=== PATIENT | male | born 1965 | race African-American/Black ===

== ENCOUNTER 2017-09-26 21:42 | Inpatient (IN) | payer MEDICARE, MEDICAID ==
[~2017-09-26] VITALS: Ht 170.2 cm; Wt 131.5 kg
[~2017-09-26 21:42] MED LIST: ADALAT CC90 MG ORAL; GABAPENTIN300 MG PO; INSULIN N SUBQ; INSULIN R SUBQ; METOPROLOL PO; REGULAR INSULIN
[2017-09-27] VITALS: BP 106/55
[2017-09-27] MEDS ORDERED: Sennosides 8.6mg ORAL PRN (02:00)
[2017-09-27] MEDS ORDERED: NOVOLOG100 UNIT/4 SQ (02:50)
[2017-09-27] MEDS ORDERED: SENSIPAR60 MG PO (02:50)
[2017-09-27] MEDS ORDERED: RENVELA800 MG ORAL (02:50)
[2017-09-27] MEDS ORDERED: NEURONTIN300 MG ORAL (02:50)
[2017-09-27] MEDS ORDERED: SENNA8.6 M2 PO (02:50)
[2017-09-27] MEDS ORDERED: LIPITOR80 MG ORAL (02:50)
[2017-09-27] MEDS ORDERED: SEVELAMER CARB0.8 GM PO (02:50)
[2017-09-27] MEDS ORDERED: ASPIRIN300 MG PO (02:50)
[2017-09-27] MEDS ORDERED: POLYETHYLENE GL17 GM ORAL (02:50)
[2017-09-27] MEDS ORDERED: AMIODARONE HCL100 MG ORAL (02:50)
[2017-09-27] MEDS ORDERED: [UNRECOGNIZED DRUG - OTHER] PO (02:50)
[2017-09-27] MEDS ORDERED: Zosyn 2.25 gm in D5W 55ml IV ONE (03:30)
[2017-09-27] MEDS ORDERED: Vancomycin 1250mg/D5W 250ml IVPB ONE ×2 (03:30→04:30)
[2017-09-27] MEDS ORDERED: Zosyn 2.25gm inj ONE (03:52)
[2017-09-27 04:00] VITALS: BP 106/45
[2017-09-27] MEDS: NovoLOG Insulin Flexpen SUBQ SCH ×4 (06:50→21:00)
[2017-09-27 07:59] VITALS: BP 111/67
[2017-09-27] MEDS: Heparin 5000 units/ml inj SUBQ SCH ×2 (09:00→21:25)
[2017-09-27] MEDS: Aspirin Baby 81mg ORAL SCH (09:09)
[2017-09-27] MEDS: Amiodarone 200mg tab ORAL SCH ×2 (09:10→17:37)
[2017-09-27] MEDS: Sensipar 30mg Tab ORAL SCH (09:10)
[2017-09-27] MEDS: Miralax 17gm pkt ORAL SCH (09:10)
[2017-09-27] MEDS: Levemir Flexpen SUBQ SCH (09:11)
--- NOTE | 2017-09-27 10:24 | Consultation ---
History of Present Illness General Date patient seen: Sep 27, 2017 Present Illness HPI 52 year old male with hx of ESRF, HTN, arrhythmias, diabetic foot ulcer was taken to [place] with CC of dizziness. After initial evaluation, [place] [facility]. Allergies: Coded Allergies: No Known Allergies (Unverified , 09/27/17) Medication History Scheduled Amiodarone Hcl (Amiodarone Hcl), 200 MG ORAL BID, (Reported) Aspirin (Aspirin), 81 MG PO DAILY, (Reported) Atorvastatin (Lipitor), 40 MG ORAL BEDTIME, (Reported) Cinacalcet Hcl (Sensipar), 60 MG PO DAILY, (Reported) Clopidogrel Bisulfate (Clopidogrel Bisulfate), 75 GM PO DAILY, (Reported) Gabapentin (Neurontin), 300 MG ORAL TID, (Reported) Polyethylene Glycol 3350* (Polyethylene Glycol 3350*), 17 GM ORAL BEDTIME, ( Reported) Sevelamer Carbonate (Renvela), 2,400 MG ORAL THREE TIMES A DAY, (Reported) Scheduled PRN Insulin Aspart (Novolog), 1 SQ for sliding scale, (Reported) Sennosides (Senna), 8.6 MG PO BEDTIME PRN for prn, (Reported) Discontinued Medications Gabapentin* (Gabapentin*), 900 MG PO BID, (Reported) Discontinued Reason: Therapy completed Nifedipine Er* (Adalat Cc*), 90 MG ORAL BID, (Reported) Discontinued Reason: Pt stopped taking med Patient History Healthcare decision maker Resuscitation status Full Code Advanced Directive on File No Past Medical/Surgical History Past Medical/Surgical History: (1) ESRF (end stage renal failure) (2) Arrhythmia (3) Diabetes mellitus Review of Systems All Other Systems: negative except mentioned in HPI Physical Exam General Appearance: WD/WN Lines, tubes and drains: peripheral, shunt HEENT: normocephalic, atraumatic Neck: non-tender, normal alignment Respiratory/Chest: chest wall non-tender, lungs clear Breasts: no masses Cardiovascular/Chest: normal rate Abdomen: normal bowel sounds, non tender Genitourinary/Rectal: normal genital exam Last 24 Hour Vital Signs Date Time Temp Pulse Resp B/P (MAP) Pulse Ox O2 Delivery O2 Flow Rate FiO2 09/27/17 07:59 98.3 77 19 111/67 100 09/27/17 04:00 97.3 72 20 106/45 97 09/27/17 00:00 98.3 64 21 106/55 100 Intake and Output 09/26/17 09/27/17 19:00 07:00 Intake Total 521.667 ml Balance 521.667 ml Intake Oral 300 ml IV Total 221.667 ml # Bowel Movements 1 Microbiology Date/Time Source Procedure Growth Status 09/27/17 02:30 Nasal Nares Influenza Types A,B Antigen (DON) - Final Complete Height (Feet): 5 Height (Inches): 7.00 Weight (Pounds): 290 Medications Current Medications Medications (Trade) Dose Ordered Sig/Georges Route PRN Reason Start Time Stop Time Status Last Admin Dose Admin Amiodarone HCl (Cordarone) 200 mg BID ORAL 09/27/17 09:00 10/27/17 08:59 09/27/17 09:10 Aspirin (ASA) 81 mg DAILY ORAL 09/27/17 09:00 10/27/17 08:59 09/27/17 09:09 Atorvastatin Calcium (Lipitor) 40 mg BEDTIME ORAL 09/27/17 21:00 10/27/17 20:59 Cinacalcet (Sensipar) 60 mg DAILY ORAL 09/27/17 09:00 10/27/17 08:59 09/27/17 09:10 Clopidogrel Bisulfate (Plavix) 75 mg DAILY ORAL 09/27/17 09:00 10/27/17 08:59 09/27/17 09:10 Dextrose (Dextrose 50%) STAT PRN IV Hypoglycemia 09/27/17 02:45 10/27/17 02:44 Gabapentin (Neurontin) 300 mg THREE TIMES A DAY ORAL 09/27/17 09:00 10/27/17 08:59 UNV Heparin Sodium (Porcine) (Heparin 5000 units/ml) 5,000 units EVERY 8 HOURS SUBQ 09/27/17 09:00 10/27/17 08:59 Insulin Aspart (NovoLOG) BEFORE MEALS AND HS SUBQ 09/27/17 06:30 10/27/17 06:29 09/27/17 06:50 Insulin Detemir (Levemir) 20 units DAILY SUBQ 09/27/17 09:00 10/27/17 08:59 09/27/17 09:11 Piperacillin Sod/ Tazobactam Sod 2.25 gm/Sodium Chloride 110 ml @ 220 mls/hr EVERY 8 HOURS IV 09/27/17 14:00 10/04/17 13:59 Polyethylene Glycol (Miralax) 17 gm DAILY ORAL 09/27/17 09:00 10/27/17 08:59 09/27/17 09:10 Sennosides (Senokot) 2 tab BEDTIME PRN ORAL Constipation 09/27/17 02:00 10/27/17 01:59 Sevelamer Carbonate (Renvela) 2,400 mg THREE TIMES A DAY ORAL 09/27/17 09:00 10/27/17 08:59 09/27/17 09:09 Vancomycin HCl (Vanco rx to dose) 1 ea DAILY PRN MISC Per rx protocol 09/27/17 01:45 10/27/17 01:44 Assessment/Plan Problem List: (1) Sepsis ICD Codes: A41.9 - Sepsis, unspecified organism SNOMED: 00446938 (2) Diabetic foot ulcer ICD Codes: E11.621 - Type 2 diabetes mellitus with foot ulcer; L97.509 - Non- pressure chronic ulcer of other part of unspecified foot with unspecified severity SNOMED: 79676383, 612158869 (3) Arrhythmia ICD Codes: I49.9 - Cardiac arrhythmia, unspecified SNOMED: 337936821 (4) ESRF (end stage renal failure) ICD Codes: N18.6 - End stage renal disease SNOMED: 69841708 (5) Diabetes mellitus ICD Codes: E11.9 - Type 2 diabetes mellitus without complications SNOMED: 42344897 Assessment/Plan wound care iv abx iD evaluaiton nephrology evaluation dvt prophylaxis Podiatry to seeDr Nejat called ZARRABI, MIRALI Sep 27, 2017 10:24
--- NOTE | 2017-09-27 10:34 | Consultation ---
Consult Note Consult Note asked to eval for dialysis management 7.5 years on HD M W Fr 52 year old male with hx of ESRF, HTN, arrhythmias, diabetic foot ulcer was taken to [place] with CC of dizziness. After initial evaluation, pt is transferred to [facility] [place] for further treatment. interviewed- examined- paulo reviewed . Assessment/Plan ESRD on HD M W Fr - Sepsis - Diabetic foot ulcer - Right lower extremity wounds, grossly they are not infected. - Left heel wound, left gangrene changes of the third, fourth and fifth toes, rule out osteomyelitis. - Arrhythmia - Diabetes mellitus - PVD Plan: Per ID HD in [facility] Contre[facility] Sep 27, 2017 10:34
--- NOTE | 2017-09-27 10:43 | Consultation ---
Consult Note Consult Note ID DIC # [id number] ANGIE LUND M.D. Sep 27, 2017 10:43
[2017-09-27 10:58] LABS: ALANINE AMINOTRANSFERASE 19 U/L (12-78); ALBUMIN/GLOBULIN RATIO 0.3 (1.0-2.7); ALKALINE PHOSPHATASE 148 U/L (46-116); ANION GAP 9 mmol/L (5-15); ASPARTATE AMINO TRANSFERASE 16 U/L (15-37); BILIRUBIN,TOTAL 0.7 MG/DL (0.2-1.0); BLOOD UREA NITROGEN 41 mg/dL (7-18); CALCIUM 9.8 MG/DL (8.5-10.1); CARBON DIOXIDE 30 MMOL/L (21-32); CHLORIDE 93 MMOL/L (98-107); CREATININE 8.2 MG/DL (0.55-1.30); PHOSPHORUS 3.3 MG/DL (2.5-4.9); POTASSIUM 4.4 MMOL/L (3.5-5.1); SODIUM 131 MMOL/L (136-145)
[2017-09-27 11:18] LABS: HEMATOCRIT 26.3 % (42.0-52.0); HEMOGLOBIN 8.5 G/DL (14.2-18.0); MEAN CORPUSCULAR VOLUME 88 FL (80-99); PLATELET COUNT 559 K/UL (150-450); RED CELL DISTRIBUTION WIDTH 17.1 % (11.6-14.8)
[2017-09-27 11:23] LABS: WHITE BLOOD COUNT 25.7 K/UL (4.8-10.8)
[2017-09-27 11:39] VITALS: BP 108/58
[2017-09-27] MEDS: Piperacillin/Tazobactam 2.25 GM in NS 110 ML IV SCH ×2 (13:33→21:20)
--- NOTE | 2017-09-27 14:25 | Cardiology Report ---
APPROVED REPORT EXAM: Two-dimensional and M-mode echocardiogram with Doppler and color Doppler. INDICATION Congestive Heart Failure M-Mode DIMENSIONS IVSd1.4 (0.7-1.1cm)Left Atrium (MM)3.9 (1.6-4.0cm) LVDd6.9 (3.5-5.6cm)Aortic Root4.1 (2.0-3.7cm) PWd1.4 (0.7-1.1cm)Aortic Cusp Exc.2.0 (1.5-2.0cm) IVSs1.9 cm LVDs5.6 (2.5-4.0cm) PWs1.5 cm Technically difficult study due to poor acoustical windows. Mild global left ventricular hypokinesis. This study precludes full analysis of regional wall motion. Left ventricular ejection fraction estimated to be 5 %. No evidence left ventricular hypertrophy.. No evidence of pericardial effusion Right cardiac chamber sizes are within normal limits. Focal aortic valve sclerosis with adequate cusp excursion. Heavy Thickened mitral valve leaflets with normal excursion. Heavy Mitral annulus and aortic root calcification. Normal pulmonic valve structure . Normal tricuspid valve structure. IVC dialeted at size 2.7 with slightly physiologic collapse. A color flow and spectral Doppler study was performed and revealed: Trace aortic regurgitation. Mild to moderate mitral regurgitation. Mitral inflow velocities indicates possible pseudo normalization pattern implying moderately elevated left atrial pressure (Grade II ). Trace tricuspid regurgitation. No Pulmonic regurgitation present.
[2017-09-27 15:48] VITALS: BP 128/78
[2017-09-27] MEDS ORDERED: Tubing IV Secondary IV ONE (16:19)
[2017-09-27] MEDS ORDERED: NS 275ml ONE (16:19)
--- NOTE | 2017-09-27 16:30 | Consultation ---
DATE OF CONSULTATION: 09/27/2017 INFECTIOUS DISEASE CONSULTATION CONSULTING PHYSICIAN: Martin Thompson M.D. REFERRING PHYSICIAN: Vanessa Chauhan M.D. REASON FOR CONSULTATION: Evaluation of patient for lower extremity wound infection and antibiotic management. HISTORY OF PRESENT ILLNESS: The patient is a 52-year-old male with multiple medical problems, who was admitted to this medical center for worsening of left lower extremity wound infection. The patient has gangrene changes in the area. The patient has been followed by [facility] as an outpatient. Infectious Disease consultation has been requested for further evaluation of the patient. The patient mentioned he had an MRI of the foot back in July 2007 and there was no evidence of osteomyelitis at that point. PAST MEDICAL HISTORY: 1. Diabetes. 2. End-stage renal disease, on hemodialysis. 3. Obesity. 4. Diabetic neuropathy. 5. Bilateral lower extremity wounds. 6. History of CAD. 7. History of cardiac arrest. 8. History of myocardial infarction. SOCIAL HISTORY: Negative for alcohol, drug abuse, or smoking. FAMILY HISTORY: Not contributing. REVIEW OF SYSTEMS: HEENT: No recent change in vision or hearing. PULMONARY: No cough or shortness of breath. CARDIOVASCULAR: No chest pain or palpitations. GASTROINTESTINAL/ABDOMEN: No nausea or vomiting. GENITOURINARY: No dysuria. MUSCULOSKELETAL: As mentioned above. NEUROLOGIC: No history of seizure. PHYSICAL EXAMINATION: VITAL SIGNS: Temperature 98 degrees, blood pressure 111/65, pulse 86, and respiratory rate 18. HEENT: No pale conjunctivae. No icterus. NECK: No lymphadenopathy. CHEST: Clear. HEART: S1 and S2. ABDOMEN: Soft, obese, nontender. EXTREMITIES: The patient has multiple wounds in the right lower extremity (right calf and right big toe). They are dried. No evidence of active infection. Left heel has ulceration. No drainage. The patient's left third, fourth and fifth toes have gangrenous changes. Has drainage, but no obvious purulent discharge. NEUROLOGIC: Awake and alert. LABORATORY AND DIAGNOSTIC DATA: Laboratories are pending. ASSESSMENT: The patient is a 52-year-old male with, 1. Right lower extremity wounds, grossly they are not infected. 2. Left heel wound, left gangrene changes of the third, fourth and fifth toes, rule out osteomyelitis. 3. Probable peripheral vascular disease. PLAN: 1. We will start patient on Vancomycin and Zosyn day #1. 2. Monitor CBC. 3. Monitor BMP. 4. Blood culture. 5. We will hold on wound culture as the patient's wounds are dry and there is significant findings. 6. MRI of the right foot, rule out osteomyelitis. 7. Recommend for Podiatry and vascular surgeon consultation. 8. Based on the patient's clinical course and laboratories, we will do further recommendation. Thank you, Dr. Chauhan, for allowing me to participate in the care of this patient. I will follow the patient with you during this hospitalization. Martin Thompson M.D. DR: ANDIE JOB#: [id number] CC:
--- NOTE | 2017-09-27 17:36 | History & Physical ---
History and Physical History & Physicial Dictated for Int Med-Dr Montes no. [id number]. LETY MATOS Sep 27, 2017 17:36
[2017-09-27] MEDS ORDERED: Amiodarone 200mg tab ORAL SCH (18:00)
--- NOTE | 2017-09-27 19:30 | History and Physical Report ---
DATE OF ADMISSION: 09/27/2017 CHIEF COMPLAINT: The patient is a 52-year-old male, presents with chief complaint of subjective fevers and chills and cough. HISTORY OF PRESENT ILLNESS: It began approximately 4 weeks ago. The patient began to have cough. Cough is nonproductive. The patient began to experience fevers and chills yesterday. The patient also felt dizzy. The patient states he felt unsteady. The patient initially presented to [facility] emergency room. The patient is transferred to [facility] for insurance purposes. The patient is admitted for fever and chills to rule out sepsis. PAST MEDICAL HISTORY: Significant for: 1. Type 2 diabetes. 2. Diabetic peripheral neuropathy. 3. Coronary artery disease, status post myocardial infarction in 2017. 4. End-stage renal disease, on hemodialysis every Thursday, Thursday, and Thursday. PAST SURGICAL HISTORY: Significant for right arm arteriovenous graft for dialysis. CURRENT MEDICATIONS: 1. Amiodarone 100 mg two tablets p.o. twice daily. 2. Aspirin 81 mg p.o. daily. 3. Lipitor 40 mg p.o. at bedtime. 4. Cinacalcet 60 mg p.o. daily. 5. Clopidogrel 75 mg p.o. daily. 6. Neurontin 300 mg p.o. three times daily. 7. NovoLog sliding scale. 8. Renvela 2400 mg p.o. three times daily. ALLERGIES: No known drug allergies. SOCIAL HISTORY: The patient is . The patient denies tobacco or alcohol use. The patient is disabled. REVIEW OF SYSTEMS: CONSTITUTIONAL: The patient denies weight loss or weight gain. The patient complains of subjective fevers and chills as above. HEENT: The patient denies ear or throat pain. The patient denies headache. CARDIOVASCULAR: The patient denies palpitations or chest pain. CHEST: The patient denies wheeze or shortness of breath. ABDOMEN: The patient denies nausea, vomiting, diarrhea, or constipation. GENITOURINARY: The patient denies dysuria or increased frequency of urination. NEUROMUSCULAR: The patient complains of vertigo as above. The patient denies seizures or generalized weakness. PHYSICAL EXAMINATION: GENERAL: The patient is a well-developed and well-nourished male, in no apparent distress. VITAL SIGNS: Temperature 98.2 degrees, respirations 21, pulse 64, and blood pressure 106/55. HEENT: Eyes, pupils are equal and responsive to light and accommodation. Extraocular movements are intact. NECK: Supple without lymphadenopathy. CHEST: Lungs are clear to auscultation bilaterally without wheezes or rales. CARDIOVASCULAR: Regular rhythm and rate. S1 and S2 are normal without murmurs, rubs, or gallops. ABDOMEN: Soft, nontender, and nondistended. Positive bowel sounds. No evidence of hepatosplenomegaly. Currently, no rebound or guarding noted. EXTREMITIES: Negative for clubbing, cyanosis, or edema. RECTAL/GENITAL: Refused. NEUROLOGIC: Cranial nerves II through XII are grossly intact without focal deficits. Motor strength is 5/5 bilaterally. Deep tendon reflexes are 2+ plantar. LABORATORY AND DIAGNOSTIC DATA: WBC 25.7, hemoglobin 8.5, hematocrit 26.3 and platelets 559,000. Sodium 131, potassium 4.4, chloride 193, CO2 30, BUN 41, creatinine 8.2 and glucose 159. ASSESSMENT: This is a 52-year-old male: 1. Fever. 2. Vertigo. 3. End-stage renal disease. 4. Diabetes, type 2. 5. Hypertension. 6. Coronary artery disease. TREATMENT: 1. Fever. Infectious Disease consultation has been obtained with Dr. Thompson. The patient has been started empirically on Zosyn. We will follow recommendations of Dr. Thompson. 2. End-stage renal disease. A Nephrology consultation has been obtained with Dr. Wild. The patient will undergo dialysis every Thursday, Thursday, and Thursday. We will follow recommendations of Dr. Wild. 3. Diabetes, type 2. The patient has been started on Levemir 20 units subcutaneously daily. A regular insulin sliding scale will be used to cover elevated blood sugar. 4. Hypertension. Continue currently on medication. 5. Hypercholesterolemia. Continue atorvastatin as above. 6. Peripheral vascular disease. A Podiatry consultation has been obtained with Dr. Harrington. Wilton Aburto M.D. DR: YVONNE JOB#: [id number] CC:
[2017-09-27 19:59] VITALS: BP 106/53
[2017-09-27] MEDS ORDERED: Atorvastatin 80mg tab ORAL SCH (21:00)
[2017-09-27] MEDS: Atorvastatin 20mg tab ORAL SCH (21:19)
[2017-09-28] VITALS: BP 104/68
[2017-09-28 04:00] VITALS: BP 110/71
[2017-09-28] MEDS: Piperacillin/Tazobactam 2.25 GM in NS 110 ML IV SCH ×3 (06:08→21:43)
[2017-09-28] MEDS: Heparin 5000 units/ml inj SUBQ SCH ×3 (06:25→21:59)
[2017-09-28] MEDS: NovoLOG Insulin Flexpen SUBQ SCH ×4 (06:26→21:57)
[2017-09-28 07:22] LABS: % IRON SATURATION 22 % (15-50); IRON 16 ug/dL (50-175); TOTAL IRON BINDING CAPACITY 73 ug/dL (250-450)
[2017-09-28 07:28] LABS: HEMATOCRIT 26.4 % (42.0-52.0); HEMOGLOBIN 8.4 G/DL (14.2-18.0); MEAN CORPUSCULAR VOLUME 86 FL (80-99); PLATELET COUNT 587 K/UL (150-450); RED BLOOD COUNT 3.07 M/UL (4.70-6.10); RED CELL DISTRIBUTION WIDTH 16.5 % (11.6-14.8)
[2017-09-28 07:30] LABS: WHITE BLOOD COUNT 22.1 K/UL (4.8-10.8)
[2017-09-28 07:37] LABS: CREATINE KINASE 32 U/L (26-308); GAMMA GLUTAMYL TRANSPEPTIDASE 261 U/L (5-85)
[2017-09-28 07:39] LABS: ALANINE AMINOTRANSFERASE 16 U/L (12-78); ALBUMIN 1.9 G/DL (3.4-5.0); ALBUMIN/GLOBULIN RATIO 0.3 (1.0-2.7); ALKALINE PHOSPHATASE 157 U/L (46-116); ANION GAP 9 mmol/L (5-15); ASPARTATE AMINO TRANSFERASE 16 U/L (15-37); BILIRUBIN,TOTAL 0.6 MG/DL (0.2-1.0); BLOOD UREA NITROGEN 49 mg/dL (7-18); CALCIUM 9.3 MG/DL (8.5-10.1); CARBON DIOXIDE 28 MMOL/L (21-32); CHLORIDE 95 MMOL/L (98-107); CHOLESTEROL 66 MG/DL (< 200); CREATININE 9.6 MG/DL (0.55-1.30); FERRITIN > 2000 NG/ML (8-388); HDL CHOLESTEROL 20 MG/DL (40-60); PHOSPHORUS 3.6 MG/DL (2.5-4.9); POTASSIUM 4.9 MMOL/L (3.5-5.1); SODIUM 132 MMOL/L (136-145); TRIGLYCERIDES 58 MG/DL (30-150)
[2017-09-28] MEDS: Miralax 17gm pkt ORAL SCH (09:14)
[2017-09-28] MEDS: Amiodarone 200mg tab ORAL SCH ×2 (09:14→18:00)
[2017-09-28] MEDS: Aspirin Baby 81mg ORAL SCH (09:14)
[2017-09-28] MEDS: Sensipar 30mg Tab ORAL SCH (09:14)
[2017-09-28] MEDS: Levemir Flexpen SUBQ SCH (09:22)
[2017-09-28] MEDS ORDERED: Vancomycin 1250mg/D5W 250ml IVPB ONE (12:00)
--- NOTE | 2017-09-28 13:23 | Nephrology Progress Note ---
Assessment/Plan Problem List: (1) ESRF (end stage renal failure) (2) Sepsis (3) Diabetic foot ulcer (4) Diabetes mellitus (5) Arrhythmia Assessment ESRD on HD M W Fr - Sepsis - Diabetic foot ulcer - Right lower extremity wounds, grossly they are not infected. - Left heel wound, left gangrene changes of the third, fourth and fifth toes, rule out osteomyelitis. - Arrhythmia - Diabetes mellitus - PVD Plan Plan: Per ID HD today Subjective ROS Limited/Unobtainable: No Constitutional: Reports: malaise, weakness Objective Objective Last 24 Hour Vital Signs Date Time Temp Pulse Resp B/P (MAP) Pulse Ox O2 Delivery O2 Flow Rate FiO2 09/28/17 04:00 97.9 71 20 110/71 93 09/28/17 00:00 97.2 85 18 104/68 92 09/27/17 19:59 96.8 76 20 106/53 96 09/27/17 15:48 97.9 75 18 128/78 98 Intake and Output 09/27/17 09/28/17 19:00 07:00 Intake Total 580 ml 350 ml Output Total 0 ml Balance 580 ml 350 ml Intake Oral 360 ml 240 ml IV Total 220 ml 110 ml Output Urine Total 0 ml Laboratory Tests 09/28/17 05:20: White Blood Count 22.1*H, Red Blood Count 3.07L, Hemoglobin 8.4L, Hematocrit 26.4L, Mean Corpuscular Volume 86, Mean Corpuscular Hemoglobin 27.3, Mean Corpuscular Hemoglobin Concent 31.8L, Red Cell Distribution Width 16.5H, Platelet Count 587H, Mean Platelet Volume 7.1, Neutrophils (%) (Auto) , Lymphocytes (%) (Auto) , Monocytes (%) (Auto) , Eosinophils (%) (Auto) , Basophils (%) (Auto) , Differential Total Cells Counted 100, Neutrophils % ( Manual) 81H, Lymphocytes % (Manual) 12L, Monocytes % (Manual) 6, Eosinophils % ( Manual) 1, Basophils % (Manual) 0, Band Neutrophils 0, Platelet Estimate IncreasedH, Platelet Morphology Normal, Hypochromasia 1+, Anisocytosis 1+, Erythrocyte Sedimentation Rate 122H, Sodium Level 132L, Potassium Level 4.9, Chloride Level 95L, Carbon Dioxide Level 28, Anion Gap 9, Blood Urea Nitrogen 49H, Creatinine 9.6H, Estimat Glomerular Filtration Rate 7.0, Glucose Level 113H , Hemoglobin A1c 7.3H, Uric Acid 6.5, Calcium Level 9.3, Phosphorus Level 3.6, Magnesium Level 2.3, Iron Level 16L, Total Iron Binding Capacity 73L, Percent Iron Saturation 22, Unsaturated Iron Binding 57L, Ferritin > 2000H, Total Bilirubin 0.6, Gamma Glutamyl Transpeptidase 261H, Aspartate Amino Transf (AST/ SGOT) 16, Alanine Aminotransferase (ALT/SGPT) 16, Alkaline Phosphatase 157H, Total Creatine Kinase 32, C-Reactive Protein, Quantitative 29.8H, Pro-B-Type Natriuretic Peptide 69509F, Total Protein 8.5H, Albumin 1.9L, Globulin 6.6, Albumin/Globulin Ratio 0.3L, Triglycerides Level 58, Cholesterol Level 66, LDL Cholesterol 35, HDL Cholesterol 20L, Cholesterol/HDL Ratio 3.3, Vitamin B12 Level 975, Folate 12.8, Thyroid Stimulating Hormone (TSH) 1.187, Random Vancomycin Level 13.9 Height (Feet): 5 Height (Inches): 7.00 Weight (Pounds): 290 General Appearance: no apparent distress Cardiovascular: normal rate, arrhythmia Respiratory/Chest: decreased breath sounds Abdomen: soft Extremities: other - foot ulceration per BREANN RAMIREZ Sep 28, 2017 13:23
--- NOTE | 2017-09-28 13:36 | Diagnostic Imaging Report ---
Indication: Pain Technique: Left foot imaging utilizing multiplanar T1 fast spin-echo and STIR. Study was performed in 2 stations to obtain adequate [id number]. Imaging consisted of 1. hindfoot-ankle and then 2. midfoot forefoot. Comparison: None Findings: With regard to the forefoot, there is clinical concern at the level of the phalanges. While of the ulcerations are not appreciated well on the images obtained, the bones exhibit relatively normal bone marrow signal. The only exception is the fifth phalange which shows mild peripheral T2 hyperintensity at the level of the phalanges and the fifth metatarsal head. T1 sequences within the fifth toe appear normal with preserved bright short T1 signal. Although osteomyelitis is not entirely excludable, findings are probably due to reactive bone marrow edema from surrounding soft tissue infection. Recommend follow-up. 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 With regard to the ankle and hindfoot, there is preserved bone marrow signal. Ulceration and skin irregularity along the medial part of the hindfoot noted. Subcutaneous edema is present. There is a joint effusion within the subtalar joint as well as within the tibiotalar joint. There is soft tissue edema posterior to the Achilles tendon with skin changes. The Achilles tendon itself appears intermediate in signal with areas of delamination. There is no rupture of the tendon but the tendon. Findings are presumably on the basis of contiguous adjacent soft tissue infection. Please correlate clinically. No abscess is identified. IMPRESSION: Peripheral, mild T2 hyperintense signal involving the head of the fifth metatarsal head and phalanges. Findings are most likely due to reactive bone marrow edema rather than osteomyelitis as T1 signal is normal. Follow-up recommended. No evidence of acute osteomyelitis otherwise within the forefoot, midfoot or hindfoot/ankle. Abnormal Achilles tendon with marked inflammation. Adjacent soft tissue inflammation, skin ulceration suspected resulting in the abnormal appearance of the Achilles tendon. Please correlate clinically. Generalized subcutaneous edema consistent with cellulitis.
--- NOTE | 2017-09-28 13:36 | Internal Med Progress Note ---
Subjective Date of Service: Sep 28, 2017 Physician Name Lety Matos Attending Physician Efraín Montes MD Current Medications Medications (Trade) Dose Ordered Sig/Georges Route PRN Reason Start Time Stop Time Status Last Admin Dose Admin Amiodarone HCl (Cordarone) 200 mg BID ORAL 09/27/17 09:00 10/27/17 08:59 09/28/17 09:14 Aspirin (ASA) 81 mg DAILY ORAL 09/27/17 09:00 10/27/17 08:59 09/28/17 09:14 Atorvastatin Calcium (Lipitor) 40 mg BEDTIME ORAL 09/27/17 21:00 10/27/17 20:59 09/27/17 21:19 Cinacalcet (Sensipar) 60 mg DAILY ORAL 09/27/17 09:00 10/27/17 08:59 09/28/17 09:14 Clopidogrel Bisulfate (Plavix) 75 mg DAILY ORAL 09/27/17 09:00 10/27/17 08:59 09/28/17 09:14 Dextrose (Dextrose 50%) STAT PRN IV Hypoglycemia 09/27/17 02:45 10/27/17 02:44 Gabapentin (Neurontin) 300 mg THREE TIMES A DAY ORAL 09/27/17 13:00 10/27/17 12:59 09/28/17 09:14 Heparin Sodium (Porcine) (Heparin 5000 units/ml) 5,000 units EVERY 8 HOURS SUBQ 09/27/17 09:00 10/27/17 08:59 09/28/17 06:25 Insulin Aspart (NovoLOG) BEFORE MEALS AND HS SUBQ 09/27/17 06:30 10/27/17 06:29 09/27/17 11:30 Insulin Detemir (Levemir) 20 units DAILY SUBQ 09/27/17 09:00 10/27/17 08:59 09/28/17 09:22 Lansoprazole (Prevacid) 30 mg DAILY ORAL 09/27/17 12:00 10/27/17 11:59 09/28/17 09:14 Piperacillin Sod/ Tazobactam Sod 2.25 gm/Sodium Chloride 110 ml @ 220 mls/hr EVERY 8 HOURS IV 09/27/17 14:00 10/04/17 13:59 09/28/17 06:08 Polyethylene Glycol (Miralax) 17 gm DAILY ORAL 09/27/17 09:00 10/27/17 08:59 09/28/17 09:14 Sennosides (Senokot) 2 tab BEDTIME PRN ORAL Constipation 09/27/17 02:00 10/27/17 01:59 Sevelamer Carbonate (Renvela) 2,400 mg THREE TIMES A DAY ORAL 09/27/17 09:00 10/27/17 08:59 09/28/17 09:14 Vancomycin HCl (Vanco rx to dose) 1 ea DAILY PRN MISC Per rx protocol 09/27/17 01:45 10/27/17 01:44 Allergies: Coded Allergies: No Known Allergies (Unverified , 09/27/17) ROS Limited/Unobtainable: No Constitutional: Reports: no symptoms HEENT: Reports: no symptoms Cardiovascular: Reports: no symptoms Gastrointestinal/Abdominal: Reports: no symptoms Genitourinary: Reports: no symptoms Neurologic/Psychiatric: Reports: no symptoms Subjective 52 YO M admitted with fever. Hemodialysis scheduled today. Cover for Int Stephen- Dr Montes Objective Last Vital Signs Date Time Temp Pulse Resp B/P (MAP) Pulse Ox O2 Delivery O2 Flow Rate FiO2 09/28/17 04:00 97.9 71 20 110/71 93 General Appearance: WD/WN, obese EENT: PERRL/EOMI, normal ENT inspection Neck: non-tender, normal alignment, supple Cardiovascular: normal peripheral pulses, normal rate, regular rhythm, no gallop/murmur, no JVD Respiratory/Chest: chest wall non-tender, lungs clear, normal breath sounds, no respiratory distress, no accessory muscle use Abdomen: normal bowel sounds, non tender, soft, no organomegaly, no mass Extremities: normal range of motion, non-tender 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: 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 normal, no motor/sensory deficits Skin: normal pigmentation, warm/dry Laboratory Tests Test 09/28/17 05:20 White Blood Count 22.1 K/UL (4.8-10.8) *H Red Blood Count 3.07 M/UL (4.70-6.10) L Hemoglobin 8.4 G/DL (14.2-18.0) L Hematocrit 26.4 % (42.0-52.0) L Mean Corpuscular Volume 86 FL (80-99) Mean Corpuscular Hemoglobin 27.3 PG (27.0-31.0) Mean Corpuscular Hemoglobin Concent 31.8 G/DL (32.0-36.0) L Red Cell Distribution Width 16.5 % (11.6-14.8) H Platelet Count 587 K/UL (150-450) H Mean Platelet Volume 7.1 FL (6.5-10.1) Neutrophils (%) (Auto) % (45.0-75.0) Lymphocytes (%) (Auto) % (20.0-45.0) Monocytes (%) (Auto) % (1.0-10.0) Eosinophils (%) (Auto) % (0.0-3.0) Basophils (%) (Auto) % (0.0-2.0) Differential Total Cells Counted 100 Neutrophils % (Manual) 81 % (45-75) H Lymphocytes % (Manual) 12 % (20-45) L Monocytes % (Manual) 6 % (1-10) Eosinophils % (Manual) 1 % (0-3) Basophils % (Manual) 0 % (0-2) Band Neutrophils 0 % (0-8) Platelet Estimate Increased H Platelet Morphology Normal Hypochromasia 1+ Anisocytosis 1+ Erythrocyte Sedimentation Rate 122 MM/HR (0-20) H Sodium Level 132 MMOL/L (136-145) L Potassium Level 4.9 MMOL/L (3.5-5.1) Chloride Level 95 MMOL/L (98-107) L Carbon Dioxide Level 28 MMOL/L (21-32) Anion Gap 9 mmol/L (5-15) Blood Urea Nitrogen 49 mg/dL (7-18) H Creatinine 9.6 MG/DL (0.55-1.30) H Estimat Glomerular Filtration Rate 7.0 mL/min (>60) Glucose Level 113 MG/DL (74-106) H Hemoglobin A1c 7.3 % (4.3-6.0) H Uric Acid 6.5 MG/DL (2.6-7.2) Calcium Level 9.3 MG/DL (8.5-10.1) Phosphorus Level 3.6 MG/DL (2.5-4.9) Magnesium Level 2.3 MG/DL (1.8-2.4) Iron Level 16 ug/dL (50-175) L Total Iron Binding Capacity 73 ug/dL (250-450) L Percent Iron Saturation 22 % (15-50) Unsaturated Iron Binding 57 ug/dL (112-346) L Ferritin > 2000 NG/ML (8-388) H Total Bilirubin 0.6 MG/DL (0.2-1.0) Gamma Glutamyl Transpeptidase 261 U/L (5-85) H Aspartate Amino Transf (AST/SGOT) 16 U/L (15-37) Alanine Aminotransferase (ALT/SGPT) 16 U/L (12-78) Alkaline Phosphatase 157 U/L (46-116) H Total Creatine Kinase 32 U/L (26-308) C-Reactive Protein, Quantitative 29.8 mg/dL (0.00-0.90) H Pro-B-Type Natriuretic Peptide 61613 pg/mL (0-125) H Total Protein 8.5 G/DL (6.4-8.2) H Albumin 1.9 G/DL (3.4-5.0) L Globulin 6.6 g/dL Albumin/Globulin Ratio 0.3 (1.0-2.7) L Triglycerides Level 58 MG/DL (30-150) Cholesterol Level 66 MG/DL (< 200) LDL Cholesterol 35 mg/dL (<100) HDL Cholesterol 20 MG/DL (40-60) L Cholesterol/HDL Ratio 3.3 (3.3-4.4) Vitamin B12 Level 975 PG/ML (193-986) Folate 12.8 NG/ML (8.6-58.9) Thyroid Stimulating Hormone (TSH) 1.187 uiU/mL (0.358-3.740) Random Vancomycin Level 13.9 ug/mL Microbiology Date/Time Source Procedure Growth Status 09/27/17 09:50 Blood Blood Culture - Preliminary Resulted 09/27/17 02:30 Nasal Nares Influenza Types A,B Antigen (DON) - Final Complete Intake and Output 09/27/17 09/28/17 19:00 07:00 Intake Total 580 ml 350 ml Output Total 0 ml Balance 580 ml 350 ml Intake Oral 360 ml 240 ml IV Total 220 ml 110 ml Output Urine Total 0 ml Assessment/Plan Problem List: (1) Leukocytosis (2) Fever (3) ESRD (end stage renal disease) on dialysis Assessment & Plan: Hemodialysis M W F per nephrology (4) Diabetes mellitus, type II Assessment & Plan: Continue levemir and novolog (5) HTN (hypertension) (6) CAD (coronary artery disease) (7) Hypercholesteremia (8) Diabetic foot ulcer Assessment & Plan: Await podiatry consult. cont tiffanie and brian Status: not improved LETY MATOS Sep 28, 2017 13:36
--- NOTE | 2017-09-28 15:18 | Pulmonology Progress Note ---
Assessment/Plan Problems: (1) Sepsis (2) Diabetic foot ulcer (3) Arrhythmia (4) ESRF (end stage renal failure) (5) Diabetes mellitus Assessment/Plan Improving IV abx Check cultures Neurology to see for dizziness. HD by nephrology Subjective ROS Limited/Unobtainable: No Musculoskeletal: Reports: pain, swelling, stiffness Allergies: Coded Allergies: No Known Allergies (Unverified , 09/27/17) Objective Last 24 Hour Vital Signs Date Time Temp Pulse Resp B/P (MAP) Pulse Ox O2 Delivery O2 Flow Rate FiO2 09/28/17 04:00 97.9 71 20 110/71 93 09/28/17 00:00 97.2 85 18 104/68 92 09/27/17 19:59 96.8 76 20 106/53 96 09/27/17 15:48 97.9 75 18 128/78 98 Intake and Output 09/27/17 09/28/17 19:00 07:00 Intake Total 580 ml 350 ml Output Total 0 ml Balance 580 ml 350 ml Intake Oral 360 ml 240 ml IV Total 220 ml 110 ml Output Urine Total 0 ml General Appearance: no acute distress HEENT: normocephalic, atraumatic, PERRL Respiratory/Chest: chest wall non-tender, lungs clear, normal breath sounds, no respiratory distress Cardiovascular: normal peripheral pulses, normal rate, regular rhythm, no JVD Abdomen: normal bowel sounds, soft, non tender, no organomegaly, non distended , no mass Genitourinary: normal external genitalia Extremities: no cyanosis Skin: rash, lesions, ulcers, other - diabetic food lesions and ulceration Neurologic/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: 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, no motor/sensory deficits Microbiology Date/Time Source Procedure Growth Status 09/27/17 09:50 Blood Blood Culture - Preliminary Resulted 09/27/17 02:30 Nasal Nares Influenza Types A,B Antigen (DON) - Final Complete Laboratory Tests 09/28/17 05:20: White Blood Count 22.1*H, Red Blood Count 3.07L, Hemoglobin 8.4L, Hematocrit 26.4L, Mean Corpuscular Volume 86, Mean Corpuscular Hemoglobin 27.3, Mean Corpuscular Hemoglobin Concent 31.8L, Red Cell Distribution Width 16.5H, Platelet Count 587H, Mean Platelet Volume 7.1, Neutrophils (%) (Auto) , Lymphocytes (%) (Auto) , Monocytes (%) (Auto) , Eosinophils (%) (Auto) , Basophils (%) (Auto) , Differential Total Cells Counted 100, Neutrophils % ( Manual) 81H, Lymphocytes % (Manual) 12L, Monocytes % (Manual) 6, Eosinophils % ( Manual) 1, Basophils % (Manual) 0, Band Neutrophils 0, Platelet Estimate IncreasedH, Platelet Morphology Normal, Hypochromasia 1+, Anisocytosis 1+, Erythrocyte Sedimentation Rate 122H, Sodium Level 132L, Potassium Level 4.9, Chloride Level 95L, Carbon Dioxide Level 28, Anion Gap 9, Blood Urea Nitrogen 49H, Creatinine 9.6H, Estimat Glomerular Filtration Rate 7.0, Glucose Level 113H , Hemoglobin A1c 7.3H, Uric Acid 6.5, Calcium Level 9.3, Phosphorus Level 3.6, Magnesium Level 2.3, Iron Level 16L, Total Iron Binding Capacity 73L, Percent Iron Saturation 22, Unsaturated Iron Binding 57L, Ferritin > 2000H, Total Bilirubin 0.6, Gamma Glutamyl Transpeptidase 261H, Aspartate Amino Transf (AST/ SGOT) 16, Alanine Aminotransferase (ALT/SGPT) 16, Alkaline Phosphatase 157H, Total Creatine Kinase 32, C-Reactive Protein, Quantitative 29.8H, Pro-B-Type Natriuretic Peptide 11274K, Total Protein 8.5H, Albumin 1.9L, Globulin 6.6, Albumin/Globulin Ratio 0.3L, Triglycerides Level 58, Cholesterol Level 66, LDL Cholesterol 35, HDL Cholesterol 20L, Cholesterol/HDL Ratio 3.3, Vitamin B12 Level 975, Folate 12.8, Thyroid Stimulating Hormone (TSH) 1.187, Random Vancomycin Level 13.9 Current Medications Medications (Trade) Dose Ordered Sig/Georges Route PRN Reason Start Time Stop Time Status Last Admin Dose Admin Amiodarone HCl (Cordarone) 200 mg BID ORAL 09/27/17 09:00 10/27/17 08:59 09/28/17 09:14 Aspirin (ASA) 81 mg DAILY ORAL 09/27/17 09:00 10/27/17 08:59 09/28/17 09:14 Atorvastatin Calcium (Lipitor) 40 mg BEDTIME ORAL 09/27/17 21:00 10/27/17 20:59 09/27/17 21:19 Cinacalcet (Sensipar) 60 mg DAILY ORAL 09/27/17 09:00 10/27/17 08:59 09/28/17 09:14 Clopidogrel Bisulfate (Plavix) 75 mg DAILY ORAL 09/27/17 09:00 10/27/17 08:59 09/28/17 09:14 Dextrose (Dextrose 50%) STAT PRN IV Hypoglycemia 09/27/17 02:45 10/27/17 02:44 Gabapentin (Neurontin) 300 mg THREE TIMES A DAY ORAL 09/27/17 13:00 10/27/17 12:59 09/28/17 09:14 Heparin Sodium (Porcine) (Heparin 5000 units/ml) 5,000 units EVERY 8 HOURS SUBQ 09/27/17 09:00 10/27/17 08:59 09/28/17 14:47 Insulin Aspart (NovoLOG) BEFORE MEALS AND HS SUBQ 09/27/17 06:30 10/27/17 06:29 09/28/17 13:39 Insulin Detemir (Levemir) 20 units DAILY SUBQ 09/27/17 09:00 10/27/17 08:59 09/28/17 09:22 Lansoprazole (Prevacid) 30 mg DAILY ORAL 09/27/17 12:00 10/27/17 11:59 09/28/17 09:14 Piperacillin Sod/ Tazobactam Sod 2.25 gm/Sodium Chloride 110 ml @ 220 mls/hr EVERY 8 HOURS IV 09/27/17 14:00 10/04/17 13:59 09/28/17 06:08 Polyethylene Glycol (Miralax) 17 gm DAILY ORAL 09/27/17 09:00 10/27/17 08:59 09/28/17 09:14 Sennosides (Senokot) 2 tab BEDTIME PRN ORAL Constipation 09/27/17 02:00 10/27/17 01:59 Sevelamer Carbonate (Renvela) 2,400 mg THREE TIMES A DAY ORAL 09/27/17 09:00 10/27/17 08:59 09/28/17 09:14 Vancomycin HCl (Vanco rx to dose) 1 ea DAILY PRN MISC Per rx protocol 09/27/17 01:45 10/27/17 01:44 ARDEN CONCEPCION Sep 28, 2017 15:18
[2017-09-28 16:10] VITALS: BP 114/73
--- NOTE | 2017-09-28 17:02 | Consultation ---
Consult Note Assessment/Plan A/ 1) Wet gangrene left foot 2) Gangrene right hallux 3) PAD 4) DM 5) ESRD 6) h/o of [place] P/ 1) Patient was advised and educated on his condition. Patient was being seen by an outside Telecommunication Engineer and was never told he has gangrene. He was told that he would lose his toes and would need a miracle for them to heal. Educated him that he has wet gangrene and leukocytosis and his foot was making him sick. Advised that if he does not have a BKA, he will be risking . Patient understands and will need time to digest his condition. D/W Dr Aburto, and called Dr Oakley to perform amputation. 2) Vasc studies reviewed and will need vasc consult to evaluate RLE. The gangrene of the right hallux is dry and stable at this time. 3) Strict glycemic control 4) Cont wound care 5) Cont IV abx per ID Thank you Dr Aburto. Nestor Harrington DPM Sep 28, 2017 17:02
[2017-09-28 17:30] VITALS: BP 93/60
[2017-09-28 20:00] VITALS: BP 121/61
[2017-09-28 21:20] VITALS: BP 124/70
[2017-09-28] MEDS: Atorvastatin 20mg tab ORAL SCH (21:42)
[2017-09-29] VITALS (9 sets, daily range): BP systolic 88–119; BP diastolic 58–68
--- NOTE | 2017-09-29 02:30 | Consultation ---
DATE OF CONSULTATION: 09/28/2017 CONSULTING PHYSICIAN: Nestor Harrington D.P.M. REQUESTING PHYSICIAN: Wilton Aburto M.D. REASON FOR CONSULTATION: Diabetic foot ulcer and peripheral arterial disease. HISTORY OF PRESENT ILLNESS: The patient is a 52-year-old male who was admitted to [facility] for diabetic foot ulcer. He was seen at [facility] and transferred here for continued care. The patient states that he has been following Dr. Wheatley for many years now and this mixer driver was caring for his wounds. He states that his wounds have been improving and that he would likely lose the toes and would need a miracle to save his toes on his left foot. He is not aware that he has gangrenous toes as he has not been diagnosed with such. He does admit to fevers and chills, but no nausea or vomiting. PAST MEDICAL HISTORY: Significant for type 2 diabetes mellitus, coronary artery disease, end-stage renal disease, right arm AV fistula. MEDICATIONS: Per MAR and include Zosyn, Neurontin, heparin for DVT prophylaxis, and vancomycin. ALLERGIES: He has no known drug allergies. SOCIAL HISTORY: The patient resides at home. FAMILY HISTORY: Noncontributory. REVIEW OF SYSTEMS: HEENT: The patient denies any headaches, blurred vision, or ringing in the ears. CARDIORESPIRATORY: The patient denies any chest pain or shortness of breath. GENITOURINARY: The patient denies any urgency, frequency, burning upon urination, or hematuria. GASTROINTESTINAL: The patient denies any constipation, diarrhea, or blood in the stool. PHYSICAL EXAMINATION: VITAL SIGNS: Temperature is 98.2 degrees, pulse is 76, respirations 22, blood pressure is 114/73, and saturating 97% on room air. EXTREMITIES: Lower extremity physical exam, vascular, nonpalpable pedal pulses noted bilaterally. Right foot is warm. Left foot is cold. There is no cyanosis noted on the toes on the right. DERMATOLOGICAL: There are mummified gangrenous changes noted to the entire forefoot extending proximally over the dorsum of the left foot all the way to the left heel. The left heel is as well gangrenous and there is a large full-thickness ulceration noted with exposed Achilles. The left foot is malodorous. There is clear drainage noted from the left foot. There is necrosis noted on the distal aspect of the right hallux, this is dry and stable. No signs of acute infection are noted. NEUROLOGICAL: Protective threshold is absent. MUSCULOSKELETAL: There is no gross deformity noted. There is an amputation of the left great toe. The patient is ambulatory. LABORATORY DATA: White blood cell count is 22.1 down from his admission 25.7, hemoglobin and hematocrit is 8.4 and 26.4, and platelet count is 587,000. Sedimentation rate is 122. BUN is 49 and creatinine is 9.6. Hemoglobin A1c is 7.3. C-reactive protein is 29.8. Albumin is 1.9. IMAGING: Left foot and ankle MRI shows hyperintense signal involving the fifth metatarsal head and phalanges likely due to reactive bone marrow edema less than osteomyelitis as T1 signal is normal, followup is recommended. Likely due to the clinical picture, this is early stages of osteomyelitis. Abnormal Achilles tendon with marked inflammation with adjacent skin ulceration. Venous ultrasound performed on this admission shows no signs of DVT bilateral. Arterial ultrasound performed on this admission shows right lower extremity common femoral artery waveform analysis within normal limits. The tibioperoneal trunk is not well visualized. The proximal posterior tibial and dorsalis pedis arteries are moderately calcified. The anterior tibial artery is not visualized at all and the Doppler tibial waveforms are compatible with [id number] ischemia. Left leg, the common femoral artery waveform is within normal limits. There are calcifications noted at the superficial femoral and popliteal arteries. The tibioperoneal trunk was not well visualized. The distal posterior tib and anterior tib arteries are moderately calcified. The dorsalis pedis artery is not visualized and Doppler waveform analysis is compatible with moderate ischemia. ASSESSMENT: 1. Wet gangrene of the left foot. 2. Gangrene of the right hallux. 3. Peripheral arterial disease. 4. Diabetes mellitus. 5. End-stage renal disease. 6. History of amputation of the left hallux. 7. History of myocardial infarction. PLAN: 1. The patient was advised and educated on his condition. The patient was seen by an outside mixer driver and was never told he has gangrene. He was told that he would lose his toes and would need miracle to have them healed. The patient also states that he was at [facility] in the later part of 2017, for an angiogram and sustained an IA, I believe on that same admission, although chart review of [facility] system does not show any admission. The patient was educated on his wet gangrene, leukocytosis, and the fact that his foot is making him ill. I advised that if he does not amputate, he will be risking . The patient understands that he will need time to adjust to his condition. This was discussed with Dr. Aburto and I have called Dr. Oakley to evaluate and perform his amputation. 2. Vascular studies reviewed. He will need vascular consult to evaluate right lower extremity. Gangrene of the right hallux is dry and stable at this time. 3. Strict glycemic control. 4. Continue wound care. 5. Continue IV antibiotics per Infectious Diseases. Thank you for the courtesy of this consultation, Dr. Aburto. Nestor Harrington D.P.M. DR: Kye JOB#: [id number] CC:
[2017-09-29] MEDS: Piperacillin/Tazobactam 2.25 GM in NS 110 ML IV SCH (06:14)
[2017-09-29] MEDS: NovoLOG Insulin Flexpen SUBQ SCH ×4 (06:29→22:02)
[2017-09-29] MEDS: Heparin 5000 units/ml inj SUBQ SCH ×3 (06:30→22:03)
[2017-09-29 06:33] LABS: HEMATOCRIT 25.5 % (42.0-52.0); HEMOGLOBIN 8.2 G/DL (14.2-18.0); MEAN CORPUSCULAR VOLUME 87 FL (80-99); PLATELET COUNT 547 K/UL (150-450); RED BLOOD COUNT 2.92 M/UL (4.70-6.10); RED CELL DISTRIBUTION WIDTH 16.8 % (11.6-14.8); WHITE BLOOD COUNT 20.2 K/UL (4.8-10.8)
[2017-09-29 07:03] LABS: ANION GAP 7 mmol/L (5-15); BLOOD UREA NITROGEN 30 mg/dL (7-18); CALCIUM 8.9 MG/DL (8.5-10.1); CARBON DIOXIDE 34 MMOL/L (21-32); CHLORIDE 98 MMOL/L (98-107); CREATININE 7.3 MG/DL (0.55-1.30); POTASSIUM 4.2 MMOL/L (3.5-5.1); SODIUM 139 MMOL/L (136-145)
[2017-09-29] MEDS: Miralax 17gm pkt ORAL SCH (09:30)
[2017-09-29] MEDS: Sensipar 30mg Tab ORAL SCH (09:31)
[2017-09-29] MEDS: Aspirin Baby 81mg ORAL SCH (09:31)
[2017-09-29] MEDS: Amiodarone 200mg tab ORAL SCH ×2 (09:31→16:57)
[2017-09-29] MEDS: Levemir Flexpen SUBQ SCH (09:36)
--- NOTE | 2017-09-29 10:33 | Infectious Diseases Prog Note ---
Assessment/Plan Assessment/Plan ASSESSMENT: The patient is a 52-year-old male with, +ve Blood CX : 1/2 GPC ? Significance 2decho : no Veg Leukocytosis improving Right lower extremity wounds, grossly they are not infected. Left heel wound, left gangrene w changes of the third, fourth and fifth toes, MRI of the foot : no evidence of osteomyelitis Left heel has ulceration. No drainage. Left third, fourth and fifth toes have gangrenous changes. no obvious purulent discharge. NO wound culture sent ( no drainage ) MRI : Peripheral, mild T2 hyperintense signal involving the head of the fifth metatarsal head and phalanges. most likely due to reactive bone marrow edema rather than osteomyelitis as T1 signal is normal. No evidence of acute osteomyelitis otherwise within the forefoot, midfoot or hindfoot/ankle. Probable PVD Diabetes End-stage renal disease, on hemodialysis. Obesity. Diabetic neuropathy. Bilateral lower extremity wounds. History of CAD History of cardiac arrest History of myocardial infarction PLAN: Cont patient on Vancomycin and Zosyn day # 3 Monitor CBC. Monitor BMP. Blood culture Podiatry recommend Amputation GenSurg cons : P repeat blood Cx Subjective Allergies: Coded Allergies: No Known Allergies (Unverified , 09/27/17) Subjective pt refusing Amputation Objective Vital Signs Last 24 Hour Vital Signs Date Time Temp Pulse Resp B/P (MAP) Pulse Ox O2 Delivery O2 Flow Rate FiO2 09/29/17 09:27 83 102/60 09/29/17 08:15 98.9 81 23 88/61 99 Room Air 09/29/17 04:00 98.8 84 20 104/64 93 09/29/17 00:00 97.7 88 21 119/68 95 09/28/17 21:20 98.2 89 20 124/70 Room Air 09/28/17 21:20 Room Air 09/28/17 20:00 98.1 83 21 121/61 100 09/28/17 17:30 Room Air 09/28/17 17:30 98.1 86 20 93/60 Room Air 09/28/17 16:10 98.2 76 22 114/73 97 Room Air Height (Feet): 5 Height (Inches): 7.00 Weight (Pounds): 290 HEENT: anicteric Respiratory/Chest: no respiratory distress Cardiovascular: regularly irregular Abdomen: no organomegaly Microbiology Date/Time Source Procedure Growth Status 09/27/17 09:55 Blood Blood Culture - Preliminary NO GROWTH AFTER 24 HOURS Resulted 09/27/17 09:50 Blood Blood Culture - Preliminary Resulted 09/27/17 02:30 Nasal Nares Influenza Types A,B Antigen (DON) - Final Complete 09/27/17 02:30 Rectum VRE Culture - Final Enterococcus Faecium - Vre Complete Laboratory Tests Test 09/29/17 05:40 White Blood Count 20.2 K/UL (4.8-10.8) H Red Blood Count 2.92 M/UL (4.70-6.10) L Hemoglobin 8.2 G/DL (14.2-18.0) L Hematocrit 25.5 % (42.0-52.0) L Mean Corpuscular Volume 87 FL (80-99) Mean Corpuscular Hemoglobin 28.0 PG (27.0-31.0) Mean Corpuscular Hemoglobin Concent 32.0 G/DL (32.0-36.0) Red Cell Distribution Width 16.8 % (11.6-14.8) H Platelet Count 547 K/UL (150-450) H Mean Platelet Volume 6.9 FL (6.5-10.1) Neutrophils (%) (Auto) % (45.0-75.0) Lymphocytes (%) (Auto) % (20.0-45.0) Monocytes (%) (Auto) % (1.0-10.0) Eosinophils (%) (Auto) % (0.0-3.0) Basophils (%) (Auto) % (0.0-2.0) Differential Total Cells Counted 100 Neutrophils % (Manual) 86 % (45-75) H Lymphocytes % (Manual) 7 % (20-45) L Monocytes % (Manual) 7 % (1-10) Eosinophils % (Manual) 0 % (0-3) Basophils % (Manual) 0 % (0-2) Band Neutrophils 0 % (0-8) Platelet Estimate Increased H Platelet Morphology Normal Hypochromasia 1+ Anisocytosis 1+ Sodium Level 139 MMOL/L (136-145) Potassium Level 4.2 MMOL/L (3.5-5.1) Chloride Level 98 MMOL/L (98-107) Carbon Dioxide Level 34 MMOL/L (21-32) H Anion Gap 7 mmol/L (5-15) Blood Urea Nitrogen 30 mg/dL (7-18) H Creatinine 7.3 MG/DL (0.55-1.30) H Estimat Glomerular Filtration Rate 9.6 mL/min (>60) Glucose Level 185 MG/DL (74-106) H Calcium Level 8.9 MG/DL (8.5-10.1) Current Medications Medications (Trade) Dose Ordered Sig/Georges Route PRN Reason Start Time Stop Time Status Last Admin Dose Admin Amiodarone HCl (Cordarone) 200 mg BID ORAL 09/27/17 09:00 10/27/17 08:59 09/29/17 09:31 Aspirin (ASA) 81 mg DAILY ORAL 09/27/17 09:00 10/27/17 08:59 09/29/17 09:31 Atorvastatin Calcium (Lipitor) 40 mg BEDTIME ORAL 09/27/17 21:00 10/27/17 20:59 09/28/17 21:42 Cinacalcet (Sensipar) 60 mg DAILY ORAL 09/27/17 09:00 10/27/17 08:59 09/29/17 09:31 Clopidogrel Bisulfate (Plavix) 75 mg DAILY ORAL 09/27/17 09:00 10/27/17 08:59 09/29/17 09:31 Dextrose (Dextrose 50%) STAT PRN IV Hypoglycemia 09/27/17 02:45 10/27/17 02:44 Gabapentin (Neurontin) 300 mg THREE TIMES A DAY ORAL 09/27/17 13:00 10/27/17 12:59 09/29/17 09:31 Heparin Sodium (Porcine) (Heparin 5000 units/ml) 5,000 units EVERY 8 HOURS SUBQ 09/27/17 09:00 10/27/17 08:59 09/29/17 06:30 Insulin Aspart (NovoLOG) BEFORE MEALS AND HS SUBQ 09/27/17 06:30 10/27/17 06:29 09/29/17 06:29 Insulin Detemir (Levemir) 20 units DAILY SUBQ 09/27/17 09:00 10/27/17 08:59 09/29/17 09:36 Lansoprazole (Prevacid) 30 mg DAILY ORAL 09/27/17 12:00 10/27/17 11:59 09/29/17 09:31 Piperacillin Sod/ Tazobactam Sod 2.25 gm/Sodium Chloride 110 ml @ 220 mls/hr EVERY 8 HOURS IV 09/27/17 14:00 10/04/17 13:59 09/29/17 06:14 Polyethylene Glycol (Miralax) 17 gm DAILY ORAL 09/27/17 09:00 10/27/17 08:59 09/29/17 09:30 Sennosides (Senokot) 2 tab BEDTIME PRN ORAL Constipation 09/27/17 02:00 10/27/17 01:59 Sevelamer Carbonate (Renvela) 2,400 mg THREE TIMES A DAY ORAL 09/27/17 09:00 10/27/17 08:59 09/29/17 09:31 Vancomycin HCl (Vanco rx to dose) 1 ea DAILY PRN MISC Per rx protocol 09/27/17 01:45 10/27/17 01:44 ANGIE LUND M.D. Sep 29, 2017 10:33
--- NOTE | 2017-09-29 11:45 | Nephrology Progress Note ---
Assessment/Plan Problem List: (1) ESRF (end stage renal failure) (2) Sepsis (3) Diabetic foot ulcer (4) Diabetes mellitus (5) Arrhythmia Assessment ESRD on HD M W Fr - Sepsis - Diabetic foot ulcer - Right lower extremity wounds, grossly they are not infected. - Left heel wound, left gangrene changes of the third, fourth and fifth toes, rule out osteomyelitis. - Arrhythmia - Diabetes mellitus - PVD Plan Plan: Per ID HD done 09/28 next 09/30 continue rest Subjective ROS Limited/Unobtainable: No Constitutional: Reports: malaise Objective Objective Last 24 Hour Vital Signs Date Time Temp Pulse Resp B/P (MAP) Pulse Ox O2 Delivery O2 Flow Rate FiO2 09/29/17 09:27 83 102/60 09/29/17 08:15 98.9 81 23 88/61 99 Room Air 09/29/17 04:00 98.8 84 20 104/64 93 09/29/17 00:00 97.7 88 21 119/68 95 09/28/17 21:20 98.2 89 20 124/70 Room Air 09/28/17 21:20 Room Air 09/28/17 20:00 98.1 83 21 121/61 100 09/28/17 17:30 Room Air 09/28/17 17:30 98.1 86 20 93/60 Room Air 09/28/17 16:10 98.2 76 22 114/73 97 Room Air Intake and Output 09/28/17 09/29/17 19:00 07:00 Intake Total 1390 ml 110 ml Output Total 2500 ml Balance 1390 ml -2390 ml Intake Oral 1280 ml IV Total 110 ml 110 ml Hemodialysis UF 2500 ml # Voids 11 2 Laboratory Tests 09/29/17 05:40: White Blood Count 20.2H, Red Blood Count 2.92L, Hemoglobin 8.2L, Hematocrit 25.5L, Mean Corpuscular Volume 87, Mean Corpuscular Hemoglobin 28.0, Mean Corpuscular Hemoglobin Concent 32.0, Red Cell Distribution Width 16.8H, Platelet Count 547H, Mean Platelet Volume 6.9, Neutrophils (%) (Auto) , Lymphocytes (%) (Auto) , Monocytes (%) (Auto) , Eosinophils (%) (Auto) , Basophils (%) (Auto) , Differential Total Cells Counted 100, Neutrophils % ( Manual) 86H, Lymphocytes % (Manual) 7L, Monocytes % (Manual) 7, Eosinophils % ( Manual) 0, Basophils % (Manual) 0, Band Neutrophils 0, Platelet Estimate IncreasedH, Platelet Morphology Normal, Hypochromasia 1+, Anisocytosis 1+, Sodium Level 139, Potassium Level 4.2, Chloride Level 98, Carbon Dioxide Level 34H, Anion Gap 7, Blood Urea Nitrogen 30H, Creatinine 7.3H, Estimat Glomerular Filtration Rate 9.6, Glucose Level 185H, Calcium Level 8.9 Height (Feet): 5 Height (Inches): 7.00 Weight (Pounds): 290 General Appearance: no apparent distress Cardiovascular: normal rate Respiratory/Chest: lungs clear Abdomen: soft BREANN STEEL Sep 29, 2017 11:45
--- NOTE | 2017-09-29 13:24 | Pulmonology Progress Note ---
Assessment/Plan Problems: (1) Diabetic foot ulcer (2) Sepsis (3) Arrhythmia (4) ESRF (end stage renal failure) (5) Diabetes mellitus Assessment/Plan improving iv abx check cultures neurology to see for dizziness. HD by nephrology Subjective ROS Limited/Unobtainable: No Constitutional: Reports: no symptoms HEENT: Repors: no symptoms Allergies: Coded Allergies: No Known Allergies (Unverified , 09/27/17) Objective Last 24 Hour Vital Signs Date Time Temp Pulse Resp B/P (MAP) Pulse Ox O2 Delivery O2 Flow Rate FiO2 09/29/17 12:25 98.9 81 22 106/67 97 Room Air 09/29/17 12:08 98.7 81 22 88/58 97 Room Air 09/29/17 09:27 83 102/60 09/29/17 08:15 98.9 81 23 88/61 99 Room Air 09/29/17 04:00 98.8 84 20 104/64 93 09/29/17 00:00 97.7 88 21 119/68 95 09/28/17 21:20 98.2 89 20 124/70 Room Air 09/28/17 21:20 Room Air 09/28/17 20:00 98.1 83 21 121/61 100 09/28/17 17:30 Room Air 09/28/17 17:30 98.1 86 20 93/60 Room Air 09/28/17 16:10 98.2 76 22 114/73 97 Room Air Intake and Output 09/28/17 09/29/17 19:00 07:00 Intake Total 1390 ml 110 ml Output Total 2500 ml Balance 1390 ml -2390 ml Intake Oral 1280 ml IV Total 110 ml 110 ml Hemodialysis UF 2500 ml # Voids 11 2 General Appearance: WD/WN HEENT: normocephalic, atraumatic Respiratory/Chest: chest wall non-tender, normal breath sounds Cardiovascular: normal peripheral pulses, normal rate Abdomen: soft, non tender, no scars Genitourinary: normal external genitalia Extremities: other - clean dressing on foot Microbiology Date/Time Source Procedure Growth Status 09/27/17 09:55 Blood Blood Culture - Preliminary NO GROWTH AFTER 24 HOURS Resulted 09/27/17 09:50 Blood Blood Culture - Preliminary Resulted 09/27/17 02:30 Nasal Nares Influenza Types A,B Antigen (DON) - Final Complete 09/28/17 15:10 Leg Left Gram Stain Pending Resulted 09/28/17 15:10 Wound Culture - Preliminary Gram Negative Bacillus 1 Resulted 09/27/17 02:30 Rectum VRE Culture - Final Enterococcus Faecium - Vre Complete Laboratory Tests 09/29/17 05:40: White Blood Count 20.2H, Red Blood Count 2.92L, Hemoglobin 8.2L, Hematocrit 25.5L, Mean Corpuscular Volume 87, Mean Corpuscular Hemoglobin 28.0, Mean Corpuscular Hemoglobin Concent 32.0, Red Cell Distribution Width 16.8H, Platelet Count 547H, Mean Platelet Volume 6.9, Neutrophils (%) (Auto) , Lymphocytes (%) (Auto) , Monocytes (%) (Auto) , Eosinophils (%) (Auto) , Basophils (%) (Auto) , Differential Total Cells Counted 100, Neutrophils % ( Manual) 86H, Lymphocytes % (Manual) 7L, Monocytes % (Manual) 7, Eosinophils % ( Manual) 0, Basophils % (Manual) 0, Band Neutrophils 0, Platelet Estimate IncreasedH, Platelet Morphology Normal, Hypochromasia 1+, Anisocytosis 1+, Sodium Level 139, Potassium Level 4.2, Chloride Level 98, Carbon Dioxide Level 34H, Anion Gap 7, Blood Urea Nitrogen 30H, Creatinine 7.3H, Estimat Glomerular Filtration Rate 9.6, Glucose Level 185H, Calcium Level 8.9 Current Medications Medications (Trade) Dose Ordered Sig/Georges Route PRN Reason Start Time Stop Time Status Last Admin Dose Admin Amiodarone HCl (Cordarone) 200 mg BID ORAL 09/27/17 09:00 10/27/17 08:59 09/29/17 09:31 Aspirin (ASA) 81 mg DAILY ORAL 09/27/17 09:00 10/27/17 08:59 09/29/17 09:31 Atorvastatin Calcium (Lipitor) 40 mg BEDTIME ORAL 09/27/17 21:00 10/27/17 20:59 09/28/17 21:42 Cinacalcet (Sensipar) 60 mg DAILY ORAL 09/27/17 09:00 10/27/17 08:59 09/29/17 09:31 Clopidogrel Bisulfate (Plavix) 75 mg DAILY ORAL 09/27/17 09:00 10/27/17 08:59 09/29/17 09:31 Dextrose (Dextrose 50%) STAT PRN IV Hypoglycemia 09/27/17 02:45 10/27/17 02:44 Gabapentin (Neurontin) 300 mg THREE TIMES A DAY ORAL 09/27/17 13:00 10/27/17 12:59 09/29/17 09:31 Heparin Sodium (Porcine) (Heparin 5000 units/ml) 5,000 units EVERY 8 HOURS SUBQ 09/27/17 09:00 10/27/17 08:59 09/29/17 06:30 Insulin Aspart (NovoLOG) BEFORE MEALS AND HS SUBQ 09/27/17 06:30 10/27/17 06:29 09/29/17 11:39 Insulin Detemir (Levemir) 20 units DAILY SUBQ 09/27/17 09:00 10/27/17 08:59 09/29/17 09:36 Lansoprazole (Prevacid) 30 mg DAILY ORAL 09/27/17 12:00 10/27/17 11:59 09/29/17 09:31 Piperacillin Sod/ Tazobactam Sod 2.25 gm/Sodium Chloride 55 ml @ 110 mls/hr EVERY 8 HOURS IV 09/29/17 14:00 10/06/17 23:59 Polyethylene Glycol (Miralax) 17 gm DAILY ORAL 09/27/17 09:00 10/27/17 08:59 09/29/17 09:30 Sennosides (Senokot) 2 tab BEDTIME PRN ORAL Constipation 09/27/17 02:00 10/27/17 01:59 Sevelamer Carbonate (Renvela) 2,400 mg THREE TIMES A DAY ORAL 09/27/17 09:00 10/27/17 08:59 09/29/17 09:31 Vancomycin HCl (Vanco rx to dose) 1 ea DAILY PRN MISC Per rx protocol 09/27/17 01:45 10/27/17 01:44 ARDEN CONCEPCION Sep 29, 2017 13:24
[2017-09-29] MEDS: Piperacillin/Tazobactam 2.25 GM in NS 55 ML IV SCH ×2 (13:45→21:55)
--- NOTE | 2017-09-29 14:02 | Neurology Progress Note ---
Interim History Interim History ROS Limited/Unobtainable: No Objective Physical Exam Last Vital Signs Date Time Temp Pulse Resp B/P (MAP) Pulse Ox O2 Delivery O2 Flow Rate FiO2 09/29/17 12:25 98.9 81 22 106/67 97 Room Air Laboratory Tests Test 09/29/17 05:40 White Blood Count 20.2 K/UL (4.8-10.8) H Red Blood Count 2.92 M/UL (4.70-6.10) L Hemoglobin 8.2 G/DL (14.2-18.0) L Hematocrit 25.5 % (42.0-52.0) L Mean Corpuscular Volume 87 FL (80-99) Mean Corpuscular Hemoglobin 28.0 PG (27.0-31.0) Mean Corpuscular Hemoglobin Concent 32.0 G/DL (32.0-36.0) Red Cell Distribution Width 16.8 % (11.6-14.8) H Platelet Count 547 K/UL (150-450) H Mean Platelet Volume 6.9 FL (6.5-10.1) Neutrophils (%) (Auto) % (45.0-75.0) Lymphocytes (%) (Auto) % (20.0-45.0) Monocytes (%) (Auto) % (1.0-10.0) Eosinophils (%) (Auto) % (0.0-3.0) Basophils (%) (Auto) % (0.0-2.0) Differential Total Cells Counted 100 Neutrophils % (Manual) 86 % (45-75) H Lymphocytes % (Manual) 7 % (20-45) L Monocytes % (Manual) 7 % (1-10) Eosinophils % (Manual) 0 % (0-3) Basophils % (Manual) 0 % (0-2) Band Neutrophils 0 % (0-8) Platelet Estimate Increased H Platelet Morphology Normal Hypochromasia 1+ Anisocytosis 1+ Sodium Level 139 MMOL/L (136-145) Potassium Level 4.2 MMOL/L (3.5-5.1) Chloride Level 98 MMOL/L (98-107) Carbon Dioxide Level 34 MMOL/L (21-32) H Anion Gap 7 mmol/L (5-15) Blood Urea Nitrogen 30 mg/dL (7-18) H Creatinine 7.3 MG/DL (0.55-1.30) H Estimat Glomerular Filtration Rate 9.6 mL/min (>60) Glucose Level 185 MG/DL (74-106) H Calcium Level 8.9 MG/DL (8.5-10.1) Impression/Recommendations Problems: (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
--- NOTE | 2017-09-29 16:25 | Internal Med Progress Note ---
Subjective Date of Service: Sep 29, 2017 Physician Name Lety Matos Attending Physician Efraín Montes MD Current Medications Medications (Trade) Dose Ordered Sig/Georges Route PRN Reason Start Time Stop Time Status Last Admin Dose Admin Amiodarone HCl (Cordarone) 200 mg BID ORAL 09/27/17 09:00 10/27/17 08:59 09/29/17 09:31 Aspirin (ASA) 81 mg DAILY ORAL 09/27/17 09:00 10/27/17 08:59 09/29/17 09:31 Atorvastatin Calcium (Lipitor) 40 mg BEDTIME ORAL 09/27/17 21:00 10/27/17 20:59 09/28/17 21:42 Cinacalcet (Sensipar) 60 mg DAILY ORAL 09/27/17 09:00 10/27/17 08:59 09/29/17 09:31 Clopidogrel Bisulfate (Plavix) 75 mg DAILY ORAL 09/27/17 09:00 10/27/17 08:59 09/29/17 09:31 Dextrose (Dextrose 50%) STAT PRN IV Hypoglycemia 09/27/17 02:45 10/27/17 02:44 Gabapentin (Neurontin) 300 mg THREE TIMES A DAY ORAL 09/27/17 13:00 10/27/17 12:59 09/29/17 13:48 Heparin Sodium (Porcine) (Heparin 5000 units/ml) 5,000 units EVERY 8 HOURS SUBQ 09/27/17 09:00 10/27/17 08:59 09/29/17 13:47 Insulin Aspart (NovoLOG) BEFORE MEALS AND HS SUBQ 09/27/17 06:30 10/27/17 06:29 09/29/17 11:39 Insulin Detemir (Levemir) 20 units DAILY SUBQ 09/27/17 09:00 10/27/17 08:59 09/29/17 09:36 Lansoprazole (Prevacid) 30 mg DAILY ORAL 09/27/17 12:00 10/27/17 11:59 09/29/17 09:31 Piperacillin Sod/ Tazobactam Sod 2.25 gm/Sodium Chloride 55 ml @ 110 mls/hr EVERY 8 HOURS IV 09/29/17 14:00 10/06/17 23:59 09/29/17 13:45 Polyethylene Glycol (Miralax) 17 gm DAILY ORAL 09/27/17 09:00 10/27/17 08:59 09/29/17 09:30 Sennosides (Senokot) 2 tab BEDTIME PRN ORAL Constipation 09/27/17 02:00 10/27/17 01:59 Sevelamer Carbonate (Renvela) 2,400 mg THREE TIMES A DAY ORAL 09/27/17 09:00 10/27/17 08:59 09/29/17 13:46 Vancomycin HCl (Vanco rx to dose) 1 ea DAILY PRN MISC Per rx protocol 09/27/17 01:45 10/27/17 01:44 Allergies: Coded Allergies: No Known Allergies (Unverified , 09/27/17) ROS Limited/Unobtainable: No Constitutional: Reports: no symptoms HEENT: Reports: no symptoms Cardiovascular: Reports: no symptoms Respiratory: Reports: no symptoms Gastrointestinal/Abdominal: Reports: no symptoms Genitourinary: Reports: no symptoms Neurologic/Psychiatric: Reports: no symptoms Subjective 52 YO M admitted with fever. Now gangrene left foot. Await surgery consult. Cover for Int Med-Dr Montes Objective Last Vital Signs Date Time Temp Pulse Resp B/P (MAP) Pulse Ox O2 Delivery O2 Flow Rate FiO2 09/29/17 12:25 98.9 81 22 106/67 97 Room Air Laboratory Tests Test 09/29/17 05:40 White Blood Count 20.2 K/UL (4.8-10.8) H Red Blood Count 2.92 M/UL (4.70-6.10) L Hemoglobin 8.2 G/DL (14.2-18.0) L Hematocrit 25.5 % (42.0-52.0) L Mean Corpuscular Volume 87 FL (80-99) Mean Corpuscular Hemoglobin 28.0 PG (27.0-31.0) Mean Corpuscular Hemoglobin Concent 32.0 G/DL (32.0-36.0) Red Cell Distribution Width 16.8 % (11.6-14.8) H Platelet Count 547 K/UL (150-450) H Mean Platelet Volume 6.9 FL (6.5-10.1) Neutrophils (%) (Auto) % (45.0-75.0) Lymphocytes (%) (Auto) % (20.0-45.0) Monocytes (%) (Auto) % (1.0-10.0) Eosinophils (%) (Auto) % (0.0-3.0) Basophils (%) (Auto) % (0.0-2.0) Differential Total Cells Counted 100 Neutrophils % (Manual) 86 % (45-75) H Lymphocytes % (Manual) 7 % (20-45) L Monocytes % (Manual) 7 % (1-10) Eosinophils % (Manual) 0 % (0-3) Basophils % (Manual) 0 % (0-2) Band Neutrophils 0 % (0-8) Platelet Estimate Increased H Platelet Morphology Normal Hypochromasia 1+ Anisocytosis 1+ Sodium Level 139 MMOL/L (136-145) Potassium Level 4.2 MMOL/L (3.5-5.1) Chloride Level 98 MMOL/L (98-107) Carbon Dioxide Level 34 MMOL/L (21-32) H Anion Gap 7 mmol/L (5-15) Blood Urea Nitrogen 30 mg/dL (7-18) H Creatinine 7.3 MG/DL (0.55-1.30) H Estimat Glomerular Filtration Rate 9.6 mL/min (>60) Glucose Level 185 MG/DL (74-106) H Calcium Level 8.9 MG/DL (8.5-10.1) Microbiology Date/Time Source Procedure Growth Status 09/27/17 09:55 Blood Blood Culture - Preliminary NO GROWTH AFTER 24 HOURS Resulted 09/27/17 09:50 Blood Blood Culture - Preliminary Resulted 09/27/17 02:30 Nasal Nares Influenza Types A,B Antigen (DON) - Final Complete 09/28/17 15:10 Leg Left Gram Stain Pending Resulted 09/28/17 15:10 Wound Culture - Preliminary Gram Negative Bacillus 1 Resulted 09/27/17 02:30 Rectum VRE Culture - Final Enterococcus Faecium - Vre Complete Intake and Output 09/28/17 09/29/17 19:00 07:00 Intake Total 1390 ml 110 ml Output Total 2500 ml Balance 1390 ml -2390 ml Intake Oral 1280 ml IV Total 110 ml 110 ml Hemodialysis UF 2500 ml # Voids 11 2 Objective General Appearance: WD/WN, obese EENT: PERRL/EOMI, normal ENT inspection Neck: non-tender, normal alignment, supple Cardiovascular: normal peripheral pulses, normal rate, regular rhythm, no gallop/murmur, no JVD Respiratory/Chest: chest wall non-tender, lungs clear, normal breath sounds, no respiratory distress, no accessory muscle use Abdomen: normal bowel sounds, non tender, soft, no organomegaly, no mass Extremities: normal range of motion, non-tender 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 cont zosyn and vanco per ID (9) Gangrene of left foot Assessment & Plan: Await surgery consult - ?possible amputation? LETY MATOS Sep 29, 2017 16:25
--- NOTE | 2017-09-29 16:33 | Consultation ---
History of Present Illness General Date patient seen: Sep 29, 2017 Reason for Consultation: left foot infection Present Illness HPI 52-year-old male who was admitted to [facility] for diabetic foot ulcer. He was seen at [facility] and transferred here for continued care. The patient states that he has been following Dr. 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 He states that his wounds have been improving and that he would likely lose the toes and would need a miracle to save his toes on his left foot. He is not aware that he has gangrenous toes as he has not been diagnosed with such. He does admit to fevers and chills, but no nausea or vomiting. He was evaluated by Dr. Harrington, podiatry, and salvage felt to be difficult. Surgery called to evaluate for possible amputation. Patient seen, chart reviewed, images reviewed. Allergies: Coded Allergies: No Known Allergies (Unverified , 09/27/17) Medication History Scheduled Amiodarone Hcl (Amiodarone Hcl), 200 MG ORAL BID, (Reported) Aspirin (Aspirin), 81 MG PO DAILY, (Reported) Atorvastatin (Lipitor), 40 MG ORAL BEDTIME, (Reported) Cinacalcet Hcl (Sensipar), 60 MG PO DAILY, (Reported) Clopidogrel Bisulfate (Clopidogrel Bisulfate), 75 GM PO DAILY, (Reported) Gabapentin (Neurontin), 300 MG ORAL TID, (Reported) Polyethylene Glycol 3350* (Polyethylene Glycol 3350*), 17 GM ORAL BEDTIME, ( Reported) Sevelamer Carbonate (Renvela), 2,400 MG ORAL THREE TIMES A DAY, (Reported) Scheduled PRN Insulin Aspart (Novolog), 1 SQ for sliding scale, (Reported) Sennosides (Senna), 8.6 MG PO BEDTIME PRN for prn, (Reported) Discontinued Medications Gabapentin* (Gabapentin*), 900 MG PO BID, (Reported) Discontinued Reason: Therapy completed Nifedipine Er* (Adalat Cc*), 90 MG ORAL BID, (Reported) Discontinued Reason: Pt stopped taking med Patient History History Provided By: Patient, EMS, PMD Healthcare decision maker Resuscitation status Full Code Advanced Directive on File No Past Medical/Surgical History Past Medical/Surgical History: (1) Arrhythmia (2) ESRF (end stage renal failure) (3) Diabetes mellitus (4) Sepsis (5) Diabetic foot ulcer (6) Fever (7) CAD (coronary artery disease) (8) Diabetes mellitus, type II (9) Hypercholesteremia (10) Leukocytosis (11) HTN (hypertension) (12) ESRD (end stage renal disease) on dialysis (13) severe diabetic sensory motor polyneuropathy (1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 Review of Systems Constitutional: Denies: no symptoms, see HPI, chills, sweats, fever, malaise, weakness, other Eye: Denies: no symptoms, see HPI, eye pain, blurred vision, tearing, double vision, nose pain, nose congestion, acuity changes, discharge, other ENT: Denies: no symptoms, see HPI, ear pain, ear discharge, nose pain, nose congestion, throat pain, throat swelling, mouth pain, hearing loss, nasal discharge, other Respiratory: Denies: no symptoms, see HPI, cough, orthopnea, shortness of breath, stridor, wheezing, OBANDO, sputum, other Cardiovascular: Denies: no symptoms, see HPI, chest pain, edema, palpitations, syncope, PND, other Gastrointestinal: Denies: no symptoms, see HPI, abdominal pain, constipation, diarrhea, nausea, vomiting, melena, hematemesis, other Genitourinary: Denies: no symptoms, see HPI, discharge, dysuria, frequency, hematuria, pain, retention, incontinence, urgency, vag bleed/dc, other Musculoskeletal: Denies: no symptoms, see HPI, back pain, gout, joint pain, joint swelling, muscle pain, muscle stiffness, other Skin: Denies: no symptoms, see HPI, rash, change in color, change in hair/nails , dryness, lesions, other Psychiatric: Denies: no symptoms, see HPI, prior hx, anxiety, depressed feelings, emotional problems, SI, HI, hallucinations, other Neurological: Denies: no symptoms, see HPI, headache, numbness, paresthesia, seizure, tingling, tremors, focal weakness, syncope, dizziness, other Endocrine: Denies: no symptoms, see HPI, excessive sweating, flushing, intolerance to temperature, increased thirst, increased urine, unexplained weight loss, other Hematologic/Lymphatic: Denies: no symptoms, see HPI, anemia, blood clots, easy bleeding, easy bruising, swollen glands, diathesis, other All Other Systems: negative except mentioned in HPI Physical Exam General Appearance: no apparent distress, alert HEENT: normocephalic, mucous membranes moist Neck: normal inspection Respiratory/Chest: lungs clear, normal breath sounds, no respiratory distress, no accessory muscle use Cardiovascular/Chest: normal rate, regular rhythm Abdomen: non tender, soft, no organomegaly, no mass Extremities: other - see wound images in chart. extensive necrosis and ulceration with open areas and drainage in left foot and ankle. Neurologic: alert, oriented x 3 Last 24 Hour Vital Signs Date Time Temp Pulse Resp B/P (MAP) Pulse Ox O2 Delivery O2 Flow Rate FiO2 09/29/17 12:25 98.9 81 22 106/67 97 Room Air 09/29/17 12:08 98.7 81 22 88/58 97 Room Air 09/29/17 09:27 83 102/60 09/29/17 08:15 98.9 81 23 88/61 99 Room Air 09/29/17 04:00 98.8 84 20 104/64 93 09/29/17 00:00 97.7 88 21 119/68 95 09/28/17 21:20 98.2 89 20 124/70 Room Air 09/28/17 21:20 Room Air 09/28/17 20:00 98.1 83 21 121/61 100 09/28/17 17:30 Room Air 09/28/17 17:30 98.1 86 20 93/60 Room Air Intake and Output 09/28/17 09/29/17 19:00 07:00 Intake Total 1390 ml 110 ml Output Total 2500 ml Balance 1390 ml -2390 ml Intake Oral 1280 ml IV Total 110 ml 110 ml Hemodialysis UF 2500 ml # Voids 11 2 Laboratory Tests Test 09/29/17 05:40 White Blood Count 20.2 K/UL (4.8-10.8) H Red Blood Count 2.92 M/UL (4.70-6.10) L Hemoglobin 8.2 G/DL (14.2-18.0) L Hematocrit 25.5 % (42.0-52.0) L Mean Corpuscular Volume 87 FL (80-99) Mean Corpuscular Hemoglobin 28.0 PG (27.0-31.0) Mean Corpuscular Hemoglobin Concent 32.0 G/DL (32.0-36.0) Red Cell Distribution Width 16.8 % (11.6-14.8) H Platelet Count 547 K/UL (150-450) H Mean Platelet Volume 6.9 FL (6.5-10.1) Neutrophils (%) (Auto) % (45.0-75.0) Lymphocytes (%) (Auto) % (20.0-45.0) Monocytes (%) (Auto) % (1.0-10.0) Eosinophils (%) (Auto) % (0.0-3.0) Basophils (%) (Auto) % (0.0-2.0) Differential Total Cells Counted 100 Neutrophils % (Manual) 86 % (45-75) H Lymphocytes % (Manual) 7 % (20-45) L Monocytes % (Manual) 7 % (1-10) Eosinophils % (Manual) 0 % (0-3) Basophils % (Manual) 0 % (0-2) Band Neutrophils 0 % (0-8) Platelet Estimate Increased H Platelet Morphology Normal Hypochromasia 1+ Anisocytosis 1+ Sodium Level 139 MMOL/L (136-145) Potassium Level 4.2 MMOL/L (3.5-5.1) Chloride Level 98 MMOL/L (98-107) Carbon Dioxide Level 34 MMOL/L (21-32) H Anion Gap 7 mmol/L (5-15) Blood Urea Nitrogen 30 mg/dL (7-18) H Creatinine 7.3 MG/DL (0.55-1.30) H Estimat Glomerular Filtration Rate 9.6 mL/min (>60) Glucose Level 185 MG/DL (74-106) H Calcium Level 8.9 MG/DL (8.5-10.1) Height (Feet): 5 Height (Inches): 7.00 Weight (Pounds): 290 Medications Current Medications Medications (Trade) Dose Ordered Sig/Georges Route PRN Reason Start Time Stop Time Status Last Admin Dose Admin Amiodarone HCl (Cordarone) 200 mg BID ORAL 09/27/17 09:00 10/27/17 08:59 09/29/17 09:31 Aspirin (ASA) 81 mg DAILY ORAL 09/27/17 09:00 10/27/17 08:59 09/29/17 09:31 Atorvastatin Calcium (Lipitor) 40 mg BEDTIME ORAL 2/11/18 21:00 10/27/17 20:59 09/28/17 21:42 Cinacalcet (Sensipar) 60 mg DAILY ORAL 09/27/17 09:00 10/27/17 08:59 09/29/17 09:31 Clopidogrel Bisulfate (Plavix) 75 mg DAILY ORAL 09/27/17 09:00 10/27/17 08:59 09/29/17 09:31 Dextrose (Dextrose 50%) STAT PRN IV Hypoglycemia 09/27/17 02:45 10/27/17 02:44 Gabapentin (Neurontin) 300 mg THREE TIMES A DAY ORAL 09/27/17 13:00 10/27/17 12:59 09/29/17 13:48 Heparin Sodium (Porcine) (Heparin 5000 units/ml) 5,000 units EVERY 8 HOURS SUBQ 09/27/17 09:00 10/27/17 08:59 09/29/17 13:47 Insulin Aspart (NovoLOG) BEFORE MEALS AND HS SUBQ 09/27/17 06:30 10/27/17 06:29 09/29/17 11:39 Insulin Detemir (Levemir) 20 units DAILY SUBQ 09/27/17 09:00 10/27/17 08:59 09/29/17 09:36 Lansoprazole (Prevacid) 30 mg DAILY ORAL 09/27/17 12:00 10/27/17 11:59 09/29/17 09:31 Piperacillin Sod/ Tazobactam Sod 2.25 gm/Sodium Chloride 55 ml @ 110 mls/hr EVERY 8 HOURS IV 09/29/17 14:00 10/06/17 23:59 09/29/17 13:45 Polyethylene Glycol (Miralax) 17 gm DAILY ORAL 09/27/17 09:00 10/27/17 08:59 09/29/17 09:30 Sennosides (Senokot) 2 tab BEDTIME PRN ORAL Constipation 09/27/17 02:00 10/27/17 01:59 Sevelamer Carbonate (Renvela) 2,400 mg THREE TIMES A DAY ORAL 09/27/17 09:00 10/27/17 08:59 09/29/17 13:46 Vancomycin HCl (Vanco rx to dose) 1 ea DAILY PRN MISC Per rx protocol 09/27/17 01:45 10/27/17 01:44 Assessment/Plan Problem List: (1) Diabetic foot ulcer Assessment & Plan: 52M with long standing foot ulcers. right foot not as bad as left. on left has severe loss of tissue and areas of necrosis with drainage concerning for wet gangrene. he presented with sepsis and significant leukocytosis. initial attempts made for salvage for some time now. 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 recently seen during hospitalization to help with salvage by my [facility] Dr. Harrington and I was called to evaluate for amputation. Given findings and current condition I commend patient and the care he has received to his foot over the years. unfortunately he has multiple areas of non healing wounds in different stages of healing from toes to ankle with exposed tendons/muscles. There are areas of gangrene and some areas concerning for possible wet gangrene. MRI reviewed and fortunately no gas forming acute infection. likely alf chronic infection with acute superimposed infection. I cannot see how foot can be salvaged at this point. he has not feeling, sensation, or active movement of foot. it is with tissue loss and multiple wounds. I recommend amputation as well. Can potential keep foot and continue with current regimen but if forms a bad enough infection or becomes worsening source of sepsis he is putting him self at jeopardy to keep extremity that is no longer functional. long discuss had with patient at bedside. he understands but is not ready to decide. he is not ready for any intervention and only wants wound care for now. risks discussed with patient and his decision will be respected. will follow with recs. thank you for this consult. ICD Codes: E11.621 - Type 2 diabetes mellitus with foot ulcer; L97.509 - Non- pressure chronic ulcer of other part of unspecified foot with unspecified severity SNOMED: [id number], [id number] Qualifiers: Qualified Codes: E08.621 - Diabetes mellitus due to underlying condition with foot ulcer; L97.523 - Non-pressure chronic ulcer of other part of left foot with necrosis of muscle Status: stable Lauro Oakley Sep 29, 2017 16:33
--- NOTE | 2017-09-29 18:43 | Podiatric Progress Note ---
Assessment/Plan Patient Rashard Sutherland is a 52 year old male who was admitted on Sep 27, 2017 at 00:19 with Problems: Assessment/Plan A/ 1) Wet gangrene left foot 2) Gangrene right hallux 3) PAD 4) DM 5) ESRD 6) h/o of ND P/ 1) Patient was again advised and educated on his condition. Patient has unrealistic goals of dealing with his condition. He admits that he needs a leg amp but does not want to deal with it at this time and only wants necrotic malodorous portion removed. After his wedding in 3 months, he would be amenable to have the leg amputated. I advised that this is a poor choice as it will leave him an enormous defect in his foot with bone and tendon exposure predisposing him to infection. He was educated that if this has worsening in the past few months, what might happen if he waits 3 months until after his wedding. He is risking infection, sepsis, and life. Patient will reconsider 2) Cont IV abx per ID 3) Cont wound care 4) Vasc consult requested for RLE PAD. Subjective Allergies: Coded Allergies: No Known Allergies (Unverified , 09/27/17) Subjective Patient states that he has given it much thought and he would like to only remove the areas of his foot that are gangrenous in order to be able to make his wedding in 3 months. He admits that his foot had become worse over the past couple of months but does not want to deal with an amputation right now. Objective Exam Last 24 Hour Vital Signs Date Time Temp Pulse Resp B/P (MAP) Pulse Ox O2 Delivery O2 Flow Rate FiO2 09/29/17 16:59 97.7 90 20 112/66 100 09/29/17 16:00 98.1 85 20 108/61 99 09/29/17 12:25 98.9 81 22 106/67 97 Room Air 09/29/17 12:08 98.7 81 22 88/58 97 Room Air 09/29/17 09:27 83 102/60 09/29/17 08:15 98.9 81 23 88/61 99 Room Air 09/29/17 04:00 98.8 84 20 104/64 93 09/29/17 00:00 97.7 88 21 119/68 95 09/28/17 21:20 98.2 89 20 124/70 Room Air 09/28/17 21:20 Room Air 09/28/17 20:00 98.1 83 21 121/61 100 Laboratory Tests Test 09/29/17 05:40 White Blood Count 20.2 K/UL (4.8-10.8) H Red Blood Count 2.92 M/UL (4.70-6.10) L Hemoglobin 8.2 G/DL (14.2-18.0) L Hematocrit 25.5 % (42.0-52.0) L Mean Corpuscular Volume 87 FL (80-99) Mean Corpuscular Hemoglobin 28.0 PG (27.0-31.0) Mean Corpuscular Hemoglobin Concent 32.0 G/DL (32.0-36.0) Red Cell Distribution Width 16.8 % (11.6-14.8) H Platelet Count 547 K/UL (150-450) H Mean Platelet Volume 6.9 FL (6.5-10.1) Neutrophils (%) (Auto) % (45.0-75.0) Lymphocytes (%) (Auto) % (20.0-45.0) Monocytes (%) (Auto) % (1.0-10.0) Eosinophils (%) (Auto) % (0.0-3.0) Basophils (%) (Auto) % (0.0-2.0) Differential Total Cells Counted 100 Neutrophils % (Manual) 86 % (45-75) H Lymphocytes % (Manual) 7 % (20-45) L Monocytes % (Manual) 7 % (1-10) Eosinophils % (Manual) 0 % (0-3) Basophils % (Manual) 0 % (0-2) Band Neutrophils 0 % (0-8) Platelet Estimate Increased H Platelet Morphology Normal Hypochromasia 1+ Anisocytosis 1+ Sodium Level 139 MMOL/L (136-145) Potassium Level 4.2 MMOL/L (3.5-5.1) Chloride Level 98 MMOL/L (98-107) Carbon Dioxide Level 34 MMOL/L (21-32) H Anion Gap 7 mmol/L (5-15) Blood Urea Nitrogen 30 mg/dL (7-18) H Creatinine 7.3 MG/DL (0.55-1.30) H Estimat Glomerular Filtration Rate 9.6 mL/min (>60) Glucose Level 185 MG/DL (74-106) H Calcium Level 8.9 MG/DL (8.5-10.1) Microbiology Date/Time Source Procedure Growth Status 09/27/17 09:55 Blood Blood Culture - Preliminary NO GROWTH AFTER 24 HOURS Resulted 09/27/17 02:30 Nasal Nares Influenza Types A,B Antigen (DON) - Final Complete 09/28/17 15:10 Leg Left Gram Stain Pending Resulted 09/28/17 15:10 Wound Culture - Preliminary Gram Negative Bacillus 1 Resulted Nestor Harrington DPM Sep 29, 2017 18:43
--- NOTE | 2017-09-29 20:04 | Wound Nurse Progress Note ---
Wound RN Progress Note Wound Consult Pt is under the care of Dr Oakley and Dr Harrington. Please follow MD's order. LORNA COBB RN Sep 29, 2017 20:04
[2017-09-29] MEDS: Atorvastatin 20mg tab ORAL SCH (21:55)
[2017-09-30] VITALS (8 sets, daily range): BP systolic 99–117; BP diastolic 36–85
--- NOTE | 2017-09-30 02:30 | Consultation ---
DATE OF CONSULTATION: 09/29/2017 NEUROLOGICAL CONSULTATION REQUESTING PHYSICIAN: Vanessa Chauhan M.D. ATTENDING PHYSICIAN: Efraín Montes M.D. HISTORY OF PRESENT ILLNESS: The patient is a 52-year-old man seen in neurological consultation to evaluate the positional dizziness, very unsteady and severe imbalance. The patient dates back to May 2017 when he had a full arrest with apparently "74 minutes of unconsciousness." He was since then he developed acute dizziness with unsteadiness when getting up and trying to ambulate or with prolonged sitting. Couple weeks ago, he was admitted to [facility] where MRI of the brain was obtained, this reported to him as with no intracranial abnormalities. The patient meanwhile had some progression of symptomatology. He had attributed this to out of control high blood pressure and renal insufficiency. The patient has a history of end-stage renal disease, he is on hemodialysis, has diabetes with severe diabetic polyneuropathy, peripheral vascular disease, obesity, and coronary artery disease. Following current admission, the patient was diagnosed with a wet gangrene, left foot, and hallux. He is being evaluated for below-knee amputation. His latest laboratory studies included WBC 25.7, hemoglobin 8.5, hematocrit 26.3, and sedimentation rate of 123. Chemistry panel with BUN of 41, creatinine 8.2, blood sugar 159. Normal TSH, B12 and folate, normal lipid panel. His liver function with a GGT of 261, alkaline phosphatase is 157, and CRP is more than 70 with a BNP of . The patient's latest vital signs following admission remained unstable with blood pressure fluctuating down to 88/58. He is afebrile and heart rate of 80. MEDICATIONS: His treatment at this time included insulin, but also Renvela, Senokot, MiraLAX, Prevacid, subcutaneous heparin, Neurontin 300 mg q.i.d., Plavix, Sensipar, Lipitor, aspirin, IV fluids and antibiotics. ALLERGIES: None reported. SOCIAL HISTORY: . Denies alcohol or drug abuse. Nonsmoker. FAMILY HISTORY: Noncontributory. REVIEW OF SYSTEMS: Positional dizziness with significant imbalance, lack of coordination. No headaches. No visual or hearing abnormalities. No pain sensation in both upper or lower extremities distally. Atrophy in small muscles both hands, weakness in both feet. No chest pain. No palpitations. No respiratory difficulties. The patient indicated he is unable to ambulate due to instability of gait. PHYSICAL EXAMINATION: GENERAL: A well-developed, moderately obese, large framed man, not in acute distress, sitting in a chair. VITAL SIGNS: Blood pressure 106/67 and temperature 98.8 degrees. HEENT: Head, normocephalic. No evidence of trauma. Eyes, ears, and throat are clear. NECK: Supple. No meningeal signs. No percussion tenderness over both mastoids. MUSCULOSKELETAL: Upper and lower extremities, both feet placed in a brace and covered with sterile gauze. AV fistulas noted to right arm. Peripheral pulses unable to obtain both feet. MENTAL STATUS: He is alert and oriented x3 with no evidence of aphasia or apraxia. Cognitive function normal. CRANIAL NERVE II: Pupils both responding to light and accommodation. Extraocular movement intact. No nystagmus. CRANIAL NERVE V: Normal corneal responses. CRANIAL NERVE VII: No facial asymmetry. CRANIAL NERVE VIII: Normal hearing. CRANIAL NERVES IX THROUGH XII: Tongue is in midline. Symmetric palate elevation. MOTOR EXAMINATION: Revealed muscle wasting in small muscles of both hands. Strength 4/5 both handgrips. There is a slight flexor contracture to both hands. Weakness 3/5 in both feet and dorsiflexion. Deep tendon reflexes absent both biceps, triceps, brachioradialis, and knee jerks. Plantar responses flat. SENSORY EXAMINATION: Lack of pin sensation in gloves and stocking distribution. Reduction proprioception in both feet. COORDINATION: Normal [id number] test and clumsy [id number] test. The patient had a positive Romberg test and severe gait ataxia with high risk of fall. IMPRESSION: 1. Recent onset of positional dizziness and gait ataxia, rule out anoxic encephalopathy with cerebellar dysfunction, rule out post anoxic vestibulopathy. 2. Severe diabetic sensorimotor polyneuropathy. 3. End-stage renal disease, on hemodialysis. 4. Bilateral foot gangrene with sepsis. 5. Coronary artery disease, status post cardiac arrest. RECOMMENDATION: The patient had reportedly recent MRI of the brain, which revealed "no abnormalities", which should be reviewed for any cerebellar lesions. ENT assessment for presence of peripheral vestibular dysfunction may be necessary if symptoms not improved. Meanwhile, we will start on meclizine 12.5 mg q.i.d. The patient is undergoing a treatment for life-threatening gangrene. Symptoms of dizziness and gait instability, which should be readdressed when he is stabilized. Thank you for allowing me to see this interesting patient in neurological consultation. Brian Victoria M.D. DR: DAE JOB#: [id number] CC:
[2017-09-30] MEDS: Piperacillin/Tazobactam 2.25 GM in NS 55 ML IV SCH ×3 (06:05→23:05)
[2017-09-30 06:07] LABS: SODIUM 136 MMOL/L (136-145)
[2017-09-30 06:08] LABS: ANION GAP 9 mmol/L (5-15); BILIRUBIN,TOTAL 0.6 MG/DL (0.2-1.0); BLOOD UREA NITROGEN 38 mg/dL (7-18); CARBON DIOXIDE 32 MMOL/L (21-32); CHLORIDE 95 MMOL/L (98-107); CREATININE 8.7 MG/DL (0.55-1.30); PHOSPHORUS 3.3 MG/DL (2.5-4.9); POTASSIUM 4.6 MMOL/L (3.5-5.1)
[2017-09-30 06:09] LABS: ALANINE AMINOTRANSFERASE 14 U/L (12-78); ALBUMIN 1.7 G/DL (3.4-5.0); ALBUMIN/GLOBULIN RATIO 0.3 (1.0-2.7); ALKALINE PHOSPHATASE 167 U/L (46-116); ASPARTATE AMINO TRANSFERASE 16 U/L (15-37)
[2017-09-30] MEDS: Heparin 5000 units/ml inj SUBQ SCH (06:14)
[2017-09-30] MEDS: NovoLOG Insulin Flexpen SUBQ SCH ×4 (06:14→21:52)
[2017-09-30 06:29] LABS: HEMATOCRIT 23.6 % (42.0-52.0); HEMOGLOBIN 7.3 G/DL (14.2-18.0); RED BLOOD COUNT 2.68 M/UL (4.70-6.10); WHITE BLOOD COUNT 24.6 K/UL (4.8-10.8)
[2017-09-30 06:30] LABS: MEAN CORPUSCULAR VOLUME 88 FL (80-99); PLATELET COUNT 513 K/UL (150-450); RED CELL DISTRIBUTION WIDTH 16.8 % (11.6-14.8)
[2017-09-30] MEDS ORDERED: Vancomycin 1250mg/D5W 250ml IVPB ONE (08:00)
[2017-09-30] MEDS: Miralax 17gm pkt ORAL SCH ×2 (08:46→09:00)
[2017-09-30] MEDS: Sensipar 30mg Tab ORAL SCH (08:46)
[2017-09-30] MEDS: Aspirin Baby 81mg ORAL SCH (08:46)
[2017-09-30] MEDS: Amiodarone 200mg tab ORAL SCH ×2 (09:00→18:00)
[2017-09-30] MEDS: Levemir Flexpen SUBQ SCH (09:15)
--- NOTE | 2017-09-30 10:44 | General Surgery Progress Note ---
General Surgery-Progress Note Subjective Symptoms: worse Additional Comments states he spent a lot of time talking with his family, discussing it with himself, and praying to god. states he knows how bad the foot is and has known for some time. he wants to move forward with his life and is ready to do so. afebrile, HD stable, leukocytosis worsening. Objective Last 24 Hour Vital Signs Date Time Temp Pulse Resp B/P (MAP) Pulse Ox O2 Delivery O2 Flow Rate FiO2 09/30/17 08:22 98.5 78 20 108/66 97 09/30/17 04:00 98.1 82 20 100/36 95 09/30/17 00:00 97.8 83 20 104/42 99 09/29/17 20:00 98.2 87 22 99/68 100 09/29/17 16:59 97.7 90 20 112/66 100 09/29/17 16:00 98.1 85 20 108/61 99 09/29/17 12:25 98.9 81 22 106/67 97 Room Air 09/29/17 12:08 98.7 81 22 88/58 97 Room Air I&O Intake and Output 09/29/17 09/30/17 19:00 07:00 Intake Total 360 ml 55 ml Balance 360 ml 55 ml Intake Oral 360 ml 0 ml IV Total 55 ml Dressing: saturated Wound: other - drainaing around eschar. purulent Drains: none Cardiovascular: RSR Respiratory: clear Abdomen: soft, flat, non-tender, present bowel sounds Extremities: other - left foot with dry gangrene of toes, wet gangrene of dorsal foot past mid foot, heel with soft gangrene, ulceration and muscle necrosis around posterior ankle with exposed tendon. right foot with dry gangrene of great toe. Laboratory Tests Test 09/30/17 04:30 White Blood Count 24.6 K/UL (4.8-10.8) *H Red Blood Count 2.68 M/UL (4.70-6.10) L Hemoglobin 7.3 G/DL (14.2-18.0) L Hematocrit 23.6 % (42.0-52.0) L Mean Corpuscular Volume 88 FL (80-99) Mean Corpuscular Hemoglobin 27.1 PG (27.0-31.0) Mean Corpuscular Hemoglobin Concent 30.3 G/DL (32.0-36.0) L Red Cell Distribution Width 16.8 % (11.6-14.8) H Platelet Count 513 K/UL (150-450) H Mean Platelet Volume 6.9 FL (6.5-10.1) Neutrophils (%) (Auto) % (45.0-75.0) Lymphocytes (%) (Auto) % (20.0-45.0) Monocytes (%) (Auto) % (1.0-10.0) Eosinophils (%) (Auto) % (0.0-3.0) Basophils (%) (Auto) % (0.0-2.0) Sodium Level 136 MMOL/L (136-145) Potassium Level 4.6 MMOL/L (3.5-5.1) Chloride Level 95 MMOL/L (98-107) L Carbon Dioxide Level 32 MMOL/L (21-32) Anion Gap 9 mmol/L (5-15) Blood Urea Nitrogen 38 mg/dL (7-18) H Creatinine 8.7 MG/DL (0.55-1.30) H Estimat Glomerular Filtration Rate 7.9 mL/min (>60) Glucose Level 142 MG/DL (74-106) H Uric Acid 5.6 MG/DL (2.6-7.2) Calcium Level 9.0 MG/DL (8.5-10.1) Phosphorus Level 3.3 MG/DL (2.5-4.9) Magnesium Level 2.3 MG/DL (1.5-2.4) Total Bilirubin 0.6 MG/DL (0.2-1.0) Aspartate Amino Transf (AST/SGOT) 16 U/L (15-37) Alanine Aminotransferase (ALT/SGPT) 14 U/L (12-78) Alkaline Phosphatase 167 U/L (46-116) H C-Reactive Protein, Quantitative 29.7 mg/dL (0.00-0.90) H Pro-B-Type Natriuretic Peptide 29565 pg/mL (0-125) H Total Protein 8.2 G/DL (6.4-8.2) Albumin 1.7 G/DL (3.4-5.0) L Globulin 6.5 g/dL Albumin/Globulin Ratio 0.3 (1.0-2.7) L Random Vancomycin Level 17.3 ug/mL Plan Problems: (1) Diabetic foot ulcer Assessment & Plan: 52M with long standing foot ulcers. right foot not as bad as left. on left has severe loss of tissue and areas of necrosis with drainage concerning for wet gangrene. he presented with sepsis and significant leukocytosis. initial attempts made for salvage for some time now. 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 recently seen during hospitalization to help with salvage by my [facility] Dr. Harrington and I was called to evaluate for amputation. Given findings and current condition I commend patient and the care he has received to his foot over the years. unfortunately he has multiple areas of non healing wounds in different stages of healing from toes to ankle with exposed tendons/muscles. There are areas of gangrene and some areas concerning for possible wet gangrene. MRI reviewed and fortunately no gas forming acute infection. likely group home chronic infection with acute superimposed infection. I cannot see how foot can be salvaged at this point. he has not feeling, sensation, or active movement of foot. it is with tissue loss and multiple wounds. I spoke with patient again today now that he has had some time to think about it. He admits that he has not been able to walk properly for over 2 years. states that has no feeling in left foot/leg. states that he limps around and loses balance. has no sense of balance for over 2 years. when he stands or stops he tilts over. he has noted significant worsening of foot over past few weeks and states this is the worse it has been. I recommend amputation as well. Can potential keep foot and continue with current regimen but if forms a bad enough infection or becomes worsening source of sepsis he is putting him self at jeopardy to keep extremity that is no longer functional. Patient has been seen by myself, podiatry, and vascular surgery whom all agree that best course of action is amputation at this point. discussed amputation again with patient as well as aggressive debridement and wound care. after all risks, benefits, and alternatives discussed patient stated that he has thought about it, discussed with family, and is ready for amputation and would like amputation so that he can obtain prosthetic and begin to walk again. will schedule ray as leukocytosis is worsening. patient is receiving dialysis today. Lauro Oakley Sep 30, 2017 10:44
--- NOTE | 2017-09-30 10:45 | Pre-Procedure Note/Attestation ---
Pre-Procedure Note/Attestation Complete Prior to Procedure Planned Procedure: left Procedure Narrative: left below knee amputation Indications for Procedure Pre-Operative Diagnosis: necrotic, infected left foot with gangrene; acute on chronic Attestation I attest that I discussed the nature of the procedure; its benefits; risks and complications; and alternatives (and the risks and benefits of such alternatives ), prior to the procedure, with the patient (or the patient's legal licensing representative). I attest that, if there was a reasonable possibility of needing a blood transfusion, the patient (or the patient's legal licensing representative) was given the [facility] standardized written summary, pursuant to the Pankaj Sil Blood Safety Act ([place] Health and Safety Code # 1645, as amended). I attest that I re-evaluated the patient just prior to the surgery and that there has been no change in the patient's H&P, except as documented below: Lauro Oakley Sep 30, 2017 10:45
--- NOTE | 2017-09-30 11:06 | Infectious Diseases Prog Note ---
Assessment/Plan Assessment/Plan ASSESSMENT: The patient is a 52-year-old male with, persistent +ve Blood CX : Staph A , rafa : P) need to Ro SBE , AVF infection 2decho : no Veg Leukocytosis worsen (out of proportion for wound infection , ro visceral abscess ) Right lower extremity wounds, grossly they are not infected. Left heel wound, left gangrene w changes of the third, fourth and fifth toes, Wnd Cx: GNR and Staph A MRI of the foot : no evidence of osteomyelitis Left heel has ulceration. No drainage. Left third, fourth and fifth toes have gangrenous changes. no obvious purulent discharge. NO wound culture sent ( no drainage ) MRI : Peripheral, mild T2 hyperintense signal involving the head of the fifth metatarsal head and phalanges. most likely due to reactive bone marrow edema rather than osteomyelitis as T1 signal is normal. No evidence of acute osteomyelitis otherwise within the forefoot, midfoot or hindfoot/ankle. Dizziness followed by Neuro Probable PVD Diabetes End-stage renal disease, on hemodialysis. Obesity. Diabetic neuropathy. Bilateral lower extremity wounds. History of CAD History of cardiac arrest History of myocardial infarction PLAN: Cont patient on Vancomycin and Zosyn day # 4 Monitor CBC. Monitor BMP. Blood culture Podiatry r GenSurg cons : Lt BKA tomorrow repeat blood Cx KERI CT of C/A/P WBC Scan to AVF infection if KERI and CT negative Subjective Allergies: Coded Allergies: No Known Allergies (Unverified , 09/27/17) Subjective pt agreed w Amputation Objective Vital Signs Last 24 Hour Vital Signs Date Time Temp Pulse Resp B/P (MAP) Pulse Ox O2 Delivery O2 Flow Rate FiO2 09/30/17 08:22 98.5 78 20 108/66 97 09/30/17 04:00 98.1 82 20 100/36 95 09/30/17 00:00 97.8 83 20 104/42 99 09/29/17 20:00 98.2 87 22 99/68 100 09/29/17 16:59 97.7 90 20 112/66 100 09/29/17 16:00 98.1 85 20 108/61 99 09/29/17 12:25 98.9 81 22 106/67 97 Room Air 09/29/17 12:08 98.7 81 22 88/58 97 Room Air Height (Feet): 5 Height (Inches): 7.00 Weight (Pounds): 290 HEENT: anicteric Respiratory/Chest: normal breath sounds Cardiovascular: regular rhythm Abdomen: no mass Microbiology Date/Time Source Procedure Growth Status 09/29/17 11:45 Blood Blood Culture - Preliminary Resulted 09/28/17 15:10 Leg Left Gram Stain Pending Resulted 09/28/17 15:10 Wound Culture - Preliminary Gram Negative Bacillus 1 Staphylococcus Aureus Resulted Laboratory Tests Test 09/30/17 04:30 White Blood Count 24.6 K/UL (4.8-10.8) *H Red Blood Count 2.68 M/UL (4.70-6.10) L Hemoglobin 7.3 G/DL (14.2-18.0) L Hematocrit 23.6 % (42.0-52.0) L Mean Corpuscular Volume 88 FL (80-99) Mean Corpuscular Hemoglobin 27.1 PG (27.0-31.0) Mean Corpuscular Hemoglobin Concent 30.3 G/DL (32.0-36.0) L Red Cell Distribution Width 16.8 % (11.6-14.8) H Platelet Count 513 K/UL (150-450) H Mean Platelet Volume 6.9 FL (6.5-10.1) Neutrophils (%) (Auto) % (45.0-75.0) Lymphocytes (%) (Auto) % (20.0-45.0) Monocytes (%) (Auto) % (1.0-10.0) Eosinophils (%) (Auto) % (0.0-3.0) Basophils (%) (Auto) % (0.0-2.0) Sodium Level 136 MMOL/L (136-145) Potassium Level 4.6 MMOL/L (3.5-5.1) Chloride Level 95 MMOL/L (98-107) L Carbon Dioxide Level 32 MMOL/L (21-32) Anion Gap 9 mmol/L (5-15) Blood Urea Nitrogen 38 mg/dL (7-18) H Creatinine 8.7 MG/DL (0.55-1.30) H Estimat Glomerular Filtration Rate 7.9 mL/min (>60) Glucose Level 142 MG/DL (74-106) H Uric Acid 5.6 MG/DL (2.6-7.2) Calcium Level 9.0 MG/DL (8.5-10.1) Phosphorus Level 3.3 MG/DL (2.5-4.9) Magnesium Level 2.3 MG/DL (1.5-2.4) Total Bilirubin 0.6 MG/DL (0.2-1.0) Aspartate Amino Transf (AST/SGOT) 16 U/L (15-37) Alanine Aminotransferase (ALT/SGPT) 14 U/L (12-78) Alkaline Phosphatase 167 U/L (46-116) H C-Reactive Protein, Quantitative 29.7 mg/dL (0.00-0.90) H Pro-B-Type Natriuretic Peptide 68812 pg/mL (0-125) H Total Protein 8.2 G/DL (6.4-8.2) Albumin 1.7 G/DL (3.4-5.0) L Globulin 6.5 g/dL Albumin/Globulin Ratio 0.3 (1.0-2.7) L Random Vancomycin Level 17.3 ug/mL Current Medications Medications (Trade) Dose Ordered Sig/Georges Route PRN Reason Start Time Stop Time Status Last Admin Dose Admin Amiodarone HCl (Cordarone) 200 mg BID ORAL 09/27/17 09:00 10/27/17 08:59 09/29/17 16:57 Aspirin (ASA) 81 mg DAILY ORAL 09/27/17 09:00 10/27/17 08:59 09/30/17 08:46 Atorvastatin Calcium (Lipitor) 40 mg BEDTIME ORAL 09/27/17 21:00 10/27/17 20:59 09/29/17 21:55 Cinacalcet (Sensipar) 60 mg DAILY ORAL 09/27/17 09:00 10/27/17 08:59 09/30/17 08:46 Clopidogrel Bisulfate (Plavix) 75 mg DAILY ORAL 09/27/17 09:00 10/27/17 08:59 09/30/17 08:46 Collagenase (Santyl) 1 applic Q12HR TOPIC 09/30/17 21:00 10/30/17 20:59 Dextrose (Dextrose 50%) STAT PRN IV Hypoglycemia 09/27/17 02:45 10/27/17 02:44 Gabapentin (Neurontin) 300 mg THREE TIMES A DAY ORAL 09/27/17 13:00 10/27/17 12:59 09/30/17 08:45 Heparin Sodium (Porcine) (Heparin 5000 units/ml) 5,000 units EVERY 8 HOURS SUBQ 09/27/17 09:00 10/27/17 08:59 09/30/17 06:14 Insulin Aspart (NovoLOG) BEFORE MEALS AND HS SUBQ 09/27/17 06:30 10/27/17 06:29 09/30/17 06:14 Insulin Detemir (Levemir) 20 units DAILY SUBQ 09/27/17 09:00 10/27/17 08:59 09/30/17 09:15 Lansoprazole (Prevacid) 30 mg DAILY ORAL 09/27/17 12:00 10/27/17 11:59 09/30/17 08:46 Piperacillin Sod/ Tazobactam Sod 2.25 gm/Sodium Chloride 55 ml @ 110 mls/hr EVERY 8 HOURS IV 09/29/17 14:00 10/06/17 23:59 09/30/17 06:05 Polyethylene Glycol (Miralax) 17 gm DAILY ORAL 09/27/17 09:00 10/27/17 08:59 09/29/17 09:30 Sennosides (Senokot) 2 tab BEDTIME PRN ORAL Constipation 09/27/17 02:00 10/27/17 01:59 Sevelamer Carbonate (Renvela) 2,400 mg THREE TIMES A DAY ORAL 09/27/17 09:00 10/27/17 08:59 09/30/17 08:46 Vancomycin HCl (Vanco rx to dose) 1 ea DAILY PRN MISC Per rx protocol 09/27/17 01:45 10/27/17 01:44 ANGIE LUND M.D. Sep 30, 2017 11:06
--- NOTE | 2017-09-30 12:22 | Internal Med Progress Note ---
Subjective Date of Service: Sep 30, 2017 Physician Name Wilton Matos Attending Physician Efraín Montes MD Current Medications Medications (Trade) Dose Ordered Sig/Georges Route PRN Reason Start Time Stop Time Status Last Admin Dose Admin Amiodarone HCl (Cordarone) 200 mg BID ORAL 09/27/17 09:00 10/27/17 08:59 09/29/17 16:57 Aspirin (ASA) 81 mg DAILY ORAL 09/27/17 09:00 10/27/17 08:59 09/30/17 08:46 Atorvastatin Calcium (Lipitor) 40 mg BEDTIME ORAL 09/27/17 21:00 10/27/17 20:59 09/29/17 21:55 Cinacalcet (Sensipar) 60 mg DAILY ORAL 09/27/17 09:00 10/27/17 08:59 09/30/17 08:46 Clopidogrel Bisulfate (Plavix) 75 mg DAILY ORAL 09/27/17 09:00 10/27/17 08:59 09/30/17 08:46 Collagenase (Santyl) 1 applic Q12HR TOPIC 09/30/17 21:00 10/30/17 20:59 Dextrose (Dextrose 50%) STAT PRN IV Hypoglycemia 09/27/17 02:45 10/27/17 02:44 Gabapentin (Neurontin) 300 mg THREE TIMES A DAY ORAL 09/27/17 13:00 10/27/17 12:59 09/30/17 08:45 Heparin Sodium (Porcine) (Heparin 5000 units/ml) 5,000 units EVERY 8 HOURS SUBQ 09/27/17 09:00 10/27/17 08:59 09/30/17 06:14 Insulin Aspart (NovoLOG) BEFORE MEALS AND HS SUBQ 09/27/17 06:30 10/27/17 06:29 09/30/17 11:51 Insulin Detemir (Levemir) 20 units DAILY SUBQ 09/27/17 09:00 10/27/17 08:59 09/30/17 09:15 Lansoprazole (Prevacid) 30 mg DAILY ORAL 09/27/17 12:00 10/27/17 11:59 09/30/17 08:46 Meclizine HCl (Antivert) 25 mg DAILYPRN PRN ORAL for dizziness 09/30/17 13:00 10/30/17 12:59 Piperacillin Sod/ Tazobactam Sod 2.25 gm/Sodium Chloride 55 ml @ 110 mls/hr EVERY 8 HOURS IV 09/29/17 14:00 10/06/17 23:59 09/30/17 06:05 Polyethylene Glycol (Miralax) 17 gm DAILY ORAL 09/27/17 09:00 10/27/17 08:59 09/29/17 09:30 Sennosides (Senokot) 2 tab BEDTIME PRN ORAL Constipation 09/27/17 02:00 10/27/17 01:59 Sevelamer Carbonate (Renvela) 2,400 mg THREE TIMES A DAY ORAL 09/27/17 09:00 10/27/17 08:59 09/30/17 08:46 Vancomycin HCl (Vanco rx to dose) 1 ea DAILY PRN MISC Per rx protocol 09/27/17 01:45 10/27/17 01:44 Allergies: Coded Allergies: No Known Allergies (Unverified , 09/27/17) ROS Limited/Unobtainable: No Constitutional: Reports: no symptoms HEENT: Reports: no symptoms Cardiovascular: Reports: no symptoms Respiratory: Reports: no symptoms Gastrointestinal/Abdominal: Reports: no symptoms Genitourinary: Reports: no symptoms Neurologic/Psychiatric: Reports: no symptoms Subjective 52 YO M admitted with fever. Now gangrene left foot. Await left below the knee amputation-see surgery note. Cover for Int Med-Dr Montes Objective Last Vital Signs Date Time Temp Pulse Resp B/P (MAP) Pulse Ox O2 Delivery O2 Flow Rate FiO2 09/30/17 11:30 98.2 81 20 104/59 96 09/29/17 12:25 Room Air Laboratory Tests Test 09/30/17 04:30 White Blood Count 24.6 K/UL (4.8-10.8) *H Red Blood Count 2.68 M/UL (4.70-6.10) L Hemoglobin 7.3 G/DL (14.2-18.0) L Hematocrit 23.6 % (42.0-52.0) L Mean Corpuscular Volume 88 FL (80-99) Mean Corpuscular Hemoglobin 27.1 PG (27.0-31.0) Mean Corpuscular Hemoglobin Concent 30.3 G/DL (32.0-36.0) L Red Cell Distribution Width 16.8 % (11.6-14.8) H Platelet Count 513 K/UL (150-450) H Mean Platelet Volume 6.9 FL (6.5-10.1) Neutrophils (%) (Auto) % (45.0-75.0) Lymphocytes (%) (Auto) % (20.0-45.0) Monocytes (%) (Auto) % (1.0-10.0) Eosinophils (%) (Auto) % (0.0-3.0) Basophils (%) (Auto) % (0.0-2.0) Differential Total Cells Counted 100 Neutrophils % (Manual) 90 % (45-75) H Lymphocytes % (Manual) 5 % (20-45) L Monocytes % (Manual) 4 % (1-10) Eosinophils % (Manual) 1 % (0-3) Basophils % (Manual) 0 % (0-2) Band Neutrophils 0 % (0-8) Platelet Estimate Increased H Platelet Morphology Normal Hypochromasia 1+ Anisocytosis 1+ Sodium Level 136 MMOL/L (136-145) Potassium Level 4.6 MMOL/L (3.5-5.1) Chloride Level 95 MMOL/L (98-107) L Carbon Dioxide Level 32 MMOL/L (21-32) Anion Gap 9 mmol/L (5-15) Blood Urea Nitrogen 38 mg/dL (7-18) H Creatinine 8.7 MG/DL (0.55-1.30) H Estimat Glomerular Filtration Rate 7.9 mL/min (>60) Glucose Level 142 MG/DL (74-106) H Uric Acid 5.6 MG/DL (2.6-7.2) Calcium Level 9.0 MG/DL (8.5-10.1) Phosphorus Level 3.3 MG/DL (2.5-4.9) Magnesium Level 2.3 MG/DL (1.5-2.4) Total Bilirubin 0.6 MG/DL (0.2-1.0) Aspartate Amino Transf (AST/SGOT) 16 U/L (15-37) Alanine Aminotransferase (ALT/SGPT) 14 U/L (12-78) Alkaline Phosphatase 167 U/L (46-116) H C-Reactive Protein, Quantitative 29.7 mg/dL (0.00-0.90) H Pro-B-Type Natriuretic Peptide 07070 pg/mL (0-125) H Total Protein 8.2 G/DL (6.4-8.2) Albumin 1.7 G/DL (3.4-5.0) L Globulin 6.5 g/dL Albumin/Globulin Ratio 0.3 (1.0-2.7) L Random Vancomycin Level 17.3 ug/mL Microbiology Date/Time Source Procedure Growth Status 09/29/17 11:45 Blood Blood Culture - Preliminary Resulted 09/28/17 15:10 Leg Left Gram Stain Pending Resulted 09/28/17 15:10 Wound Culture - Preliminary Gram Negative Bacillus 1 Staphylococcus Aureus Resulted Intake and Output 09/29/17 09/30/17 19:00 07:00 Intake Total 360 ml 55 ml Balance 360 ml 55 ml Intake Oral 360 ml 0 ml IV Total 55 ml Objective General Appearance: WD/WN, obese EENT: PERRL/EOMI, normal ENT inspection Neck: non-tender, normal alignment, supple Cardiovascular: normal peripheral pulses, normal rate, regular rhythm, no gallop/murmur, no JVD Respiratory/Chest: chest wall non-tender, lungs clear, normal breath sounds, no respiratory distress, no accessory muscle use Abdomen: normal bowel sounds, non tender, soft, no organomegaly, no mass Extremities: normal range of motion, non-tender Neurologic: kettle loader II-XII grossly normal, no motor/sensory deficits Skin: normal pigmentation, warm/dry Assessment/Plan Problem List: (1) Leukocytosis Assessment & Plan: Worsening. See ID note. Continue zosyn and vanco per ID (2) Fever (3) ESRD (end stage renal disease) on dialysis Assessment & Plan: Hemodialysis W per nephrology (4) Diabetes mellitus, type II Assessment & Plan: Continue levemir and novolog (5) HTN (hypertension) (6) CAD (coronary artery disease) (7) Hypercholesteremia (8) Diabetic foot ulcer Assessment & Plan: see podiatry consult-gangrene.. cont zosyn and vanco per ID (9) Gangrene of left foot Assessment & Plan: Await below the knee amputation-see podiatry and surgery note (10) Anemia Assessment & Plan: Worsening. Transfuse 1 unit PRBC in preparation for surgery Status: not improved WILTON MATOS Sep 30, 2017 12:22
--- NOTE | 2017-09-30 12:32 | Neurology Progress Note ---
Interim History Interim History ROS Limited/Unobtainable: No Complaints: positional dizziness ataxia. Events: stable, ready for surgery Objective Physical Exam Last Vital Signs Date Time Temp Pulse Resp B/P (MAP) Pulse Ox O2 Delivery O2 Flow Rate FiO2 09/30/17 11:30 98.2 81 20 104/59 96 09/29/17 12:25 Room Air Laboratory Tests Test 09/30/17 04:30 White Blood Count 24.6 K/UL (4.8-10.8) *H Red Blood Count 2.68 M/UL (4.70-6.10) L Hemoglobin 7.3 G/DL (14.2-18.0) L Hematocrit 23.6 % (42.0-52.0) L Mean Corpuscular Volume 88 FL (80-99) Mean Corpuscular Hemoglobin 27.1 PG (27.0-31.0) Mean Corpuscular Hemoglobin Concent 30.3 G/DL (32.0-36.0) L Red Cell Distribution Width 16.8 % (11.6-14.8) H Platelet Count 513 K/UL (150-450) H Mean Platelet Volume 6.9 FL (6.5-10.1) Neutrophils (%) (Auto) % (45.0-75.0) Lymphocytes (%) (Auto) % (20.0-45.0) Monocytes (%) (Auto) % (1.0-10.0) Eosinophils (%) (Auto) % (0.0-3.0) Basophils (%) (Auto) % (0.0-2.0) Differential Total Cells Counted 100 Neutrophils % (Manual) 90 % (45-75) H Lymphocytes % (Manual) 5 % (20-45) L Monocytes % (Manual) 4 % (1-10) Eosinophils % (Manual) 1 % (0-3) Basophils % (Manual) 0 % (0-2) Band Neutrophils 0 % (0-8) Platelet Estimate Increased H Platelet Morphology Normal Hypochromasia 1+ Anisocytosis 1+ Sodium Level 136 MMOL/L (136-145) Potassium Level 4.6 MMOL/L (3.5-5.1) Chloride Level 95 MMOL/L (98-107) L Carbon Dioxide Level 32 MMOL/L (21-32) Anion Gap 9 mmol/L (5-15) Blood Urea Nitrogen 38 mg/dL (7-18) H Creatinine 8.7 MG/DL (0.55-1.30) H Estimat Glomerular Filtration Rate 7.9 mL/min (>60) Glucose Level 142 MG/DL (74-106) H Uric Acid 5.6 MG/DL (2.6-7.2) Calcium Level 9.0 MG/DL (8.5-10.1) Phosphorus Level 3.3 MG/DL (2.5-4.9) Magnesium Level 2.3 MG/DL (1.5-2.4) Total Bilirubin 0.6 MG/DL (0.2-1.0) Aspartate Amino Transf (AST/SGOT) 16 U/L (15-37) Alanine Aminotransferase (ALT/SGPT) 14 U/L (12-78) Alkaline Phosphatase 167 U/L (46-116) H C-Reactive Protein, Quantitative 29.7 mg/dL (0.00-0.90) H Pro-B-Type Natriuretic Peptide 96408 pg/mL (0-125) H Total Protein 8.2 G/DL (6.4-8.2) Albumin 1.7 G/DL (3.4-5.0) L Globulin 6.5 g/dL Albumin/Globulin Ratio 0.3 (1.0-2.7) L Random Vancomycin Level 17.3 ug/mL General: well developed, no acute distress, other - obese both feet gangrene Head: normocophalic, atraumatic Neck: no rigidity EENT: benign Neurologic Exam Mental Status: awake, alert, oriented x4, normal cognition, good mathematical skills, normal recent memory, normal remote memory, preserved visuospatial function Speech: normal speech, no dysarthia Language: normal language, no aphasia Cranial Nerve II: fundus normal, visual boo, no papilledema Cranial Nerves III, IV, : PERRLA, EOMI, pupils Cranial Nerve V: normal facial sensations, temporales function normal, masseters function normal, pterygoids function normal Cranial Nerve VII: no facial asymmetry, normal facial expressions Cranial Nerve VIII: normal hearing, no nystagmus, other - positional dizzines no vertigo Cranial Nerve IX: normal palate elevation, gag response Cranial Nerve X: no voice hoarseness Cranial Nerve XI: SCM symmetric, trapezii function normal Cranial Nerve XII: tongue midline, no tongue atrophy/fasciculations Motor System: normal muscle tone, no involuntary movement, other - atrophy small muscles hands feet, weakness 3/5 feet/hands Sensory: other - stockings -glove loss Coordination: other - +romberg Deep Tendon Reflexes: 1+ bicep (L), 1+ bicep (R), 1+ tricep (L), 1+ tricep (R) , 1+ brachioradialis (L), 1+ brachioradialis (R), 1+ knee (L), 1+ knee (R), 1+ ankle (L), 1+ ankle (R) Reflexes: mute plantar (L), mute plantar (R) Stance: other - unstaedy Gait: other - very ataxic Impression/Recommendations Problems: (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 KALEN WAGNER Sep 30, 2017 12:32
[2017-09-30] MEDS ORDERED: Meclizine 25mg tab ORAL PRN (13:00)
--- NOTE | 2017-09-30 13:44 | Nephrology Progress Note ---
Assessment/Plan Problem List: (1) ESRF (end stage renal failure) (2) Sepsis (3) Diabetic foot ulcer (4) Diabetes mellitus (5) Arrhythmia Assessment ESRD on HD M W Fr - Sepsis - Diabetic foot ulcer - Right lower extremity wounds, grossly they are not infected. - Left heel wound, left gangrene changes of the third, fourth and fifth toes, rule out osteomyelitis. - Arrhythmia - Diabetes mellitus - PVD Plan Plan: Per ID HD done 09/28 next 09/30 continue rest Subjective ROS Limited/Unobtainable: No Constitutional: Reports: malaise Objective Objective Last 24 Hour Vital Signs Date Time Temp Pulse Resp B/P (MAP) Pulse Ox O2 Delivery O2 Flow Rate FiO2 09/30/17 11:30 98.2 81 20 104/59 96 09/30/17 08:22 98.5 78 20 108/66 97 09/30/17 04:00 98.1 82 20 100/36 95 09/30/17 00:00 97.8 83 20 104/42 99 09/29/17 20:00 98.2 87 22 99/68 100 09/29/17 16:59 97.7 90 20 112/66 100 09/29/17 16:00 98.1 85 20 108/61 99 Intake and Output 09/29/17 09/30/17 19:00 07:00 Intake Total 360 ml 55 ml Balance 360 ml 55 ml Intake Oral 360 ml 0 ml IV Total 55 ml Laboratory Tests 09/30/17 04:30: White Blood Count 24.6*H, Red Blood Count 2.68L, Hemoglobin 7.3L, Hematocrit 23.6L, Mean Corpuscular Volume 88, Mean Corpuscular Hemoglobin 27.1, Mean Corpuscular Hemoglobin Concent 30.3L, Red Cell Distribution Width 16.8H, Platelet Count 513H, Mean Platelet Volume 6.9, Neutrophils (%) (Auto) , Lymphocytes (%) (Auto) , Monocytes (%) (Auto) , Eosinophils (%) (Auto) , Basophils (%) (Auto) , Differential Total Cells Counted 100, Neutrophils % ( Manual) 90H, Lymphocytes % (Manual) 5L, Monocytes % (Manual) 4, Eosinophils % ( Manual) 1, Basophils % (Manual) 0, Band Neutrophils 0, Platelet Estimate IncreasedH, Platelet Morphology Normal, Hypochromasia 1+, Anisocytosis 1+, Sodium Level 136, Potassium Level 4.6, Chloride Level 95L, Carbon Dioxide Level 32, Anion Gap 9, Blood Urea Nitrogen 38H, Creatinine 8.7H, Estimat Glomerular Filtration Rate 7.9, Glucose Level 142H, Uric Acid 5.6, Calcium Level 9.0, Phosphorus Level 3.3, Magnesium Level 2.3, Total Bilirubin 0.6, Aspartate Amino Transf (AST/SGOT) 16, Alanine Aminotransferase (ALT/SGPT) 14, Alkaline Phosphatase 167H, C-Reactive Protein, Quantitative 29.7H, Pro-B-Type Natriuretic Peptide 39925A, Total Protein 8.2, Albumin 1.7L, Globulin 6.5, Albumin/Globulin Ratio 0.3L, Random Vancomycin Level 17.3 Height (Feet): 5 Height (Inches): 7.00 Weight (Pounds): 290 General Appearance: no apparent distress Cardiovascular: normal rate Respiratory/Chest: lungs clear Abdomen: soft Objective no change in PE BREANN STEEL Sep 30, 2017 13:44
--- NOTE | 2017-09-30 14:11 | Anethesia Preoperative Eval ---
Anesthesia Pre-op PMH/ROS General Date of Evaluation: Sep 30, 2017 Time of Evaluation: 15:31 Anesthesiologist: Kulwinder ASA Score: ASA 4 Mallampati Score Class I : Soft palate, uvula, fauces, pillars visible Class II: Soft palate, uvula, fauces visible Class III: Soft palate, base of uvula visible Class IV: Only hard plate visible Mallampati Classification: Class III Surgeon: dAin Diagnosis: L Foot Gangrene Surgical Procedure: L BKA Anesthesia History: none Family History: no anesthesia problems Allergies: Coded Allergies: No Known Allergies (Unverified , 09/27/17) Medications: see eMAR Past Medical History Cardiovascular: Reports: HTN, CAD, [place] - 2017, STEMI, other - HL Gastrointestinal/Genitourinary: Reports: GERD, ESRD Endocrine: Reports: DM - Sepsis, Leukocytosis Hematology/Immune: Reports: anemia Other: obesity PSxH Narrative: R Hip SX, L Great Toe Amputation Anesthesia Pre-op Phys. Exam Physician Exam Last Vital Signs Date Time Temp Pulse Resp B/P (MAP) Pulse Ox O2 Delivery O2 Flow Rate FiO2 09/30/17 11:30 98.2 81 20 104/59 96 09/29/17 12:25 Room Air Constitutional: NAD Neurologic: CN 2-12 intact Cardiovascular: RRR Respiratory: CTA Gastrointestinal: S/NT/ND Airway Exam Mallampati Score: Class III MO: limited ROM: limited Teeth: missing, intact Anesthesia Pre-op A/P Labs Hematology Test 09/30/17 04:30 White Blood Count 24.6 K/UL (4.8-10.8) *H Red Blood Count 2.68 M/UL (4.70-6.10) L Hemoglobin 7.3 G/DL (14.2-18.0) L Hematocrit 23.6 % (42.0-52.0) L Mean Corpuscular Volume 88 FL (80-99) Mean Corpuscular Hemoglobin 27.1 PG (27.0-31.0) Mean Corpuscular Hemoglobin Concent 30.3 G/DL (32.0-36.0) L Red Cell Distribution Width 16.8 % (11.6-14.8) H Platelet Count 513 K/UL (150-450) H Mean Platelet Volume 6.9 FL (6.5-10.1) Neutrophils (%) (Auto) % (45.0-75.0) Lymphocytes (%) (Auto) % (20.0-45.0) Monocytes (%) (Auto) % (1.0-10.0) Eosinophils (%) (Auto) % (0.0-3.0) Basophils (%) (Auto) % (0.0-2.0) Differential Total Cells Counted 100 Neutrophils % (Manual) 90 % (45-75) H Lymphocytes % (Manual) 5 % (20-45) L Monocytes % (Manual) 4 % (1-10) Eosinophils % (Manual) 1 % (0-3) Basophils % (Manual) 0 % (0-2) Band Neutrophils 0 % (0-8) Platelet Estimate Increased H Platelet Morphology Normal Hypochromasia 1+ Anisocytosis 1+ Chemistry Test 09/30/17 04:30 Sodium Level 136 MMOL/L (136-145) Potassium Level 4.6 MMOL/L (3.5-5.1) Chloride Level 95 MMOL/L (98-107) L Carbon Dioxide Level 32 MMOL/L (21-32) Anion Gap 9 mmol/L (5-15) Blood Urea Nitrogen 38 mg/dL (7-18) H Creatinine 8.7 MG/DL (0.55-1.30) H Estimat Glomerular Filtration Rate 7.9 mL/min (>60) Glucose Level 142 MG/DL (74-106) H Uric Acid 5.6 MG/DL (2.6-7.2) Calcium Level 9.0 MG/DL (8.5-10.1) Phosphorus Level 3.3 MG/DL (2.5-4.9) Magnesium Level 2.3 MG/DL (1.5-2.4) Total Bilirubin 0.6 MG/DL (0.2-1.0) Aspartate Amino Transf (AST/SGOT) 16 U/L (15-37) Alanine Aminotransferase (ALT/SGPT) 14 U/L (12-78) Alkaline Phosphatase 167 U/L (46-116) H C-Reactive Protein, Quantitative 29.7 mg/dL (0.00-0.90) H Pro-B-Type Natriuretic Peptide 83074 pg/mL (0-125) H Total Protein 8.2 G/DL (6.4-8.2) Albumin 1.7 G/DL (3.4-5.0) L Globulin 6.5 g/dL Albumin/Globulin Ratio 0.3 (1.0-2.7) L Risk Assessment & Plan Assessment: ASA 4 Plan: GA Status Change Before Surgery: No Pre-Antibiotics Drug: Ben Wilson MD Sep 30, 2017 14:11
--- NOTE | 2017-09-30 14:40 | Pulmonology Progress Note ---
Assessment/Plan Problems: (1) Diabetic foot ulcer (2) Sepsis (3) Arrhythmia (4) ESRF (end stage renal failure) (5) Diabetes mellitus Assessment/Plan prbc times one improving iv abx check h/h daily check cultures neurology to see for dizziness. HD by nephrology Subjective ROS Limited/Unobtainable: No Constitutional: Reports: no symptoms HEENT: Repors: no symptoms Allergies: Coded Allergies: No Known Allergies (Unverified , 09/27/17) Objective Last 24 Hour Vital Signs Date Time Temp Pulse Resp B/P (MAP) Pulse Ox O2 Delivery O2 Flow Rate FiO2 09/30/17 11:30 98.2 81 20 104/59 96 09/30/17 08:22 98.5 78 20 108/66 97 09/30/17 04:00 98.1 82 20 100/36 95 09/30/17 00:00 97.8 83 20 104/42 99 09/29/17 20:00 98.2 87 22 99/68 100 09/29/17 16:59 97.7 90 20 112/66 100 09/29/17 16:00 98.1 85 20 108/61 99 Intake and Output 09/29/17 09/30/17 19:00 07:00 Intake Total 360 ml 55 ml Balance 360 ml 55 ml Intake Oral 360 ml 0 ml IV Total 55 ml General Appearance: WD/WN HEENT: normocephalic Respiratory/Chest: chest wall non-tender, lungs clear Cardiovascular: normal peripheral pulses, normal rate Abdomen: normal bowel sounds, soft, non tender Extremities: no cyanosis Skin: no ulcers Neurologic/Psychiatric: no motor/sensory deficits, oriented x 3 Lymphatic: no groin adenopathy Microbiology Date/Time Source Procedure Growth Status 09/29/17 11:45 Blood Blood Culture - Preliminary Resulted 09/28/17 15:10 Leg Left Gram Stain - Final Resulted 09/28/17 15:10 Wound Culture - Preliminary Gram Negative Bacillus 1 Staphylococcus Aureus Resulted Laboratory Tests 09/30/17 04:30: White Blood Count 24.6*H, Red Blood Count 2.68L, Hemoglobin 7.3L, Hematocrit 23.6L, Mean Corpuscular Volume 88, Mean Corpuscular Hemoglobin 27.1, Mean Corpuscular Hemoglobin Concent 30.3L, Red Cell Distribution Width 16.8H, Platelet Count 513H, Mean Platelet Volume 6.9, Neutrophils (%) (Auto) , Lymphocytes (%) (Auto) , Monocytes (%) (Auto) , Eosinophils (%) (Auto) , Basophils (%) (Auto) , Differential Total Cells Counted 100, Neutrophils % ( Manual) 90H, Lymphocytes % (Manual) 5L, Monocytes % (Manual) 4, Eosinophils % ( Manual) 1, Basophils % (Manual) 0, Band Neutrophils 0, Platelet Estimate IncreasedH, Platelet Morphology Normal, Hypochromasia 1+, Anisocytosis 1+, Sodium Level 136, Potassium Level 4.6, Chloride Level 95L, Carbon Dioxide Level 32, Anion Gap 9, Blood Urea Nitrogen 38H, Creatinine 8.7H, Estimat Glomerular Filtration Rate 7.9, Glucose Level 142H, Uric Acid 5.6, Calcium Level 9.0, Phosphorus Level 3.3, Magnesium Level 2.3, Total Bilirubin 0.6, Aspartate Amino Transf (AST/SGOT) 16, Alanine Aminotransferase (ALT/SGPT) 14, Alkaline Phosphatase 167H, C-Reactive Protein, Quantitative 29.7H, Pro-B-Type Natriuretic Peptide 18856P, Total Protein 8.2, Albumin 1.7L, Globulin 6.5, Albumin/Globulin Ratio 0.3L, Random Vancomycin Level 17.3 Current Medications Medications (Trade) Dose Ordered Sig/Georges Route PRN Reason Start Time Stop Time Status Last Admin Dose Admin Amiodarone HCl (Cordarone) 200 mg BID ORAL 09/27/17 09:00 10/27/17 08:59 09/29/17 16:57 Atorvastatin Calcium (Lipitor) 40 mg BEDTIME ORAL 09/27/17 21:00 10/27/17 20:59 09/29/17 21:55 Cinacalcet (Sensipar) 60 mg DAILY ORAL 09/27/17 09:00 10/27/17 08:59 09/30/17 08:46 Collagenase (Santyl) 1 applic Q12HR TOPIC 09/30/17 21:00 10/30/17 20:59 Dextrose (Dextrose 50%) STAT PRN IV Hypoglycemia 09/27/17 02:45 10/27/17 02:44 Gabapentin (Neurontin) 300 mg THREE TIMES A DAY ORAL 09/27/17 13:00 10/27/17 12:59 09/30/17 14:24 Insulin Aspart (NovoLOG) BEFORE MEALS AND HS SUBQ 09/27/17 06:30 10/27/17 06:29 09/30/17 11:51 Insulin Detemir (Levemir) 20 units DAILY SUBQ 09/27/17 09:00 10/27/17 08:59 09/30/17 09:15 Lansoprazole (Prevacid) 30 mg DAILY ORAL 09/27/17 12:00 10/27/17 11:59 09/30/17 08:46 Meclizine HCl (Antivert) 25 mg DAILYPRN PRN ORAL for dizziness 09/30/17 13:00 10/30/17 12:59 09/30/17 14:23 Piperacillin Sod/ Tazobactam Sod 2.25 gm/Sodium Chloride 55 ml @ 110 mls/hr EVERY 8 HOURS IV 09/29/17 14:00 10/06/17 23:59 09/30/17 14:24 Polyethylene Glycol (Miralax) 17 gm DAILY ORAL 09/27/17 09:00 10/27/17 08:59 09/29/17 09:30 Sennosides (Senokot) 2 tab BEDTIME PRN ORAL Constipation 09/27/17 02:00 10/27/17 01:59 Sevelamer Carbonate (Renvela) 2,400 mg THREE TIMES A DAY ORAL 09/27/17 09:00 10/27/17 08:59 09/30/17 14:23 Vancomycin HCl (Vanco rx to dose) 1 ea DAILY PRN MISC Per rx protocol 09/27/17 01:45 10/27/17 01:44 ARDEN CONCEPCION Sep 30, 2017 14:40
[2017-09-30 16:09] LABS: HEMATOCRIT 25.5 % (42.0-52.0); HEMOGLOBIN 7.8 G/DL (14.2-18.0); MEAN CORPUSCULAR VOLUME 87 FL (80-99); PLATELET COUNT 614 K/UL (150-450); RED BLOOD COUNT 2.92 M/UL (4.70-6.10); RED CELL DISTRIBUTION WIDTH 16.8 % (11.6-14.8)
[2017-09-30 16:24] LABS: WHITE BLOOD COUNT 26.8 K/UL (4.8-10.8)
--- NOTE | 2017-09-30 16:50 | Diagnostic Imaging Report ---
Indication: Chest pain Technique: Continuous helical transaxial imaging of the chest was obtained from the thoracic inlet to the upper abdomen after intravenous nonionic contrast administration. Coronal 2-D reformats were also obtained. Automatic Exposure Control was utilized. Total Dose length Product (DLP): [address] Dose Index Volume (CTDIvol): 0.15, 8.11, 113.56, 29.57, 27.1 mGy Comparison: none Findings: Minimal linear densities noted within the lung parenchyma in the lower part of the lung bases likely atelectasis. There are old rib fractures noted bilaterally. There is no consolidation identified. No adenopathy or abnormal fluid collections are seen. The heart is enlarged. Coronary arteries noted with a moderate calcification. The aorta is also mildly calcified. The gallbladder is contracted but small gallstones are noted. There is no evidence of bowel obstruction. No nephrolithiasis seen. No gross abnormalities of the liver or spleen are identified. No obvious abnormalities of the pancreas or adrenal glands identified. There is some artifact limiting evaluation. Urinary bladder is unremarkable. There is no free fluid or free air. The appendix is normal. There are pins in the right hip associated with prior femoral neck injury. IMPRESSION: No acute findings in the abdomen chest or pelvis. Mild basal atelectasis Suspected gallstones. No evidence of abdominal abscess. Atherosclerotic disease. Status post right hip pinning. The CT scanner at [facility] is accredited by the [employer] and the scans are performed using dose optimization techniques as appropriate to a performed exam including Automatic Exposure control.
--- NOTE | 2017-09-30 16:50 | Diagnostic Imaging Report ---
Indication: Chest pain Technique: Continuous helical transaxial imaging of the chest was obtained from the thoracic inlet to the upper abdomen after intravenous nonionic contrast administration. Coronal 2-D reformats were also obtained. Automatic Exposure Control was utilized. Total Dose length Product (DLP): [address] Dose Index Volume (CTDIvol): 0.15, 8.11, 113.56, 29.57, 27.1 mGy Comparison: none Findings: Minimal linear densities noted within the lung parenchyma in the lower part of the lung bases likely atelectasis. There are old rib fractures noted bilaterally. There is no consolidation identified. No adenopathy or abnormal fluid collections are seen. The heart is enlarged. Coronary arteries noted with a moderate calcification. The aorta is also mildly calcified. The gallbladder is contracted but small gallstones are noted. There is no evidence of bowel obstruction. No nephrolithiasis seen. No gross abnormalities of the liver or spleen are identified. No obvious abnormalities of the pancreas or adrenal glands identified. There is some artifact limiting evaluation. Urinary bladder is unremarkable. There is no free fluid or free air. The appendix is normal. There are pins in the right hip associated with prior femoral neck injury. IMPRESSION: No acute findings in the abdomen chest or pelvis. Mild basal atelectasis Suspected gallstones. No evidence of abdominal abscess. Atherosclerotic disease. Status post right hip pinning. The CT scanner at [facility] is accredited by the [employer] and the scans are performed using dose optimization techniques as appropriate to a performed exam including Automatic Exposure control.
--- NOTE | 2017-09-30 21:00 | Consultation ---
DATE OF CONSULTATION: 09/30/2017 VASCULAR SURGERY CONSULTATION CONSULTING PHYSICIAN: Aguila Cortes M.D. REFERRING PHYSICIANS: 1. Nestor Harrington D.P.M. 2. Samantha Miller M.D. REASON FOR EVALUATION: Lower extremity gangrene. HISTORY OF PRESENT ILLNESS: This is a 62-year-old male, who suffers from end-stage renal failure, on hemodialysis through a right forearm Shell AV fistula, which was placed over seven years ago in [place]. The patient has extensive left foot wet gangrene, foul-smelling necrosis as well as a dry right first toe gangrene. The patient has been evaluated by General Surgery for left foot amputation. Vascular Surgery is consulted for further evaluation and clearance. The patient now wishes to have the leg amputation and has been waiting being scheduled. PAST MEDICAL HISTORY: As above. History of coronary artery disease, coronary stent placement; cardiac arrest; hypertension; end-stage renal failure, on hemodialysis; diabetes mellitus; arrhythmia; sepsis; calcific tibial PAD; and right forearm Shell AV fistula. MEDICATIONS: See attached MAR. ALLERGIES: He has no known drug allergies. SOCIAL HISTORY: He denies history of smoking, drugs, or alcohol abuse. 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 FAMILY HISTORY: Unremarkable. REVIEW OF SYSTEMS: CARDIOVASCULAR: No history of chest pain or palpitation. PULMONARY: No cough or hemoptysis. GASTROINTESTINAL: No history of abdominal pain, constipation, or diarrhea. GENITOURINARY: No urinary symptoms or dysuria. NEUROLOGICAL: No history of strokes or seizures. PHYSICAL EXAMINATION: VITAL SIGNS: The patient is afebrile at 98, heart rate is 80, blood pressure 106/67, and respirations 16. He has palpable right forearm Shell AV fistula. Palpable radial pulses. LUNGS: Clear to auscultation. HEART: Regular. ABDOMEN: Soft and nontender. EXTREMITIES: He has palpable femoral pulses. Intact popliteal and pedal Doppler's. On the left foot, he has advanced extensive wet gangrene with necrosis of the toes and heel, exposed Achilles tendon, and a plantar foot wound. Right first toe has a dry gangrene and necrosis. LABORATORY DATA: His laboratory revealed WBC of 24.6, hemoglobin 7.3, and platelet count is 513,000. Sodium 136, potassium 4.6, BUN is 38, and creatinine 8.7. Glucose is 142. IMPRESSION: 1. Non-salvageable left foot wet gangrene, advanced with exposed Achilles tendon. 2. Dry right first toe necrosis and gangrene. 3. Calcific multilevel tibial arterial occlusive disease. 4. Multiple risk factors with obesity, hypertension, end-stage renal failure, on hemodialysis, diabetes mellitus, hypertension, and peripheral neuropathy. PLAN AND RECOMMENDATION: 1. I agree with General Surgery and podiatry service. The patient will need to have a left leg amputation. The patient is cleared from Vascular Surgery standpoint for left leg amputation. This will be scheduled by the General Surgery service. 2. Antibiotics per Infectious Disease service. Dialysis through the right forearm Shell AV fistula. 3. Once the patient is medically optimized and sepsis cleared, as an outpatient, the patient can have right leg angiography for right leg tibial revascularization, after which he will require right first toe gangrene amputation as well. This was discussed at length with the patient and the nurse at bedside. Aguila Cortes M.D. DR: HILLARY JOB#: [id number] CC: Aguila Cortes M.D.; Fax#: [phone] SAMANTHA MILLER M.D. ; FAX#: [phone] Crystal [employer]; FAX#: [phone] LAUREN
[2017-09-30] MEDS: Atorvastatin 20mg tab ORAL SCH (21:37)
[2017-10-01] VITALS (13 sets, daily range): BP systolic 81–149; BP diastolic 42–63
[2017-10-01] MEDS: Piperacillin/Tazobactam 2.25 GM in NS 55 ML IV SCH ×2 (05:25→14:20)
[2017-10-01] MEDS: NovoLOG Insulin Flexpen SUBQ SCH ×4 (06:24→21:09)
--- NOTE | 2017-10-01 08:11 | Pulmonology Progress Note ---
Assessment/Plan Assessment/Plan Note: This note was opened early, however patient was at surgery at this time, patient actually seen at 1530 postoperatively ASSESSMENT Sepsis Bacteremia with Staph aureus diabetic foot ulcer likely L foot wet gangrene s/p L BKA 10/01 gangrene R hallux DM Severe diabetic polyneuropathy ESRD, on HD PAD CAD s/p cardiac arrest end stage heart failure Severe CM ( EF 5%) positional dizziness with gait ataxia- r/o anoxic encephalopathy with cerebellar dysfunction, r/o post-anoxic vestibulopathy PLAN OF CARE tele abx ID follows blood cx+ Staph aureus , r/o graft infection, SBE ECHO no vegetation KERI CT C/A/P no acute process If negative KERI , ID recommended WBC scan MRI foot and ankle no acute OM , podiatry follows Surgery follows s/p L BKA dressing, change, monitor stump ECHO with EF 5%, mild to moderate MR End stage CM, medical management Continue ASA, Plavix, Amiodarone vasc surgeon consult appreciated DVT GI prophylaxis BS management with SS of insulin and Levemir, titrate a seeded bowel regimen monitor HH, transfuse prn to keep Hg above 7 Neuro eval appreciated Meclizine prn Per neuro: for now address issues of sepsis and amputation, when stabilized, will need to review recent MRI (per pt was fine(, if no improvement may benefit from ENT eval overall prognosis poor given multiple comorbidities: end stage CM, ESRD, DM and sepsis case discussed and evaluated by supervising physician Subjective Allergies: Coded Allergies: No Known Allergies (Unverified , 09/27/17) Subjective patient s/p L BKA earlier transferred to tele postoperatively Objective Last 24 Hour Vital Signs Date Time Temp Pulse Resp B/P (MAP) Pulse Ox O2 Delivery O2 Flow Rate FiO2 10/01/17 04:00 98.3 69 20 100/63 95 Room Air 10/01/17 01:30 98.6 81 95/61 10/01/17 00:00 97.5 85 21 93/61 95 09/30/17 20:30 Room Air 09/30/17 20:30 99.0 85 20 106/61 Room Air 09/30/17 20:00 97.8 85 21 99/54 97 09/30/17 17:00 Room Air 09/30/17 17:00 98.9 88 20 117/65 Room Air 09/30/17 16:45 97.9 84 17 110/85 99 Room Air 09/30/17 11:30 98.2 81 20 104/59 96 09/30/17 08:22 98.5 78 20 108/66 97 Intake and Output 09/30/17 10/01/17 19:00 07:00 Intake Total 775 ml 485 ml Output Total 0 ml 2500 ml Balance 775 ml -2015 ml Intake Oral 720 ml IV Total 55 ml 235 ml Blood Product 250 ml Output Urine Total 0 ml Hemodialysis UF 2500 ml # Voids 2 1 # Bowel Movements 1 Objective General Appearance: no acute distress HEENT: normocephalic, atraumatic, anicteric, mucous membranes moist Respiratory/Chest: lungs clear, no respiratory distress, no accessory muscle use Cardiovascular: normal rate, regular rhythm - SR on tele Abdomen: soft, non tender Extremities: fresh L BKA stump with dressing Neurologic/Psychiatric: abnormal gait, alert, oriented x 3, responsive, normal mood/affect Microbiology Date/Time Source Procedure Growth Status 09/29/17 11:45 Blood Blood Culture - Preliminary Resulted 09/29/17 11:35 Blood Blood Culture - Preliminary NO GROWTH AFTER 24 HOURS Resulted 09/28/17 15:10 Leg Left Gram Stain - Final Resulted 09/28/17 15:10 Wound Culture - Preliminary Gram Negative Bacillus 1 Staphylococcus Aureus Resulted Laboratory Tests 09/30/17 15:40: White Blood Count 26.8*H, Red Blood Count 2.92L, Hemoglobin 7.8L, Hematocrit 25.5L, Mean Corpuscular Volume 87, Mean Corpuscular Hemoglobin 26.8L, Mean Corpuscular Hemoglobin Concent 30.6L, Red Cell Distribution Width 16.8H, Platelet Count 614H, Mean Platelet Volume 6.4L, Neutrophils (%) (Auto) , Lymphocytes (%) (Auto) , Monocytes (%) (Auto) , Eosinophils (%) (Auto) , Basophils (%) (Auto) , Differential Total Cells Counted 100, Neutrophils % ( Manual) 84H, Lymphocytes % (Manual) 7L, Monocytes % (Manual) 9, Eosinophils % ( Manual) 0, Basophils % (Manual) 0, Band Neutrophils 0, Platelet Estimate IncreasedH, Platelet Morphology Normal, Polychromasia 1+, Hypochromasia 1+, Anisocytosis 1+ Current Medications Medications (Trade) Dose Ordered Sig/Georges Route PRN Reason Start Time Stop Time Status Last Admin Dose Admin Amiodarone HCl (Cordarone) 200 mg BID ORAL 09/27/17 09:00 10/27/17 08:59 09/29/17 16:57 Atorvastatin Calcium (Lipitor) 40 mg BEDTIME ORAL 09/27/17 21:00 10/27/17 20:59 09/30/17 21:37 Cinacalcet (Sensipar) 60 mg DAILY ORAL 09/27/17 09:00 10/27/17 08:59 09/30/17 08:46 Collagenase (Santyl) 1 applic Q12HR TOPIC 09/30/17 21:00 10/30/17 20:59 Dextrose (Dextrose 50%) STAT PRN IV Hypoglycemia 09/27/17 02:45 10/27/17 02:44 Gabapentin (Neurontin) 300 mg THREE TIMES A DAY ORAL 09/27/17 13:00 10/27/17 12:59 09/30/17 14:24 Insulin Aspart (NovoLOG) BEFORE MEALS AND HS SUBQ 09/27/17 06:30 10/27/17 06:29 10/01/17 06:24 Insulin Detemir (Levemir) 20 units DAILY SUBQ 09/27/17 09:00 10/27/17 08:59 09/30/17 09:15 Lansoprazole (Prevacid) 30 mg DAILY ORAL 09/27/17 12:00 10/27/17 11:59 09/30/17 08:46 Meclizine HCl (Antivert) 25 mg DAILYPRN PRN ORAL for dizziness 09/30/17 13:00 10/30/17 12:59 09/30/17 14:23 Piperacillin Sod/ Tazobactam Sod 2.25 gm/Sodium Chloride 55 ml @ 110 mls/hr EVERY 8 HOURS IV 09/29/17 14:00 10/06/17 23:59 10/01/17 05:25 Polyethylene Glycol (Miralax) 17 gm DAILY ORAL 09/27/17 09:00 10/27/17 08:59 09/29/17 09:30 Sennosides (Senokot) 2 tab BEDTIME PRN ORAL Constipation 09/27/17 02:00 10/27/17 01:59 Sevelamer Carbonate (Renvela) 2,400 mg THREE TIMES A DAY ORAL 09/27/17 09:00 10/27/17 08:59 09/30/17 14:23 Sodium Chloride 1,000 ml @ 40 mls/hr Q24H IV 09/30/17 23:55 10/30/17 23:54 10/01/17 02:00 Vancomycin HCl (Vanco rx to dose) 1 ea DAILY PRN MISC Per rx protocol 09/27/17 01:45 10/27/17 01:44 Deandre (Gloria)Sapna NP Oct 01, 2017 08:11
[2017-10-01] MEDS: Miralax 17gm pkt ORAL SCH (08:24)
[2017-10-01] MEDS: Sensipar 30mg Tab ORAL SCH (08:24)
[2017-10-01] MEDS: Levemir Flexpen SUBQ SCH (08:25)
[2017-10-01 08:26] LABS: HEMATOCRIT 25.1 % (42.0-52.0); HEMOGLOBIN 7.9 G/DL (14.2-18.0); MEAN CORPUSCULAR VOLUME 88 FL (80-99); PLATELET COUNT 487 K/UL (150-450); RED BLOOD COUNT 2.85 M/UL (4.70-6.10); RED CELL DISTRIBUTION WIDTH 16.4 % (11.6-14.8)
[2017-10-01 08:34] LABS: WHITE BLOOD COUNT 23.7 K/UL (4.8-10.8)
[2017-10-01 08:55] LABS: INR 1.1 (0.9-1.1)
[2017-10-01] MEDS: Amiodarone 200mg tab ORAL SCH ×2 (09:00→18:00)
[2017-10-01 09:13] LABS: ANION GAP 4 mmol/L (5-15); BLOOD UREA NITROGEN 28 mg/dL (7-18); CALCIUM 8.6 MG/DL (8.5-10.1); CARBON DIOXIDE 36 MMOL/L (21-32); CHLORIDE 97 MMOL/L (98-107); CREATININE 6.7 MG/DL (0.55-1.30); POTASSIUM 4.2 MMOL/L (3.5-5.1); SODIUM 137 MMOL/L (136-145)
[2017-10-01] MEDS ORDERED: Bupivacaine 0.5% Inj 30 ml vial INJ ONE (09:35)
[2017-10-01] MEDS ORDERED: Propofol 200mg/20ml IV ONE (09:39)
[2017-10-01] MEDS ORDERED: fentaNYL 100 mcg/2 mL IV ONE (09:40)
[2017-10-01] MEDS ORDERED: Midazolam 2mg/2ml Inj ONE (09:40)
[2017-10-01] MEDS ORDERED: Sterile Water Irrig 1000ml IRRIG ONE (09:40)
--- NOTE | 2017-10-01 10:36 | Cardiology Report ---
APPROVED REPORT EKG Measurement Heart [id number] Sinus rhythm with premature atrial complexes with aberrant conduction Cannot rule out Inferior infarct, age undetermined Possible Anterolateral infarct, age undetermined Prolonged QT Abnormal ECG
--- NOTE | 2017-10-01 10:58 | Immediate Post-Op Evaluation ---
Immediate Post-Op Evalulation Immediate Post-Op Evalulation Procedure: Left BKA Date of Evaluation: Oct 01, 2017 Time of Evaluation: 13:00 IV Fluids: 500 Blood Products: 500 PRBC Estimated Blood Loss: 800 Blood Pressure Systolic: 149 Blood Pressure Diastolic: 42 Pulse Rate: 88 Respiratory Rate: 15 O2 Sat by Pulse Oximetry: 100 Temperature (Fahrenheit): 97.6 Pain Score (1-10): 0 Nausea: No Vomiting: No Complications No complication Patient Status: awake, patent, none Hydration Status: adequate Drug: None ESCOBAR SORENSON M.D. Oct 01, 2017 10:58
[2017-10-01] MEDS ORDERED: fentaNYL 100 mcg/2 mL IV PRN (11:00)
[2017-10-01] MEDS ORDERED: Midazolam 2mg/2ml Inj IVP PRN (11:00)
[2017-10-01] MEDS ORDERED: NS Irrig 1000ml IRRIG ONE (12:26)
--- NOTE | 2017-10-01 12:40 | Nephrology Progress Note ---
Assessment/Plan Problem List: (1) ESRF (end stage renal failure) (2) Sepsis (3) Diabetic foot ulcer (4) Diabetes mellitus (5) Arrhythmia Assessment ESRD on HD M W Fr - Sepsis - Diabetic foot ulcer - Right lower extremity wounds, grossly they are not infected. - Left heel wound, left gangrene changes of the third, fourth and fifth toes, rule out osteomyelitis. - Arrhythmia - Diabetes mellitus - PVD Plan Plan: due amputation today Per ID HD done 09/30 next 10/02 continue rest Subjective ROS Limited/Unobtainable: No Constitutional: Reports: malaise Objective Objective Last 24 Hour Vital Signs Date Time Temp Pulse Resp B/P (MAP) Pulse Ox O2 Delivery O2 Flow Rate FiO2 10/01/17 08:00 97.3 98 20 100/54 72 10/01/17 04:00 98.3 69 20 100/63 95 Room Air 10/01/17 01:30 98.6 81 95/61 10/01/17 00:00 97.5 85 21 93/61 95 09/30/17 20:30 Room Air 09/30/17 20:30 99.0 85 20 106/61 Room Air 09/30/17 20:00 97.8 85 21 99/54 97 09/30/17 17:00 Room Air 09/30/17 17:00 98.9 88 20 117/65 Room Air 09/30/17 16:45 97.9 84 17 110/85 99 Room Air Intake and Output 09/30/17 10/01/17 19:00 07:00 Intake Total 775 ml 485 ml Output Total 0 ml 2500 ml Balance 775 ml -2015 ml Intake Oral 720 ml IV Total 55 ml 235 ml Blood Product 250 ml Output Urine Total 0 ml Hemodialysis UF 2500 ml # Voids 2 1 # Bowel Movements 1 Laboratory Tests 09/30/17 15:40: White Blood Count 26.8*H, Red Blood Count 2.92L, Hemoglobin 7.8L, Hematocrit 25.5L, Mean Corpuscular Volume 87, Mean Corpuscular Hemoglobin 26.8L, Mean Corpuscular Hemoglobin Concent 30.6L, Red Cell Distribution Width 16.8H, Platelet Count 614H, Mean Platelet Volume 6.4L, Neutrophils (%) (Auto) , Lymphocytes (%) (Auto) , Monocytes (%) (Auto) , Eosinophils (%) (Auto) , Basophils (%) (Auto) , Differential Total Cells Counted 100, Neutrophils % ( Manual) 84H, Lymphocytes % (Manual) 7L, Monocytes % (Manual) 9, Eosinophils % ( Manual) 0, Basophils % (Manual) 0, Band Neutrophils 0, Platelet Estimate IncreasedH, Platelet Morphology Normal, Polychromasia 1+, Hypochromasia 1+, Anisocytosis 1+ 10/01/17 08:00: White Blood Count 23.7*H, Red Blood Count 2.85L, Hemoglobin 7.9L, Hematocrit 25.1L, Mean Corpuscular Volume 88, Mean Corpuscular Hemoglobin 27.8, Mean Corpuscular Hemoglobin Concent 31.5L, Red Cell Distribution Width 16.4H, Platelet Count 487H, Mean Platelet Volume 6.8, Neutrophils (%) (Auto) , Lymphocytes (%) (Auto) , Monocytes (%) (Auto) , Eosinophils (%) (Auto) , Basophils (%) (Auto) , Differential Total Cells Counted 100, Neutrophils % ( Manual) 90H, Lymphocytes % (Manual) 7L, Monocytes % (Manual) 3, Eosinophils % ( Manual) 0, Basophils % (Manual) 0, Band Neutrophils 0, Platelet Estimate IncreasedH, Platelet Morphology Normal, Hypochromasia 1+, Anisocytosis 1+, Prothrombin Time 11.8H, Prothromb Time International Ratio 1.1, Activated Partial Thromboplast Time 28, Sodium Level 137, Potassium Level 4.2, Chloride Level 97L, Carbon Dioxide Level 36H, Anion Gap 4L, Blood Urea Nitrogen 28H, Creatinine 6.7H, Estimat Glomerular Filtration Rate 10.5, Glucose Level 160H, Calcium Level 8.6 Height (Feet): 5 Height (Inches): 7.00 Weight (Pounds): 290 General Appearance: no apparent distress Cardiovascular: regular rhythm Respiratory/Chest: decreased breath sounds Abdomen: soft Objective no change in PE BREANN STEEL Oct 01, 2017 12:40
--- NOTE | 2017-10-01 12:48 | Brief Operative Note ---
Immediate Post Operative Note Operative Note Pre-op Diagnosis: necrotic, infected left foot with gangrene; acute on chronic Procedure: left below knee amputation Post-op Diagnosis: same as pre-op Surgeon: nicole Anesthesiologist: fran Anesthesia: regional Specimen: yes - left leg Complications: none Condition: stable Fluids: see records Estimated Blood Loss: volume - 700cc Drains: none Implant(s) used?: No Lauro Oakley Oct 01, 2017 12:48
[2017-10-01] MEDS ORDERED: Hydromorphone 0.5mg/0.5ml inj IVP PRN ×2 (13:00→16:30)
[2017-10-01] MEDS ORDERED: Norco 5mg/325mg tab ORAL PRN ×2 (13:00→16:30)
[2017-10-01] MEDS ORDERED: HYDROcodone/Acetamin 10/325 tab ORAL PRN (13:00)
[2017-10-01] MEDS ORDERED: HYDROmorphone 1mg/ml Carpuject IVP PRN (13:00)
[2017-10-01] MEDS ORDERED: Meclizine 25mg tab ORAL PRN ×2 (13:30→16:30)
[2017-10-01 13:41] LABS: HEMATOCRIT 24.1 % (42.0-52.0); HEMOGLOBIN 7.7 G/DL (14.2-18.0); MEAN CORPUSCULAR VOLUME 88 FL (80-99); PLATELET COUNT 416 K/UL (150-450); RED BLOOD COUNT 2.75 M/UL (4.70-6.10); RED CELL DISTRIBUTION WIDTH 15.6 % (11.6-14.8)
[2017-10-01 13:45] LABS: WHITE BLOOD COUNT 23.1 K/UL (4.8-10.8)
--- NOTE | 2017-10-01 15:31 | Infectious Diseases Prog Note ---
Assessment/Plan Assessment/Plan ASSESSMENT: The patient is a 52-year-old male with, Sepsis 2ry to MRSA bacteremia and L foot wet gangrene Persistent MRSA bacteremia- possibly due to foot infection, however concern for endovascular source (ie AVF infection, SBE) -Bcx 09/27 1/4 + (S Vanco [place] 1, bactrim; R tetracycline), 09/29 2/4+ -2d Echo: limited (poor acoustic windows)- no obvious vegetations. Focal aortic valve sclerosis with adequate cusp excursion.Heavy Thickened mitral valve leaflets with normal excursion. Mild to moderate mitral regurgitation. Heavy Mitral annulus and aortic root calcification. Normal pulmonic valve structure . Normal tricuspid valve structure. Leukocytosis worsen (out of proportion for wound infection ) -CT chest/abd/p w/: No acute findings in the abdomen chest or pelvis. Mild basal atelectasis. Suspected gallstones. No evidence of abdominal abscess. Atherosclerotic disease. Status post right hip pinning. L foot wet gangrene -Left heel wound, left gangrene w changes of the third, fourth and fifth toes, Wnd Cx: PsA, ?ESBL (S Cipro, Imipenem, gentamicin; R Zosyn, Cefepime, Ceftazidime) and MRSA (S vanco, bactrim; R tetracycline) MRI of the foot Peripheral, mild T2 hyperintense signal involving the head of the fifth metatarsal head and phalanges. most likely due to reactive bone marrow edema rather than osteomyelitis as T1 signal is normal. No evidence of acute osteomyelitis otherwise within the forefoot, midfoot or hindfoot/ankle. Right lower extremity wounds, grossly they are not infected. Dizziness followed by Neuro Probable PVD Diabetes End-stage renal disease, on hemodialysis. Obesity. Diabetic neuropathy. Bilateral lower extremity wounds. History of CAD History of cardiac arrest History of myocardial infarction PLAN: Cont patient on Vancomycin #5 for MRSA bacteremia; duration to follow -vanco through goal 15-20 -Switch Zosyn day # 5 to Meropenem for possible ESBL PsA -considered PO cipro but patient on Amiodarone and has already prolonged Qtc -Will obtain KERI to evaluate for endocarditis -if neg, will obtain WBC tagged scan -Repeat 2 sets of Bcx -Plan for L BKA per surgery Monitor CBC/ BMP, temperatures Podiatry/gen sx/vasc sx f/u Subjective Allergies: Coded Allergies: No Known Allergies (Unverified , 09/27/17) Subjective afebrile persistent leukocytosis to 23 persist bacteremic with MRSA as of 09/29 Objective Vital Signs Last 24 Hour Vital Signs Date Time Temp Pulse Resp B/P (MAP) Pulse Ox O2 Delivery O2 Flow Rate FiO2 10/01/17 13:40 98.3 82 17 90/54 100 Nasal Cannula 3.0 10/01/17 13:30 80 18 86/51 100 Nasal Cannula 3.0 10/01/17 13:20 81 21 86/43 100 Nasal Cannula 3.0 10/01/17 13:10 82 17 82/51 100 Nasal Cannula 3.0 10/01/17 13:00 84 14 81/46 100 Nasal Cannula 3.0 10/01/17 12:55 85 13 87/49 100 Simple Mask 6.0 10/01/17 12:54 207.7 88 15 100 10/01/17 12:50 97.8 90 16 149/42 100 Simple Mask 6.0 10/01/17 08:00 97.3 98 20 100/54 72 10/01/17 04:00 98.3 69 20 100/63 95 Room Air 10/01/17 01:30 98.6 81 95/61 10/01/17 00:00 97.5 85 21 93/61 95 09/30/17 20:30 Room Air 09/30/17 20:30 99.0 85 20 106/61 Room Air 09/30/17 20:00 97.8 85 21 99/54 97 09/30/17 17:00 Room Air 09/30/17 17:00 98.9 88 20 117/65 Room Air 09/30/17 16:45 97.9 84 17 110/85 99 Room Air Height (Feet): 5 Height (Inches): 7.00 Weight (Pounds): 290 Objective HEENT: anicteric Respiratory/Chest: normal breath sounds Cardiovascular: regular rhythm Abdomen: no mass Microbiology Date/Time Source Procedure Growth Status 09/29/17 11:45 Blood Blood Culture - Final Staphylococcus Aureus - Mrsa Complete 09/29/17 11:35 Blood Blood Culture - Final Staphylococcus Aureus - Mrsa Complete Laboratory Tests Test 09/30/17 15:40 10/01/17 08:00 10/01/17 13:30 White Blood Count 26.8 K/UL (4.8-10.8) *H 23.7 K/UL (4.8-10.8) *H 23.1 K/UL (4.8-10.8) *H Red Blood Count 2.92 M/UL (4.70-6.10) L 2.85 M/UL (4.70-6.10) L 2.75 M/UL (4.70-6.10) L Hemoglobin 7.8 G/DL (14.2-18.0) L 7.9 G/DL (14.2-18.0) L 7.7 G/DL (14.2-18.0) L Hematocrit 25.5 % (42.0-52.0) L 25.1 % (42.0-52.0) L 24.1 % (42.0-52.0) L Mean Corpuscular Volume 87 FL (80-99) 88 FL (80-99) 88 FL (80-99) Mean Corpuscular Hemoglobin 26.8 PG (27.0-31.0) L 27.8 PG (27.0-31.0) 27.8 PG (27.0-31.0) Mean Corpuscular Hemoglobin Concent 30.6 G/DL (32.0-36.0) L 31.5 G/DL (32.0-36.0) L 31.7 G/DL (32.0-36.0) L Red Cell Distribution Width 16.8 % (11.6-14.8) H 16.4 % (11.6-14.8) H 15.6 % (11.6-14.8) H Platelet Count 614 K/UL (150-450) H 487 K/UL (150-450) H 416 K/UL (150-450) Mean Platelet Volume 6.4 FL (6.5-10.1) L 6.8 FL (6.5-10.1) 6.1 FL (6.5-10.1) L Neutrophils (%) (Auto) % (45.0-75.0) % (45.0-75.0) % (45.0-75.0) Lymphocytes (%) (Auto) % (20.0-45.0) % (20.0-45.0) % (20.0-45.0) Monocytes (%) (Auto) % (1.0-10.0) % (1.0-10.0) % (1.0-10.0) Eosinophils (%) (Auto) % (0.0-3.0) % (0.0-3.0) % (0.0-3.0) Basophils (%) (Auto) % (0.0-2.0) % (0.0-2.0) % (0.0-2.0) Differential Total Cells Counted 100 100 100 Neutrophils % (Manual) 84 % (45-75) H 90 % (45-75) H 85 % (45-75) H Lymphocytes % (Manual) 7 % (20-45) L 7 % (20-45) L 5 % (20-45) L Monocytes % (Manual) 9 % (1-10) 3 % (1-10) 10 % (1-10) Eosinophils % (Manual) 0 % (0-3) 0 % (0-3) 0 % (0-3) Basophils % (Manual) 0 % (0-2) 0 % (0-2) 0 % (0-2) Band Neutrophils 0 % (0-8) 0 % (0-8) 0 % (0-8) Platelet Estimate Increased H Increased H Adequate Platelet Morphology Normal Normal Normal Polychromasia 1+ Hypochromasia 1+ 1+ 1+ Anisocytosis 1+ 1+ 1+ Prothrombin Time 11.8 SEC (9.30-11.50) H Prothromb Time International Ratio 1.1 (0.9-1.1) Activated Partial Thromboplast Time 28 SEC (23-33) Sodium Level 137 MMOL/L (136-145) Potassium Level 4.2 MMOL/L (3.5-5.1) Chloride Level 97 MMOL/L (98-107) L Carbon Dioxide Level 36 MMOL/L (21-32) H Anion Gap 4 mmol/L (5-15) L Blood Urea Nitrogen 28 mg/dL (7-18) H Creatinine 6.7 MG/DL (0.55-1.30) H Estimat Glomerular Filtration Rate 10.5 mL/min (>60) Glucose Level 160 MG/DL (74-106) H Calcium Level 8.6 MG/DL (8.5-10.1) Current Medications Medications (Trade) Dose Ordered Sig/Georges Route PRN Reason Start Time Stop Time Status Last Admin Dose Admin Acetaminophen (Tylenol) 650 mg Q6H PRN ORAL Mild Pain (Pain Scale 1-3) 10/01/17 13:00 10/31/17 12:59 Acetaminophen/ Hydrocodone Bitart ([place] 10/325) 1 tab Q4H PRN ORAL Severe Pain (Pain Scale 7-10) 10/01/17 13:00 10/08/17 12:59 Acetaminophen/ Hydrocodone Bitart ([place] 5/325) 1 tab Q4H PRN ORAL Moderate Pain (Pain Scale 4-6) 10/01/17 13:00 10/08/17 12:59 Amiodarone HCl (Cordarone) 200 mg BID ORAL 09/27/17 09:00 10/27/17 08:59 09/29/17 16:57 Atorvastatin Calcium (Lipitor) 40 mg BEDTIME ORAL 09/27/17 21:00 10/27/17 20:59 09/30/17 21:37 Cinacalcet (Sensipar) 60 mg DAILY ORAL 09/27/17 09:00 10/27/17 08:59 09/30/17 08:46 Collagenase (Santyl) 1 applic Q12HR TOPIC 09/30/17 21:00 10/30/17 20:59 Dextrose (Dextrose 50%) STAT PRN IV Hypoglycemia 09/27/17 02:45 10/27/17 02:44 Gabapentin (Neurontin) 300 mg THREE TIMES A DAY ORAL 09/27/17 13:00 10/27/17 12:59 10/01/17 14:22 Hydromorphone HCl (Dilaudid) 0.5 mg Q3H PRN IVP Pain Score 1-3 10/01/17 13:00 10/08/17 12:59 Hydromorphone HCl (Dilaudid) 1 mg Q3H PRN IVP pain score 4-6 10/01/17 13:00 10/08/17 12:59 Hydromorphone HCl (Dilaudid) 2 mg Q3H PRN IVP pain score 7-10 10/01/17 13:00 10/08/17 12:59 Insulin Aspart (NovoLOG) BEFORE MEALS AND HS SUBQ 09/27/17 06:30 10/27/17 06:29 10/01/17 06:24 Insulin Detemir (Levemir) 20 units DAILY SUBQ 09/27/17 09:00 10/27/17 08:59 09/30/17 09:15 Lansoprazole (Prevacid) 30 mg DAILY ORAL 09/27/17 12:00 10/27/17 11:59 09/30/17 08:46 Meclizine HCl (Antivert) 25 mg DAILYPRN PRN ORAL for dizziness 10/01/17 13:30 10/30/17 13:29 Piperacillin Sod/ Tazobactam Sod 2.25 gm/Sodium Chloride 55 ml @ 110 mls/hr EVERY 8 HOURS IV 09/29/17 14:00 10/06/17 23:59 10/01/17 14:20 Polyethylene Glycol (Miralax) 17 gm DAILY ORAL 09/27/17 09:00 10/27/17 08:59 09/29/17 09:30 Sennosides (Senokot) 2 tab BEDTIME PRN ORAL Constipation 09/27/17 02:00 10/27/17 01:59 Sevelamer Carbonate (Renvela) 2,400 mg THREE TIMES A DAY ORAL 09/27/17 09:00 10/27/17 08:59 10/01/17 14:21 Sodium Chloride 1,000 ml @ 40 mls/hr Q24H IV 09/30/17 23:55 10/30/17 23:54 10/01/17 02:00 Vancomycin HCl (Vanco rx to dose) 1 ea DAILY PRN MISC Per rx protocol 09/27/17 01:45 10/27/17 01:44 Althea Hughes M.D. Oct 01, 2017 15:31
[2017-10-01] MEDS ORDERED: Sodium Chloride 500ML 500 ML IV ONE (17:00)
--- NOTE | 2017-10-01 18:38 | Internal Med Progress Note ---
Subjective Date of Service: Oct 01, 2017 Physician Name Lety Matos Attending Physician Efraín Montes MD Current Medications Medications (Trade) Dose Ordered Sig/Georges Route PRN Reason Start Time Stop Time Status Last Admin Dose Admin Acetaminophen (Tylenol) 650 mg Q6H PRN ORAL Mild Pain (Pain Scale 1-3) 10/01/17 16:30 10/31/17 16:29 Acetaminophen/ Hydrocodone Bitart ([place] 10/325) 1 tab Q4H PRN ORAL Severe Pain (Pain Scale 7-10) 10/01/17 16:30 10/08/17 16:29 Acetaminophen/ Hydrocodone Bitart ([place] 5/325) 1 tab Q4H PRN ORAL Moderate Pain (Pain Scale 4-6) 10/01/17 16:30 10/08/17 16:29 Amiodarone HCl (Cordarone) 200 mg BID ORAL 10/01/17 18:00 10/27/17 08:59 Atorvastatin Calcium (Lipitor) 40 mg BEDTIME ORAL 10/01/17 21:00 10/27/17 20:59 Cinacalcet (Sensipar) 60 mg DAILY ORAL 10/02/17 09:00 10/27/17 08:59 Collagenase (Santyl) 1 applic Q12HR TOPIC 10/01/17 21:00 10/30/17 20:59 Dextrose (Dextrose 50%) STAT PRN IV Hypoglycemia 10/01/17 16:30 10/31/17 16:29 Gabapentin (Neurontin) 300 mg THREE TIMES A DAY ORAL 10/01/17 18:00 10/27/17 12:59 10/01/17 18:26 Hydromorphone HCl (Dilaudid) 0.5 mg Q3H PRN IVP Pain Score 1-3 10/01/17 16:30 10/08/17 16:29 Hydromorphone HCl (Dilaudid) 1 mg Q3H PRN IVP pain score 4-6 10/01/17 16:30 10/08/17 16:29 Hydromorphone HCl (Dilaudid) 2 mg Q3H PRN IVP pain score 7-10 10/01/17 16:30 10/08/17 16:29 10/01/17 18:15 Insulin Aspart (NovoLOG) BEFORE MEALS AND HS SUBQ 10/01/17 16:30 10/27/17 06:29 10/01/17 18:25 Insulin Detemir (Levemir) 20 units DAILY SUBQ 10/02/17 09:00 10/27/17 08:59 Meclizine HCl (Antivert) 25 mg DAILYPRN PRN ORAL for dizziness 10/01/17 16:30 10/31/17 16:29 Meropenem 500 mg/ Sodium Chloride 55 ml @ 110 mls/hr Q24H IVPB 10/01/17 22:00 10/06/17 21:59 Pantoprazole (Protonix) 40 mg DAILY ORAL 10/02/17 09:00 10/27/17 11:59 Polyethylene Glycol (Miralax) 17 gm DAILY ORAL 10/02/17 09:00 10/27/17 08:59 Sennosides (Senokot) 2 tab HSPRN PRN ORAL Constipation 10/01/17 21:00 10/31/17 20:59 Sevelamer Carbonate (Renvela) 2,400 mg THREE TIMES A DAY ORAL 10/01/17 18:00 10/27/17 08:59 10/01/17 18:26 Sodium Chloride 1,000 ml @ 40 mls/hr Q24H IV 10/01/17 16:30 10/30/17 16:29 10/01/17 18:26 Vancomycin HCl (Vanco rx to dose) 1 ea DAILY PRN MISC Per rx protocol 10/01/17 16:30 10/31/17 16:29 Allergies: Coded Allergies: No Known Allergies (Unverified , 09/27/17) Subjective 52 YO M admitted with fever. Now gangrene left foot. S/P left below the knee amputation today 10/01/17. Cover for Int Stephen-Dr Montes Objective Last Vital Signs Date Time Temp Pulse Resp B/P (MAP) Pulse Ox O2 Delivery O2 Flow Rate FiO2 10/01/17 16:00 98.7 78 18 94/55 100 Nasal Cannula 3.0 Laboratory Tests Test 10/01/17 08:00 10/01/17 13:30 White Blood Count 23.7 K/UL (4.8-10.8) *H 23.1 K/UL (4.8-10.8) *H Red Blood Count 2.85 M/UL (4.70-6.10) L 2.75 M/UL (4.70-6.10) L Hemoglobin 7.9 G/DL (14.2-18.0) L 7.7 G/DL (14.2-18.0) L Hematocrit 25.1 % (42.0-52.0) L 24.1 % (42.0-52.0) L Mean Corpuscular Volume 88 FL (80-99) 88 FL (80-99) Mean Corpuscular Hemoglobin 27.8 PG (27.0-31.0) 27.8 PG (27.0-31.0) Mean Corpuscular Hemoglobin Concent 31.5 G/DL (32.0-36.0) L 31.7 G/DL (32.0-36.0) L Red Cell Distribution Width 16.4 % (11.6-14.8) H 15.6 % (11.6-14.8) H Platelet Count 487 K/UL (150-450) H 416 K/UL (150-450) Mean Platelet Volume 6.8 FL (6.5-10.1) 6.1 FL (6.5-10.1) L Neutrophils (%) (Auto) % (45.0-75.0) % (45.0-75.0) Lymphocytes (%) (Auto) % (20.0-45.0) % (20.0-45.0) Monocytes (%) (Auto) % (1.0-10.0) % (1.0-10.0) Eosinophils (%) (Auto) % (0.0-3.0) % (0.0-3.0) Basophils (%) (Auto) % (0.0-2.0) % (0.0-2.0) Differential Total Cells Counted 100 100 Neutrophils % (Manual) 90 % (45-75) H 85 % (45-75) H Lymphocytes % (Manual) 7 % (20-45) L 5 % (20-45) L Monocytes % (Manual) 3 % (1-10) 10 % (1-10) Eosinophils % (Manual) 0 % (0-3) 0 % (0-3) Basophils % (Manual) 0 % (0-2) 0 % (0-2) Band Neutrophils 0 % (0-8) 0 % (0-8) Platelet Estimate Increased H Adequate Platelet Morphology Normal Normal Hypochromasia 1+ 1+ Anisocytosis 1+ 1+ Prothrombin Time 11.8 SEC (9.30-11.50) H Prothromb Time International Ratio 1.1 (0.9-1.1) Activated Partial Thromboplast Time 28 SEC (23-33) Sodium Level 137 MMOL/L (136-145) Potassium Level 4.2 MMOL/L (3.5-5.1) Chloride Level 97 MMOL/L (98-107) L Carbon Dioxide Level 36 MMOL/L (21-32) H Anion Gap 4 mmol/L (5-15) L Blood Urea Nitrogen 28 mg/dL (7-18) H Creatinine 6.7 MG/DL (0.55-1.30) H Estimat Glomerular Filtration Rate 10.5 mL/min (>60) Glucose Level 160 MG/DL (74-106) H Calcium Level 8.6 MG/DL (8.5-10.1) Microbiology Date/Time Source Procedure Growth Status 09/29/17 11:45 Blood Blood Culture - Final Staphylococcus Aureus - Mrsa Complete 09/29/17 11:35 Blood Blood Culture - Final Staphylococcus Aureus - Mrsa Complete Intake and Output 09/30/17 10/01/17 19:00 07:00 Intake Total 775 ml 485 ml Output Total 0 ml 2500 ml Balance 775 ml -2015 ml Intake Oral 720 ml IV Total 55 ml 235 ml Blood Product 250 ml Output Urine Total 0 ml Hemodialysis UF 2500 ml # Voids 2 1 # Bowel Movements 1 Objective General Appearance: WD/WN, obese EENT: PERRL/EOMI, normal ENT inspection Neck: non-tender, normal alignment, supple Cardiovascular: normal peripheral pulses, normal rate, regular rhythm, no gallop/murmur, no JVD Respiratory/Chest: chest wall non-tender, lungs clear, normal breath sounds, no respiratory distress, no accessory muscle use Abdomen: normal bowel sounds, non tender, soft, no organomegaly, no mass Extremities: normal range of motion, non-tender Neurologic: mobility specialist II-XII grossly normal, no motor/sensory deficits Skin: normal pigmentation, warm/dry Assessment/Plan Problem List: (1) Leukocytosis Assessment & Plan: Worsening. See ID note. Continue zosyn and vanco per ID (2) Fever (3) ESRD (end stage renal disease) on dialysis Assessment & Plan: Hemodialysis M W F per nephrology (4) Diabetes mellitus, type II Assessment & Plan: Continue levemir and novolog (5) HTN (hypertension) (6) CAD (coronary artery disease) (7) Hypercholesteremia (8) Diabetic foot ulcer Assessment & Plan: see podiatry consult-gangrene.. cont zosyn and vanco per ID (9) Gangrene of left foot Assessment & Plan: S/P below the knee amputation today 10/01/17-see surgery note. (10) Anemia Assessment & Plan: Worsening. Transfuse 1 unit PRBC in preparation for surgery Status: not improved LETY MATOS Oct 01, 2017 18:38
[2017-10-01] MEDS ORDERED: Sennosides 8.6mg ORAL PRN (21:00)
[2017-10-01] MEDS: Atorvastatin 20mg tab ORAL SCH (21:06)
[2017-10-01] MEDS: Meropenem 500 MG in NS 55 ML IVPB SCH (21:17)
[2017-10-01] MEDS ORDERED: Meropenem 500 MG in NS 55 ML IVPB SCH (22:00)
[2017-10-01] MEDS ORDERED: Piperacillin/Tazobactam 2.25 GM in NS 55 ML IVPB SCH (22:30)
--- NOTE | 2017-10-01 23:17 | Operative Note - Dictated ---
DATE OF OPERATION: 10/01/2017 PREOPERATIVE DIAGNOSIS: Necrotic infected left foot with gangrene, potential wet gangrene, acute on chronic. POSTOPERATIVE DIAGNOSIS: Necrotic infected left foot with gangrene, potential wet gangrene, acute on chronic. OPERATION PERFORMED: Left [id number] amputation. SURGEON: Lauro Oakley M.D. ACCOUNT CLASSIFICATION CLERK: None. ANESTHESIOLOGIST: Pankaj Marino M.D. ANESTHESIA: Spinal. SPECIMENS: Left leg. COMPLICATIONS: None. CONDITION: Stable. FLUIDS: Please see anesthesia records. ESTIMATED BLOOD LOSS: 800 mL. DRAINS: None. IMPLANTS: None. WOUND CLASSIFICATION: Class 3. COUNT: Sponge and needle count correct x2. INDICATIONS FOR PROCEDURE: This is a very pleasant 52-year-old male, on chronic hemodialysis with longstanding diabetes and significant peripheral neuropathy, who presented with worsening left foot gangrene with potential wet gangrene, leukocytosis, and sepsis. The patient states that for the past 20 plus years, he has attempted salvage of the left lower extremity. He states that he follows with a "healer," who is potentially this patient believes a physician, who has been managing and caring for his left lower extremity with attempts to salvage. The patient states he has been told on multiple occasions at other facilities including [facility] and by other surgeons and physicians that salvage of the left lower extremity may be very difficult and has been recommended to have BKA for some time now, but under the guidance of his "healer," he has decided to continue with conservative management and local wound care. Unfortunately during this hospitalization, he presented with worsening left foot infection and was initially seen by the acid etch operator, who after evaluation noted significant amount of necrotic tissue and tissue loss with only minimal amount of healthy tissue and recommended BKA, at which time Surgery was called for evaluation. When discussing with the patient, he accepts with the above noted and also states that for months to years now, he has been unable to have a stable gait. Because of his left lower extremity, he does not have feeling or significant movement in his foot and uses it more as a crutch, which keeps him unstable and he is at high risk for falling at times. He states that when he moves and he stops, he starts tilting to one side and sometimes questions if he will fall or not. On evaluation, all the toes were necrotic and the mid foot did have gangrenous area with active extravasation of seropurulent fluid round areas of eschar. In the heel, there was significant softening of the tissues and fluid collections as well as the palmar aspect and the ankle. There are multiple ulcers on ankle and the Achilles tendon and portions of the malleolus are exposed. The patient continues to have a persistent leukocytosis and despite aggressive medical therapy, condition has not significantly improved. I spent a significant amount of time discussing with the patient the findings and his potential care plans. I expressed to him the potential risks, benefits, and alternatives of, 1. No intervention. 2. Intervention including extensive debridement and long-term wound care. 3. Amputation. Given the above findings, unfortunately, BKA was the only reasonable option for amputation. Initially, the patient was unsure of what he would like to proceed with and was given time to discuss with family, friends, and colleagues about care plan. Soon after, the patient expressed that the patient no longer was manageable with conservative care and expressed strong interest in proceeding with [id number] amputation. The patient states that he wants to move on with his life. He has attempted for greater than 20 years to take care of this with wound care and it has progressively worsened and has had difficulty since. The patient states that he does not want to continue with any more wound care and he plans on getting soon and would like to be recovered, healed, feeling better, and potentially either in a wheelchair or if possible a prosthesis so that he can move forward. After all risks, benefits, and alternatives of surgery were discussed in detail, the patient expressed understanding and consented. We had a long discussion about his prior cardiac history, medical history, potential mortality, and significant morbidity associated with surgery. The patient explained that he has been sick for some time now and he expressed understanding and consented to surgery. OPERATIVE NOTE: The patient was taken to the operating room and placed on the operating room table in supine position with bilateral arms out. All bony prominences were well padded with pads. Preoperative time-out was taken identifying the patient, procedure, operative staff, and surgical staff. Given the patient's significant medical and cardiac history, decision was made to proceed with a spinal block instead of general anesthetic. Appropriate spinal block was given and the patient was anesthetized from the waist below. The right foot was taped down. The left foot was prepped and draped in standard surgical fashion. The intended level of amputation was chosen approximately a handbreadth or more below the level of the tibial plateau. An incision was mapped out for a long posterior flap. Incision was then made using a fresh #10 scalpel. The skin incision went along the course of the marked incision down through the fascial components. The muscles of the anterior compartment were then divided using electrocautery until the anterior tibial vascular structures were identified. These were clamped and divided and oversewn with a #0 Prolene suture. The entire anterior compartment was opened. The tibia was then mobilized using a periosteal elevator. It was then divided using the oscillating electric saw. The fibula was then mobilized and divided with a hand bone cutter approximately at the level of the tibial transection. An amputation knife was then used to completely amputate through the muscles of the lateral and posterior compartment leaving a good flap. The posterior tibial and peroneal artery and veins were identified, clamped, and ligated. They were oversewn with #0 Prolene suture. The tibial nerve was mobilized, suture ligated with a 2-0 silk tie, and allowed to retract. Other bleeding points were controlled with electrocautery as well as 3-0 silk ties as necessary. The surface of the tibia and the fibula were identified and noted to be soft without any rough edges. Of note, throughout the procedure, given the patient's history and medical condition and medications, there was a significant amount of oozing that required hemostasis on multiple occasions and certain areas were oozing while proceeding with the remainder of the procedure. estimated blood loss of approximately 700 to 800 mL and a decision was made to transfuse 2 units intraoperatively given his history. Following this, the wound was irrigated and evaluated. In final evaluation of the tibia, it was noted to be a few fingerbreadths below the plateau that was divided and in the final evaluation of the fibula, it was soft and above the level of the tibial transection and hemostasis was obtained. The blood vessels were all evaluated and hemostatic. The muscles in the anterior and lateral compartments were noted to be significantly edematous and there was an amount of venous congestion noted as well. Following this, before the flap was closed and reapproximated, all areas of wounds were evaluated and noted to be stable and satisfactory. The fascia of the posterior calf was then reapproximated to the fascia of the anterior calf using #0 Vicryl sutures. After this was complete, the skin was approximated using surgical maricel. A light clean dressing was applied. The patient tolerated the procedure well, was awakened, and taken to the recovery room in stable condition with no apparent postoperative complications. The patient was seen in approximately in an hour or two after surgery, awake, alert, and conversant. All operative findings were discussed with the patient and the patient's family. Wound was re-evaluated postoperatively and dressing noted to be clean. Lauro Oakley M.D. DR: JUSTINE JOB#: [id number] CC: LAUREN
[2017-10-02] VITALS (11 sets, daily range): BP systolic 85–119; BP diastolic 44–67
[2017-10-02] MEDS: HYDROmorphone 1mg/ml Carpuject IVP PRN ×2 (00:13→04:46)
[2017-10-02] MEDS: NovoLOG Insulin Flexpen SUBQ SCH ×4 (06:18→21:11)
--- NOTE | 2017-10-02 08:23 | Pulmonology Progress Note ---
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/01 gangrene R hallux DM Severe diabetic polyneuropathy ESRD, on HD PAD CAD s/p cardiac arrest end stage heart failure Severe CM ( EF 5%) anemia of chronic renal disease positional dizziness with gait ataxia- r/o anoxic encephalopathy with cerebellar dysfunction, r/o post-anoxic vestibulopathy PLAN OF CARE tele abx ID follows blood cx+ Staph aureus , r/o graft infection, SBE ECHO no vegetation KERI today CT C/A/P no acute process If negative KERI , ID recommended WBC scan MRI foot and ankle no acute OM , podiatry follows Surgery follows s/p L BKA dressing, change, monitor stump pain management ECHO with EF 5%, mild to moderate MR End stage CM, medical management Continue ASA, Plavix, Amiodarone vasc surgeon consult appreciated DVT GI prophylaxis BS management with SS of insulin and Levemir, titrate a seeded bowel regimen monitor HH, transfuse 2 u PRBC today after HD Neuro eval appreciated Meclizine prn Per neuro: for now address issues of sepsis and amputation, when stabilized, will need to review recent MRI (per pt was fine(, if no improvement may benefit from ENT eval overall prognosis poor given multiple comorbidities: end stage CM, ESRD, DM and sepsis case discussed and evaluated by supervising physician Subjective Allergies: Coded Allergies: No Known Allergies (Unverified , 09/27/17) Subjective patient s/p L BKA2/15 transferred to tele postoperatively persistent severe leukocytosis HH down to 6.7/20.7 Objective Last 24 Hour Vital Signs Date Time Temp Pulse Resp B/P (MAP) Pulse Ox O2 Delivery O2 Flow Rate FiO2 10/02/17 04:00 91 10/02/17 04:00 97.6 91 22 93/48 99 Room Air 10/02/17 00:00 98.4 84 19 96/47 95 Room Air 10/02/17 00:00 80 10/01/17 20:00 86 10/01/17 20:00 97.3 88 19 96/45 95 Room Air 10/01/17 16:00 98.7 78 18 94/55 100 Nasal Cannula 3.0 10/01/17 16:00 78 10/01/17 13:40 98.3 82 17 90/54 100 Nasal Cannula 3.0 10/01/17 13:30 80 18 86/51 100 Nasal Cannula 3.0 10/01/17 13:20 81 21 86/43 100 Nasal Cannula 3.0 10/01/17 13:10 82 17 82/51 100 Nasal Cannula 3.0 10/01/17 13:00 84 14 81/46 100 Nasal Cannula 3.0 10/01/17 12:55 85 13 87/49 100 Simple Mask 6.0 10/01/17 12:54 207.7 88 15 100 10/01/17 12:50 97.8 90 16 149/42 100 Simple Mask 6.0 Intake and Output 10/01/17 10/02/17 19:00 07:00 Intake Total 1570 ml 445 ml Output Total 800 ml 0 ml Balance 770 ml 445 ml Intake Oral 270 ml 120 ml IV Total 800 ml 325 ml Blood Product 500 ml Output Urine Total 0 ml Estimated Blood Loss 800 ml General Appearance: no acute distress HEENT: normocephalic, atraumatic, anicteric, mucous membranes moist Respiratory/Chest: lungs clear, no respiratory distress, no accessory muscle use Cardiovascular: normal rate, regular rhythm - SR on tele Abdomen: soft, non tender Extremities: other - L BKA stump with dressing C/D/I Neurologic/Psychiatric: abnormal gait, alert, oriented x 3, responsive, normal mood/affect Microbiology Date/Time Source Procedure Growth Status 09/30/17 15:55 Blood Blood Culture - Preliminary NO GROWTH AFTER 24 HOURS Resulted 09/30/17 15:40 Blood Blood Culture - Preliminary NO GROWTH AFTER 24 HOURS Resulted 09/29/17 11:45 Blood Blood Culture - Final Staphylococcus Aureus - Mrsa Complete 09/29/17 11:35 Blood Blood Culture - Final Staphylococcus Aureus - Mrsa Complete Laboratory Tests 10/01/17 13:30: White Blood Count 23.1*H, Red Blood Count 2.75L, Hemoglobin 7.7L, Hematocrit 24.1L, Mean Corpuscular Volume 88, Mean Corpuscular Hemoglobin 27.8, Mean Corpuscular Hemoglobin Concent 31.7L, Red Cell Distribution Width 15.6H, Platelet Count 416, Mean Platelet Volume 6.1L, Neutrophils (%) (Auto) , Lymphocytes (%) (Auto) , Monocytes (%) (Auto) , Eosinophils (%) (Auto) , Basophils (%) (Auto) , Differential Total Cells Counted 100, Neutrophils % ( Manual) 85H, Lymphocytes % (Manual) 5L, Monocytes % (Manual) 10, Eosinophils % ( Manual) 0, Basophils % (Manual) 0, Band Neutrophils 0, Platelet Estimate Adequate, Platelet Morphology Normal, Hypochromasia 1+, Anisocytosis 1+ Current Medications Medications (Trade) Dose Ordered Sig/Georges Route PRN Reason Start Time Stop Time Status Last Admin Dose Admin Acetaminophen (Tylenol) 650 mg Q6H PRN ORAL Mild Pain (Pain Scale 1-3) 10/01/17 16:30 10/31/17 16:29 Acetaminophen/ Hydrocodone Bitart ([place] 10/325) 1 tab Q4H PRN ORAL Severe Pain (Pain Scale 7-10) 10/01/17 16:30 10/08/17 16:29 Acetaminophen/ Hydrocodone Bitart ([place] 5/325) 1 tab Q4H PRN ORAL Moderate Pain (Pain Scale 4-6) 10/01/17 16:30 10/08/17 16:29 Amiodarone HCl (Cordarone) 200 mg BID ORAL 10/01/17 18:00 10/27/17 08:59 Atorvastatin Calcium (Lipitor) 40 mg BEDTIME ORAL 10/01/17 21:00 10/27/17 20:59 10/01/17 21:06 Cinacalcet (Sensipar) 60 mg DAILY ORAL 10/02/17 09:00 10/27/17 08:59 Collagenase (Santyl) 1 applic Q12HR TOPIC 10/01/17 21:00 10/30/17 20:59 10/02/17 00:19 Dextrose (Dextrose 50%) STAT PRN IV Hypoglycemia 10/01/17 16:30 10/31/17 16:29 Gabapentin (Neurontin) 300 mg THREE TIMES A DAY ORAL 10/01/17 18:00 10/27/17 12:59 10/01/17 18:26 Hydromorphone HCl (Dilaudid) 0.5 mg Q3H PRN IVP Pain Score 1-3 10/01/17 16:30 10/08/17 16:29 Hydromorphone HCl (Dilaudid) 1 mg Q3H PRN IVP pain score 4-6 10/01/17 16:30 10/08/17 16:29 10/02/17 04:46 Hydromorphone HCl (Dilaudid) 2 mg Q3H PRN IVP pain score 7-10 10/01/17 16:30 10/08/17 16:29 10/01/17 18:15 Insulin Aspart (NovoLOG) BEFORE MEALS AND HS SUBQ 10/01/17 16:30 10/27/17 06:29 10/02/17 06:18 Insulin Detemir (Levemir) 20 units DAILY SUBQ 10/02/17 09:00 10/27/17 08:59 Meclizine HCl (Antivert) 25 mg DAILYPRN PRN ORAL for dizziness 10/01/17 16:30 10/31/17 16:29 Meropenem 500 mg/ Sodium Chloride 55 ml @ 110 mls/hr Q24H IVPB 10/01/17 22:00 10/06/17 21:59 10/01/17 21:17 Pantoprazole (Protonix) 40 mg DAILY ORAL 10/02/17 09:00 10/27/17 11:59 Polyethylene Glycol (Miralax) 17 gm DAILY ORAL 10/02/17 09:00 10/27/17 08:59 Sennosides (Senokot) 2 tab HSPRN PRN ORAL Constipation 10/01/17 21:00 10/31/17 20:59 Sevelamer Carbonate (Renvela) 2,400 mg THREE TIMES A DAY ORAL 10/01/17 18:00 10/27/17 08:59 10/01/17 18:26 Sodium Chloride 1,000 ml @ 40 mls/hr Q24H IV 10/01/17 16:30 10/30/17 16:29 10/02/17 00:14 Vancomycin HCl (Vanco rx to dose) 1 ea DAILY PRN MISC Per rx protocol 10/01/17 16:30 10/31/17 16:29 Deandre Zuleta)Sapna NP Oct 02, 2017 08:23
--- NOTE | 2017-10-02 08:29 | Cardiology Progress Note ---
Assessment/Plan Assessment/Plan The patient is seen an examined, full consult note will be dictated soon. Objective Last 24 Hour Vital Signs Date Time Temp Pulse Resp B/P (MAP) Pulse Ox O2 Delivery O2 Flow Rate FiO2 10/02/17 04:00 91 10/02/17 04:00 97.6 91 22 93/48 99 Room Air 10/02/17 00:00 98.4 84 19 96/47 95 Room Air 10/02/17 00:00 80 10/01/17 20:00 86 10/01/17 20:00 97.3 88 19 96/45 95 Room Air 10/01/17 16:00 98.7 78 18 94/55 100 Nasal Cannula 3.0 10/01/17 16:00 78 10/01/17 13:40 98.3 82 17 90/54 100 Nasal Cannula 3.0 10/01/17 13:30 80 18 86/51 100 Nasal Cannula 3.0 10/01/17 13:20 81 21 86/43 100 Nasal Cannula 3.0 10/01/17 13:10 82 17 82/51 100 Nasal Cannula 3.0 10/01/17 13:00 84 14 81/46 100 Nasal Cannula 3.0 10/01/17 12:55 85 13 87/49 100 Simple Mask 6.0 10/01/17 12:54 207.7 88 15 100 10/01/17 12:50 97.8 90 16 149/42 100 Simple Mask 6.0 Intake and Output 10/01/17 10/02/17 19:00 07:00 Intake Total 1570 ml 445 ml Output Total 800 ml 0 ml Balance 770 ml 445 ml Intake Oral 270 ml 120 ml IV Total 800 ml 325 ml Blood Product 500 ml Output Urine Total 0 ml Estimated Blood Loss 800 ml Laboratory Tests Test 10/01/17 13:30 White Blood Count 23.1 K/UL (4.8-10.8) *H Red Blood Count 2.75 M/UL (4.70-6.10) L Hemoglobin 7.7 G/DL (14.2-18.0) L Hematocrit 24.1 % (42.0-52.0) L Mean Corpuscular Volume 88 FL (80-99) Mean Corpuscular Hemoglobin 27.8 PG (27.0-31.0) Mean Corpuscular Hemoglobin Concent 31.7 G/DL (32.0-36.0) L Red Cell Distribution Width 15.6 % (11.6-14.8) H Platelet Count 416 K/UL (150-450) Mean Platelet Volume 6.1 FL (6.5-10.1) L Neutrophils (%) (Auto) % (45.0-75.0) Lymphocytes (%) (Auto) % (20.0-45.0) Monocytes (%) (Auto) % (1.0-10.0) Eosinophils (%) (Auto) % (0.0-3.0) Basophils (%) (Auto) % (0.0-2.0) Differential Total Cells Counted 100 Neutrophils % (Manual) 85 % (45-75) H Lymphocytes % (Manual) 5 % (20-45) L Monocytes % (Manual) 10 % (1-10) Eosinophils % (Manual) 0 % (0-3) Basophils % (Manual) 0 % (0-2) Band Neutrophils 0 % (0-8) Platelet Estimate Adequate Platelet Morphology Normal Hypochromasia 1+ Anisocytosis 1+ Microbiology Date/Time Source Procedure Growth Status 09/30/17 15:55 Blood Blood Culture - Preliminary NO GROWTH AFTER 24 HOURS Resulted 09/30/17 15:40 Blood Blood Culture - Preliminary NO GROWTH AFTER 24 HOURS Resulted 09/29/17 11:45 Blood Blood Culture - Final Staphylococcus Aureus - Mrsa Complete 09/29/17 11:35 Blood Blood Culture - Final Staphylococcus Aureus - Mrsa Complete BRYAN ARMSTRONG Oct 02, 2017 08:29
[2017-10-02] MEDS: Levemir Flexpen SUBQ SCH (09:00)
[2017-10-02] MEDS: Miralax 17gm pkt ORAL SCH (09:00)
[2017-10-02] MEDS: Amiodarone 200mg tab ORAL SCH ×4 (09:43→16:45)
[2017-10-02] MEDS: Sensipar 30mg Tab ORAL SCH (09:44)
[2017-10-02] MEDS: HYDROcodone/Acetamin 10/325 tab ORAL PRN ×2 (09:45→21:08)
--- NOTE | 2017-10-02 10:39 | Infectious Diseases Prog Note ---
Assessment/Plan Assessment/Plan ASSESSMENT: The patient is a 52-year-old male with, Sepsis 2ry to MRSA bacteremia and L foot wet gangrene; improving Persistent MRSA bacteremia- possibly due to foot infection, however concern for endovascular source (ie AVF infection, SBE) -Bcx 09/27 1/4 + (S Vanco Spencer 1, bactrim; R tetracycline), 09/29 2+; 09/30 NTD x4 -2d Echo: limited (poor acoustic windows)- no obvious vegetations. Focal aortic valve sclerosis with adequate cusp excursion.Heavy Thickened mitral valve leaflets with normal excursion. Mild to moderate mitral regurgitation. Heavy Mitral annulus and aortic root calcification. Normal pulmonic valve structure . Normal tricuspid valve structure. Leukocytosis worsen (out of proportion for wound infection ); CBC pending today -CT chest/abd/p w/: No acute findings in the abdomen chest or pelvis. Mild basal atelectasis. Suspected gallstones. No evidence of abdominal abscess. Atherosclerotic disease. Status post right hip pinning. L foot wet gangrene -s/p L BKA 10/01 -Left heel wound, left gangrene w changes of the third, fourth and fifth toes, Wnd Cx: PsA, ?ESBL (S Cipro, Imipenem, gentamicin; R Zosyn, Cefepime, Ceftazidime) and MRSA (S vanco, bactrim; R tetracycline) MRI of the foot Peripheral, mild T2 hyperintense signal involving the head of the fifth metatarsal head and phalanges. most likely due to reactive bone marrow edema rather than osteomyelitis as T1 signal is normal. No evidence of acute osteomyelitis otherwise within the forefoot, midfoot or hindfoot/ankle. Right lower extremity wounds, grossly they are not infected. Dizziness followed by Neuro Probable PVD Diabetes End-stage renal disease, on hemodialysis. Obesity. Diabetic neuropathy. Bilateral lower extremity wounds. History of CAD History of cardiac arrest 06/2017 History of myocardial infarction PLAN: Cont patient on Vancomycin #6 for MRSA bacteremia; duration to follow pending KERI -vanco through goal 15-20 -Continue Meropenem #2/3 for MDR, possible ESBL PsA in wound; short duration as now leg has been amputated -considered PO cipro but patient on Amiodarone and has already prolonged Qtc -10/01 SP Zosyn #5 - KERI to evaluate for endocarditis -if neg and persistent bacteremia after amputation, then will need WBC tagged scan -f/u Repeat 2 sets of Bcx Monitor CBC/ BMP, temperatures Podiatry/gen sx/vasc sx f/u Subjective Allergies: Coded Allergies: No Known Allergies (Unverified , 09/27/17) Subjective afebrile labs pending today Bcx 09/30 NTD s/p amputation yesterday Objective Vital Signs Last 24 Hour Vital Signs Date Time Temp Pulse Resp B/P (MAP) Pulse Ox O2 Delivery O2 Flow Rate FiO2 10/02/17 04:00 91 10/02/17 04:00 97.6 91 22 93/48 99 Room Air 10/02/17 00:00 98.4 84 19 96/47 95 Room Air 10/02/17 00:00 80 10/01/17 20:00 86 10/01/17 20:00 97.3 88 19 96/45 95 Room Air 10/01/17 16:00 98.7 78 18 94/55 100 Nasal Cannula 3.0 10/01/17 16:00 78 10/01/17 13:40 98.3 82 17 90/54 100 Nasal Cannula 3.0 10/01/17 13:30 80 18 86/51 100 Nasal Cannula 3.0 10/01/17 13:20 81 21 86/43 100 Nasal Cannula 3.0 10/01/17 13:10 82 17 82/51 100 Nasal Cannula 3.0 10/01/17 13:00 84 14 81/46 100 Nasal Cannula 3.0 10/01/17 12:55 85 13 87/49 100 Simple Mask 6.0 10/01/17 12:54 207.7 88 15 100 10/01/17 12:50 97.8 90 16 149/42 100 Simple Mask 6.0 Height (Feet): 5 Height (Inches): 7.00 Weight (Pounds): 290 Objective HEENT: anicteric Respiratory/Chest: normal breath sounds Cardiovascular: regular rhythm Abdomen: no mass Ext: s/p L BKA, banded R foot right dry gangrene of great toe. Microbiology Date/Time Source Procedure Growth Status 09/30/17 15:55 Blood Blood Culture - Preliminary NO GROWTH AFTER 24 HOURS Resulted 09/30/17 15:40 Blood Blood Culture - Preliminary NO GROWTH AFTER 24 HOURS Resulted 09/29/17 11:45 Blood Blood Culture - Final Staphylococcus Aureus - Mrsa Complete 09/29/17 11:35 Blood Blood Culture - Final Staphylococcus Aureus - Mrsa Complete Laboratory Tests Test 10/01/17 13:30 White Blood Count 23.1 K/UL (4.8-10.8) *H Red Blood Count 2.75 M/UL (4.70-6.10) L Hemoglobin 7.7 G/DL (14.2-18.0) L Hematocrit 24.1 % (42.0-52.0) L Mean Corpuscular Volume 88 FL (80-99) Mean Corpuscular Hemoglobin 27.8 PG (27.0-31.0) Mean Corpuscular Hemoglobin Concent 31.7 G/DL (32.0-36.0) L Red Cell Distribution Width 15.6 % (11.6-14.8) H Platelet Count 416 K/UL (150-450) Mean Platelet Volume 6.1 FL (6.5-10.1) L Neutrophils (%) (Auto) % (45.0-75.0) Lymphocytes (%) (Auto) % (20.0-45.0) Monocytes (%) (Auto) % (1.0-10.0) Eosinophils (%) (Auto) % (0.0-3.0) Basophils (%) (Auto) % (0.0-2.0) Differential Total Cells Counted 100 Neutrophils % (Manual) 85 % (45-75) H Lymphocytes % (Manual) 5 % (20-45) L Monocytes % (Manual) 10 % (1-10) Eosinophils % (Manual) 0 % (0-3) Basophils % (Manual) 0 % (0-2) Band Neutrophils 0 % (0-8) Platelet Estimate Adequate Platelet Morphology Normal Hypochromasia 1+ Anisocytosis 1+ Current Medications Medications (Trade) Dose Ordered Sig/Georges Route PRN Reason Start Time Stop Time Status Last Admin Dose Admin Acetaminophen (Tylenol) 650 mg Q6H PRN ORAL Mild Pain (Pain Scale 1-3) 10/01/17 16:30 10/31/17 16:29 Acetaminophen/ Hydrocodone Bitart ([place] 10/325) 1 tab Q4H PRN ORAL Severe Pain (Pain Scale 7-10) 10/01/17 16:30 10/08/17 16:29 10/02/17 09:45 Acetaminophen/ Hydrocodone Bitart ([place] 5/325) 1 tab Q4H PRN ORAL Moderate Pain (Pain Scale 4-6) 10/01/17 16:30 10/08/17 16:29 Amiodarone HCl (Cordarone) 200 mg BID ORAL 10/01/17 18:00 10/27/17 08:59 Atorvastatin Calcium (Lipitor) 40 mg BEDTIME ORAL 10/01/17 21:00 10/27/17 20:59 10/01/17 21:06 Cinacalcet (Sensipar) 60 mg DAILY ORAL 10/02/17 09:00 10/27/17 08:59 10/02/17 09:44 Collagenase (Santyl) 1 applic Q12HR TOPIC 10/01/17 21:00 10/30/17 20:59 10/02/17 00:19 Dextrose (Dextrose 50%) STAT PRN IV Hypoglycemia 10/01/17 16:30 10/31/17 16:29 Gabapentin (Neurontin) 300 mg THREE TIMES A DAY ORAL 10/01/17 18:00 10/27/17 12:59 10/02/17 09:45 Hydromorphone HCl (Dilaudid) 0.5 mg Q3H PRN IVP Pain Score 1-3 10/01/17 16:30 10/08/17 16:29 Hydromorphone HCl (Dilaudid) 1 mg Q3H PRN IVP pain score 4-6 10/01/17 16:30 10/08/17 16:29 10/02/17 04:46 Hydromorphone HCl (Dilaudid) 2 mg Q3H PRN IVP pain score 7-10 10/01/17 16:30 10/08/17 16:29 10/01/17 18:15 Insulin Aspart (NovoLOG) BEFORE MEALS AND HS SUBQ 10/01/17 16:30 10/27/17 06:29 10/02/17 06:18 Insulin Detemir (Levemir) 20 units DAILY SUBQ 10/02/17 09:00 10/27/17 08:59 Meclizine HCl (Antivert) 25 mg DAILYPRN PRN ORAL for dizziness 10/01/17 16:30 10/31/17 16:29 Meropenem 500 mg/ Sodium Chloride 55 ml @ 110 mls/hr Q24H IVPB 10/01/17 22:00 10/06/17 21:59 10/01/17 21:17 Pantoprazole (Protonix) 40 mg DAILY ORAL 10/02/17 09:00 10/27/17 11:59 10/02/17 09:45 Polyethylene Glycol (Miralax) 17 gm DAILY ORAL 10/02/17 09:00 10/27/17 08:59 Sennosides (Senokot) 2 tab HSPRN PRN ORAL Constipation 10/01/17 21:00 10/31/17 20:59 Sevelamer Carbonate (Renvela) 2,400 mg THREE TIMES A DAY ORAL 10/01/17 18:00 10/27/17 08:59 10/01/17 18:26 Sodium Chloride 1,000 ml @ 40 mls/hr Q24H IV 10/01/17 16:30 10/30/17 16:29 10/02/17 00:14 Vancomycin HCl (Vanco rx to dose) 1 ea DAILY PRN MISC Per rx protocol 10/01/17 16:30 10/31/17 16:29 Althea Hughes M.D. Oct 02, 2017 10:39
[2017-10-02] MEDS ORDERED: NS 250 ML IVPB ONE (12:10)
--- NOTE | 2017-10-02 12:18 | 48 Hour Post Anesthesia Eval ---
Post Anesthesia Evaluation Procedure: Left BKA Date of Evaluation: Oct 02, 2017 Time of Evaluation: 12:17 Blood Pressure Systolic: 96 0: 52 Pulse Rate: 74 Respiratory Rate: 20 Temperature (Fahrenheit): 97.6 O2 Sat by Pulse Oximetry: 98 Airway: patent Nausea: No Vomiting: No Pain Intensity: 3 Hydration Status: adequate Cardiopulmonary Status: stable Mental Status/LOC: patient returned to baseline Follow-up Care/Observations: n/a Post-Anesthesia Complications: none Follow-up care needed: N/A ANG ZIMMERMAN M.D. Oct 02, 2017 12:18
[2017-10-02 12:33] LABS: HEMATOCRIT 20.7 % (42.0-52.0); MEAN CORPUSCULAR VOLUME 88 FL (80-99); PLATELET COUNT 368 K/UL (150-450); RED BLOOD COUNT 2.34 M/UL (4.70-6.10); RED CELL DISTRIBUTION WIDTH 16.1 % (11.6-14.8)
[2017-10-02 12:34] LABS: HEMOGLOBIN 6.7 G/DL (14.2-18.0); WHITE BLOOD COUNT 22.2 K/UL (4.8-10.8)
--- NOTE | 2017-10-02 12:58 | Nephrology Progress Note ---
Assessment/Plan Problem List: (1) ESRF (end stage renal failure) (2) Sepsis (3) Diabetic foot ulcer (4) Diabetes mellitus (5) Arrhythmia Assessment ESRD on HD M W Fr - Sepsis - Diabetic foot ulcer - Right lower extremity wounds, grossly they are not infected. - Left heel wound, left gangrene changes of the third, fourth and fifth toes, rule out osteomyelitis. - Arrhythmia - Diabetes mellitus - PVD Plan Plan: had amputation 10/01 Per ID HD next 10/02 2 units PRBcs today discussed with RN continue rest Subjective ROS Limited/Unobtainable: No Constitutional: Reports: malaise Objective Objective Last 24 Hour Vital Signs Date Time Temp Pulse Resp B/P (MAP) Pulse Ox O2 Delivery O2 Flow Rate FiO2 10/02/17 12:18 207.7 74 20 98 10/02/17 12:00 97.2 93 21 91/49 96 Room Air 10/02/17 10:44 97.6 10/02/17 08:00 98.2 85 19 93/44 97 Room Air 10/02/17 04:00 91 10/02/17 04:00 97.6 91 22 93/48 99 Room Air 10/02/17 00:00 98.4 84 19 96/47 95 Room Air 10/02/17 00:00 80 10/01/17 20:00 86 10/01/17 20:00 97.3 88 19 96/45 95 Room Air 10/01/17 16:00 98.7 78 18 94/55 100 Nasal Cannula 3.0 10/01/17 16:00 78 10/01/17 13:40 98.3 82 17 90/54 100 Nasal Cannula 3.0 10/01/17 13:30 80 18 86/51 100 Nasal Cannula 3.0 10/01/17 13:20 81 21 86/43 100 Nasal Cannula 3.0 10/01/17 13:10 82 17 82/51 100 Nasal Cannula 3.0 10/01/17 13:00 84 14 81/46 100 Nasal Cannula 3.0 Intake and Output 10/01/17 10/02/17 19:00 07:00 Intake Total 1570 ml 445 ml Output Total 800 ml 0 ml Balance 770 ml 445 ml Intake Oral 270 ml 120 ml IV Total 800 ml 325 ml Blood Product 500 ml Output Urine Total 0 ml Estimated Blood Loss 800 ml Laboratory Tests 10/01/17 13:30: White Blood Count 23.1*H, Red Blood Count 2.75L, Hemoglobin 7.7L, Hematocrit 24.1L, Mean Corpuscular Volume 88, Mean Corpuscular Hemoglobin 27.8, Mean Corpuscular Hemoglobin Concent 31.7L, Red Cell Distribution Width 15.6H, Platelet Count 416, Mean Platelet Volume 6.1L, Neutrophils (%) (Auto) , Lymphocytes (%) (Auto) , Monocytes (%) (Auto) , Eosinophils (%) (Auto) , Basophils (%) (Auto) , Differential Total Cells Counted 100, Neutrophils % ( Manual) 85H, Lymphocytes % (Manual) 5L, Monocytes % (Manual) 10, Eosinophils % ( Manual) 0, Basophils % (Manual) 0, Band Neutrophils 0, Platelet Estimate Adequate, Platelet Morphology Normal, Hypochromasia 1+, Anisocytosis 1+ 10/02/17 12:14: White Blood Count 22.2*H, Red Blood Count 2.34L, Hemoglobin 6.7*L, Hematocrit 20.7L, Mean Corpuscular Volume 88, Mean Corpuscular Hemoglobin 28.5, Mean Corpuscular Hemoglobin Concent 32.3, Red Cell Distribution Width 16.1H, Platelet Count 368, Mean Platelet Volume 6.4L, Neutrophils (%) (Auto) , Lymphocytes (%) (Auto) , Monocytes (%) (Auto) , Eosinophils (%) (Auto) , Basophils (%) (Auto) , Neutrophils % (Manual) [Pending], Lymphocytes % (Manual) [Pending], Platelet Estimate [Pending], Platelet Morphology [Pending], Sodium Level [Pending], Potassium Level [Pending], Chloride Level [Pending], Carbon Dioxide Level [Pending], Blood Urea Nitrogen [Pending], Creatinine [Pending], Estimat Glomerular Filtration Rate [Pending], Glucose Level [Pending], Calcium Level [Pending], Total Bilirubin [Pending], Aspartate Amino Transf (AST/SGOT) [ Pending], Alanine Aminotransferase (ALT/SGPT) [Pending], Alkaline Phosphatase [ Pending], Troponin I [Pending], Total Protein [Pending], Albumin [Pending], Globulin [Pending] Height (Feet): 5 Height (Inches): 7.00 Weight (Pounds): 290 General Appearance: no apparent distress Cardiovascular: regular rhythm Respiratory/Chest: decreased breath sounds Abdomen: soft Objective no change in PE BREANN STEEL Oct 02, 2017 12:58
[2017-10-02 13:12] LABS: ALANINE AMINOTRANSFERASE 14 U/L (12-78); ALBUMIN 1.4 G/DL (3.4-5.0); ALBUMIN/GLOBULIN RATIO 0.2 (1.0-2.7); ALKALINE PHOSPHATASE 121 U/L (46-116); ANION GAP 7 mmol/L (5-15); ASPARTATE AMINO TRANSFERASE 15 U/L (15-37); BILIRUBIN,TOTAL 0.6 MG/DL (0.2-1.0); BLOOD UREA NITROGEN 33 mg/dL (7-18); CALCIUM 7.7 MG/DL (8.5-10.1); CARBON DIOXIDE 30 MMOL/L (21-32); CHLORIDE 99 MMOL/L (98-107); CREATININE 7.8 MG/DL (0.55-1.30); POTASSIUM 4.4 MMOL/L (3.5-5.1); SODIUM 135 MMOL/L (136-145)
[2017-10-02] MEDS: Docusate 100mg cap ORAL SCH ×2 (13:34→18:00)
--- NOTE | 2017-10-02 18:52 | General Progress Note ---
Progress Note Progress Note Surgery: doing okay. can note pain and states "phantom pain" from left bka. overall feeling better as per patient. mild lightheaded. anemia. getting transfused 2 units PRBC after dialysis today. dressings removed and wound evaluated. clean, dry, intact, warm, and states he can note sensation of touch with palpation. flap viable and no signs of ischemia. no bleeding. mild saturation of dressings. new dressings placed. keep elevated will monitor wound over next few days. Lauro Oakley Oct 02, 2017 18:52
--- NOTE | 2017-10-02 19:09 | Internal Med Progress Note ---
Subjective Date of Service: Oct 02, 2017 Physician Name MatosLety Attending Physician Efraín Montes MD Current Medications Medications (Trade) Dose Ordered Sig/Georges Route PRN Reason Start Time Stop Time Status Last Admin Dose Admin Acetaminophen (Tylenol) 650 mg Q6H PRN ORAL Mild Pain (Pain Scale 1-3) 10/01/17 16:30 10/31/17 16:29 Acetaminophen/ Hydrocodone Bitart ([place] 10/325) 1 tab Q4H PRN ORAL Severe Pain (Pain Scale 7-10) 10/01/17 16:30 10/08/17 16:29 10/02/17 09:45 Acetaminophen/ Hydrocodone Bitart ([place] 5/325) 1 tab Q4H PRN ORAL Moderate Pain (Pain Scale 4-6) 10/01/17 16:30 10/08/17 16:29 Amiodarone HCl (Cordarone) 200 mg BID ORAL 10/01/17 18:00 10/27/17 08:59 Atorvastatin Calcium (Lipitor) 40 mg BEDTIME ORAL 10/01/17 21:00 10/27/17 20:59 10/01/17 21:06 Cinacalcet (Sensipar) 60 mg DAILY ORAL 10/02/17 09:00 10/27/17 08:59 10/02/17 09:44 Collagenase (Santyl) 1 applic Q12HR TOPIC 10/01/17 21:00 10/30/17 20:59 10/02/17 00:19 Dextrose (Dextrose 50%) STAT PRN IV Hypoglycemia 10/01/17 16:30 10/31/17 16:29 Docusate Sodium (Colace) 100 mg TID ORAL 10/02/17 14:00 11/01/17 13:59 10/02/17 13:34 Epoetin Mahesh (Procrit (for ESRD on dialysis)) 10,000 units MON-WED-THU SUBQ 10/02/17 21:00 11/01/17 20:59 Gabapentin (Neurontin) 300 mg THREE TIMES A DAY ORAL 10/01/17 18:00 10/27/17 12:59 10/02/17 19:01 Hydromorphone HCl (Dilaudid) 0.5 mg Q3H PRN IVP Pain Score 1-3 10/01/17 16:30 10/08/17 16:29 Hydromorphone HCl (Dilaudid) 1 mg Q3H PRN IVP pain score 4-6 10/01/17 16:30 10/08/17 16:29 10/02/17 04:46 Hydromorphone HCl (Dilaudid) 2 mg Q3H PRN IVP pain score 7-10 10/01/17 16:30 10/08/17 16:29 10/01/17 18:15 Insulin Aspart (NovoLOG) BEFORE MEALS AND HS SUBQ 10/01/17 16:30 10/27/17 06:29 10/02/17 19:03 Insulin Detemir (Levemir) 20 units DAILY SUBQ 10/02/17 09:00 10/27/17 08:59 Meclizine HCl (Antivert) 25 mg DAILYPRN PRN ORAL for dizziness 10/01/17 16:30 10/31/17 16:29 Meropenem 500 mg/ Sodium Chloride 55 ml @ 110 mls/hr Q24H IVPB 10/01/17 22:00 10/06/17 21:59 10/01/17 21:17 Pantoprazole (Protonix) 40 mg DAILY ORAL 10/02/17 09:00 10/27/17 11:59 10/02/17 09:45 Polyethylene Glycol (Miralax) 17 gm DAILY ORAL 10/02/17 09:00 10/27/17 08:59 Sennosides (Senokot) 2 tab HSPRN PRN ORAL Constipation 10/01/17 21:00 10/31/17 20:59 Sevelamer Carbonate (Renvela) 2,400 mg THREE TIMES A DAY ORAL 10/01/17 18:00 10/27/17 08:59 10/02/17 19:01 Vancomycin HCl (Vanco rx to dose) 1 ea DAILY PRN MISC Per rx protocol 10/01/17 16:30 10/31/17 16:29 Allergies: Coded Allergies: No Known Allergies (Unverified , 09/27/17) ROS Limited/Unobtainable: No Constitutional: Reports: no symptoms HEENT: Reports: no symptoms Cardiovascular: Reports: no symptoms Respiratory: Reports: no symptoms Gastrointestinal/Abdominal: Reports: no symptoms Genitourinary: Reports: no symptoms Neurologic/Psychiatric: Reports: no symptoms Subjective 52 YO M admitted with fever. Now gangrene left foot. S/P left below the knee amputation 10/01/17. Await trasnesophageal echocardiogram. Cover for Int Stephen- Dr Montes Objective Last Vital Signs Date Time Temp Pulse Resp B/P (MAP) Pulse Ox O2 Delivery O2 Flow Rate FiO2 10/02/17 18:00 98.1 94 20 112/55 Room Air 10/02/17 12:18 98 10/02/17 00:00 Laboratory Tests Test 10/02/17 12:14 White Blood Count 22.2 K/UL (4.8-10.8) *H Red Blood Count 2.34 M/UL (4.70-6.10) L Hemoglobin 6.7 G/DL (14.2-18.0) *L Hematocrit 20.7 % (42.0-52.0) L Mean Corpuscular Volume 88 FL (80-99) Mean Corpuscular Hemoglobin 28.5 PG (27.0-31.0) Mean Corpuscular Hemoglobin Concent 32.3 G/DL (32.0-36.0) Red Cell Distribution Width 16.1 % (11.6-14.8) H Platelet Count 368 K/UL (150-450) Mean Platelet Volume 6.4 FL (6.5-10.1) L Neutrophils (%) (Auto) % (45.0-75.0) Lymphocytes (%) (Auto) % (20.0-45.0) Monocytes (%) (Auto) % (1.0-10.0) Eosinophils (%) (Auto) % (0.0-3.0) Basophils (%) (Auto) % (0.0-2.0) Differential Total Cells Counted 100 Neutrophils % (Manual) 80 % (45-75) H Lymphocytes % (Manual) 15 % (20-45) L Monocytes % (Manual) 5 % (1-10) Eosinophils % (Manual) 0 % (0-3) Basophils % (Manual) 0 % (0-2) Band Neutrophils 0 % (0-8) Platelet Estimate Adequate Platelet Morphology Normal Hypochromasia 2+ Anisocytosis 1+ Sodium Level 135 MMOL/L (136-145) L Potassium Level 4.4 MMOL/L (3.5-5.1) Chloride Level 99 MMOL/L (98-107) Carbon Dioxide Level 30 MMOL/L (21-32) Anion Gap 7 mmol/L (5-15) Blood Urea Nitrogen 33 mg/dL (7-18) H Creatinine 7.8 MG/DL (0.55-1.30) H Estimat Glomerular Filtration Rate 8.8 mL/min (>60) Glucose Level 210 MG/DL (74-106) H Calcium Level 7.7 MG/DL (8.5-10.1) L Total Bilirubin 0.6 MG/DL (0.2-1.0) Aspartate Amino Transf (AST/SGOT) 15 U/L (15-37) Alanine Aminotransferase (ALT/SGPT) 14 U/L (12-78) Alkaline Phosphatase 121 U/L (46-116) H Troponin I 0.094 ng/mL (0.000-0.056) Total Protein 7.0 G/DL (6.4-8.2) Albumin 1.4 G/DL (3.4-5.0) L Globulin 5.6 g/dL Albumin/Globulin Ratio 0.2 (1.0-2.7) L Microbiology Date/Time Source Procedure Growth Status 09/30/17 15:55 Blood Blood Culture - Preliminary NO GROWTH AFTER 24 HOURS Resulted 09/30/17 15:40 Blood Blood Culture - Preliminary NO GROWTH AFTER 24 HOURS Resulted 09/30/17 01:20 Nasal Nares MRSA Culture - Final NO METHICILLIN RESISTANT STAPH AUREUS... Complete Intake and Output 10/01/17 10/02/17 19:00 07:00 Intake Total 1570 ml 445 ml Output Total 800 ml 0 ml Balance 770 ml 445 ml Intake Oral 270 ml 120 ml IV Total 800 ml 325 ml Blood Product 500 ml Output Urine Total 0 ml Estimated Blood Loss 800 ml Objective General Appearance: WD/WN, obese EENT: PERRL/EOMI, normal ENT inspection Neck: non-tender, normal alignment, supple Cardiovascular: normal peripheral pulses, normal rate, regular rhythm, no gallop/murmur, no JVD Respiratory/Chest: chest wall non-tender, lungs clear, normal breath sounds, no respiratory distress, no accessory muscle use Abdomen: normal bowel sounds, non tender, soft, no organomegaly, no mass Extremities: normal range of motion, non-tender 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 See ID note. Continue zosyn and vanco per ID (2) Fever (3) ESRD (end stage renal disease) on dialysis Assessment & Plan: Hemodialysis per nephrology (4) Diabetes mellitus, type II Assessment & Plan: Continue levemir and novolog (5) HTN (hypertension) (6) CAD (coronary artery disease) (7) Hypercholesteremia (8) Diabetic foot ulcer Assessment & Plan: see podiatry consult-gangrene.. cont zosyn and vanco per ID (9) Gangrene of left foot Assessment & Plan: S/P below the knee amputation 10/01/17-see surgery note. (10) Anemia Assessment & Plan: Worsening. Transfuse 1 unit PRBC in preparation for surgery Assessment/Plan Await transesophageal echocardiogram-see cardiology note. LETY MATOS Oct 02, 2017 19:09
[2017-10-02] MEDS ORDERED: Epogen (for ESRD on dialysis) SUBQ SCH (21:00)
[2017-10-02] MEDS: Meropenem 500 MG in NS 55 ML IVPB SCH (21:06)
[2017-10-02] MEDS: Atorvastatin 20mg tab ORAL SCH (21:07)
[2017-10-03] VITALS (8 sets, daily range): BP systolic 89–120; BP diastolic 47–76
--- NOTE | 2017-10-03 02:30 | Consultation ---
DATE OF CONSULTATION: 10/02/2017 CARDIOLOGY CONSULTATION CONSULTING PHYSICIAN: Jean Andres M.D. REFERRING PHYSICIAN: Wilotn Aburto M.D. REASON FOR CONSULTATION: Evaluation and management for transesophageal echocardiography for a patient with history of Methicillin-resistant Staphylococcus aureus bacteremia. HISTORY OF PRESENT ILLNESS: The patient is a very unfortunate 52-year-old gentleman, who is transferred from [facility] emergency department for evaluation and management of fever and chills and to rule out sepsis. The patient started to have dry cough about four weeks ago and started to experience fever and chills on 09/26/2017. He also had dizziness and unsteady gait. He decided to call 911 and he was taken to [facility] emergency department. After initial workup, he was transferred to this facility for further evaluation and management of fever and chills and possible sepsis. In this hospitalization, he had blood cultures, which revealed Staphylococcus aureus with Methicillin resistance. Therefore, transesophageal echocardiography was requested by the Infectious Disease. The patient was started on vancomycin and meropenem for the above condition. The patient's cardiac history is significant for history of coronary artery disease, status post myocardial infarction in 2017. Risk factors for coronary artery disease includes diabetes mellitus and hypertension. PAST MEDICAL HISTORY: 1. Diabetes mellitus type 2. 2. End-stage renal disease. 3. Peripheral neuropathy. 4. Coronary artery disease, status post myocardial infarction in 2017. PAST SURGICAL HISTORY: Right arm AV graft for dialysis. MEDICATIONS: Amiodarone 100 mg twice daily, aspirin 81 mg p.o. daily, Lipitor 40 mg p.o. daily, cinacalcet 60 mg p.o. daily, clopidogrel 75 mg p.o. daily, Neurontin 300 mg p.o. three times a day, NovoLog insulin sliding scale, and Renvela 2400 mg three times a day. SOCIAL HISTORY: Denies any tobacco, alcohol, or illicit drug use. He is disabled. He is . REVIEW OF SYSTEMS: HEENT: Denies any headache, diplopia, or blurred vision. CONSTITUTIONAL: Denies any generalized weakness, but has had subjective fever and chills. No weight loss or weight gain. CARDIOVASCULAR: No chest pain or shortness of breath. Denies any PND, orthopnea, leg swelling, palpitations, or syncope. PULMONARY: Had some dry cough, but no wheezing. Denies any hemoptysis. GASTROINTESTINAL: Denies any nausea, vomiting, diarrhea, constipation, abdominal pain, or GI bleed. GENITOURINARY: Denies any hematuria, dysuria, or incontinence. NEUROLOGY: Denies any motor dysfunction, sensory deficit, or altered speech. Complains of vertigo. Denies any seizure disorder. PHYSICAL EXAMINATION: VITAL SIGNS: Blood pressure was 106/55, pulse of 64, respirations 21, and temperature 98.2 degrees Fahrenheit. GENERAL: The patient is a very unfortunate 52-year-old black [place], in no apparent respiratory distress. Alert and oriented x4. HEENT: Atraumatic and normocephalic. Anicteric. Pupils are equal, round, and reactive to light and accommodation. Extraocular muscles intact. NECK: JVP is less than 5 cm. No carotid bruit. Carotid upstrokes 2+ bilaterally. CARDIOVASCULAR: Normal S1 and S2. Regular rate and rhythm. No murmurs, gallops, or rubs. PMI is at fourth intercostal space in the midclavicular line. LUNGS: Clear to auscultation bilaterally. ABDOMEN: Soft, nontender, and nondistended. No hepatosplenomegaly. Positive bowel sounds. EXTREMITIES: No evidence of edema, clubbing, or cyanosis. There is right upper arm presence of AV fistula. LABORATORY AND DIAGNOSTIC DATA: Laboratory findings, WBC was 22.2, hemoglobin of 6.7, hematocrit of 20.7, platelet count is 368, 80% neutrophils, and 15% lymphocytes. Sodium was 135, potassium is 4.4, chloride 99, bicarbonate 30, BUN of 33, creatinine 7.8, and glucose is 210. Calcium 8.8. Troponin I was 0.094. ProBNP was 42,862. Alkaline phosphatase 121. INR is 1.1. A 2D echocardiography done in this facility on 09/27/2017 had shown mild global left ventricular wall hypokinesia, LVEF of about 35% to 40%, [id number] mitral regurgitation, grade 2 LV diastolic dysfunction normal . . Electrocardiogram shows sinus rhythm with premature atrial complexes, cannot rule out inferior infarct, possible anterolateral infarct, and prolonged QT interval. ASSESSMENT AND PLAN: The patient is a very unfortunate 52-year-old gentleman, seen in Cardiology consultation: 1. Given Methicillin-resistant Staphylococcus aureus of blood, we required to proceed with transesophageal echocardiography, which is scheduled for Thursday at 7:30 a.m. In the meantime, we will continue with the intravenous antibiotic against Staphylococcus aureus. The risks, benefits, and alternatives of transesophageal echocardiography has been explained to the patient. The patient has agreed to the procedure. 2. Diabetes mellitus. 3. Hypertension. 4. History of coronary artery disease, status post myocardial infarction. 5. History of end-stage renal disease. I would like to thank, Dr. Montes, for allowing me to participate in the care of this patient. Jean Andres M.D. DR: VY JOB#: [id number] CC:
[2017-10-03] MEDS: NovoLOG Insulin Flexpen SUBQ SCH ×4 (06:47→20:23)
[2017-10-03 08:40] LABS: HEMATOCRIT 22.8 % (42.0-52.0); HEMOGLOBIN 7.3 G/DL (14.2-18.0); MEAN CORPUSCULAR VOLUME 91 FL (80-99); PLATELET COUNT 406 K/UL (150-450); RED BLOOD COUNT 2.52 M/UL (4.70-6.10); RED CELL DISTRIBUTION WIDTH 15.7 % (11.6-14.8)
[2017-10-03 08:45] LABS: WHITE BLOOD COUNT 23.2 K/UL (4.8-10.8)
[2017-10-03] MEDS: Docusate 100mg cap ORAL SCH ×3 (08:58→17:44)
[2017-10-03] MEDS: Sensipar 30mg Tab ORAL SCH (08:58)
[2017-10-03] MEDS: Miralax 17gm pkt ORAL SCH ×2 (08:59→09:00)
[2017-10-03 09:03] LABS: ALANINE AMINOTRANSFERASE 15 U/L (12-78); ALBUMIN 1.7 G/DL (3.4-5.0); ALBUMIN/GLOBULIN RATIO 0.3 (1.0-2.7); ALKALINE PHOSPHATASE 139 U/L (46-116); ANION GAP 8 mmol/L (5-15); ASPARTATE AMINO TRANSFERASE 31 U/L (15-37); BILIRUBIN,TOTAL 0.8 MG/DL (0.2-1.0); BLOOD UREA NITROGEN 23 mg/dL (7-18); CALCIUM 8.5 MG/DL (8.5-10.1); CARBON DIOXIDE 32 MMOL/L (21-32); CHLORIDE 104 MMOL/L (98-107); CREATININE 6.2 MG/DL (0.55-1.30); POTASSIUM 4.6 MMOL/L (3.5-5.1); SODIUM 144 MMOL/L (136-145)
[2017-10-03] MEDS: Levemir Flexpen SUBQ SCH (09:09)
[2017-10-03 09:23] LABS: PHOSPHORUS 3.7 MG/DL (2.5-4.9)
--- NOTE | 2017-10-03 09:59 | Nephrology Progress Note ---
Assessment/Plan Problem List: (1) ESRF (end stage renal failure) (2) Sepsis (3) Diabetic foot ulcer (4) Diabetes mellitus (5) Arrhythmia Assessment ESRD on HD M W Fr - Sepsis - Anemia persists - Diabetic foot ulcers/p amputation - Right lower extremity wounds, grossly they are not infected. - Left heel wound, left gangrene changes of the third, fourth and fifth toes, rule out osteomyelitis. - Arrhythmia - Diabetes mellitus - PVD Plan Plan: had amputation 10/01 Per ID HD 10/02 next 10/05 2 units PRBcs 10/02 - ? more transfusion?? discussed with RN continue rest Subjective ROS Limited/Unobtainable: No Constitutional: Reports: malaise Objective Objective Last 24 Hour Vital Signs Date Time Temp Pulse Resp B/P (MAP) Pulse Ox O2 Delivery O2 Flow Rate FiO2 10/03/17 08:00 97.7 82 19 109/75 100 Room Air 10/03/17 04:45 97.7 90 20 92/57 97 10/03/17 04:30 97.3 93 20 89/62 97 10/03/17 04:00 85 10/03/17 00:00 93 10/03/17 00:00 99.1 91 20 101/57 96 10/02/17 23:58 99.1 91 20 101/57 96 10/02/17 23:14 99.1 10/02/17 22:45 100.1 92 20 93/63 97 10/02/17 22:27 99.9 91 20 99/58 96 10/02/17 22:15 99.9 10/02/17 20:00 87 10/02/17 20:00 97.0 89 20 107/65 99 10/02/17 18:00 98.1 94 20 112/55 Room Air 10/02/17 18:00 Room Air 10/02/17 16:00 97.7 99 19 119/67 Room Air 10/02/17 16:00 102 10/02/17 14:00 97.7 90 20 85/50 Room Air 10/02/17 12:18 207.7 74 20 98 10/02/17 12:00 97.2 93 21 91/49 96 Room Air 10/02/17 12:00 83 10/02/17 10:44 97.6 Intake and Output 10/02/17 10/03/17 19:00 07:00 Intake Total 610 ml 790 ml Output Total 2500 ml Balance -1890 ml 790 ml Intake Oral 610 ml 240 ml Blood Product 550 ml Hemodialysis UF 2500 ml Laboratory Tests 10/02/17 12:14: White Blood Count 22.2*H, Red Blood Count 2.34L, Hemoglobin 6.7*L, Hematocrit 20.7L, Mean Corpuscular Volume 88, Mean Corpuscular Hemoglobin 28.5, Mean Corpuscular Hemoglobin Concent 32.3, Red Cell Distribution Width 16.1H, Platelet Count 368, Mean Platelet Volume 6.4L, Neutrophils (%) (Auto) , Lymphocytes (%) (Auto) , Monocytes (%) (Auto) , Eosinophils (%) (Auto) , Basophils (%) (Auto) , Differential Total Cells Counted 100, Neutrophils % ( Manual) 80H, Lymphocytes % (Manual) 15L, Monocytes % (Manual) 5, Eosinophils % ( Manual) 0, Basophils % (Manual) 0, Band Neutrophils 0, Platelet Estimate Adequate, Platelet Morphology Normal, Hypochromasia 2+, Anisocytosis 1+, Sodium Level 135L, Potassium Level 4.4, Chloride Level 99, Carbon Dioxide Level 30, Anion Gap 7, Blood Urea Nitrogen 33H, Creatinine 7.8H, Estimat Glomerular Filtration Rate 8.8, Glucose Level 210H, Calcium Level 7.7L, Total Bilirubin 0.6 , Aspartate Amino Transf (AST/SGOT) 15, Alanine Aminotransferase (ALT/SGPT) 14, Alkaline Phosphatase 121H, Troponin I 0.094H, Total Protein 7.0, Albumin 1.4L, Globulin 5.6, Albumin/Globulin Ratio 0.2L 10/03/17 07:10: White Blood Count 23.2*H, Red Blood Count 2.52L, Hemoglobin 7.3L, Hematocrit 22.8L, Mean Corpuscular Volume 91, Mean Corpuscular Hemoglobin 28.9, Mean Corpuscular Hemoglobin Concent 31.8L, Red Cell Distribution Width 15.7H, Platelet Count 406, Mean Platelet Volume 7.7, Neutrophils (%) (Auto) , Lymphocytes (%) (Auto) , Monocytes (%) (Auto) , Eosinophils (%) (Auto) , Basophils (%) (Auto) , Differential Total Cells Counted 100, Neutrophils % ( Manual) 88H, Lymphocytes % (Manual) 8L, Monocytes % (Manual) 4, Eosinophils % ( Manual) 0, Basophils % (Manual) 0, Band Neutrophils 0, Platelet Estimate Adequate, Platelet Morphology Normal, Hypochromasia 1+, Anisocytosis 1+, Sodium Level 144, Potassium Level 4.6, Chloride Level 104, Carbon Dioxide Level 32, Anion Gap 8, Blood Urea Nitrogen 23H, Creatinine 6.2H, Estimat Glomerular Filtration Rate 11.6, Glucose Level 199H, Calcium Level 8.5, Total Bilirubin 0.8 , Aspartate Amino Transf (AST/SGOT) 31, Alanine Aminotransferase (ALT/SGPT) 15, Alkaline Phosphatase 139H, Total Protein 7.8, Albumin 1.7L, Globulin 6.1, Albumin/Globulin Ratio 0.3L, Phosphorus Level 3.7, Magnesium Level 2.0, Gamma Glutamyl Transpeptidase 241H, Random Vancomycin Level 13.0 Height (Feet): 5 Height (Inches): 7.00 Weight (Pounds): 290 Objective no change in PE BREANN STEEL Oct 03, 2017 09:59
[2017-10-03] MEDS ORDERED: Vancomycin 1250mg/D5W 250ml IVPB ONE (11:00)
--- NOTE | 2017-10-03 11:07 | Infectious Diseases Prog Note ---
Assessment/Plan Assessment/Plan ASSESSMENT: The patient is a 52-year-old male with, Sepsis 2ry to MRSA bacteremia and L foot wet gangrene; improving Persistent MRSA bacteremia- possibly due to foot infection, however concern for endovascular source (ie AVF infection, SBE) -Bcx 09/27 1/4 + (S Vanco Spencer 1, bactrim; R tetracycline), 09/29 2+; 09/30 NTD x4 -2d Echo: limited (poor acoustic windows)- no obvious vegetations. Focal aortic valve sclerosis with adequate cusp excursion.Heavy Thickened mitral valve leaflets with normal excursion. Mild to moderate mitral regurgitation. Heavy Mitral annulus and aortic root calcification. Normal pulmonic valve structure . Normal tricuspid valve structure. Leukocytosis persistent (out of proportion for wound infection ) -CT chest/abd/p w/: No acute findings in the abdomen chest or pelvis. Mild basal atelectasis. Suspected gallstones. No evidence of abdominal abscess. Atherosclerotic disease. Status post right hip pinning. L foot wet gangrene -s/p L BKA 10/01 -Left heel wound, left gangrene w changes of the third, fourth and fifth toes, Wnd Cx: PsA, ?ESBL (S Cipro, Imipenem, gentamicin; R Zosyn, Cefepime, Ceftazidime) and MRSA (S vanco, bactrim; R tetracycline) MRI of the foot Peripheral, mild T2 hyperintense signal involving the head of the fifth metatarsal head and phalanges. most likely due to reactive bone marrow edema rather than osteomyelitis as T1 signal is normal. No evidence of acute osteomyelitis otherwise within the forefoot, midfoot or hindfoot/ankle. Right lower extremity wounds, grossly they are not infected. Dizziness followed by Neuro Probable PVD Diabetes End-stage renal disease, on hemodialysis. Obesity. Diabetic neuropathy. Bilateral lower extremity wounds. History of CAD History of cardiac arrest 06/2017 History of myocardial infarction PLAN: Cont patient on Vancomycin # 7 for MRSA bacteremia; duration to follow pending KERI -vanco through goal 15-20 -Continue Meropenem # 3/7 for MDR, possible ESBL PsA in wound; short duration as now leg has been amputated -considered PO cipro but patient on Amiodarone and has already prolonged Qtc -10/01 SP Zosyn #5 - KERI to evaluate for endocarditis -if neg and persistent bacteremia after amputation, then will need WBC tagged scan -f/u Repeat 2 sets of Bcx Monitor CBC/ BMP, temperatures Podiatry/gen sx/vasc sx f/u Subjective Constitutional: Denies: no symptoms, fever, chills, fatigue, anorexia, drenching sweats, other Allergies: Coded Allergies: No Known Allergies (Unverified , 09/27/17) Subjective afebrile Objective Vital Signs Last 24 Hour Vital Signs Date Time Temp Pulse Resp B/P (MAP) Pulse Ox O2 Delivery O2 Flow Rate FiO2 10/03/17 08:00 97.7 82 19 109/75 100 Room Air 10/03/17 04:45 97.7 90 20 92/57 97 10/03/17 04:30 97.3 93 20 89/62 97 10/03/17 04:00 85 10/03/17 00:00 93 10/03/17 00:00 99.1 91 20 101/57 96 10/02/17 23:58 99.1 91 20 101/57 96 10/02/17 23:14 99.1 10/02/17 22:45 100.1 92 20 93/63 97 10/02/17 22:27 99.9 91 20 99/58 96 10/02/17 22:15 99.9 10/02/17 20:00 87 10/02/17 20:00 97.0 89 20 107/65 99 10/02/17 18:00 98.1 94 20 112/55 Room Air 10/02/17 18:00 Room Air 10/02/17 16:00 97.7 99 19 119/67 Room Air 10/02/17 16:00 102 10/02/17 14:00 97.7 90 20 85/50 Room Air 10/02/17 12:18 207.7 74 20 98 10/02/17 12:00 97.2 93 21 91/49 96 Room Air 10/02/17 12:00 83 Height (Feet): 5 Height (Inches): 7.00 Weight (Pounds): 290 HEENT: mucous membranes moist Respiratory/Chest: no respiratory distress Cardiovascular: no JVD Abdomen: no mass Microbiology Date/Time Source Procedure Growth Status 10/01/17 16:00 Blood Blood Culture - Preliminary NO GROWTH AFTER 24 HOURS Resulted 10/01/17 15:45 Blood Blood Culture - Preliminary NO GROWTH AFTER 24 HOURS Resulted 09/30/17 15:55 Blood Blood Culture - Preliminary NO GROWTH AFTER 48 HOURS Resulted 09/30/17 15:40 Blood Blood Culture - Preliminary NO GROWTH AFTER 48 HOURS Resulted Laboratory Tests Test 10/02/17 12:14 10/03/17 07:10 White Blood Count 22.2 K/UL (4.8-10.8) *H 23.2 K/UL (4.8-10.8) *H Red Blood Count 2.34 M/UL (4.70-6.10) L 2.52 M/UL (4.70-6.10) L Hemoglobin 6.7 G/DL (14.2-18.0) *L 7.3 G/DL (14.2-18.0) L Hematocrit 20.7 % (42.0-52.0) L 22.8 % (42.0-52.0) L Mean Corpuscular Volume 88 FL (80-99) 91 FL (80-99) Mean Corpuscular Hemoglobin 28.5 PG (27.0-31.0) 28.9 PG (27.0-31.0) Mean Corpuscular Hemoglobin Concent 32.3 G/DL (32.0-36.0) 31.8 G/DL (32.0-36.0) L Red Cell Distribution Width 16.1 % (11.6-14.8) H 15.7 % (11.6-14.8) H Platelet Count 368 K/UL (150-450) 406 K/UL (150-450) Mean Platelet Volume 6.4 FL (6.5-10.1) L 7.7 FL (6.5-10.1) Neutrophils (%) (Auto) % (45.0-75.0) % (45.0-75.0) Lymphocytes (%) (Auto) % (20.0-45.0) % (20.0-45.0) Monocytes (%) (Auto) % (1.0-10.0) % (1.0-10.0) Eosinophils (%) (Auto) % (0.0-3.0) % (0.0-3.0) Basophils (%) (Auto) % (0.0-2.0) % (0.0-2.0) Differential Total Cells Counted 100 100 Neutrophils % (Manual) 80 % (45-75) H 88 % (45-75) H Lymphocytes % (Manual) 15 % (20-45) L 8 % (20-45) L Monocytes % (Manual) 5 % (1-10) 4 % (1-10) Eosinophils % (Manual) 0 % (0-3) 0 % (0-3) Basophils % (Manual) 0 % (0-2) 0 % (0-2) Band Neutrophils 0 % (0-8) 0 % (0-8) Platelet Estimate Adequate Adequate Platelet Morphology Normal Normal Hypochromasia 2+ 1+ Anisocytosis 1+ 1+ Sodium Level 135 MMOL/L (136-145) L 144 MMOL/L (136-145) Potassium Level 4.4 MMOL/L (3.5-5.1) 4.6 MMOL/L (3.5-5.1) Chloride Level 99 MMOL/L (98-107) 104 MMOL/L (98-107) Carbon Dioxide Level 30 MMOL/L (21-32) 32 MMOL/L (21-32) Anion Gap 7 mmol/L (5-15) 8 mmol/L (5-15) Blood Urea Nitrogen 33 mg/dL (7-18) H 23 mg/dL (7-18) H Creatinine 7.8 MG/DL (0.55-1.30) H 6.2 MG/DL (0.55-1.30) H Estimat Glomerular Filtration Rate 8.8 mL/min (>60) 11.6 mL/min (>60) Glucose Level 210 MG/DL (74-106) H 199 MG/DL (74-106) H Calcium Level 7.7 MG/DL (8.5-10.1) L 8.5 MG/DL (8.5-10.1) Total Bilirubin 0.6 MG/DL (0.2-1.0) 0.8 MG/DL (0.2-1.0) Aspartate Amino Transf (AST/SGOT) 15 U/L (15-37) 31 U/L (15-37) Alanine Aminotransferase (ALT/SGPT) 14 U/L (12-78) 15 U/L (12-78) Alkaline Phosphatase 121 U/L (46-116) H 139 U/L (46-116) H Troponin I 0.094 ng/mL (0.000-0.056) Total Protein 7.0 G/DL (6.4-8.2) 7.8 G/DL (6.4-8.2) Albumin 1.4 G/DL (3.4-5.0) L 1.7 G/DL (3.4-5.0) L Globulin 5.6 g/dL 6.1 g/dL Albumin/Globulin Ratio 0.2 (1.0-2.7) L 0.3 (1.0-2.7) L Phosphorus Level 3.7 MG/DL (2.5-4.9) Magnesium Level 2.0 MG/DL (1.8-2.4) Gamma Glutamyl Transpeptidase 241 U/L (5-85) H Random Vancomycin Level 13.0 ug/mL Current Medications Medications (Trade) Dose Ordered Sig/Georges Route PRN Reason Start Time Stop Time Status Last Admin Dose Admin Acetaminophen (Tylenol) 650 mg Q6H PRN ORAL Mild Pain (Pain Scale 1-3) 10/01/17 16:30 10/31/17 16:29 10/02/17 22:15 Acetaminophen/ Hydrocodone Bitart ([place] 10/325) 1 tab Q4H PRN ORAL Severe Pain (Pain Scale 7-10) 10/01/17 16:30 10/08/17 16:29 10/02/17 21:08 Acetaminophen/ Hydrocodone Bitart ([place] 5/325) 1 tab Q4H PRN ORAL Moderate Pain (Pain Scale 4-6) 10/01/17 16:30 10/08/17 16:29 Amiodarone HCl (Cordarone) 200 mg BID ORAL 10/01/17 18:00 10/27/17 08:59 Atorvastatin Calcium (Lipitor) 40 mg BEDTIME ORAL 10/01/17 21:00 10/27/17 20:59 10/02/17 21:07 Cinacalcet (Sensipar) 60 mg DAILY ORAL 10/02/17 09:00 10/27/17 08:59 10/03/17 08:58 Collagenase (Santyl) 1 applic Q12HR TOPIC 10/01/17 21:00 10/30/17 20:59 10/03/17 08:59 Dextrose (Dextrose 50%) STAT PRN IV Hypoglycemia 10/01/17 16:30 10/31/17 16:29 Docusate Sodium (Colace) 100 mg TID ORAL 10/02/17 14:00 11/01/17 13:59 10/03/17 08:58 Epoetin Mahesh (Procrit (for ESRD on dialysis)) 10,000 units [id number]-[id number] SUBQ 10/02/17 21:00 11/01/17 20:59 10/02/17 21:07 Gabapentin (Neurontin) 300 mg THREE TIMES A DAY ORAL 10/01/17 18:00 10/27/17 12:59 10/03/17 08:58 Hydromorphone HCl (Dilaudid) 0.5 mg Q3H PRN IVP Pain Score 1-3 10/01/17 16:30 10/08/17 16:29 Hydromorphone HCl (Dilaudid) 1 mg Q3H PRN IVP pain score 4-6 10/01/17 16:30 10/08/17 16:29 10/02/17 04:46 Hydromorphone HCl (Dilaudid) 2 mg Q3H PRN IVP pain score 7-10 10/01/17 16:30 10/08/17 16:29 10/01/17 18:15 Insulin Aspart (NovoLOG) BEFORE MEALS AND HS SUBQ 10/01/17 16:30 10/27/17 06:29 10/03/17 06:47 Insulin Detemir (Levemir) 20 units DAILY SUBQ 10/02/17 09:00 10/27/17 08:59 10/03/17 09:09 Meclizine HCl (Antivert) 25 mg DAILYPRN PRN ORAL for dizziness 10/01/17 16:30 10/31/17 16:29 Meropenem 500 mg/ Sodium Chloride 55 ml @ 110 mls/hr Q24H IVPB 10/01/17 22:00 10/06/17 21:59 10/02/17 21:06 Pantoprazole (Protonix) 40 mg DAILY ORAL 10/02/17 09:00 10/27/17 11:59 10/03/17 08:58 Polyethylene Glycol (Miralax) 17 gm DAILY ORAL 10/02/17 09:00 10/27/17 08:59 Sennosides (Senokot) 2 tab HSPRN PRN ORAL Constipation 10/01/17 21:00 10/31/17 20:59 Sevelamer Carbonate (Renvela) 1,600 mg THREE TIMES A DAY ORAL 10/03/17 13:00 11/02/17 12:59 Vancomycin HCl (Vanco rx to dose) 1 ea DAILY PRN MISC Per rx protocol 10/01/17 16:30 10/31/17 16:29 Vancomycin HCl/ Dextrose 250 ml @ 166.667 mls/hr ONCE ONCE IVPB 10/03/17 11:00 10/03/17 12:29 ANGIE LUND M.D. Oct 03, 2017 11:07
--- NOTE | 2017-10-03 11:27 | Pulmonology Progress Note ---
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 DM Severe diabetic polyneuropathy ESRD, on HD PAD CAD s/p cardiac arrest end stage heart failure Severe CM ( EF 5%) anemia of chronic renal disease anemia of acute blood loss (probably postop due to L BKA ), s/p blood transfusion positional dizziness with gait ataxia- r/o anoxic encephalopathy with cerebellar dysfunction, r/o post-anoxic vestibulopathy PLAN OF CARE tele abx ID follows blood cx+ MRSA, r/o graft infection, SBE repeated blood cx 09/30/and 10/01 both prel negative wound cx + MRSA , Pseudomonas ECHO no vegetation KERI schedule for Friday 10/06 CT C/A/P no acute process If negative KERI , ID recommended WBC scan MRI foot and ankle no acute OM , podiatry follows Surgery follows s/p L BKA dressing, change, monitor stump pain management ECHO with EF 5%, mild to moderate MR End stage CM, medical management Continue ASA, Plavix, Amiodarone vasc surgeon consult appreciated DVT GI prophylaxis BS management with SS of insulin and Levemir, titrate a seeded bowel regimen monitor HH, transfuse additional 1 unit PRBC today Neuro eval appreciated Meclizine prn Per neuro: for now address issues of sepsis and amputation, when stabilized, will need to review recent MRI (per pt was fine(, if no improvement may benefit from ENT eval overall prognosis poor given multiple comorbidities: end stage CM, ESRD, DM and sepsis case discussed and evaluated by supervising physician Subjective Allergies: Coded Allergies: No Known Allergies (Unverified , 09/27/17) Subjective patient s/p L BKA2/15 transferred to tele postoperatively persistent severe leukocytosis HH down to 6.7/20.7 on 10/02, s/p 2 u PRBC today still low HH - 7.3/23.8 Objective Last 24 Hour Vital Signs Date Time Temp Pulse Resp B/P (MAP) Pulse Ox O2 Delivery O2 Flow Rate FiO2 10/03/17 08:00 97.7 82 19 109/75 100 Room Air 10/03/17 04:45 97.7 90 20 92/57 97 10/03/17 04:30 97.3 93 20 89/62 97 10/03/17 04:00 85 10/03/17 00:00 93 10/03/17 00:00 99.1 91 20 101/57 96 10/02/17 23:58 99.1 91 20 101/57 96 10/02/17 23:14 99.1 10/02/17 22:45 100.1 92 20 93/63 97 10/02/17 22:27 99.9 91 20 99/58 96 10/02/17 22:15 99.9 10/02/17 20:00 87 10/02/17 20:00 97.0 89 20 107/65 99 10/02/17 18:00 98.1 94 20 112/55 Room Air 10/02/17 18:00 Room Air 10/02/17 16:00 97.7 99 19 119/67 Room Air 10/02/17 16:00 102 10/02/17 14:00 97.7 90 20 85/50 Room Air 10/02/17 12:18 207.7 74 20 98 10/02/17 12:00 97.2 93 21 91/49 96 Room Air 10/02/17 12:00 83 Intake and Output 10/02/17 10/03/17 19:00 07:00 Intake Total 610 ml 790 ml Output Total 2500 ml Balance -1890 ml 790 ml Intake Oral 610 ml 240 ml Blood Product 550 ml Hemodialysis UF 2500 ml Objective General Appearance: no acute distress HEENT: normocephalic, atraumatic, anicteric, mucous membranes moist Respiratory/Chest: lungs clear, no respiratory distress, no accessory muscle use Cardiovascular: normal rate, regular rhythm - SR on tele Abdomen: soft, non tender Extremities: other - L BKA stump with dressing C/D/I Neurologic/Psychiatric: abnormal gait, alert, oriented x 3, responsive, normal mood/affect Microbiology Date/Time Source Procedure Growth Status 10/01/17 16:00 Blood Blood Culture - Preliminary NO GROWTH AFTER 24 HOURS Resulted 10/01/17 15:45 Blood Blood Culture - Preliminary NO GROWTH AFTER 24 HOURS Resulted 09/30/17 15:55 Blood Blood Culture - Preliminary NO GROWTH AFTER 48 HOURS Resulted 09/30/17 15:40 Blood Blood Culture - Preliminary NO GROWTH AFTER 48 HOURS Resulted Laboratory Tests 10/02/17 12:14: White Blood Count 22.2*H, Red Blood Count 2.34L, Hemoglobin 6.7*L, Hematocrit 20.7L, Mean Corpuscular Volume 88, Mean Corpuscular Hemoglobin 28.5, Mean Corpuscular Hemoglobin Concent 32.3, Red Cell Distribution Width 16.1H, Platelet Count 368, Mean Platelet Volume 6.4L, Neutrophils (%) (Auto) , Lymphocytes (%) (Auto) , Monocytes (%) (Auto) , Eosinophils (%) (Auto) , Basophils (%) (Auto) , Differential Total Cells Counted 100, Neutrophils % ( Manual) 80H, Lymphocytes % (Manual) 15L, Monocytes % (Manual) 5, Eosinophils % ( Manual) 0, Basophils % (Manual) 0, Band Neutrophils 0, Platelet Estimate Adequate, Platelet Morphology Normal, Hypochromasia 2+, Anisocytosis 1+, Sodium Level 135L, Potassium Level 4.4, Chloride Level 99, Carbon Dioxide Level 30, Anion Gap 7, Blood Urea Nitrogen 33H, Creatinine 7.8H, Estimat Glomerular Filtration Rate 8.8, Glucose Level 210H, Calcium Level 7.7L, Total Bilirubin 0.6 , Aspartate Amino Transf (AST/SGOT) 15, Alanine Aminotransferase (ALT/SGPT) 14, Alkaline Phosphatase 121H, Troponin I 0.094H, Total Protein 7.0, Albumin 1.4L, Globulin 5.6, Albumin/Globulin Ratio 0.2L 10/03/17 07:10: White Blood Count 23.2*H, Red Blood Count 2.52L, Hemoglobin 7.3L, Hematocrit 22.8L, Mean Corpuscular Volume 91, Mean Corpuscular Hemoglobin 28.9, Mean Corpuscular Hemoglobin Concent 31.8L, Red Cell Distribution Width 15.7H, Platelet Count 406, Mean Platelet Volume 7.7, Neutrophils (%) (Auto) , Lymphocytes (%) (Auto) , Monocytes (%) (Auto) , Eosinophils (%) (Auto) , Basophils (%) (Auto) , Differential Total Cells Counted 100, Neutrophils % ( Manual) 88H, Lymphocytes % (Manual) 8L, Monocytes % (Manual) 4, Eosinophils % ( Manual) 0, Basophils % (Manual) 0, Band Neutrophils 0, Platelet Estimate Adequate, Platelet Morphology Normal, Hypochromasia 1+, Anisocytosis 1+, Sodium Level 144, Potassium Level 4.6, Chloride Level 104, Carbon Dioxide Level 32, Anion Gap 8, Blood Urea Nitrogen 23H, Creatinine 6.2H, Estimat Glomerular Filtration Rate 11.6, Glucose Level 199H, Calcium Level 8.5, Total Bilirubin 0.8 , Aspartate Amino Transf (AST/SGOT) 31, Alanine Aminotransferase (ALT/SGPT) 15, Alkaline Phosphatase 139H, Total Protein 7.8, Albumin 1.7L, Globulin 6.1, Albumin/Globulin Ratio 0.3L, Phosphorus Level 3.7, Magnesium Level 2.0, Gamma Glutamyl Transpeptidase 241H, Random Vancomycin Level 13.0 Current Medications Medications (Trade) Dose Ordered Sig/Georges Route PRN Reason Start Time Stop Time Status Last Admin Dose Admin Acetaminophen (Tylenol) 650 mg Q6H PRN ORAL Mild Pain (Pain Scale 1-3) 10/01/17 16:30 10/31/17 16:29 10/02/17 22:15 Acetaminophen/ Hydrocodone Bitart ([place] 10/325) 1 tab Q4H PRN ORAL Severe Pain (Pain Scale 7-10) 10/01/17 16:30 10/08/17 16:29 10/02/17 21:08 Acetaminophen/ Hydrocodone Bitart ([place] 5/325) 1 tab Q4H PRN ORAL Moderate Pain (Pain Scale 4-6) 10/01/17 16:30 10/08/17 16:29 Amiodarone HCl (Cordarone) 200 mg BID ORAL 10/01/17 18:00 10/27/17 08:59 Atorvastatin Calcium (Lipitor) 40 mg BEDTIME ORAL 10/01/17 21:00 10/27/17 20:59 10/02/17 21:07 Cinacalcet (Sensipar) 60 mg DAILY ORAL 10/02/17 09:00 10/27/17 08:59 10/03/17 08:58 Collagenase (Santyl) 1 applic Q12HR TOPIC 10/01/17 21:00 10/30/17 20:59 10/03/17 08:59 Dextrose (Dextrose 50%) STAT PRN IV Hypoglycemia 10/01/17 16:30 10/31/17 16:29 Docusate Sodium (Colace) 100 mg TID ORAL 10/02/17 14:00 11/01/17 13:59 10/03/17 08:58 Epoetin Mahesh (Procrit (for ESRD on dialysis)) 10,000 units THU-THU-THU SUBQ 10/02/17 21:00 11/01/17 20:59 10/02/17 21:07 Gabapentin (Neurontin) 300 mg THREE TIMES A DAY ORAL 10/01/17 18:00 10/27/17 12:59 10/03/17 08:58 Hydromorphone HCl (Dilaudid) 0.5 mg Q3H PRN IVP Pain Score 1-3 10/01/17 16:30 10/08/17 16:29 Hydromorphone HCl (Dilaudid) 1 mg Q3H PRN IVP pain score 4-6 10/01/17 16:30 10/08/17 16:29 10/02/17 04:46 Hydromorphone HCl (Dilaudid) 2 mg Q3H PRN IVP pain score 7-10 10/01/17 16:30 10/08/17 16:29 10/01/17 18:15 Insulin Aspart (NovoLOG) BEFORE MEALS AND HS SUBQ 10/01/17 16:30 10/27/17 06:29 10/03/17 06:47 Insulin Detemir (Levemir) 20 units DAILY SUBQ 10/02/17 09:00 10/27/17 08:59 10/03/17 09:09 Meclizine HCl (Antivert) 25 mg DAILYPRN PRN ORAL for dizziness 10/01/17 16:30 10/31/17 16:29 Meropenem 500 mg/ Sodium Chloride 55 ml @ 110 mls/hr Q24H IVPB 10/01/17 22:00 10/06/17 21:59 10/02/17 21:06 Pantoprazole (Protonix) 40 mg DAILY ORAL 10/02/17 09:00 10/27/17 11:59 10/03/17 08:58 Polyethylene Glycol (Miralax) 17 gm DAILY ORAL 10/02/17 09:00 10/27/17 08:59 Sennosides (Senokot) 2 tab HSPRN PRN ORAL Constipation 10/01/17 21:00 10/31/17 20:59 Sevelamer Carbonate (Renvela) 1,600 mg THREE TIMES A DAY ORAL 10/03/17 13:00 11/02/17 12:59 Vancomycin HCl (Vanco rx to dose) 1 ea DAILY PRN MISC Per rx protocol 10/01/17 16:30 10/31/17 16:29 Vancomycin HCl/ Dextrose 250 ml @ 166.667 mls/hr ONCE ONCE IVPB 10/03/17 11:00 10/03/17 12:29 Deandre (Gloria)Sapna NP Oct 03, 2017 11:27
--- NOTE | 2017-10-03 11:32 | General Progress Note ---
Progress Note Progress Note Surgery: no acute events. had 2 units after HD and states feels much better. no longer light headed. very positive today. labs still anemia but likely do to renal. no active bleeding noted. dressings dry without any saturation. no n/v/c/f. still with leukocytosis. cont current care. keep leg elevated. right leg strict care. will remove dressings soon Lauro Oakley Oct 03, 2017 11:32
--- NOTE | 2017-10-03 12:26 | Internal Med Progress Note ---
Subjective Date of Service: Oct 03, 2017 Physician Name Lety Matos Attending Physician Efraín Montes MD Current Medications Medications (Trade) Dose Ordered Sig/Georges Route PRN Reason Start Time Stop Time Status Last Admin Dose Admin Acetaminophen (Tylenol) 650 mg Q6H PRN ORAL Mild Pain (Pain Scale 1-3) 10/01/17 16:30 10/31/17 16:29 10/02/17 22:15 Acetaminophen/ Hydrocodone Bitart ([place] 10/325) 1 tab Q4H PRN ORAL Severe Pain (Pain Scale 7-10) 10/01/17 16:30 10/08/17 16:29 10/02/17 21:08 Acetaminophen/ Hydrocodone Bitart ([place] 5/325) 1 tab Q4H PRN ORAL Moderate Pain (Pain Scale 4-6) 10/01/17 16:30 10/08/17 16:29 Amiodarone HCl (Cordarone) 200 mg BID ORAL 10/01/17 18:00 10/27/17 08:59 Atorvastatin Calcium (Lipitor) 40 mg BEDTIME ORAL 10/01/17 21:00 10/27/17 20:59 10/02/17 21:07 Cinacalcet (Sensipar) 60 mg DAILY ORAL 10/02/17 09:00 10/27/17 08:59 10/03/17 08:58 Collagenase (Santyl) 1 applic Q12HR TOPIC 10/01/17 21:00 10/30/17 20:59 10/03/17 08:59 Dextrose (Dextrose 50%) STAT PRN IV Hypoglycemia 10/01/17 16:30 10/31/17 16:29 Docusate Sodium (Colace) 100 mg TID ORAL 10/02/17 14:00 11/01/17 13:59 10/03/17 08:58 Epoetin Mahesh (Procrit (for ESRD on dialysis)) 10,000 units THU-WED-THU SUBQ 10/02/17 21:00 11/01/17 20:59 10/02/17 21:07 Gabapentin (Neurontin) 300 mg THREE TIMES A DAY ORAL 10/01/17 18:00 10/27/17 12:59 10/03/17 08:58 Hydromorphone HCl (Dilaudid) 0.5 mg Q3H PRN IVP Pain Score 1-3 10/01/17 16:30 10/08/17 16:29 Hydromorphone HCl (Dilaudid) 1 mg Q3H PRN IVP pain score 4-6 10/01/17 16:30 10/08/17 16:29 10/02/17 04:46 Hydromorphone HCl (Dilaudid) 2 mg Q3H PRN IVP pain score 7-10 10/01/17 16:30 10/08/17 16:29 10/01/17 18:15 Insulin Aspart (NovoLOG) BEFORE MEALS AND HS SUBQ 10/01/17 16:30 10/27/17 06:29 10/03/17 12:02 Insulin Detemir (Levemir) 20 units DAILY SUBQ 10/02/17 09:00 10/27/17 08:59 10/03/17 09:09 Meclizine HCl (Antivert) 25 mg DAILYPRN PRN ORAL for dizziness 10/01/17 16:30 10/31/17 16:29 Meropenem 500 mg/ Sodium Chloride 55 ml @ 110 mls/hr Q24H IVPB 10/01/17 22:00 10/06/17 21:59 10/02/17 21:06 Pantoprazole (Protonix) 40 mg DAILY ORAL 10/02/17 09:00 10/27/17 11:59 10/03/17 08:58 Polyethylene Glycol (Miralax) 17 gm DAILY ORAL 10/02/17 09:00 10/27/17 08:59 Sennosides (Senokot) 2 tab HSPRN PRN ORAL Constipation 10/01/17 21:00 10/31/17 20:59 Sevelamer Carbonate (Renvela) 1,600 mg THREE TIMES A DAY ORAL 10/03/17 13:00 11/02/17 12:59 Vancomycin HCl (Vanco rx to dose) 1 ea DAILY PRN MISC Per rx protocol 10/01/17 16:30 10/31/17 16:29 Vancomycin HCl/ Dextrose 250 ml @ 166.667 mls/hr ONCE ONCE IVPB 10/03/17 11:00 10/03/17 12:29 10/03/17 11:31 Allergies: Coded Allergies: No Known Allergies (Unverified , 09/27/17) ROS Limited/Unobtainable: No Constitutional: Reports: no symptoms HEENT: Reports: no symptoms Cardiovascular: Reports: no symptoms Respiratory: Reports: no symptoms Gastrointestinal/Abdominal: Reports: no symptoms Genitourinary: Reports: no symptoms Neurologic/Psychiatric: Reports: no symptoms Subjective 52 YO M admitted with fever. Now gangrene left foot. S/P left below the knee amputation 10/01/17. Await trasnesophageal echocardiogram. Cover for Int Stephen- Dr Montes Objective Last Vital Signs Date Time Temp Pulse Resp B/P (MAP) Pulse Ox O2 Delivery O2 Flow Rate FiO2 10/03/17 08:00 81 10/03/17 08:00 97.7 19 109/75 100 Room Air 10/02/17 00:00 Laboratory Tests Test 10/03/17 07:10 White Blood Count 23.2 K/UL (4.8-10.8) *H Red Blood Count 2.52 M/UL (4.70-6.10) L Hemoglobin 7.3 G/DL (14.2-18.0) L Hematocrit 22.8 % (42.0-52.0) L Mean Corpuscular Volume 91 FL (80-99) Mean Corpuscular Hemoglobin 28.9 PG (27.0-31.0) Mean Corpuscular Hemoglobin Concent 31.8 G/DL (32.0-36.0) L Red Cell Distribution Width 15.7 % (11.6-14.8) H Platelet Count 406 K/UL (150-450) Mean Platelet Volume 7.7 FL (6.5-10.1) Neutrophils (%) (Auto) % (45.0-75.0) Lymphocytes (%) (Auto) % (20.0-45.0) Monocytes (%) (Auto) % (1.0-10.0) Eosinophils (%) (Auto) % (0.0-3.0) Basophils (%) (Auto) % (0.0-2.0) Differential Total Cells Counted 100 Neutrophils % (Manual) 88 % (45-75) H Lymphocytes % (Manual) 8 % (20-45) L Monocytes % (Manual) 4 % (1-10) Eosinophils % (Manual) 0 % (0-3) Basophils % (Manual) 0 % (0-2) Band Neutrophils 0 % (0-8) Platelet Estimate Adequate Platelet Morphology Normal Hypochromasia 1+ Anisocytosis 1+ Sodium Level 144 MMOL/L (136-145) Potassium Level 4.6 MMOL/L (3.5-5.1) Chloride Level 104 MMOL/L (98-107) Carbon Dioxide Level 32 MMOL/L (21-32) Anion Gap 8 mmol/L (5-15) Blood Urea Nitrogen 23 mg/dL (7-18) H Creatinine 6.2 MG/DL (0.55-1.30) H Estimat Glomerular Filtration Rate 11.6 mL/min (>60) Glucose Level 199 MG/DL (74-106) H Calcium Level 8.5 MG/DL (8.5-10.1) Phosphorus Level 3.7 MG/DL (2.5-4.9) Magnesium Level 2.0 MG/DL (1.8-2.4) Total Bilirubin 0.8 MG/DL (0.2-1.0) Gamma Glutamyl Transpeptidase 241 U/L (5-85) H Aspartate Amino Transf (AST/SGOT) 31 U/L (15-37) Alanine Aminotransferase (ALT/SGPT) 15 U/L (12-78) Alkaline Phosphatase 139 U/L (46-116) H Total Protein 7.8 G/DL (6.4-8.2) Albumin 1.7 G/DL (3.4-5.0) L Globulin 6.1 g/dL Albumin/Globulin Ratio 0.3 (1.0-2.7) L Random Vancomycin Level 13.0 ug/mL Microbiology Date/Time Source Procedure Growth Status 10/01/17 16:00 Blood Blood Culture - Preliminary NO GROWTH AFTER 24 HOURS Resulted 10/01/17 15:45 Blood Blood Culture - Preliminary NO GROWTH AFTER 24 HOURS Resulted 09/30/17 15:55 Blood Blood Culture - Preliminary NO GROWTH AFTER 48 HOURS Resulted 09/30/17 15:40 Blood Blood Culture - Preliminary NO GROWTH AFTER 48 HOURS Resulted Intake and Output 10/02/17 10/03/17 19:00 07:00 Intake Total 610 ml 790 ml Output Total 2500 ml Balance -1890 ml 790 ml Intake Oral 610 ml 240 ml Blood Product 550 ml Hemodialysis UF 2500 ml Objective General Appearance: WD/WN, obese EENT: PERRL/EOMI, normal ENT inspection Neck: non-tender, normal alignment, supple Cardiovascular: normal peripheral pulses, normal rate, regular rhythm, no gallop/murmur, no JVD Respiratory/Chest: chest wall non-tender, lungs clear, normal breath sounds, no respiratory distress, no accessory muscle use Abdomen: normal bowel sounds, non tender, soft, no organomegaly, no mass Extremities: left BKA; normal range of motion, non-tender 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 See ID note. Await KERI 10/06/17. Continue zosyn and vanco per ID (2) Fever (3) ESRD (end stage renal disease) on dialysis Assessment & Plan: Hemodialysis per nephrology (4) Diabetes mellitus, type II Assessment & Plan: Continue levemir and novolog (5) HTN (hypertension) (6) CAD (coronary artery disease) (7) Hypercholesteremia (8) Diabetic foot ulcer Assessment & Plan: see podiatry consult-gangrene.. cont zosyn and vanco per ID (9) Gangrene of left foot Assessment & Plan: S/P below the knee amputation 10/01/17-see surgery note. (10) Anemia Assessment & Plan: Worsening. S/P Transfusion 5 unit PRBC total Status: progressing Assessment/Plan Await transesophageal echocardiogram-see cardiology note. LETY MATOS Oct 03, 2017 12:26
[2017-10-03] MEDS ORDERED: Tubing Blood Filter IV ONE (17:19)
[2017-10-03] MEDS ORDERED: NS 275ml ONE (17:19)
[2017-10-03] MEDS: Amiodarone 200mg tab ORAL SCH (17:26)
[2017-10-03] MEDS: Atorvastatin 20mg tab ORAL SCH (20:19)
[2017-10-03] MEDS: Meropenem 500 MG in NS 55 ML IVPB SCH (21:48)
[2017-10-04] MEDS: HYDROcodone/Acetamin 10/325 tab ORAL PRN (01:23)
[2017-10-04 04:00] VITALS: BP 100/61
[2017-10-04] MEDS: NovoLOG Insulin Flexpen SUBQ SCH ×4 (06:58→21:21)
[2017-10-04 07:42] LABS: HEMATOCRIT 26.1 % (42.0-52.0); HEMOGLOBIN 8.4 G/DL (14.2-18.0); MEAN CORPUSCULAR VOLUME 90 FL (80-99); PLATELET COUNT 407 K/UL (150-450); RED CELL DISTRIBUTION WIDTH 15.6 % (11.6-14.8); WHITE BLOOD COUNT 18.7 K/UL (4.8-10.8)
[2017-10-04 08:03] LABS: ANION GAP 8 mmol/L (5-15); BLOOD UREA NITROGEN 30 mg/dL (7-18); CALCIUM 8.3 MG/DL (8.5-10.1); CARBON DIOXIDE 31 MMOL/L (21-32); CHLORIDE 99 MMOL/L (98-107); CREATININE 7.6 MG/DL (0.55-1.30); POTASSIUM 4.7 MMOL/L (3.5-5.1); SODIUM 138 MMOL/L (136-145)
[2017-10-04 08:20] VITALS: BP 117/70
[2017-10-04] MEDS: Amiodarone 200mg tab ORAL SCH ×2 (08:32→17:38)
[2017-10-04] MEDS: Sensipar 30mg Tab ORAL SCH (08:35)
[2017-10-04] MEDS: Levemir Flexpen SUBQ SCH (08:38)
[2017-10-04] MEDS: Docusate 100mg cap ORAL SCH ×3 (08:39→17:59)
[2017-10-04] MEDS: Miralax 17gm pkt ORAL SCH (08:40)
--- NOTE | 2017-10-04 09:03 | Cardiology Progress Note ---
Assessment/Plan Assessment/Plan 1. Methicillin-resistant Staphylococcus aureus of blood, KERI is scheduled for Thursday at 7:30 a.m. In the meantime, we will continue with the intravenous antibiotic against Staphylococcus aureus. 2. Cardiomyopathy with LVEF 35-40%, ?ischemic in view of CAD, cardiac cath, would place on GDMT. 3. Diabetes mellitus. 4. Hypertension. 5. History of coronary artery disease, status post myocardial infarction. 6. History of end-stage renal disease. Subjective Subjective Sinus rhythm at 81. Objective Last 24 Hour Vital Signs Date Time Temp Pulse Resp B/P (MAP) Pulse Ox O2 Delivery O2 Flow Rate FiO2 10/04/17 04:00 82 10/04/17 04:00 98.1 81 20 100/61 98 Room Air 10/04/17 00:00 82 10/03/17 23:43 98.2 84 20 114/50 99 10/03/17 20:00 81 10/03/17 20:00 97.3 84 18 109/47 85 10/03/17 16:00 83 10/03/17 15:48 99.1 87 19 104/76 97 Room Air 10/03/17 12:00 97.8 82 19 120/66 98 10/03/17 12:00 85 Intake and Output 10/03/17 10/04/17 19:00 07:00 Intake Total 860.000 ml Balance 860.000 ml Intake Oral 610 ml IV Total 250.000 ml # Bowel Movements 1 2 2D Echo: LVEF ~40%, [id number] mitral regurgitation, grade 2 LVDD Laboratory Tests Test 10/04/17 06:00 White Blood Count 18.7 K/UL (4.8-10.8) H Red Blood Count 2.90 M/UL (4.70-6.10) L Hemoglobin 8.4 G/DL (14.2-18.0) L Hematocrit 26.1 % (42.0-52.0) L Mean Corpuscular Volume 90 FL (80-99) Mean Corpuscular Hemoglobin 28.9 PG (27.0-31.0) Mean Corpuscular Hemoglobin Concent 32.1 G/DL (32.0-36.0) Red Cell Distribution Width 15.6 % (11.6-14.8) H Platelet Count 407 K/UL (150-450) Mean Platelet Volume 7.4 FL (6.5-10.1) Neutrophils (%) (Auto) % (45.0-75.0) Lymphocytes (%) (Auto) % (20.0-45.0) Monocytes (%) (Auto) % (1.0-10.0) Eosinophils (%) (Auto) % (0.0-3.0) Basophils (%) (Auto) % (0.0-2.0) Neutrophils % (Manual) Pending Lymphocytes % (Manual) Pending Platelet Estimate Pending Platelet Morphology Pending Sodium Level 138 MMOL/L (136-145) Potassium Level 4.7 MMOL/L (3.5-5.1) Chloride Level 99 MMOL/L (98-107) Carbon Dioxide Level 31 MMOL/L (21-32) Anion Gap 8 mmol/L (5-15) Blood Urea Nitrogen 30 mg/dL (7-18) H Creatinine 7.6 MG/DL (0.55-1.30) H Estimat Glomerular Filtration Rate 9.2 mL/min (>60) Glucose Level 150 MG/DL (74-106) H Calcium Level 8.3 MG/DL (8.5-10.1) L Microbiology Date/Time Source Procedure Growth Status 10/01/17 16:00 Blood Blood Culture - Preliminary NO GROWTH AFTER 48 HOURS Resulted 10/01/17 15:45 Blood Blood Culture - Preliminary NO GROWTH AFTER 48 HOURS Resulted Objective HEENT: Atraumatic and normocephalic. Anicteric. Pupils are equal, round, and reactive to light and accommodation. Extraocular muscles intact. NECK: JVP is less than 5 cm. No carotid bruit. Carotid upstrokes 2+ bilaterally. CARDIOVASCULAR: Normal S1 and S2. Regular rate and rhythm. No murmurs, gallops, or rubs. PMI is at fourth intercostal space in the midclavicular line. LUNGS: Clear to auscultation bilaterally. ABDOMEN: Soft, nontender, and nondistended. No hepatosplenomegaly. Positive bowel sounds. EXTREMITIES: No evidence of edema, clubbing, or cyanosis. There is right upper arm presence of AV fistula. BRYAN ARMSTRONG Oct 04, 2017 09:03
--- NOTE | 2017-10-04 11:11 | Pulmonology Progress Note ---
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 DM Severe diabetic polyneuropathy ESRD, on HD PAD CAD s/p cardiac arrest systolic heart failure CM ( EF 35 -40%) anemia of chronic renal disease anemia of acute blood loss (probably postop due to L BKA ), s/p blood transfusion positional dizziness with gait ataxia- r/o anoxic encephalopathy with cerebellar dysfunction, r/o post-anoxic vestibulopathy PLAN OF CARE tele abx ID follows blood cx+ MRSA, r/o graft infection, SBE repeated blood cx 09/30/and 10/01 both prel negative wound cx + MRSA , Pseudomonas ECHO no vegetation KERI schedule for Friday 10/06-dr Andres CT C/A/P no acute process If negative KERI , ID recommended WBC scan MRI foot and ankle no acute OM , podiatry follows Surgery follows s/p L BKA dressing, change, monitor stump pain management ECHO with EF 35-40% ( as reviewed and confirmed by cardio -dr Andres, I personally spoke with him; not 5 % as on initial ECHO report) , mild to moderate MR medical management of CM/SHF per cardio resume ASA, Plavix after KERI and if HH stable continue Amiodarone vasc surgeon consult appreciated , outpt fup DVT GI prophylaxis BS management with SS of insulin and Levemir, titrate a seeded bowel regimen monitor HH, transfuse additional 1 unit PRBC today Neuro eval appreciated Meclizine prn dizziness resoled initially per neuro: for now address issues of sepsis and amputation, when stabilized, will need to review recent MRI (per pt was fine(, if no improvement may benefit from ENT eval case discussed and evaluated by supervising physician Subjective Allergies: Coded Allergies: No Known Allergies (Unverified , 09/27/17) Subjective patient s/p L BKA2/15 transferred to tele postoperatively persistent severe leukocytosis, but this am started to trend down HH-8.4/261 after 3 u PRBC Objective Last 24 Hour Vital Signs Date Time Temp Pulse Resp B/P (MAP) Pulse Ox O2 Delivery O2 Flow Rate FiO2 10/04/17 09:38 78 10/04/17 08:20 97.3 79 21 117/70 99 Room Air 10/04/17 04:00 82 10/04/17 04:00 98.1 81 20 100/61 98 Room Air 10/04/17 00:00 82 10/03/17 23:43 98.2 84 20 114/50 99 10/03/17 20:00 81 10/03/17 20:00 97.3 84 18 109/47 85 10/03/17 16:00 83 10/03/17 15:48 99.1 87 19 104/76 97 Room Air 10/03/17 12:00 97.8 82 19 120/66 98 10/03/17 12:00 85 Intake and Output 10/03/17 10/04/17 19:00 07:00 Intake Total 860.000 ml Balance 860.000 ml Intake Oral 610 ml IV Total 250.000 ml # Bowel Movements 1 2 Objective General Appearance: no acute distress HEENT: normocephalic, atraumatic, anicteric, mucous membranes moist Respiratory/Chest: lungs clear, no respiratory distress, no accessory muscle use Cardiovascular: normal rate, regular rhythm - SR on tele Abdomen: soft, non tender Extremities: fresh L BKA stump with dressing Neurologic/Psychiatric: abnormal gait, alert, oriented x 3, responsive, normal mood/affect Microbiology Date/Time Source Procedure Growth Status 10/01/17 16:00 Blood Blood Culture - Preliminary NO GROWTH AFTER 48 HOURS Resulted 10/01/17 15:45 Blood Blood Culture - Preliminary NO GROWTH AFTER 48 HOURS Resulted Laboratory Tests 10/04/17 06:00: White Blood Count 18.7H, Red Blood Count 2.90L, Hemoglobin 8.4L, Hematocrit 26.1L, Mean Corpuscular Volume 90, Mean Corpuscular Hemoglobin 28.9, Mean Corpuscular Hemoglobin Concent 32.1, Red Cell Distribution Width 15.6H, Platelet Count 407, Mean Platelet Volume 7.4, Neutrophils (%) (Auto) , Lymphocytes (%) (Auto) , Monocytes (%) (Auto) , Eosinophils (%) (Auto) , Basophils (%) (Auto) , Differential Total Cells Counted 100, Neutrophils % ( Manual) 82H, Lymphocytes % (Manual) 9L, Monocytes % (Manual) 9, Eosinophils % ( Manual) 0, Basophils % (Manual) 0, Band Neutrophils 0, Platelet Estimate Adequate, Platelet Morphology Normal, Hypochromasia 1+, Anisocytosis 1+, Sodium Level 138, Potassium Level 4.7, Chloride Level 99, Carbon Dioxide Level 31, Anion Gap 8, Blood Urea Nitrogen 30H, Creatinine 7.6H, Estimat Glomerular Filtration Rate 9.2, Glucose Level 150H, Calcium Level 8.3L Current Medications Medications (Trade) Dose Ordered Sig/Georges Route PRN Reason Start Time Stop Time Status Last Admin Dose Admin Acetaminophen (Tylenol) 650 mg Q6H PRN ORAL Mild Pain (Pain Scale 1-3) 10/01/17 16:30 10/31/17 16:29 10/02/17 22:15 Acetaminophen/ Hydrocodone Bitart ([place] 10/325) 1 tab Q4H PRN ORAL Severe Pain (Pain Scale 7-10) 10/01/17 16:30 10/08/17 16:29 10/04/17 01:23 Acetaminophen/ Hydrocodone Bitart ([place] 5/325) 1 tab Q4H PRN ORAL Moderate Pain (Pain Scale 4-6) 10/01/17 16:30 10/08/17 16:29 10/04/17 09:06 Amiodarone HCl (Cordarone) 200 mg BID ORAL 10/01/17 18:00 10/27/17 08:59 10/04/17 08:32 Atorvastatin Calcium (Lipitor) 40 mg BEDTIME ORAL 10/01/17 21:00 10/27/17 20:59 10/03/17 20:19 Cinacalcet (Sensipar) 60 mg DAILY ORAL 10/02/17 09:00 10/27/17 08:59 10/04/17 08:35 Collagenase (Santyl) 1 applic Q12HR TOPIC 10/01/17 21:00 10/30/17 20:59 10/04/17 08:39 Dextrose (Dextrose 50%) STAT PRN IV Hypoglycemia 10/01/17 16:30 10/31/17 16:29 Docusate Sodium (Colace) 100 mg TID ORAL 10/02/17 14:00 11/01/17 13:59 10/03/17 12:42 Epoetin Mahesh (Procrit (for ESRD on dialysis)) 10,000 units THU-WED-THU SUBQ 10/02/17 21:00 11/01/17 20:59 10/02/17 21:07 Gabapentin (Neurontin) 300 mg THREE TIMES A DAY ORAL 10/01/17 18:00 10/27/17 12:59 10/04/17 08:32 Hydromorphone HCl (Dilaudid) 0.5 mg Q3H PRN IVP Pain Score 1-3 10/01/17 16:30 10/08/17 16:29 Hydromorphone HCl (Dilaudid) 1 mg Q3H PRN IVP pain score 4-6 10/01/17 16:30 10/08/17 16:29 10/02/17 04:46 Hydromorphone HCl (Dilaudid) 2 mg Q3H PRN IVP pain score 7-10 10/01/17 16:30 10/08/17 16:29 10/01/17 18:15 Insulin Aspart (NovoLOG) BEFORE MEALS AND HS SUBQ 10/01/17 16:30 10/27/17 06:29 10/04/17 06:58 Insulin Detemir (Levemir) 20 units DAILY SUBQ 10/02/17 09:00 10/27/17 08:59 10/04/17 08:38 Meclizine HCl (Antivert) 25 mg DAILYPRN PRN ORAL for dizziness 10/01/17 16:30 10/31/17 16:29 Meropenem 500 mg/ Sodium Chloride 55 ml @ 110 mls/hr Q24H IVPB 10/01/17 22:00 10/06/17 21:59 10/03/17 21:48 Pantoprazole (Protonix) 40 mg DAILY ORAL 10/02/17 09:00 10/27/17 11:59 10/04/17 08:33 Polyethylene Glycol (Miralax) 17 gm DAILY ORAL 10/02/17 09:00 10/27/17 08:59 Sennosides (Senokot) 2 tab HSPRN PRN ORAL Constipation 10/01/17 21:00 10/31/17 20:59 Sevelamer Carbonate (Renvela) 1,600 mg THREE TIMES A DAY ORAL 10/03/17 13:00 11/02/17 12:59 10/04/17 08:34 Vancomycin HCl (Vanco rx to dose) 1 ea DAILY PRN MISC Per rx protocol 10/01/17 16:30 10/31/17 16:29 Deandre Zuleta),Sapna PAREKH Oct 04, 2017 11:11
--- NOTE | 2017-10-04 11:38 | Nephrology Progress Note ---
Assessment/Plan Problem List: (1) ESRF (end stage renal failure) (2) Sepsis (3) Diabetic foot ulcer (4) Diabetes mellitus (5) Arrhythmia Assessment ESRD on HD M W Fr - Sepsis - Anemia persists - Diabetic foot ulcers/p amputation - Right lower extremity wounds, grossly they are not infected. - Left heel wound, left gangrene changes of the third, fourth and fifth toes, rule out osteomyelitis. - Arrhythmia - Diabetes mellitus - PVD Plan Plan: had amputation 10/01 Per ID HD 10/02 next 10/05 2 units PRBcs 10/02 - ? more transfusion?? discussed with RN continue rest Subjective ROS Limited/Unobtainable: No Constitutional: Reports: malaise Objective Objective Last 24 Hour Vital Signs Date Time Temp Pulse Resp B/P (MAP) Pulse Ox O2 Delivery O2 Flow Rate FiO2 10/04/17 09:38 78 10/04/17 08:20 97.3 79 21 117/70 99 Room Air 10/04/17 04:00 82 10/04/17 04:00 98.1 81 20 100/61 98 Room Air 10/04/17 00:00 82 10/03/17 23:43 98.2 84 20 114/50 99 10/03/17 20:00 81 10/03/17 20:00 97.3 84 18 109/47 85 10/03/17 16:00 83 10/03/17 15:48 99.1 87 19 104/76 97 Room Air 10/03/17 12:00 97.8 82 19 120/66 98 10/03/17 12:00 85 Intake and Output 10/03/17 10/04/17 19:00 07:00 Intake Total 860.000 ml Balance 860.000 ml Intake Oral 610 ml IV Total 250.000 ml # Bowel Movements 1 2 Laboratory Tests 10/04/17 06:00: White Blood Count 18.7H, Red Blood Count 2.90L, Hemoglobin 8.4L, Hematocrit 26.1L, Mean Corpuscular Volume 90, Mean Corpuscular Hemoglobin 28.9, Mean Corpuscular Hemoglobin Concent 32.1, Red Cell Distribution Width 15.6H, Platelet Count 407, Mean Platelet Volume 7.4, Neutrophils (%) (Auto) , Lymphocytes (%) (Auto) , Monocytes (%) (Auto) , Eosinophils (%) (Auto) , Basophils (%) (Auto) , Differential Total Cells Counted 100, Neutrophils % ( Manual) 82H, Lymphocytes % (Manual) 9L, Monocytes % (Manual) 9, Eosinophils % ( Manual) 0, Basophils % (Manual) 0, Band Neutrophils 0, Platelet Estimate Adequate, Platelet Morphology Normal, Hypochromasia 1+, Anisocytosis 1+, Sodium Level 138, Potassium Level 4.7, Chloride Level 99, Carbon Dioxide Level 31, Anion Gap 8, Blood Urea Nitrogen 30H, Creatinine 7.6H, Estimat Glomerular Filtration Rate 9.2, Glucose Level 150H, Calcium Level 8.3L Height (Feet): 5 Height (Inches): 7.00 Weight (Pounds): 290 General Appearance: no apparent distress Objective no change in PE BREANN STEEL Oct 04, 2017 11:38
[2017-10-04] MEDS ORDERED: Albuterol/Ipratropium 3ml neb HHN PRN (12:00)
[2017-10-04 12:23] VITALS: BP 137/73
--- NOTE | 2017-10-04 13:01 | General Progress Note ---
Progress Note Progress Note Surgery: doing well. improving. comfortable. pain improved. doing exercises and being active. tolerating diet. afebrile, HD stable, doing well. Leukocytosis improving. H/H improved. Dressings removed and wound evaluated. dry, clean, intact. healing well. edema much improved. no drainage. no signs of infection. tissues viable. -leave dressings for 1-2 more days then will leave open to air -recovering well -will follow with recs. Lauro Oakley Oct 04, 2017 13:01
--- NOTE | 2017-10-04 13:50 | Internal Med Progress Note ---
Subjective Date of Service: Oct 04, 2017 Physician Name MatosLety Attending Physician Efraín Montes MD Current Medications Medications (Trade) Dose Ordered Sig/Georges Route PRN Reason Start Time Stop Time Status Last Admin Dose Admin Acetaminophen (Tylenol) 650 mg Q6H PRN ORAL Mild Pain (Pain Scale 1-3) 10/01/17 16:30 10/31/17 16:29 10/02/17 22:15 Acetaminophen/ Hydrocodone Bitart ([place] 10/325) 1 tab Q4H PRN ORAL Severe Pain (Pain Scale 7-10) 10/01/17 16:30 10/08/17 16:29 10/04/17 01:23 Acetaminophen/ Hydrocodone Bitart ([place] 5/325) 1 tab Q4H PRN ORAL Moderate Pain (Pain Scale 4-6) 10/01/17 16:30 10/08/17 16:29 10/04/17 09:06 Albuterol/ Ipratropium (Albuterol/ Ipratropium) 3 ml Q4H PRN HHN sob 10/04/17 12:00 10/09/17 11:59 Amiodarone HCl (Cordarone) 200 mg BID ORAL 10/01/17 18:00 10/27/17 08:59 10/04/17 08:32 Atorvastatin Calcium (Lipitor) 40 mg BEDTIME ORAL 10/01/17 21:00 10/27/17 20:59 10/03/17 20:19 Cinacalcet (Sensipar) 60 mg DAILY ORAL 10/02/17 09:00 10/27/17 08:59 10/04/17 08:35 Collagenase (Santyl) 1 applic Q12HR TOPIC 10/01/17 21:00 10/30/17 20:59 10/04/17 08:39 Dextrose (Dextrose 50%) STAT PRN IV Hypoglycemia 10/01/17 16:30 10/31/17 16:29 Docusate Sodium (Colace) 100 mg TID ORAL 10/02/17 14:00 11/01/17 13:59 10/03/17 12:42 Epoetin Mahehs (Procrit (for ESRD on dialysis)) 10,000 units MON-WED-THU SUBQ 10/02/17 21:00 11/01/17 20:59 2/16/18 21:07 Gabapentin (Neurontin) 300 mg THREE TIMES A DAY ORAL 10/01/17 18:00 10/27/17 12:59 10/04/17 12:43 Hydromorphone HCl (Dilaudid) 0.5 mg Q3H PRN IVP Pain Score 1-3 10/01/17 16:30 10/08/17 16:29 Hydromorphone HCl (Dilaudid) 1 mg Q3H PRN IVP pain score 4-6 10/01/17 16:30 10/08/17 16:29 10/02/17 04:46 Hydromorphone HCl (Dilaudid) 2 mg Q3H PRN IVP pain score 7-10 10/01/17 16:30 10/08/17 16:29 10/01/17 18:15 Insulin Aspart (NovoLOG) BEFORE MEALS AND HS SUBQ 10/01/17 16:30 10/27/17 06:29 10/04/17 11:30 Insulin Detemir (Levemir) 20 units DAILY SUBQ 10/02/17 09:00 10/27/17 08:59 10/04/17 08:38 Meclizine HCl (Antivert) 25 mg DAILYPRN PRN ORAL for dizziness 10/01/17 16:30 10/31/17 16:29 Meropenem 500 mg/ Sodium Chloride 55 ml @ 110 mls/hr Q24H IVPB 10/01/17 22:00 10/06/17 21:59 10/03/17 21:48 Pantoprazole (Protonix) 40 mg DAILY ORAL 10/02/17 09:00 10/27/17 11:59 10/04/17 08:33 Polyethylene Glycol (Miralax) 17 gm DAILY ORAL 10/02/17 09:00 10/27/17 08:59 Sennosides (Senokot) 2 tab HSPRN PRN ORAL Constipation 10/01/17 21:00 10/31/17 20:59 Sevelamer Carbonate (Renvela) 1,600 mg THREE TIMES A DAY ORAL 10/03/17 13:00 11/02/17 12:59 10/04/17 12:39 Vancomycin HCl (Vanco rx to dose) 1 ea DAILY PRN MISC Per rx protocol 10/01/17 16:30 10/31/17 16:29 Allergies: Coded Allergies: No Known Allergies (Unverified , 09/27/17) ROS Limited/Unobtainable: No Constitutional: Reports: no symptoms HEENT: Reports: no symptoms Cardiovascular: Reports: no symptoms Respiratory: Reports: no symptoms Gastrointestinal/Abdominal: Reports: no symptoms Genitourinary: Reports: no symptoms Neurologic/Psychiatric: Reports: no symptoms Subjective 52 YO M admitted with fever. Now gangrene left foot. S/P left below the knee amputation 10/01/17. Await trasnesophageal echocardiogram. Cover for Int Stephen- Dr Montes Objective Last Vital Signs Date Time Temp Pulse Resp B/P (MAP) Pulse Ox O2 Delivery O2 Flow Rate FiO2 10/04/17 12:23 97.7 79 19 137/73 99 Room Air 10/02/17 00:00 Laboratory Tests Test 10/04/17 06:00 White Blood Count 18.7 K/UL (4.8-10.8) H Red Blood Count 2.90 M/UL (4.70-6.10) L Hemoglobin 8.4 G/DL (14.2-18.0) L Hematocrit 26.1 % (42.0-52.0) L Mean Corpuscular Volume 90 FL (80-99) Mean Corpuscular Hemoglobin 28.9 PG (27.0-31.0) Mean Corpuscular Hemoglobin Concent 32.1 G/DL (32.0-36.0) Red Cell Distribution Width 15.6 % (11.6-14.8) H Platelet Count 407 K/UL (150-450) Mean Platelet Volume 7.4 FL (6.5-10.1) Neutrophils (%) (Auto) % (45.0-75.0) Lymphocytes (%) (Auto) % (20.0-45.0) Monocytes (%) (Auto) % (1.0-10.0) Eosinophils (%) (Auto) % (0.0-3.0) Basophils (%) (Auto) % (0.0-2.0) Differential Total Cells Counted 100 Neutrophils % (Manual) 82 % (45-75) H Lymphocytes % (Manual) 9 % (20-45) L Monocytes % (Manual) 9 % (1-10) Eosinophils % (Manual) 0 % (0-3) Basophils % (Manual) 0 % (0-2) Band Neutrophils 0 % (0-8) Platelet Estimate Adequate Platelet Morphology Normal Hypochromasia 1+ Anisocytosis 1+ Sodium Level 138 MMOL/L (136-145) Potassium Level 4.7 MMOL/L (3.5-5.1) Chloride Level 99 MMOL/L (98-107) Carbon Dioxide Level 31 MMOL/L (21-32) Anion Gap 8 mmol/L (5-15) Blood Urea Nitrogen 30 mg/dL (7-18) H Creatinine 7.6 MG/DL (0.55-1.30) H Estimat Glomerular Filtration Rate 9.2 mL/min (>60) Glucose Level 150 MG/DL (74-106) H Calcium Level 8.3 MG/DL (8.5-10.1) L Microbiology Date/Time Source Procedure Growth Status 10/01/17 16:00 Blood Blood Culture - Preliminary NO GROWTH AFTER 48 HOURS Resulted 10/01/17 15:45 Blood Blood Culture - Preliminary NO GROWTH AFTER 48 HOURS Resulted Intake and Output 10/03/17 10/04/17 19:00 07:00 Intake Total 860.000 ml Balance 860.000 ml Intake Oral 610 ml IV Total 250.000 ml # Bowel Movements 1 2 Objective General Appearance: WD/WN, obese EENT: PERRL/EOMI, normal ENT inspection Neck: non-tender, normal alignment, supple Cardiovascular: normal peripheral pulses, normal rate, regular rhythm, no gallop/murmur, no JVD Respiratory/Chest: chest wall non-tender, lungs clear, normal breath sounds, no respiratory distress, no accessory muscle use Abdomen: normal bowel sounds, non tender, soft, no organomegaly, no mass Extremities: left BKA; normal range of motion, non-tender 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 See ID note. Await KERI Mendez 10/06/17. Continue zosyn and vanco per ID (2) Fever (3) ESRD (end stage renal disease) on dialysis Assessment & Plan: Hemodialysis M W per nephrology (4) Diabetes mellitus, type II Assessment & Plan: Continue levemir and novolog (5) HTN (hypertension) (6) CAD (coronary artery disease) (7) Hypercholesteremia (8) Diabetic foot ulcer Assessment & Plan: see podiatry consult-gangrene.. cont zosyn and vanco per ID (9) Gangrene of left foot Assessment & Plan: S/P below the knee amputation 10/01/17-see surgery note. (10) Anemia Assessment & Plan: Worsening. S/P Transfusion 5 unit PRBC total Status: not improved Assessment/Plan Await transesophageal echocardiogram-see cardiology note. LETY MATOS Oct 04, 2017 13:50
[2017-10-04 16:07] VITALS: BP 117/53
[2017-10-04 20:00] VITALS: BP 125/75
[2017-10-04] MEDS: Atorvastatin 20mg tab ORAL SCH (21:19)
[2017-10-04] MEDS: Meropenem 500 MG in NS 55 ML IVPB SCH (21:21)
[2017-10-05] VITALS (8 sets, daily range): BP systolic 104–138; BP diastolic 53–82
[2017-10-05] MEDS: HYDROcodone/Acetamin 10/325 tab ORAL PRN (02:47)
[2017-10-05 05:39] LABS: BASOPHILS % (AUTO) 0.6 % (0.0-2.0); EOSINOPHILS % (AUTO) 2.7 % (0.0-3.0); HEMATOCRIT 25.8 % (42.0-52.0); HEMOGLOBIN 8.4 G/DL (14.2-18.0); LYMPHOCYTES % (AUTO) 11.1 % (20.0-45.0); MEAN CORPUSCULAR VOLUME 90 FL (80-99); MONOCYTES % (AUTO) 6.4 % (1.0-10.0); NEUTROPHILS % (AUTO) 79.2 % (45.0-75.0); PLATELET COUNT 448 K/UL (150-450); RED BLOOD COUNT 2.86 M/UL (4.70-6.10); RED CELL DISTRIBUTION WIDTH 15.6 % (11.6-14.8); WHITE BLOOD COUNT 16.6 K/UL (4.8-10.8)
[2017-10-05 05:49] LABS: ANION GAP 8 mmol/L (5-15); BLOOD UREA NITROGEN 40 mg/dL (7-18); CALCIUM 8.1 MG/DL (8.5-10.1); CARBON DIOXIDE 30 MMOL/L (21-32); CHLORIDE 98 MMOL/L (98-107); CREATININE 8.9 MG/DL (0.55-1.30); POTASSIUM 4.8 MMOL/L (3.5-5.1); SODIUM 136 MMOL/L (136-145)
[2017-10-05] MEDS: NovoLOG Insulin Flexpen SUBQ SCH ×4 (06:31→21:00)
[2017-10-05] MEDS: Levemir Flexpen SUBQ SCH (09:00)
[2017-10-05] MEDS: Miralax 17gm pkt ORAL SCH (09:00)
[2017-10-05] MEDS: Docusate 100mg cap ORAL SCH ×3 (09:00→18:00)
[2017-10-05] MEDS: Sensipar 30mg Tab ORAL SCH (09:34)
[2017-10-05] MEDS: Amiodarone 200mg tab ORAL SCH ×2 (09:34→21:30)
--- NOTE | 2017-10-05 10:03 | Internal Med Progress Note ---
Subjective Date of Service: Oct 05, 2017 Physician Name MatosLety Attending Physician Efraín Montes MD Current Medications Medications (Trade) Dose Ordered Sig/Georges Route PRN Reason Start Time Stop Time Status Last Admin Dose Admin Acetaminophen (Tylenol) 650 mg Q6H PRN ORAL Mild Pain (Pain Scale 1-3) 10/01/17 16:30 10/31/17 16:29 10/02/17 22:15 Acetaminophen/ Hydrocodone Bitart ([place] 10/325) 1 tab Q4H PRN ORAL Severe Pain (Pain Scale 7-10) 10/01/17 16:30 10/08/17 16:29 10/05/17 02:47 Acetaminophen/ Hydrocodone Bitart ([place] 5/325) 1 tab Q4H PRN ORAL Moderate Pain (Pain Scale 4-6) 10/01/17 16:30 10/08/17 16:29 10/04/17 09:06 Albuterol/ Ipratropium (Albuterol/ Ipratropium) 3 ml Q4H PRN HHN sob 10/04/17 12:00 10/09/17 11:59 Amiodarone HCl (Cordarone) 200 mg BID ORAL 10/01/17 18:00 10/27/17 08:59 10/05/17 09:34 Atorvastatin Calcium (Lipitor) 40 mg BEDTIME ORAL 10/01/17 21:00 10/27/17 20:59 10/04/17 21:19 Cinacalcet (Sensipar) 60 mg DAILY ORAL 10/02/17 09:00 10/27/17 08:59 10/05/17 09:34 Collagenase (Santyl) 1 applic Q12HR TOPIC 10/01/17 21:00 10/30/17 20:59 10/04/17 21:00 Dextrose (Dextrose 50%) STAT PRN IV Hypoglycemia 10/01/17 16:30 10/31/17 16:29 Docusate Sodium (Colace) 100 mg TID ORAL 10/02/17 14:00 11/01/17 13:59 10/03/17 12:42 Epoetin Mahesh (Procrit (for ESRD on dialysis)) 10,000 units MON-WED-THU SUBQ 10/02/17 21:00 11/01/17 20:59 2/16/18 21:07 Gabapentin (Neurontin) 300 mg THREE TIMES A DAY ORAL 10/01/17 18:00 10/27/17 12:59 10/05/17 09:34 Hydromorphone HCl (Dilaudid) 0.5 mg Q3H PRN IVP Pain Score 1-3 10/01/17 16:30 10/08/17 16:29 Hydromorphone HCl (Dilaudid) 1 mg Q3H PRN IVP pain score 4-6 10/01/17 16:30 10/08/17 16:29 10/02/17 04:46 Hydromorphone HCl (Dilaudid) 2 mg Q3H PRN IVP pain score 7-10 10/01/17 16:30 10/08/17 16:29 10/01/17 18:15 Insulin Aspart (NovoLOG) BEFORE MEALS AND HS SUBQ 10/01/17 16:30 10/27/17 06:29 10/05/17 06:31 Insulin Detemir (Levemir) 20 units DAILY SUBQ 10/02/17 09:00 10/27/17 08:59 10/05/17 09:00 Meclizine HCl (Antivert) 25 mg DAILYPRN PRN ORAL for dizziness 10/01/17 16:30 10/31/17 16:29 Meropenem 500 mg/ Sodium Chloride 55 ml @ 110 mls/hr Q24H IVPB 10/01/17 22:00 10/06/17 21:59 10/04/17 21:21 Pantoprazole (Protonix) 40 mg DAILY ORAL 10/02/17 09:00 10/27/17 11:59 10/05/17 09:34 Polyethylene Glycol (Miralax) 17 gm DAILY ORAL 10/02/17 09:00 10/27/17 08:59 Sennosides (Senokot) 2 tab HSPRN PRN ORAL Constipation 10/01/17 21:00 10/31/17 20:59 Sevelamer Carbonate (Renvela) 1,600 mg THREE TIMES A DAY ORAL 10/03/17 13:00 11/02/17 12:59 10/05/17 09:35 Vancomycin HCl (Vanco rx to dose) 1 ea DAILY PRN MISC Per rx protocol 10/01/17 16:30 10/31/17 16:29 Allergies: Coded Allergies: No Known Allergies (Unverified , 09/27/17) ROS Limited/Unobtainable: No Constitutional: Reports: no symptoms HEENT: Reports: no symptoms Cardiovascular: Reports: no symptoms Respiratory: Reports: no symptoms Gastrointestinal/Abdominal: Reports: no symptoms Genitourinary: Reports: no symptoms Neurologic/Psychiatric: Reports: no symptoms Subjective 52 YO M admitted with fever. Now gangrene left foot. S/P left below the knee amputation 10/01/17. Await trasnesophageal echocardiogram 10/06/17. Cover for Int Stephen-Dr Montes Objective Last Vital Signs Date Time Temp Pulse Resp B/P (MAP) Pulse Ox O2 Delivery O2 Flow Rate FiO2 10/05/17 08:00 97.9 80 18 137/65 97 Room Air 10/02/17 00:00 Laboratory Tests Test 10/05/17 04:40 White Blood Count 16.6 K/UL (4.8-10.8) H Red Blood Count 2.86 M/UL (4.70-6.10) L Hemoglobin 8.4 G/DL (14.2-18.0) L Hematocrit 25.8 % (42.0-52.0) L Mean Corpuscular Volume 90 FL (80-99) Mean Corpuscular Hemoglobin 29.3 PG (27.0-31.0) Mean Corpuscular Hemoglobin Concent 32.4 G/DL (32.0-36.0) Red Cell Distribution Width 15.6 % (11.6-14.8) H Platelet Count 448 K/UL (150-450) Mean Platelet Volume 7.4 FL (6.5-10.1) Neutrophils (%) (Auto) 79.2 % (45.0-75.0) H Lymphocytes (%) (Auto) 11.1 % (20.0-45.0) L Monocytes (%) (Auto) 6.4 % (1.0-10.0) Eosinophils (%) (Auto) 2.7 % (0.0-3.0) Basophils (%) (Auto) 0.6 % (0.0-2.0) Sodium Level 136 MMOL/L (136-145) Potassium Level 4.8 MMOL/L (3.5-5.1) Chloride Level 98 MMOL/L (98-107) Carbon Dioxide Level 30 MMOL/L (21-32) Anion Gap 8 mmol/L (5-15) Blood Urea Nitrogen 40 mg/dL (7-18) H Creatinine 8.9 MG/DL (0.55-1.30) H Estimat Glomerular Filtration Rate 7.6 mL/min (>60) Glucose Level 105 MG/DL (74-106) Calcium Level 8.1 MG/DL (8.5-10.1) L Intake and Output 10/04/17 10/05/17 19:00 07:00 Intake Total 232 ml 105 ml Output Total 200 ml 200 ml Balance 32 ml -95 ml Intake Oral 232 ml 50 ml IV Total 55 ml Output Urine Total 200 ml 200 ml # Voids 1 # Bowel Movements 1 Objective General Appearance: WD/WN, obese EENT: PERRL/EOMI, normal ENT inspection Neck: non-tender, normal alignment, supple Cardiovascular: normal peripheral pulses, normal rate, regular rhythm, no gallop/murmur, no JVD Respiratory/Chest: chest wall non-tender, lungs clear, normal breath sounds, no respiratory distress, no accessory muscle use Abdomen: normal bowel sounds, non tender, soft, no organomegaly, no mass Extremities: left BKA; normal range of motion, non-tender 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 See ID note. Await KERI 10/06/17. Continue zosyn and vanco per ID (2) Fever (3) ESRD (end stage renal disease) on dialysis Assessment & Plan: Hemodialysis W per nephrology (4) Diabetes mellitus, type II Assessment & Plan: Continue levemir and novolog (5) HTN (hypertension) (6) CAD (coronary artery disease) (7) Hypercholesteremia (8) Diabetic foot ulcer Assessment & Plan: see podiatry consult-gangrene.. cont zosyn and vanco per ID (9) Gangrene of left foot Assessment & Plan: S/P below the knee amputation 10/01/17-see surgery note. (10) Anemia Assessment & Plan: Worsening. S/P Transfusion 5 unit PRBC total Status: progressing Assessment/Plan Await transesophageal echocardiogram-see cardiology note. Discharge planning: [facility] LETY MATOS Oct 05, 2017 10:03
--- NOTE | 2017-10-05 10:42 | Pulmonology Progress Note ---
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 DM Severe diabetic polyneuropathy ESRD, on HD PAD CAD s/p cardiac arrest systolic heart failure CM ( EF 35 -40%) anemia of chronic renal disease anemia of acute blood loss (probably postop due to L BKA ), s/p blood transfusion positional dizziness with gait ataxia- r/o anoxic encephalopathy with cerebellar dysfunction, r/o post-anoxic vestibulopathy PLAN OF CARE tele abx ID follows blood cx+ MRSA, r/o graft infection, SBE repeated blood cx 09/30/and 10/01 both prel negative wound cx + MRSA , Pseudomonas ECHO no vegetation KERI on 10/06-dr Andres CT C/A/P no acute process If negative KERI , ID recommended WBC scan MRI foot and ankle no acute OM , podiatry follows Surgery follows s/p L BKA dressing, change, monitor stump pain management ECHO with EF 35-40% ( as reviewed and confirmed by cardio -dr Andres, I personally spoke with him; not 5 % as on initial ECHO report) , mild to moderate MR medical management of CM/SHF per cardio resume ASA, Plavix after KERI and if HH stable continue Amiodarone vasc surgeon consult appreciated , outpt fup DVT GI prophylaxis BS management with SS of insulin and Levemir, titrate a seeded bowel regimen monitor HH, transfuse additional 1 unit PRBC today Neuro eval appreciated Meclizine prn dizziness resolved initially per neuro: for now address issues of sepsis and amputation, when stabilized, will need to review recent MRI (per pt was fine(, if no improvement may benefit from ENT eval dc plan on Thursday after KERI with ID recs re abx case discussed and evaluated by supervising physician Subjective Allergies: Coded Allergies: No Known Allergies (Unverified , 09/27/17) Subjective patient s/p L BKA2/15 transferred to tele postoperatively leuk trending down, afebrile Objective Last 24 Hour Vital Signs Date Time Temp Pulse Resp B/P (MAP) Pulse Ox O2 Delivery O2 Flow Rate FiO2 10/05/17 08:00 97.9 80 18 137/65 97 Room Air 10/05/17 08:00 79 10/05/17 04:00 97.2 80 19 138/71 97 Room Air 10/05/17 04:00 79 10/05/17 00:00 97.9 79 19 122/63 95 Room Air 10/05/17 00:00 76 10/04/17 20:00 97.7 83 19 125/75 98 Room Air 10/04/17 20:00 80 10/04/17 16:07 99.0 79 20 117/53 100 Room Air 10/04/17 16:00 82 10/04/17 12:23 97.7 79 19 137/73 99 Room Air 10/04/17 12:00 84 Intake and Output 10/04/17 10/05/17 19:00 07:00 Intake Total 232 ml 105 ml Output Total 200 ml 200 ml Balance 32 ml -95 ml Intake Oral 232 ml 50 ml IV Total 55 ml Output Urine Total 200 ml 200 ml # Voids 1 # Bowel Movements 1 Objective General Appearance: no acute distress HEENT: normocephalic, atraumatic, anicteric, mucous membranes moist Respiratory/Chest: lungs clear, no respiratory distress, no accessory muscle use Cardiovascular: normal rate, regular rhythm - SR on tele Abdomen: soft, non tender Extremities: fresh L BKA stump with dressing Neurologic/Psychiatric: abnormal gait, alert, oriented x 3, responsive, normal mood/affect Laboratory Tests 10/05/17 04:40: White Blood Count 16.6H, Red Blood Count 2.86L, Hemoglobin 8.4L, Hematocrit 25.8L, Mean Corpuscular Volume 90, Mean Corpuscular Hemoglobin 29.3, Mean Corpuscular Hemoglobin Concent 32.4, Red Cell Distribution Width 15.6H, Platelet Count 448, Mean Platelet Volume 7.4, Neutrophils (%) (Auto) 79.2H, Lymphocytes (%) (Auto) 11.1L, Monocytes (%) (Auto) 6.4, Eosinophils (%) (Auto) 2.7, Basophils (%) (Auto) 0.6, Sodium Level 136, Potassium Level 4.8, Chloride Level 98, Carbon Dioxide Level 30, Anion Gap 8, Blood Urea Nitrogen 40H, Creatinine 8.9H, Estimat Glomerular Filtration Rate 7.6, Glucose Level 105, Calcium Level 8.1L Current Medications Medications (Trade) Dose Ordered Sig/Georges Route PRN Reason Start Time Stop Time Status Last Admin Dose Admin Acetaminophen (Tylenol) 650 mg Q6H PRN ORAL Mild Pain (Pain Scale 1-3) 10/01/17 16:30 10/31/17 16:29 10/02/17 22:15 Acetaminophen/ Hydrocodone Bitart ([place] 10/325) 1 tab Q4H PRN ORAL Severe Pain (Pain Scale 7-10) 10/01/17 16:30 10/08/17 16:29 10/05/17 02:47 Acetaminophen/ Hydrocodone Bitart ([place] 5/325) 1 tab Q4H PRN ORAL Moderate Pain (Pain Scale 4-6) 10/01/17 16:30 10/08/17 16:29 10/04/17 09:06 Albuterol/ Ipratropium (Albuterol/ Ipratropium) 3 ml Q4H PRN HHN sob 10/04/17 12:00 10/09/17 11:59 Amiodarone HCl (Cordarone) 200 mg BID ORAL 10/01/17 18:00 10/27/17 08:59 10/05/17 09:34 Atorvastatin Calcium (Lipitor) 40 mg BEDTIME ORAL 10/01/17 21:00 10/27/17 20:59 10/04/17 21:19 Cinacalcet (Sensipar) 60 mg DAILY ORAL 10/02/17 09:00 10/27/17 08:59 10/05/17 09:34 Collagenase (Santyl) 1 applic Q12HR TOPIC 10/01/17 21:00 10/30/17 20:59 10/04/17 21:00 Dextrose (Dextrose 50%) STAT PRN IV Hypoglycemia 10/01/17 16:30 10/31/17 16:29 Docusate Sodium (Colace) 100 mg TID ORAL 10/02/17 14:00 11/01/17 13:59 10/03/17 12:42 Epoetin Mahesh (Procrit (for ESRD on dialysis)) 10,000 units THU-WED-THU SUBQ 10/02/17 21:00 11/01/17 20:59 10/02/17 21:07 Gabapentin (Neurontin) 300 mg THREE TIMES A DAY ORAL 10/01/17 18:00 10/27/17 12:59 10/05/17 09:34 Hydromorphone HCl (Dilaudid) 0.5 mg Q3H PRN IVP Pain Score 1-3 10/01/17 16:30 10/08/17 16:29 Hydromorphone HCl (Dilaudid) 1 mg Q3H PRN IVP pain score 4-6 10/01/17 16:30 10/08/17 16:29 10/02/17 04:46 Hydromorphone HCl (Dilaudid) 2 mg Q3H PRN IVP pain score 7-10 10/01/17 16:30 10/08/17 16:29 10/01/17 18:15 Insulin Aspart (NovoLOG) BEFORE MEALS AND HS SUBQ 10/01/17 16:30 10/27/17 06:29 10/05/17 06:31 Insulin Detemir (Levemir) 20 units DAILY SUBQ 10/02/17 09:00 10/27/17 08:59 10/05/17 09:00 Meclizine HCl (Antivert) 25 mg DAILYPRN PRN ORAL for dizziness 10/01/17 16:30 10/31/17 16:29 Meropenem 500 mg/ Sodium Chloride 55 ml @ 110 mls/hr Q24H IVPB 10/01/17 22:00 10/06/17 21:59 10/04/17 21:21 Pantoprazole (Protonix) 40 mg DAILY ORAL 10/02/17 09:00 10/27/17 11:59 10/05/17 09:34 Polyethylene Glycol (Miralax) 17 gm DAILY ORAL 10/02/17 09:00 10/27/17 08:59 Sennosides (Senokot) 2 tab HSPRN PRN ORAL Constipation 10/01/17 21:00 10/31/17 20:59 Sevelamer Carbonate (Renvela) 1,600 mg THREE TIMES A DAY ORAL 10/03/17 13:00 11/02/17 12:59 10/05/17 09:35 Vancomycin HCl (Vanco rx to dose) 1 ea DAILY PRN MISC Per rx protocol 10/01/17 16:30 10/31/17 16:29 Sapna Carrera NP ([facility]anchtein) Oct 05, 2017 10:42
--- NOTE | 2017-10-05 11:35 | Infectious Diseases Prog Note ---
Assessment/Plan Assessment/Plan ASSESSMENT: The patient is a 52-year-old male with, Sepsis 2ry to MRSA bacteremia and L foot wet gangrene; improving Persistent MRSA bacteremia- possibly due to foot infection, however concern for endovascular source (ie AVF infection, SBE) -Bcx 09/27 1/4 + (S Vanco [place] 1, bactrim; R tetracycline), 09/29 2+; 09/30 NTD x4 -2d Echo: limited (poor acoustic windows)- no obvious vegetations. Focal aortic valve sclerosis with adequate cusp excursion.Heavy Thickened mitral valve leaflets with normal excursion. Mild to moderate mitral regurgitation. Heavy Mitral annulus and aortic root calcification. Normal pulmonic valve structure . Normal tricuspid valve structure. Leukocytosis persistent (out of proportion for wound infection ) -CT chest/abd/p w/: No acute findings in the abdomen chest or pelvis. Mild basal atelectasis. Suspected gallstones. No evidence of abdominal abscess. Atherosclerotic disease. Status post right hip pinning. L foot wet gangrene -s/p L BKA 10/01 -Left heel wound, left gangrene w changes of the third, fourth and fifth toes, Wnd Cx: PsA, ?ESBL (S Cipro, Imipenem, gentamicin; R Zosyn, Cefepime, Ceftazidime) and MRSA (S vanco, bactrim; R tetracycline) MRI of the foot Peripheral, mild T2 hyperintense signal involving the head of the fifth metatarsal head and phalanges. most likely due to reactive bone marrow edema rather than osteomyelitis as T1 signal is normal. No evidence of acute osteomyelitis otherwise within the forefoot, midfoot or hindfoot/ankle. Right lower extremity wounds, grossly they are not infected. Dizziness followed by Neuro Probable PVD Diabetes End-stage renal disease, on hemodialysis. Obesity. Diabetic neuropathy. Bilateral lower extremity wounds. History of CAD History of cardiac arrest 06/2017 History of myocardial infarction PLAN: Cont patient on Vancomycin # 9 for MRSA bacteremia; duration to follow pending KERI -vanco through goal 15-20 -Continue Meropenem # 5/7 for MDR, possible ESBL PsA in wound; short duration as now leg has been amputated -considered PO cipro but patient on Amiodarone and has already prolonged Qtc -10/01 SP Zosyn #5 - KERI to evaluate for endocarditis -if neg and persistent bacteremia after amputation, then will need WBC tagged scan -f/u Repeat 2 sets of Bcx Monitor CBC/ BMP, temperatures Podiatry/gen sx/vasc sx f/u Subjective Constitutional: Denies: no symptoms, fever, chills, fatigue, anorexia, drenching sweats, other Allergies: Coded Allergies: No Known Allergies (Unverified , 09/27/17) Subjective afebrile Objective Vital Signs Last 24 Hour Vital Signs Date Time Temp Pulse Resp B/P (MAP) Pulse Ox O2 Delivery O2 Flow Rate FiO2 10/05/17 08:00 97.9 80 18 137/65 97 Room Air 10/05/17 08:00 79 10/05/17 04:00 97.2 80 19 138/71 97 Room Air 10/05/17 04:00 79 10/05/17 00:00 97.9 79 19 122/63 95 Room Air 10/05/17 00:00 76 10/04/17 20:00 97.7 83 19 125/75 98 Room Air 10/04/17 20:00 80 10/04/17 16:07 99.0 79 20 117/53 100 Room Air 10/04/17 16:00 82 10/04/17 12:23 97.7 79 19 137/73 99 Room Air 10/04/17 12:00 84 Height (Feet): 5 Height (Inches): 7.00 Weight (Pounds): 290 HEENT: anicteric Respiratory/Chest: normal breath sounds Cardiovascular: regular rhythm Abdomen: no organomegaly Laboratory Tests Test 10/05/17 04:40 White Blood Count 16.6 K/UL (4.8-10.8) H Red Blood Count 2.86 M/UL (4.70-6.10) L Hemoglobin 8.4 G/DL (14.2-18.0) L Hematocrit 25.8 % (42.0-52.0) L Mean Corpuscular Volume 90 FL (80-99) Mean Corpuscular Hemoglobin 29.3 PG (27.0-31.0) Mean Corpuscular Hemoglobin Concent 32.4 G/DL (32.0-36.0) Red Cell Distribution Width 15.6 % (11.6-14.8) H Platelet Count 448 K/UL (150-450) Mean Platelet Volume 7.4 FL (6.5-10.1) Neutrophils (%) (Auto) 79.2 % (45.0-75.0) H Lymphocytes (%) (Auto) 11.1 % (20.0-45.0) L Monocytes (%) (Auto) 6.4 % (1.0-10.0) Eosinophils (%) (Auto) 2.7 % (0.0-3.0) Basophils (%) (Auto) 0.6 % (0.0-2.0) Sodium Level 136 MMOL/L (136-145) Potassium Level 4.8 MMOL/L (3.5-5.1) Chloride Level 98 MMOL/L (98-107) Carbon Dioxide Level 30 MMOL/L (21-32) Anion Gap 8 mmol/L (5-15) Blood Urea Nitrogen 40 mg/dL (7-18) H Creatinine 8.9 MG/DL (0.55-1.30) H Estimat Glomerular Filtration Rate 7.6 mL/min (>60) Glucose Level 105 MG/DL (74-106) Calcium Level 8.1 MG/DL (8.5-10.1) L Current Medications Medications (Trade) Dose Ordered Sig/Georges Route PRN Reason Start Time Stop Time Status Last Admin Dose Admin Acetaminophen (Tylenol) 650 mg Q6H PRN ORAL Mild Pain (Pain Scale 1-3) 10/05/17 16:30 10/31/17 16:29 UNV Acetaminophen/ Hydrocodone Bitart ([place] 10/325) 1 tab Q4H PRN ORAL Severe Pain (Pain Scale 7-10) 10/05/17 12:30 10/08/17 16:29 UNV Acetaminophen/ Hydrocodone Bitart ([place] 5/325) 1 tab Q4H PRN ORAL Moderate Pain (Pain Scale 4-6) 10/05/17 12:30 10/08/17 16:29 UNV Albuterol/ Ipratropium (Albuterol/ Ipratropium) 3 ml Q4H PRN HHN sob 10/05/17 12:00 10/09/17 11:59 UNV Amiodarone HCl (Cordarone) 200 mg BID ORAL 10/05/17 18:00 10/27/17 08:59 UNV Atorvastatin Calcium (Lipitor) 40 mg BEDTIME ORAL 10/05/17 21:00 10/27/17 20:59 UNV Cinacalcet (Sensipar) 60 mg DAILY ORAL 10/06/17 09:00 10/27/17 08:59 UNV Collagenase (Santyl) 1 applic Q12HR TOPIC 10/05/17 21:00 10/30/17 20:59 UNV Dextrose (Dextrose 50%) STAT PRN IV Hypoglycemia 10/05/17 16:30 10/31/17 16:29 UNV Docusate Sodium (Colace) 100 mg TID ORAL 10/05/17 13:00 11/01/17 13:59 UNV Epoetin Mahesh (Procrit (for ESRD on dialysis)) 10,000 units THU-THU-THU SUBQ 10/05/17 21:00 11/01/17 20:59 UNV Gabapentin (Neurontin) 300 mg THREE TIMES A DAY ORAL 10/05/17 13:00 10/27/17 12:59 UNV Hydromorphone HCl (Dilaudid) 0.5 mg Q3H PRN IVP Pain Score 1-3 10/05/17 13:30 10/08/17 16:29 UNV Hydromorphone HCl (Dilaudid) 1 mg Q3H PRN IVP pain score 4-6 10/05/17 13:30 10/08/17 16:29 UNV Hydromorphone HCl (Dilaudid) 2 mg Q3H PRN IVP pain score 7-10 10/05/17 13:30 10/08/17 16:29 UNV Insulin Aspart (NovoLOG) BEFORE MEALS AND HS SUBQ 10/05/17 11:30 10/27/17 06:29 UNV Insulin Detemir (Levemir) 20 units DAILY SUBQ 10/06/17 09:00 10/27/17 08:59 UNV Meclizine HCl (Antivert) 25 mg DAILYPRN PRN ORAL for dizziness 10/05/17 16:30 10/31/17 16:29 UNV Meropenem 500 mg/ Sodium Chloride 55 ml @ 110 mls/hr Q24H IVPB 10/05/17 22:00 10/06/17 21:59 UNV Pantoprazole (Protonix) 40 mg DAILY ORAL 10/06/17 09:00 10/27/17 11:59 UNV Polyethylene Glycol (Miralax) 17 gm DAILY ORAL 10/06/17 09:00 10/27/17 08:59 UNV Sennosides (Senokot) 2 tab HSPRN PRN ORAL Constipation 10/05/17 21:00 10/31/17 20:59 UNV Sevelamer Carbonate (Renvela) 1,600 mg THREE TIMES A DAY ORAL 10/05/17 13:00 11/02/17 12:59 UNV Vancomycin HCl (Vanco rx to dose) 1 ea DAILY PRN MISC Per rx protocol 10/06/17 09:00 10/31/17 16:29 UNV ANGIE LUND M.D. Oct 05, 2017 11:35
[2017-10-05] MEDS ORDERED: Meclizine 25mg tab ORAL PRN ×2 (12:00)
[2017-10-05] MEDS ORDERED: Albuterol/Ipratropium 3ml neb HHN PRN ×2 (12:00)
[2017-10-05] MEDS ORDERED: Hydromorphone 0.5mg/0.5ml inj IVP PRN ×2 (12:00)
[2017-10-05] MEDS ORDERED: NovoLOG Insulin Flexpen SUBQ SCH (12:00)
[2017-10-05] MEDS ORDERED: HYDROmorphone 1mg/ml Carpuject IVP PRN ×2 (12:00)
[2017-10-05] MEDS ORDERED: Norco 5mg/325mg tab ORAL PRN ×2 (12:00)
[2017-10-05] MEDS ORDERED: HYDROcodone/Acetamin 10/325 tab ORAL PRN ×2 (12:00)
--- NOTE | 2017-10-05 12:21 | Nephrology Progress Note ---
Assessment/Plan Problem List: (1) ESRF (end stage renal failure) (2) Sepsis (3) Diabetic foot ulcer (4) Diabetes mellitus (5) Arrhythmia Assessment ESRD on HD M W Fr - Sepsis - Anemia persists - Diabetic foot ulcers/p amputation - Right lower extremity wounds, grossly they are not infected. - Left heel wound, left gangrene changes of the third, fourth and fifth toes, rule out osteomyelitis. - Arrhythmia - Diabetes mellitus - PVD Plan Plan: had amputation 10/01 Per ID HD 10/02 next 10/05 2 units PRBcs 10/02 - ? more transfusion?? discussed with RN continue rest Subjective ROS Limited/Unobtainable: No Constitutional: Reports: malaise Objective Objective Last 24 Hour Vital Signs Date Time Temp Pulse Resp B/P (MAP) Pulse Ox O2 Delivery O2 Flow Rate FiO2 10/05/17 08:00 97.9 80 18 137/65 97 Room Air 10/05/17 08:00 79 10/05/17 04:00 97.2 80 19 138/71 97 Room Air 10/05/17 04:00 79 10/05/17 00:00 97.9 79 19 122/63 95 Room Air 10/05/17 00:00 76 10/04/17 20:00 97.7 83 19 125/75 98 Room Air 10/04/17 20:00 80 10/04/17 16:07 99.0 79 20 117/53 100 Room Air 10/04/17 16:00 82 10/04/17 12:23 97.7 79 19 137/73 99 Room Air Intake and Output 10/04/17 10/05/17 19:00 07:00 Intake Total 232 ml 105 ml Output Total 200 ml 200 ml Balance 32 ml -95 ml Intake Oral 232 ml 50 ml IV Total 55 ml Output Urine Total 200 ml 200 ml # Voids 1 # Bowel Movements 1 Laboratory Tests 10/05/17 04:40: White Blood Count 16.6H, Red Blood Count 2.86L, Hemoglobin 8.4L, Hematocrit 25.8L, Mean Corpuscular Volume 90, Mean Corpuscular Hemoglobin 29.3, Mean Corpuscular Hemoglobin Concent 32.4, Red Cell Distribution Width 15.6H, Platelet Count 448, Mean Platelet Volume 7.4, Neutrophils (%) (Auto) 79.2H, Lymphocytes (%) (Auto) 11.1L, Monocytes (%) (Auto) 6.4, Eosinophils (%) (Auto) 2.7, Basophils (%) (Auto) 0.6, Sodium Level 136, Potassium Level 4.8, Chloride Level 98, Carbon Dioxide Level 30, Anion Gap 8, Blood Urea Nitrogen 40H, Creatinine 8.9H, Estimat Glomerular Filtration Rate 7.6, Glucose Level 105, Calcium Level 8.1L Height (Feet): 5 Height (Inches): 7.00 Weight (Pounds): 290 General Appearance: no apparent distress Objective no change in PE BREANN STEEL Oct 05, 2017 12:21
[2017-10-05] MEDS ORDERED: Docusate 100mg cap ORAL SCH (13:00)
--- NOTE | 2017-10-05 15:29 | General Progress Note ---
Progress Note Progress Note Surgery: doing well. improving. no n/v/f/c. comfortable. pain improved. resting. doing exercises. H/H stable. leukocytosis improving. exam stable. stump c/d/ i. no signs of infection or flap failure. -cont current care and management -dressing changes prn. soon will leave open to air. -d/c planning once leukocytosis resolved. will likely need rehab or snf before home. maricel in for another 1-2 weeks prior to removal. then can remove and start fitting for prosthetic Lauro Oakley Oct 05, 2017 15:29
[2017-10-05] MEDS ORDERED: Amiodarone 200mg tab ORAL SCH (18:00)
[2017-10-05] MEDS ORDERED: Atorvastatin 20mg tab ORAL SCH ×2 (21:00)
[2017-10-05] MEDS ORDERED: Epogen (for ESRD on dialysis) SUBQ SCH ×2 (21:00)
[2017-10-05] MEDS ORDERED: Sennosides 8.6mg ORAL PRN ×2 (21:00)
[2017-10-05] MEDS ORDERED: Meropenem 500 MG in NS 55 ML IVPB SCH (22:00)
[2017-10-06] VITALS (10 sets, daily range): BP systolic 114–149; BP diastolic 57–83
[2017-10-06] MEDS: NovoLOG Insulin Flexpen SUBQ SCH ×2 (06:30→12:21)
[2017-10-06] MEDS ORDERED: Lidocaine 1% MPF 10mg/ml 5ml ONE ×2 (07:00)
[2017-10-06] MEDS ORDERED: Propofol 200mg/20ml IV ONE ×2 (07:00)
[2017-10-06] MEDS ORDERED: NS Irrig 1000ml ONE (07:00)
--- NOTE | 2017-10-06 07:11 | Anethesia Preoperative Eval ---
Anesthesia Pre-op PMH/ROS General Date of Evaluation: Oct 06, 2017 Time of Evaluation: 07:03 Anesthesiologist: marci ASA Score: ASA 4 Mallampati Score Class I : Soft palate, uvula, fauces, pillars visible Class II: Soft palate, uvula, fauces visible Class III: Soft palate, base of uvula visible Class IV: Only hard plate visible Mallampati Classification: Class II Surgeon: nellie Diagnosis: possible endocarditis Surgical Procedure: deo Anesthesia History: none Social History: smoking - nonsmoker Family History: no anesthesia problems Allergies: Coded Allergies: No Known Allergies (Unverified , 09/27/17) Medications: see eMAR Past Medical History Cardiovascular: Reports: HTN, ME, arrhythmia Gastrointestinal/Genitourinary: Reports: ESRD Endocrine: Reports: DM Hematology/Immune: Reports: anemia Musculoskeletal/Integumentary: Reports: other - left bka Other: obesity Anesthesia Pre-op Phys. Exam Physician Exam Last Vital Signs Date Time Temp Pulse Resp B/P (MAP) Pulse Ox O2 Delivery O2 Flow Rate FiO2 10/06/17 04:00 97.5 80 18 116/78 95 10/05/17 21:30 Room Air 10/02/17 00:00 Constitutional: NAD Neurologic: CN 2-12 intact Cardiovascular: RRR Respiratory: CTA Gastrointestinal: S/NT/ND Airway Exam Mallampati Score: Class II MO: full Neck: short TMD: 2fb ROM: limited Anesthesia Pre-op A/P Labs Labs Test 10/03/17 07:10 10/04/17 06:00 10/05/17 04:40 White Blood Count 23.2 K/UL (4.8-10.8) 18.7 K/UL (4.8-10.8) 16.6 K/UL (4.8-10.8) Red Blood Count 2.52 M/UL (4.70-6.10) 2.90 M/UL (4.70-6.10) 2.86 M/UL (4.70-6.10) Hemoglobin 7.3 G/DL (14.2-18.0) 8.4 G/DL (14.2-18.0) 8.4 G/DL (14.2-18.0) Hematocrit 22.8 % (42.0-52.0) 26.1 % (42.0-52.0) 25.8 % (42.0-52.0) Mean Corpuscular Volume 91 FL (80-99) 90 FL (80-99) 90 FL (80-99) Mean Corpuscular Hemoglobin 28.9 PG (27.0-31.0) 28.9 PG (27.0-31.0) 29.3 PG (27.0-31.0) Mean Corpuscular Hemoglobin Concent 31.8 G/DL (32.0-36.0) 32.1 G/DL (32.0-36.0) 32.4 G/DL (32.0-36.0) Red Cell Distribution Width 15.7 % (11.6-14.8) 15.6 % (11.6-14.8) 15.6 % (11.6-14.8) Platelet Count 406 K/UL (150-450) 407 K/UL (150-450) 448 K/UL (150-450) Mean Platelet Volume 7.7 FL (6.5-10.1) 7.4 FL (6.5-10.1) 7.4 FL (6.5-10.1) Neutrophils (%) (Auto) % (45.0-75.0) % (45.0-75.0) 79.2 % (45.0-75.0) Lymphocytes (%) (Auto) % (20.0-45.0) % (20.0-45.0) 11.1 % (20.0-45.0) Monocytes (%) (Auto) % (1.0-10.0) % (1.0-10.0) 6.4 % (1.0-10.0) Eosinophils (%) (Auto) % (0.0-3.0) % (0.0-3.0) 2.7 % (0.0-3.0) Basophils (%) (Auto) % (0.0-2.0) % (0.0-2.0) 0.6 % (0.0-2.0) Differential Total Cells Counted 100 100 Neutrophils % (Manual) 88 % (45-75) 82 % (45-75) Lymphocytes % (Manual) 8 % (20-45) 9 % (20-45) Monocytes % (Manual) 4 % (1-10) 9 % (1-10) Eosinophils % (Manual) 0 % (0-3) 0 % (0-3) Basophils % (Manual) 0 % (0-2) 0 % (0-2) Band Neutrophils 0 % (0-8) 0 % (0-8) Platelet Estimate Adequate Adequate Platelet Morphology Normal Normal Hypochromasia 1+ 1+ Anisocytosis 1+ 1+ Sodium Level 144 MMOL/L (136-145) 138 MMOL/L (136-145) 136 MMOL/L (136-145) Potassium Level 4.6 MMOL/L (3.5-5.1) 4.7 MMOL/L (3.5-5.1) 4.8 MMOL/L (3.5-5.1) Chloride Level 104 MMOL/L (98-107) 99 MMOL/L (98-107) 98 MMOL/L (98-107) Carbon Dioxide Level 32 MMOL/L (21-32) 31 MMOL/L (21-32) 30 MMOL/L (21-32) Anion Gap 8 mmol/L (5-15) 8 mmol/L (5-15) 8 mmol/L (5-15) Blood Urea Nitrogen 23 mg/dL (7-18) 30 mg/dL (7-18) 40 mg/dL (7-18) Creatinine 6.2 MG/DL (0.55-1.30) 7.6 MG/DL (0.55-1.30) 8.9 MG/DL (0.55-1.30) Estimat Glomerular Filtration Rate 11.6 mL/min (>60) 9.2 mL/min (>60) 7.6 mL/min (>60) Glucose Level 199 MG/DL (74-106) 150 MG/DL (74-106) 105 MG/DL (74-106) Calcium Level 8.5 MG/DL (8.5-10.1) 8.3 MG/DL (8.5-10.1) 8.1 MG/DL (8.5-10.1) Phosphorus Level 3.7 MG/DL (2.5-4.9) Magnesium Level 2.0 MG/DL (1.8-2.4) Total Bilirubin 0.8 MG/DL (0.2-1.0) Gamma Glutamyl Transpeptidase 241 U/L (5-85) Aspartate Amino Transf (AST/SGOT) 31 U/L (15-37) Alanine Aminotransferase (ALT/SGPT) 15 U/L (12-78) Alkaline Phosphatase 139 U/L (46-116) Total Protein 7.8 G/DL (6.4-8.2) Albumin 1.7 G/DL (3.4-5.0) Globulin 6.1 g/dL Albumin/Globulin Ratio 0.3 (1.0-2.7) Random Vancomycin Level 13.0 ug/mL Risk Assessment & Plan Assessment: asa4 Plan: mac Status Change Before Surgery: No Pre-Antibiotics Drug: VANCE Ramos Oct 06, 2017 07:11
[2017-10-06] MEDS ORDERED: Midazolam 2mg/2ml Inj IVP PRN (07:15)
[2017-10-06] MEDS ORDERED: DiphenhydrAMINE 50mg/ml Inj IVP PRN (07:15)
[2017-10-06] MEDS ORDERED: Atropine Inj 1mg/10ml Syr IV PRN ×2 (07:15→09:45)
[2017-10-06] MEDS ORDERED: fentaNYL 100 mcg/2 mL IV PRN (07:15)
[2017-10-06] MEDS ORDERED: NS 500ML IV ONE (07:25)
--- NOTE | 2017-10-06 07:36 | Pre-Procedure Note/Attestation ---
Pre-Procedure Note/Attestation Complete Prior to Procedure Procedure Narrative: KERI Indications for Procedure Pre-Operative Diagnosis: MRSA bacteremia Attestation I attest that I discussed the nature of the procedure; its benefits; risks and complications; and alternatives (and the risks and benefits of such alternatives ), prior to the procedure, with the patient (or the patient's legal veterans service representative). I attest that, if there was a reasonable possibility of needing a blood transfusion, the patient (or the patient's legal veterans service representative) was given the [facility] standardized written summary, pursuant to the [employer] Blood Safety Act ([place] Health and Safety Code # 1645, as amended). I attest that I re-evaluated the patient just prior to the surgery and that there has been no change in the patient's H&P, except as documented below: BRYAN ARMSTRONG Oct 06, 2017 07:36
--- NOTE | 2017-10-06 07:38 | Cardiology Progress Note ---
Assessment/Plan Assessment/Plan 1. Methicillin-resistant Staphylococcus aureus of blood, scheduled for KERI this morning. 2. Cardiomyopathy with LVEF 35-40%, ?ischemic in view of CAD, would place on GDMT. 3. Diabetes mellitus. 4. Hypertension. 5. History of coronary artery disease, status post myocardial infarction. 6. History of end-stage renal disease. Subjective Subjective Sinus rhythm at 76. Objective Last 24 Hour Vital Signs Date Time Temp Pulse Resp B/P (MAP) Pulse Ox O2 Delivery O2 Flow Rate FiO2 10/06/17 04:00 97.5 80 18 116/78 95 10/06/17 00:32 98.1 10/06/17 00:00 97.7 83 19 118/83 100 10/05/17 23:33 98.1 10/05/17 21:30 Room Air 10/05/17 21:20 98.1 78 20 128/82 Room Air 10/05/17 20:24 76 18 Room Air 10/05/17 20:00 97.7 79 18 118/69 100 10/05/17 17:30 97.7 74 20 104/53 Room Air 10/05/17 17:30 Room Air 10/05/17 16:00 97.7 76 18 117/82 100 Room Air 10/05/17 12:00 97.2 77 19 111/62 100 Room Air 10/05/17 08:39 71 20 Room Air 10/05/17 08:00 97.9 80 18 137/65 97 Room Air 10/05/17 08:00 79 Intake and Output 10/05/17 10/06/17 19:00 07:00 Intake Total 490 ml 200 ml Output Total 3000 ml Balance 490 ml -2800 ml Intake Oral 490 ml 200 ml Hemodialysis UF 3000 ml 2D Echo: LVEF ~40%, [id number] mitral regurgitation, grade 2 LVDD Objective HEENT: Atraumatic and normocephalic. Anicteric. Pupils are equal, round, and reactive to light and accommodation. Extraocular muscles intact. NECK: JVP is less than 5 cm. No carotid bruit. Carotid upstrokes 2+ bilaterally. CARDIOVASCULAR: Normal S1 and S2. Regular rate and rhythm. No murmurs, gallops, or rubs. PMI is at fourth intercostal space in the midclavicular line. LUNGS: Clear to auscultation bilaterally. ABDOMEN: Soft, nontender, and nondistended. No hepatosplenomegaly. Positive bowel sounds. EXTREMITIES: No evidence of edema, clubbing, or cyanosis. There is right upper arm presence of AV fistula. BRYAN ARMSTRONG Oct 06, 2017 07:38
--- NOTE | 2017-10-06 08:03 | Brief Operative Note ---
Immediate Post Operative Note Operative Note Chief Complaint: fever Pre-op Diagnosis: MRSA bacteremia Procedure: KERI Post-op Diagnosis: No evidence of infective endocarditis Post-op Diagnosis: same as pre-op Surgeon: Bryan Andres MD Operational Communication Chief: None Anesthesia: general Specimen: none Complications: none Condition: stable Fluids: N/A Estimated Blood Loss: none Drains: none Packing: N/A Tourniquet time: 0 Implant(s) used?: BRYAN Wells Oct 06, 2017 08:03
[2017-10-06] MEDS ORDERED: Sensipar 30mg Tab ORAL SCH ×2 (09:00)
[2017-10-06] MEDS ORDERED: Miralax 17gm pkt ORAL SCH ×2 (09:00)
[2017-10-06] MEDS ORDERED: Levemir Flexpen SUBQ SCH ×2 (09:00)
[2017-10-06] MEDS: Amiodarone 200mg tab ORAL SCH (09:20)
[2017-10-06] MEDS: Docusate 100mg cap ORAL SCH ×2 (09:34→12:29)
--- NOTE | 2017-10-06 09:36 | Infectious Diseases Prog Note ---
Assessment/Plan Assessment/Plan ASSESSMENT: The patient is a 52-year-old male with, Sepsis, SP MRSA bacteremia- KERI : neg -2d Echo: limited (poor acoustic windows)- no obvious vegetations. Focal aortic valve sclerosis with adequate cusp excursion.Heavy Thickened mitral valve leaflets with normal excursion. Mild to moderate mitral regurgitation. Heavy Mitral annulus and aortic root calcification. Normal pulmonic valve structure . Normal tricuspid valve structure. Leukocytosis persistent (out of proportion for wound infection ) -CT chest/abd/p w/: No acute findings in the abdomen chest or pelvis. Mild basal atelectasis. Suspected gallstones. No evidence of abdominal abscess. Atherosclerotic disease. Status post right hip pinning. 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 most likely due to reactive bone marrow edema rather than osteomyelitis as T1 signal is normal. No evidence of acute osteomyelitis otherwise within the forefoot, midfoot or hindfoot/ankle. Right lower extremity wounds, grossly they are not infected. Dizziness followed by Neuro Probable PVD Diabetes End-stage renal disease, on hemodialysis. Obesity. Diabetic neuropathy. Bilateral lower extremity wounds. History of CAD History of cardiac arrest 06/2017 History of myocardial infarction PLAN: Cont patient on Vancomycin # for MRSA bacteremia; -Continue Meropenem # 6 b/7 for MDR, possible ESBL PsA in wound; short duration as now leg has been amputated -10/01 SP Zosyn #5 -f/u Bcx Monitor CBC/ BMP, temperatures Podiatry/gen sx/vasc sx f/u WBC Scan if WBC does not improve Subjective Constitutional: Denies: no symptoms, fever, chills, fatigue, anorexia, drenching sweats, other Allergies: Coded Allergies: No Known Allergies (Unverified , 09/27/17) Subjective afebrile Objective Vital Signs Last 24 Hour Vital Signs Date Time Temp Pulse Resp B/P (MAP) Pulse Ox O2 Delivery O2 Flow Rate FiO2 10/06/17 08:40 97.2 73 20 127/69 98 Room Air 10/06/17 08:30 75 20 120/62 98 Room Air 10/06/17 08:18 73 20 115/66 98 Nasal Cannula 2.0 10/06/17 08:13 72 20 114/69 98 Nasal Cannula 2.0 10/06/17 08:08 97.2 73 20 114/78 98 Nasal Cannula 2.0 10/06/17 07:55 75 18 Room Air 10/06/17 04:00 97.5 80 18 116/78 95 10/06/17 00:32 98.1 10/06/17 00:00 97.7 83 19 118/83 100 10/05/17 23:33 98.1 10/05/17 21:30 Room Air 10/05/17 21:20 98.1 78 20 128/82 Room Air 10/05/17 20:24 76 18 Room Air 10/05/17 20:00 97.7 79 18 118/69 100 10/05/17 17:30 97.7 74 20 104/53 Room Air 10/05/17 17:30 Room Air 10/05/17 16:00 97.7 76 18 117/82 100 Room Air 10/05/17 12:00 97.2 77 19 111/62 100 Room Air Height (Feet): 5 Height (Inches): 7.00 Weight (Pounds): 290 HEENT: atraumatic Respiratory/Chest: no respiratory distress Cardiovascular: normal rate Abdomen: normal bowel sounds Current Medications Medications (Trade) Dose Ordered Sig/Georges Route PRN Reason Start Time Stop Time Status Last Admin Dose Admin Acetaminophen (Tylenol) 650 mg Q6H PRN ORAL Mild Pain (Pain Scale 1-3) 10/05/17 12:00 10/31/17 11:59 Acetaminophen/ Hydrocodone Bitart ([place] 10/325) 1 tab Q4H PRN ORAL Severe Pain (Pain Scale 7-10) 10/05/17 12:00 10/08/17 11:59 10/05/17 23:33 Acetaminophen/ Hydrocodone Bitart ([place] 5/325) 1 tab Q4H PRN ORAL Moderate Pain (Pain Scale 4-6) 10/05/17 12:00 10/08/17 11:59 Al Hydroxide/Mg Hydroxide (Mylanta) 15 ml Q1H PRN ORAL gi upset 10/06/17 07:15 10/06/17 15:00 Albuterol/ Ipratropium (Albuterol/ Ipratropium) 3 ml Q4H PRN HHN Shortness of Breath 10/05/17 12:00 10/09/17 11:59 Amiodarone HCl (Cordarone) 200 mg BID ORAL 10/05/17 18:00 10/27/17 08:59 10/05/17 21:30 Atorvastatin Calcium (Lipitor) 40 mg BEDTIME ORAL 10/05/17 21:00 10/27/17 20:59 10/05/17 21:32 Atropine Sulfate (Atropine) 0.5 mg Q5M PRN IV bpm less than 45 10/06/17 07:15 10/06/17 15:00 Cinacalcet (Sensipar) 60 mg DAILY ORAL 10/06/17 09:00 10/27/17 08:59 Collagenase (Santyl) 1 applic Q12HR TOPIC 10/05/17 21:00 10/30/17 20:59 10/05/17 21:00 Dextrose (Dextrose 50%) STAT PRN IV Hypoglycemia 10/05/17 12:00 10/31/17 11:59 Diphenhydramine HCl (Benadryl) 25 mg Q15M PRN IVP Itching 10/06/17 07:15 10/06/17 15:00 Docusate Sodium (Colace) 100 mg TID ORAL 10/05/17 13:00 11/01/17 13:59 Epoetin Mahesh (Procrit (for ESRD on dialysis)) 10,000 units THU-THU-THU SUBQ 10/05/17 21:00 11/01/17 20:59 10/05/17 21:33 Fentanyl Citrate (Sublimaze 100 mcg/2 mL) 25 mcg Q10M PRN IV Moderate Pain (Pain Scale 4-6) 10/06/17 07:15 10/06/17 15:00 Gabapentin (Neurontin) 300 mg THREE TIMES A DAY ORAL 10/05/17 13:00 10/27/17 12:59 10/05/17 21:30 Hydralazine HCl (Apresoline) 5 mg Q30M PRN IV SBP>160 OR___/DBP>90 OR___ 10/06/17 07:15 10/06/17 15:00 Hydromorphone HCl (Dilaudid) 0.5 mg Q3H PRN IVP Pain Score 1-3 10/05/17 12:00 10/08/17 11:59 Hydromorphone HCl (Dilaudid) 1 mg Q3H PRN IVP pain score 4-6 10/05/17 12:00 10/08/17 11:59 Hydromorphone HCl (Dilaudid) 2 mg Q3H PRN IVP pain score 7-10 10/05/17 12:00 10/08/17 11:59 Insulin Aspart (NovoLOG) BEFORE MEALS AND HS SUBQ 10/05/17 12:00 10/27/17 11:59 10/05/17 16:53 Insulin Detemir (Levemir) 20 units DAILY SUBQ 10/06/17 09:00 10/27/17 08:59 Meclizine HCl (Antivert) 25 mg DAILYPRN PRN ORAL for dizziness 10/05/17 12:00 10/31/17 11:59 Midazolam HCl (Versed 2mg/2ml vial) 1 mg Q15M PRN IVP For Anxiety 10/06/17 07:15 10/06/17 15:00 Ondansetron HCl (Zofran) 4 mg Q1H PRN IVP Nausea & Vomiting 10/06/17 07:15 10/06/17 15:00 Ondansetron HCl (Zofran) 4 mg Q4H PRN IVP Nausea & Vomiting 10/05/17 18:15 11/04/17 18:14 Polyethylene Glycol (Miralax) 17 gm DAILY ORAL 10/06/17 09:00 10/27/17 08:59 Sennosides (Senokot) 2 tab HSPRN PRN ORAL Constipation 10/05/17 21:00 10/31/17 20:59 Sevelamer Carbonate (Renvela) 1,600 mg THREE TIMES A DAY ORAL 10/05/17 13:00 11/02/17 12:59 10/05/17 21:31 Vancomycin HCl (Vanco rx to dose) 1 ea DAILY PRN MISC Per rx protocol 10/05/17 12:00 11/04/17 11:59 ANGIE LUND M.D. Oct 06, 2017 09:36
[2017-10-06] MEDS ORDERED: Meropenem 1 GM in NS 55 ML IVPB SCH (09:45)
--- NOTE | 2017-10-06 10:45 | Procedure Note ---
DATE OF PROCEDURE: 10/06/2017 TRANSESOPHAGEAL ECHOCARDIOGRAPHY REPORT ATTENDING SURGEON: Jean Andres M.D. [facility]. PREOPERATIVE DIAGNOSES: Methicillin-resistant Staphylococcus aureus and bacteremia. POSTOPERATIVE FINDINGS: 1. There is no evidence of valvular vegetations. 2. Mild mitral and tricuspid regurgitations are present. 3. Left atrial appendage is free of thrombus. 4. Presence of a severe mitral annular calcification. 5. Calcified non-coronary cusp of aortic valve. DESCRIPTION OF PROCEDURE: The risks, benefits, and alternatives of the procedure was explained to the patient in full detail. The patient had agreed to the procedure and signed informed consent. The patient was brought down to the GI laboratory in a fasting state and was placed in a lateral decubitus position. After placement of the bite block in the presence of anesthesiologist and using propofol as the general anesthetic agent, the transesophageal echocardiography probe was advanced through the bite block and was secured in the midesophageal area at the distance just about 35 cm from the incisors teeth. After review of the cardiac structures, the transesophageal echocardiography probe was removed. The patient tolerated the procedure well without having any complications. AMOUNT OF BLOOD LOSS: Zero. COMPLICATIONS: None. CONCLUSION: This study reveals no evidence of infective endocarditis. Jean Andres M.D. DR: Elton JOB#: [id number] CC:
[2017-10-06] MEDS ORDERED: Meropenem 500mg in NS 55ml IVPB SCH (11:00)
--- NOTE | 2017-10-06 11:33 | Immediate Post-Op Evaluation ---
Immediate Post-Op Evalulation Immediate Post-Op Evalulation Procedure: deo Date of Evaluation: Oct 06, 2017 Time of Evaluation: 08:20 IV Fluids: 200ml 0.9ns Blood Products: none Estimated Blood Loss: negligible Blood Pressure Systolic: 114 Blood Pressure Diastolic: 78 Pulse Rate: 65 Respiratory Rate: 18 O2 Sat by Pulse Oximetry: 98 Temperature (Fahrenheit): 97.2 Pain Score (1-10): 0 Nausea: No Vomiting: No Complications none Patient Status: awake, reacts, patent Hydration Status: adequate Drug: VANCE Ramos Oct 06, 2017 11:33
--- NOTE | 2017-10-06 11:35 | 48 Hour Post Anesthesia Eval ---
Post Anesthesia Evaluation Procedure: deo Date of Evaluation: Oct 06, 2017 Time of Evaluation: 08:22 Blood Pressure Systolic: 115 0: 66 Pulse Rate: 73 Respiratory Rate: 18 Temperature (Fahrenheit): 97.2 O2 Sat by Pulse Oximetry: 98 Airway: patent Nausea: No Vomiting: No Pain Intensity: 0 Hydration Status: adequate Cardiopulmonary Status: stable Mental Status/LOC: patient returned to baseline Post-Anesthesia Complications: none Follow-up care needed: N/A VANCE KAUR Oct 06, 2017 11:35
--- NOTE | 2017-10-06 12:28 | General Progress Note ---
Progress Note Progress Note Surgery: doing great. recovering well. no n/v/f/c. doing exercises. comfortable. pain minimal. pending labs. dressings removed and bka evaluated. clean, intact, no signs of infection or flap failure. healing well. edema much improved. maricel in place -okay to d/c from surgical standpoint to rehab -trend labs prn Dressings: daily dressings to wound until fully dry. then can leave open to air. (likely in a few days). Maricel to remain in for another 2 weeks. Can be removed by me or in rehab two weeks from now. once maricel removed and begin fitting for prosthetic. Keep leg elevated Exercises as tolerated Care for right foot f/u with me in 2 weeks. Lauro Oakley Oct 06, 2017 12:28
[2017-10-06 13:16] LABS: BASOPHILS % (AUTO) 0.7 % (0.0-2.0); EOSINOPHILS % (AUTO) 1.4 % (0.0-3.0); HEMATOCRIT 28.1 % (42.0-52.0); HEMOGLOBIN 9.1 G/DL (14.2-18.0); LYMPHOCYTES % (AUTO) 8.8 % (20.0-45.0); MEAN CORPUSCULAR VOLUME 91 FL (80-99); MONOCYTES % (AUTO) 6.3 % (1.0-10.0); NEUTROPHILS % (AUTO) 82.9 % (45.0-75.0); PLATELET COUNT 484 K/UL (150-450); RED CELL DISTRIBUTION WIDTH 15.8 % (11.6-14.8); WHITE BLOOD COUNT 14.6 K/UL (4.8-10.8)
[2017-10-06] MEDS ORDERED: NOVOLOG100 UNITS1 (13:49)
[2017-10-06] MEDS ORDERED: DOCUSATE SODIU100 MG ORAL (13:49)
--- NOTE | 2017-10-06 13:49 | Nephrology Progress Note ---
Assessment/Plan Problem List: (1) ESRF (end stage renal failure) (2) Sepsis (3) Diabetic foot ulcer (4) Diabetes mellitus (5) Arrhythmia Assessment ESRD on HD M W Fr - Sepsis - Anemia persists - Diabetic foot ulcers/p amputation - Right lower extremity wounds, grossly they are not infected. - Left heel wound, left gangrene changes of the third, fourth and fifth toes, rule out osteomyelitis. - Arrhythmia - Diabetes mellitus - PVD Plan Plan: had amputation 10/01 Per ID HD 10/05 next 10/07 2 units PRBcs 10/02 - ? more transfusion?? discussed with RN continue rest Subjective ROS Limited/Unobtainable: No Constitutional: Reports: malaise Objective Objective Last 24 Hour Vital Signs Date Time Temp Pulse Resp B/P (MAP) Pulse Ox O2 Delivery O2 Flow Rate FiO2 10/06/17 12:00 97.2 78 19 116/70 100 10/06/17 11:35 207.0 73 18 98 10/06/17 11:33 207.0 65 18 98 10/06/17 09:25 97.8 74 18 149/68 99 Room Air 10/06/17 08:40 97.2 73 20 127/69 98 Room Air 10/06/17 08:30 75 20 120/62 98 Room Air 10/06/17 08:18 73 20 115/66 98 Nasal Cannula 2.0 10/06/17 08:13 72 20 114/69 98 Nasal Cannula 2.0 10/06/17 08:08 97.2 73 20 114/78 98 Nasal Cannula 2.0 10/06/17 07:55 75 18 Room Air 10/06/17 04:00 97.5 80 18 116/78 95 10/06/17 00:32 98.1 10/06/17 00:00 97.7 83 19 118/83 100 10/05/17 23:33 98.1 10/05/17 21:30 Room Air 10/05/17 21:20 98.1 78 20 128/82 Room Air 10/05/17 20:24 76 18 Room Air 10/05/17 20:00 97.7 79 18 118/69 100 10/05/17 17:30 97.7 74 20 104/53 Room Air 10/05/17 17:30 Room Air 10/05/17 16:00 97.7 76 18 117/82 100 Room Air Intake and Output 10/05/17 10/06/17 19:00 07:00 Intake Total 490 ml 200 ml Output Total 3000 ml Balance 490 ml -2800 ml Intake Oral 490 ml 200 ml Hemodialysis UF 3000 ml Laboratory Tests 10/06/17 12:40: White Blood Count 14.6H, Red Blood Count 3.10L, Hemoglobin 9.1L, Hematocrit 28.1L, Mean Corpuscular Volume 91, Mean Corpuscular Hemoglobin 29.5, Mean Corpuscular Hemoglobin Concent 32.6, Red Cell Distribution Width 15.8H, Platelet Count 484H, Mean Platelet Volume 7.4, Neutrophils (%) (Auto) 82.9H, Lymphocytes (%) (Auto) 8.8L, Monocytes (%) (Auto) 6.3, Eosinophils (%) (Auto) 1.4, Basophils (%) (Auto) 0.7, Sodium Level [Pending], Potassium Level [Pending] , Chloride Level [Pending], Carbon Dioxide Level [Pending], Blood Urea Nitrogen [Pending], Creatinine [Pending], Estimat Glomerular Filtration Rate [Pending], Glucose Level [Pending], Calcium Level [Pending], Random Vancomycin Level [ Pending] Height (Feet): 5 Height (Inches): 7.00 Weight (Pounds): 290 General Appearance: no apparent distress Objective no change in PE BREANN STEEL Oct 06, 2017 13:49
[2017-10-06] MEDS ORDERED: LEVEMIR FL100 UNIT/1 SUBQ (13:50)
[2017-10-06] MEDS ORDERED: RENVELA0.8 GM ORAL (13:50)
[2017-10-06] MEDS ORDERED: CUBICIN MONIT1 EA IV (13:51)
[2017-10-06] MEDS ORDERED: MERREM1 GM IV (13:51)
[2017-10-06] MEDS ORDERED: PROCRIT10000 UNIT SUBQ (13:52)
--- NOTE | 2017-10-06 13:53 | Pulmonology Progress Note ---
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 DM Severe diabetic polyneuropathy ESRD, on HD PAD CAD s/p cardiac arrest systolic heart failure CM ( EF 35 -40%) anemia of chronic renal disease anemia of acute blood loss (probably postop due to L BKA ), s/p blood transfusion positional dizziness with gait ataxia- r/o anoxic encephalopathy with cerebellar dysfunction, r/o post-anoxic vestibulopathy PLAN OF CARE tele abx ID follows blood cx+ MRSA, r/o graft infection, SBE repeated blood cx 09/30/and 10/01 both prel negative wound cx + MRSA , Pseudomonas ECHO no vegetation KERI on 10/06-dr Andres- no evidence of infective endocarditis CT C/A/P no acute process If negative KERI , MRI foot and ankle no acute OM , podiatry follows Surgery follows s/p L BKA dressing, change, monitor stump pain management ECHO with EF 35-40% ( as reviewed and confirmed by cardio -dr Andres, I personally spoke with him; not 5 % as on initial ECHO report) , mild to moderate MR medical management of CM/SHF per cardio resume ASA, Plavix after KERI and if HH stable continue Amiodarone vasc surgeon consult appreciated , outpt fup DVT GI prophylaxis BS management with SS of insulin and Levemir, titrate a seeded bowel regimen monitor HH, transfuse additional 1 unit PRBC today Neuro eval appreciated Meclizine prn dizziness resolved initially per neuro: for now address issues of sepsis and amputation, when stabilized, will need to review recent MRI (per pt was fine(, if no improvement may benefit from ENT eval dc plan for today with ID recs re abx case discussed and evaluated by supervising physician Subjective Allergies: Coded Allergies: No Known Allergies (Unverified , 09/27/17) Subjective patient s/p L BKA2/15 leuk trending down, afebrile no evidence of infective endocarditics on KERI Objective Last 24 Hour Vital Signs Date Time Temp Pulse Resp B/P (MAP) Pulse Ox O2 Delivery O2 Flow Rate FiO2 10/06/17 12:00 97.2 78 19 116/70 100 10/06/17 11:35 207.0 73 18 98 10/06/17 11:33 207.0 65 18 98 10/06/17 09:25 97.8 74 18 149/68 99 Room Air 10/06/17 08:40 97.2 73 20 127/69 98 Room Air 10/06/17 08:30 75 20 120/62 98 Room Air 10/06/17 08:18 73 20 115/66 98 Nasal Cannula 2.0 10/06/17 08:13 72 20 114/69 98 Nasal Cannula 2.0 10/06/17 08:08 97.2 73 20 114/78 98 Nasal Cannula 2.0 10/06/17 07:55 75 18 Room Air 10/06/17 04:00 97.5 80 18 116/78 95 10/06/17 00:32 98.1 10/06/17 00:00 97.7 83 19 118/83 100 10/05/17 23:33 98.1 10/05/17 21:30 Room Air 10/05/17 21:20 98.1 78 20 128/82 Room Air 10/05/17 20:24 76 18 Room Air 10/05/17 20:00 97.7 79 18 118/69 100 10/05/17 17:30 97.7 74 20 104/53 Room Air 10/05/17 17:30 Room Air 10/05/17 16:00 97.7 76 18 117/82 100 Room Air Intake and Output 10/05/17 10/06/17 19:00 07:00 Intake Total 490 ml 200 ml Output Total 3000 ml Balance 490 ml -2800 ml Intake Oral 490 ml 200 ml Hemodialysis UF 3000 ml Objective General Appearance: no acute distress HEENT: normocephalic, atraumatic, anicteric, mucous membranes moist Respiratory/Chest: lungs clear, no respiratory distress, no accessory muscle use Cardiovascular: normal rate, Abdomen: soft, non tender Extremities: fresh L BKA stump with dressing Neurologic/Psychiatric: abnormal gait, alert, oriented x 3, responsive, normal mood/affect Laboratory Tests 10/06/17 12:40: White Blood Count 14.6H, Red Blood Count 3.10L, Hemoglobin 9.1L, Hematocrit 28.1L, Mean Corpuscular Volume 91, Mean Corpuscular Hemoglobin 29.5, Mean Corpuscular Hemoglobin Concent 32.6, Red Cell Distribution Width 15.8H, Platelet Count 484H, Mean Platelet Volume 7.4, Neutrophils (%) (Auto) 82.9H, Lymphocytes (%) (Auto) 8.8L, Monocytes (%) (Auto) 6.3, Eosinophils (%) (Auto) 1.4, Basophils (%) (Auto) 0.7, Sodium Level [Pending], Potassium Level [Pending] , Chloride Level [Pending], Carbon Dioxide Level [Pending], Blood Urea Nitrogen [Pending], Creatinine [Pending], Estimat Glomerular Filtration Rate [Pending], Glucose Level [Pending], Calcium Level [Pending], Random Vancomycin Level [ Pending] Current Medications Medications (Trade) Dose Ordered Sig/Georges Route PRN Reason Start Time Stop Time Status Last Admin Dose Admin Acetaminophen (Tylenol) 650 mg Q6H PRN ORAL Mild Pain (Pain Scale 1-3) 10/05/17 12:00 10/31/17 11:59 Acetaminophen/ Hydrocodone Bitart ([place] 10/325) 1 tab Q4H PRN ORAL Severe Pain (Pain Scale 7-10) 10/05/17 12:00 10/08/17 11:59 10/05/17 23:33 Acetaminophen/ Hydrocodone Bitart ([place] 5/325) 1 tab Q4H PRN ORAL Moderate Pain (Pain Scale 4-6) 10/05/17 12:00 10/08/17 11:59 Al Hydroxide/Mg Hydroxide (Mylanta) 15 ml Q1H PRN ORAL gi upset 10/06/17 07:15 10/06/17 15:00 Albuterol/ Ipratropium (Albuterol/ Ipratropium) 3 ml Q4H PRN HHN Shortness of Breath 10/05/17 12:00 10/09/17 11:59 Amiodarone HCl (Cordarone) 200 mg BID ORAL 10/05/17 18:00 10/27/17 08:59 10/06/17 09:20 Atorvastatin Calcium (Lipitor) 40 mg BEDTIME ORAL 10/05/17 21:00 10/27/17 20:59 10/05/17 21:32 Atropine Sulfate (Atropine) 0.5 mg Q5M PRN IV bpm less than 45 10/06/17 09:45 Cinacalcet (Sensipar) 60 mg DAILY ORAL 10/06/17 09:00 10/27/17 08:59 10/06/17 09:21 Collagenase (Santyl) 1 applic Q12HR TOPIC 10/05/17 21:00 10/30/17 20:59 10/05/17 21:00 Dextrose (Dextrose 50%) STAT PRN IV Hypoglycemia 10/05/17 12:00 10/31/17 11:59 Diphenhydramine HCl (Benadryl) 25 mg Q15M PRN IVP Itching 10/06/17 07:15 10/06/17 15:00 Docusate Sodium (Colace) 100 mg TID ORAL 10/05/17 13:00 11/01/17 13:59 Epoetin Mahesh (Procrit (for ESRD on dialysis)) 10,000 units THU-THU-THU SUBQ 10/05/17 21:00 11/01/17 20:59 10/05/17 21:33 Fentanyl Citrate (Sublimaze 100 mcg/2 mL) 25 mcg Q10M PRN IV Moderate Pain (Pain Scale 4-6) 10/06/17 07:15 10/06/17 15:00 Gabapentin (Neurontin) 300 mg THREE TIMES A DAY ORAL 10/05/17 13:00 10/27/17 12:59 10/06/17 12:28 Hydralazine HCl (Apresoline) 5 mg Q30M PRN IV SBP>160 OR___/DBP>90 OR___ 10/06/17 07:15 10/06/17 15:00 Hydromorphone HCl (Dilaudid) 0.5 mg Q3H PRN IVP Pain Score 1-3 10/05/17 12:00 10/08/17 11:59 Hydromorphone HCl (Dilaudid) 1 mg Q3H PRN IVP pain score 4-6 10/05/17 12:00 10/08/17 11:59 Hydromorphone HCl (Dilaudid) 2 mg Q3H PRN IVP pain score 7-10 10/05/17 12:00 10/08/17 11:59 Insulin Aspart (NovoLOG) BEFORE MEALS AND HS SUBQ 10/05/17 12:00 10/27/17 11:59 10/06/17 12:21 Insulin Detemir (Levemir) 20 units DAILY SUBQ 10/06/17 09:00 10/27/17 08:59 10/06/17 09:33 Meclizine HCl (Antivert) 25 mg DAILYPRN PRN ORAL for dizziness 10/05/17 12:00 10/31/17 11:59 Meropenem 500 mg/ Sodium Chloride 55 ml @ 110 mls/hr Q24H IVPB 10/06/17 11:00 10/11/17 10:59 10/06/17 11:18 Midazolam HCl (Versed 2mg/2ml vial) 1 mg Q15M PRN IVP For Anxiety 10/06/17 07:15 10/06/17 15:00 Ondansetron HCl (Zofran) 4 mg Q1H PRN IVP Nausea & Vomiting 10/06/17 07:15 10/06/17 15:00 Ondansetron HCl (Zofran) 4 mg Q4H PRN IVP Nausea & Vomiting 10/05/17 18:15 11/04/17 18:14 Polyethylene Glycol (Miralax) 17 gm DAILY ORAL 10/06/17 09:00 10/27/17 08:59 Sennosides (Senokot) 2 tab HSPRN PRN ORAL Constipation 10/05/17 21:00 10/31/17 20:59 Sevelamer Carbonate (Renvela) 1,600 mg THREE TIMES A DAY ORAL 10/05/17 13:00 11/02/17 12:59 10/06/17 12:28 Vancomycin HCl (Vanco rx to dose) 1 ea DAILY PRN MISC Per rx protocol 10/05/17 12:00 11/04/17 11:59 Deandre (Gloria)Sapna NP Oct 06, 2017 13:53
[2017-10-06] MEDS ORDERED: VANCOMYCIN1 GM/2502 IVPB (14:34)
[2017-10-06 15:45] LABS: ANION GAP 9 mmol/L (5-15); BLOOD UREA NITROGEN 34 mg/dL (7-18); CARBON DIOXIDE 34 MMOL/L (21-32); CHLORIDE 99 MMOL/L (98-107); CREATININE 7.4 MG/DL (0.55-1.30); POTASSIUM 4.4 MMOL/L (3.5-5.1); SODIUM 142 MMOL/L (136-145)
[2017-10-06] MEDS ORDERED: Vancomycin 1250mg/D5W 250ml IVPB ONE (16:00)
--- NOTE | 2017-10-06 17:11 | Internal Med Progress Note ---
Subjective Date of Service: Oct 06, 2017 Physician Name Lety Matos Attending Physician Efraín Montes MD Current Medications Medications (Trade) Dose Ordered Sig/Georges Route PRN Reason Start Time Stop Time Status Last Admin Dose Admin Acetaminophen (Tylenol) 650 mg Q6H PRN ORAL Mild Pain (Pain Scale 1-3) 10/05/17 12:00 10/31/17 11:59 Acetaminophen/ Hydrocodone Bitart (Ridgely 10/325) 1 tab Q4H PRN ORAL Severe Pain (Pain Scale 7-10) 10/05/17 12:00 10/08/17 11:59 10/05/17 23:33 Acetaminophen/ Hydrocodone Bitart (Ridgely 5/325) 1 tab Q4H PRN ORAL Moderate Pain (Pain Scale 4-6) 10/05/17 12:00 10/08/17 11:59 Albuterol/ Ipratropium (Albuterol/ Ipratropium) 3 ml Q4H PRN HHN Shortness of Breath 10/05/17 12:00 10/09/17 11:59 Amiodarone HCl (Cordarone) 200 mg BID ORAL 10/05/17 18:00 10/27/17 08:59 10/06/17 09:20 Atorvastatin Calcium (Lipitor) 40 mg BEDTIME ORAL 10/05/17 21:00 10/27/17 20:59 10/05/17 21:32 Atropine Sulfate (Atropine) 0.5 mg Q5M PRN IV bpm less than 45 10/06/17 09:45 Cinacalcet (Sensipar) 60 mg DAILY ORAL 10/06/17 09:00 10/27/17 08:59 10/06/17 09:21 Collagenase (Santyl) 1 applic Q12HR TOPIC 10/05/17 21:00 10/30/17 20:59 10/05/17 21:00 Dextrose (Dextrose 50%) STAT PRN IV Hypoglycemia 10/05/17 12:00 10/31/17 11:59 Docusate Sodium (Colace) 100 mg TID ORAL 10/05/17 13:00 11/01/17 13:59 Epoetin Mahesh (Procrit (for ESRD on dialysis)) 10,000 units MON-WED-THU SUBQ 10/05/17 21:00 11/01/17 20:59 10/05/17 21:33 Gabapentin (Neurontin) 300 mg THREE TIMES A DAY ORAL 10/05/17 13:00 10/27/17 12:59 10/06/17 12:28 Hydromorphone HCl (Dilaudid) 0.5 mg Q3H PRN IVP Pain Score 1-3 10/05/17 12:00 10/08/17 11:59 Hydromorphone HCl (Dilaudid) 1 mg Q3H PRN IVP pain score 4-6 10/05/17 12:00 10/08/17 11:59 Hydromorphone HCl (Dilaudid) 2 mg Q3H PRN IVP pain score 7-10 10/05/17 12:00 10/08/17 11:59 Insulin Aspart (NovoLOG) BEFORE MEALS AND HS SUBQ 10/05/17 12:00 10/27/17 11:59 10/06/17 12:21 Insulin Detemir (Levemir) 20 units DAILY SUBQ 10/06/17 09:00 10/27/17 08:59 10/06/17 09:33 Meclizine HCl (Antivert) 25 mg DAILYPRN PRN ORAL for dizziness 10/05/17 12:00 10/31/17 11:59 Meropenem 500 mg/ Sodium Chloride 55 ml @ 110 mls/hr Q24H IVPB 10/06/17 11:00 10/11/17 10:59 10/06/17 11:18 Ondansetron HCl (Zofran) 4 mg Q4H PRN IVP Nausea & Vomiting 10/05/17 18:15 11/04/17 18:14 Polyethylene Glycol (Miralax) 17 gm DAILY ORAL 10/06/17 09:00 10/27/17 08:59 Sennosides (Senokot) 2 tab HSPRN PRN ORAL Constipation 10/05/17 21:00 10/31/17 20:59 Sevelamer Carbonate (Renvela) 1,600 mg THREE TIMES A DAY ORAL 10/05/17 13:00 11/02/17 12:59 10/06/17 12:28 Vancomycin HCl (Vanco rx to dose) 1 ea DAILY PRN MISC Per rx protocol 10/05/17 12:00 11/04/17 11:59 Vancomycin HCl/ Dextrose 250 ml @ 166.667 mls/hr ONCE ONCE IVPB 10/06/17 16:00 10/06/17 17:29 Allergies: Coded Allergies: No Known Allergies (Unverified , 09/27/17) ROS Limited/Unobtainable: No Constitutional: Reports: no symptoms HEENT: Reports: no symptoms Cardiovascular: Reports: no symptoms Respiratory: Reports: no symptoms Gastrointestinal/Abdominal: Reports: no symptoms Genitourinary: Reports: no symptoms Neurologic/Psychiatric: Reports: no symptoms Subjective 52 YO M admitted with fever. Now gangrene left foot. S/P left below the knee amputation 10/01/17. S/P trasnesophageal echocardiogram [facility]06[facility]. Objective Last Vital Signs Date Time Temp Pulse Resp B/P (MAP) Pulse Ox O2 Delivery O2 Flow Rate FiO2 10/06/17 16:00 97.3 80 19 125/57 98 97.3 10/06/17 09:25 Room Air 10/06/17 08:18 2.0 Laboratory Tests Test 10/06/17 12:40 10/06/17 14:30 White Blood Count 14.6 K/UL (4.8-10.8) H Red Blood Count 3.10 M/UL (4.70-6.10) L Hemoglobin 9.1 G/DL (14.2-18.0) L Hematocrit 28.1 % (42.0-52.0) L Mean Corpuscular Volume 91 FL (80-99) Mean Corpuscular Hemoglobin 29.5 PG (27.0-31.0) Mean Corpuscular Hemoglobin Concent 32.6 G/DL (32.0-36.0) Red Cell Distribution Width 15.8 % (11.6-14.8) H Platelet Count 484 K/UL (150-450) H Mean Platelet Volume 7.4 FL (6.5-10.1) Neutrophils (%) (Auto) 82.9 % (45.0-75.0) H Lymphocytes (%) (Auto) 8.8 % (20.0-45.0) L Monocytes (%) (Auto) 6.3 % (1.0-10.0) Eosinophils (%) (Auto) 1.4 % (0.0-3.0) Basophils (%) (Auto) 0.7 % (0.0-2.0) Random Vancomycin Level 15.7 ug/mL Sodium Level 142 MMOL/L (136-145) Potassium Level 4.4 MMOL/L (3.5-5.1) Chloride Level 99 MMOL/L (98-107) Carbon Dioxide Level 34 MMOL/L (21-32) H Anion Gap 9 mmol/L (5-15) Blood Urea Nitrogen 34 mg/dL (7-18) H Creatinine 7.4 MG/DL (0.55-1.30) H Estimat Glomerular Filtration Rate 9.5 mL/min (>60) Glucose Level 103 MG/DL (74-106) Calcium Level 8.0 MG/DL (8.5-10.1) L Intake and Output 10/05/17 10/06/17 19:00 07:00 Intake Total 490 ml 200 ml Output Total 3000 ml Balance 490 ml -2800 ml Intake Oral 490 ml 200 ml Hemodialysis UF 3000 ml Objective General Appearance: WD/WN, obese EENT: PERRL/EOMI, normal ENT inspection Neck: non-tender, normal alignment, supple Cardiovascular: normal peripheral pulses, normal rate, regular rhythm, no gallop/murmur, no JVD Respiratory/Chest: chest wall non-tender, lungs clear, normal breath sounds, no respiratory distress, no accessory muscle use Abdomen: normal bowel sounds, non tender, soft, no organomegaly, no mass Extremities: left BKA; normal range of motion, non-tender 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 See ID note. Await KERI Mendez 10/06/17. Continue zosyn and vanco per ID (2) Fever (3) ESRD (end stage renal disease) on dialysis Assessment & Plan: Hemodialysis M W per nephrology (4) Diabetes mellitus, type II Assessment & Plan: Continue levemir and novolog (5) HTN (hypertension) (6) CAD (coronary artery disease) (7) Hypercholesteremia (8) Diabetic foot ulcer Assessment & Plan: see podiatry consult-gangrene.. cont zosyn and vanco per ID (9) Gangrene of left foot Assessment & Plan: S/P below the knee amputation 10/01/17-see surgery note. (10) Anemia Assessment & Plan: Worsening. S/P Transfusion 5 unit PRBC total Assessment/Plan Discharge planning: Await transfer to [facility] today LETY MATOS Oct 06, 2017 17:11
[2017-10-06] MEDS ORDERED: Tubing IV Secondary IV ONE (17:36)
[2017-10-06] MEDS ORDERED: NS 275ml ONE (17:36)
--- NOTE | 2017-10-07 22:09 | Diagnostic Imaging Report ---
APPROVED REPORT CPT Code: 10965 Present Symptoms Lower Extremity Edema: Bilateral Comments: BLE ulcers Comments Technically difficult study due to edema and ulcers in the calf area. BILATERAL: Imaging reveals a patent deep venous system bilaterally. There is no evidence of thrombus within the femoral, or popliteal segments. The greater saphenous veins are also within normal limits. Doppler indicates normal spontaneous flow within these segments. Calf veins were poorly visualized; however, they do not appear dilated as is typically seen with an acute deep vein thrombosis.
--- NOTE | 2017-10-07 22:09 | Diagnostic Imaging Report ---
APPROVED REPORT CPT Code: 42685 Symptoms Comments: Technically difficult study due to edema and ulcers in the calf area. RIGHT LEG: Common femoral artery waveform analysis is within normal limits at rest. Color flow duplex sonography reveals minimal calcification throughout the superficial femoral, and popliteal arteries. The tibioperoneal trunk was not well visualized. The proximal posterior tibial, and dorsalis pedis arteries are also moderately calcified. The anterior tibial artery was not visualized. The Doppler tibial artery waveform analysis is compatible with moderate to severe ischemia at rest. LEFT LEG: Common femoral artery waveform analysis is within normal limits at rest. Color flow duplex sonography reveals minimal calcification throughout the superficial femoral, and popliteal arteries. The tibioperoneal trunk was not well visualized. The distal posterior tibial, and anterior tibial arteries are also moderately calcified. The dorsalis pedis tibial artery was not visualized. The Doppler tibial artery waveform analysis is compatible with moderate ischemia at rest.
--- NOTE | 2017-10-08 14:34 | Discharge Summary ---
Discharge Summary Hospital Course Date of Admission Sep 27, 2017 at 00:19 Date of Discharge Oct 06, 2017 at 17:37 Admitting Diagnosis HPI Rashard Sutherland is a 52 year old male who was admitted on Sep 27, 2017 at 00:19 for Diabetic Foot Ulcer Hospital Course [id number] Discharge Discharge Disposition Patient was discharged to [facility] Discharge Diagnoses: Janelle Etienne NP Oct 08, 2017 14:34
--- NOTE | 2017-10-09 02:17 | Discharge Summary 2 SIG ---
DATE OF ADMISSION: 09/27/2017 DATE OF DISCHARGE: 10/06/2017 CONSULTANTS: 1. Lauro Oakley M.D. 2. Vanessa Chauhan M.D. 3. Krishna Wild M.D. 4. Jean Andres M.D. 5. Martin Thompson M.D. 6. Brian Victoria M.D. 7. Aguila Cortes M.D. 8. Nestor Harrington D.P.M. BRIEF HOSPITAL COURSE: The patient is a 52-year-old male, who presented with chief complaint of subjective fevers with chills and cough. Symptoms started approximately four weeks prior to admission when he started to have cough. Cough was nonproductive and developed fevers and chills and also felt dizzy and unsteady. He initially presented to [facility] emergency room and was transferred to [facility] for insurance purposes. He was admitted for fever and chills to rule out sepsis. He has past medical history significant for type 2 diabetes, diabetic peripheral neuropathy, coronary artery disease, status post myocardial infarction in 2017, end-stage renal disease, on hemodialysis, every Thursday, Thursday, and Thursday, he had an AV graft on the right arm. His WBC was 25.7, hemoglobin was 8.5, and hematocrit was 26. He was started empirically on Zosyn. He was continued on inpatient hemodialysis. His blood glucose was monitored and was started on insulin sliding scale and Levemir 20 units subcutaneously daily. He underwent Podiatry evaluation. The patient has been followed by Podiatry. Wounds have not been healing. The patient was noted to have wet gangrene of the left foot. He had a left foot and ankle MRI that showed hyperintense signal involving the fifth metatarsal head and phalanges, likely due to reactive bone marrow edema. Clinically, the patient is on early stage of osteomyelitis. Achilles tendon was abnormal with marked inflammation and adjacent skin ulceration. Venous ultrasound performed, showed no signs of DVT. Arterial ultrasound showed right lower extremity common femoral artery waveform analysis within normal limits. The tibioperoneal trunk is not well visualized. The proximal posterior tibial and dorsalis pedis arteries were moderately calcified. The anterior tibial artery was not visualized at all and the Doppler tibial waveforms were compatible with moderate to severe ischemia. On the left leg, the common femoral artery waveform was within normal limits. There were calcifications noted at the superficial femoral and popliteal arteries. The tibioperoneal trunk was not well visualized. The distal posterior and anterior tibial arteries were moderately calcified. The dorsalis pedis artery was not visualized and Doppler form analysis was compatible with moderate ischemia. The patient was made aware of his condition and was advised amputation, otherwise it would be a risk for infection and risking . Surgical evaluation was done by Dr. Oakley, who also recommend leg amputation as the foot is non-salvageable. He was seen by Dr. Cortes, who also assessed the need for a left leg amputation and once medically optimized, can undergo an outpatient right leg angiography for a right leg tibial revascularization and would eventually require right first toe gangrene amputation as well. On 10/01/2017, the patient underwent left below-knee amputation by Dr. Oakley. He tolerated the procedure well. He had episodes of anemia and received multiple blood transfusions. The patient continued to have persistent leukocytosis, which was out of proportion for a wound infection as right lower extremity wounds did not look grossly infected. Wound culture done showed growth of Pseudomonas and ESBL. He underwent a CT scan of the chest, abdomen and pelvis that showed no acute findings to explain leukocytosis. His blood culture was showing growth of MRSA Staphylococcus. He had a transthoracic echocardiogram that showed poor acoustic windows. There was no obvious vegetation, however, due to persistent MRSA bacteremia and persistent leukocytosis, possibility for SBE and AVF infection was considered and there was concern for endovascular source of sepsis. Dr. Keane was consulted and on 10/06/2017 underwent transesophageal echocardiogram. There was no evidence of infective endocarditis seen. He was continued on wound care on the left leg stump. Wound incision was healing well. He was advised to keep left leg elevated. He was eventually discharged to [facility] and was advised to follow up with Dr. Oakley in two weeks. FINAL DIAGNOSES: 1. Sepsis. 2. Methicillin-resistant Staphylococcus aureus bacteremia. 3. Diabetic foot ulcer. 4. Left foot wet gangrene. 5. Status post left below knee amputation on 10/01/2017. 6. Gangrene on the right hallux. 7. Diabetes mellitus. 8. Severe diabetic polyneuropathy. 9. End-stage renal disease, on hemodialysis. 10. Severe peripheral arterial disease. 11. Coronary artery disease, status post cardiac arrest. 12. Systolic heart failure. 13. Cardiomyopathy. 14. Anemia of chronic renal disease. 15. Anemia of acute blood loss, status post multiple transfusions. 16. Positional dizziness with gait ataxia. 17. Hypercholesterolemia. DISPOSITION: The patient was discharged to rehabilitation. DISCHARGE MEDICATIONS: Refer to medication list. Continue with vancomycin for 10 more days. DISCHARGE INSTRUCTIONS: Daily dressings to wound until fully dry. May leave wound open to air. Maricel remain for another two weeks and once maricel are removed, to start for prosthesis; keep legs elevated. Exercise as tolerated. Care for right foot. Follow up with vascular surgeon for right foot angiogram. Efraín Montes M.D. I have been assigned to dictate discharge summary on this account and I was not involved in the patient's management. Janelle Etienne N.P. DR: COURT JOB#: [id number] CC:
== END 2017-10-06 17:37 | disposition short-term general hospital (02) | DRG 853 ==
LOC: 4E 09-27 00:19 → 2E 10-01 14:18 → 4W 10-05 11:09
PROC: 5A1D70Z Performance of Urinary Filtration, Intermittent, Less than 6 Hours Per Day (ICD-10-PCS; principal; 2017-09-27)
PROC: 0Y6J0Z1 Detachment at Left Lower Leg, High, Open Approach (ICD-10-PCS; 2017-10-01)
PROC: B245ZZ4 Ultrasonography of Left Heart, Transesophageal (ICD-10-PCS; 2017-10-06)
DX: A41.02 Sepsis due to Methicillin resistant Staphylococcus aureus (principal); N18.6 End stage renal disease; I13.2 Hypertensive heart and chronic kidney disease with heart failure and with stage 5 chronic kidney disease, or end stage renal disease; G93.1 Anoxic brain damage, not elsewhere classified; I96 Gangrene, not elsewhere classified; I42.9 Cardiomyopathy, unspecified; E11.52 Type 2 diabetes mellitus with diabetic peripheral angiopathy with gangrene; D62 Acute posthemorrhagic anemia; I50.30 Unspecified diastolic (congestive) heart failure; L97.428 Non-pressure chronic ulcer of left heel and midfoot with other specified severity; Z68.42 Body mass index [BMI] 45.0-49.9, adult; G54.6 Phantom limb syndrome with pain; E11.22 Type 2 diabetes mellitus with diabetic chronic kidney disease; E11.42 Type 2 diabetes mellitus with diabetic polyneuropathy; E11.40 Type 2 diabetes mellitus with diabetic neuropathy, unspecified; Z99.2 Dependence on renal dialysis; I49.9 Cardiac arrhythmia, unspecified; Z79.4 Long term (current) use of insulin; E11.621 Type 2 diabetes mellitus with foot ulcer; I25.10 Atherosclerotic heart disease of native coronary artery without angina pectoris; I25.2 Old myocardial infarction; R42 Dizziness and giddiness; E78.00 Pure hypercholesterolemia, unspecified; R27.0 Ataxia, unspecified; E66.9 Obesity, unspecified; Z86.74 Personal history of sudden cardiac arrest
CPT/HCPCS: 36415; 71260; 74177; 80048; 80053; 80061; 80202; 82550; 82607; 82728; 82746; 82962; 82977; 83036; 83540; 83550; 83735; 83880; 84100; 84443; 84484; 84550; 85007; 85025; 85610; 85651; 85730; 86140; 86710; 86850; 86900; 86901; 86920; 87040; 87070; 87081; 87181; 87205; 93005; 93306; 93312; 93925; 93970; 94003; 94150; 94664; J1815; J2250; S5561

== ENCOUNTER 2018-02-03 21:16 | Inpatient (IN) | payer MEDICARE, MEDICAID ==
[~2018-02-03] VITALS: Ht 200.7 cm; Wt 124.7 kg
[~2018-02-03 21:16] MED LIST changes: +AMIODARONE HCL100 MG ORAL; +ASPIRIN300 MG PO; +CUBICIN MONIT1 EA IV; +DOCUSATE SODIU100 MG ORAL; +LEVEMIR FL100 UNIT/1 SUBQ; +LIPITOR80 MG ORAL; +MERREM1 GM IV; +NEURONTIN300 MG ORAL; +NOVOLOG100 UNIT/4 SQ; +NOVOLOG100 UNITS1; +POLYETHYLENE GL17 GM ORAL; +PROCRIT10000 UNIT SUBQ; +RENVELA0.8 GM ORAL; +RENVELA800 MG ORAL; +SENNA8.6 M2 PO; +SENSIPAR60 MG PO; +SEVELAMER CARB0.8 GM PO; +VANCOMYCIN1 GM/2502 IVPB; +[UNRECOGNIZED DRUG - OTHER] PO
[2018-02-03] MEDS ORDERED: Morphine Sulfate 4mg/ml Inj IVP ONE (22:00)
[2018-02-03] MEDS ORDERED: Lidocaine HCl 2% Jelly 5ml Tube TOPIC ONE (22:00)
[2018-02-03 22:33] VITALS: BP 110/80
[2018-02-03 22:45] LABS: BASOPHILS % (AUTO) 1.6 % (0.0-2.0); EOSINOPHILS % (AUTO) 1.1 % (0.0-3.0); HEMATOCRIT 45.4 % (42.0-52.0); HEMOGLOBIN 14.7 G/DL (14.2-18.0); LYMPHOCYTES % (AUTO) 16.3 % (20.0-45.0); MEAN CORPUSCULAR VOLUME 94 FL (80-99); MONOCYTES % (AUTO) 11.8 % (1.0-10.0); NEUTROPHILS % (AUTO) 69.1 % (45.0-75.0); PLATELET COUNT 276 K/UL (150-450); RED BLOOD COUNT 4.82 M/UL (4.70-6.10); RED CELL DISTRIBUTION WIDTH 14.6 % (11.6-14.8); WHITE BLOOD COUNT 10.7 K/UL (4.8-10.8)
[2018-02-03 22:55] LABS: ANION GAP 10 mmol/L (5-15); BLOOD UREA NITROGEN 28 mg/dL (7-18); CALCIUM 9.2 MG/DL (8.5-10.1); CARBON DIOXIDE 26 MMOL/L (21-32); CHLORIDE 96 MMOL/L (98-107); CREATININE 6.5 MG/DL (0.55-1.30); POTASSIUM 4.6 MMOL/L (3.5-5.1); SODIUM 132 MMOL/L (136-145)
[2018-02-03 23:08] LABS: APPEARANCE,URINE VERY CLOUDY; BILIRUBIN, URINE NEGATIVE (NEGATIVE); GLUCOSE, URINE (UA) NEGATIVE (NEGATIVE); KETONES,URINE NEGATIVE (NEGATIVE); LEUKOCYTE ESTERASE ,URINE 3+ (NEGATIVE); NITRITE,URINE POSITIVE (NEGATIVE); PH,URINE 6.5 (4.5-8.0); PROTEIN,URINE 4+ (NEGATIVE); UROBILINOGEN,URINE NORMAL MG/DL (0.0-1.0)
[2018-02-03 23:09] LABS: ALANINE AMINOTRANSFERASE 18 U/L (12-78); ALBUMIN/GLOBULIN RATIO 0.5 (1.0-2.7); ALKALINE PHOSPHATASE 108 U/L (46-116); ASPARTATE AMINO TRANSFERASE 19 U/L (15-37); BILIRUBIN,TOTAL 0.5 MG/DL (0.2-1.0); CREATINE KINASE 74 U/L (26-308)
[2018-02-03 23:09] LABS: COLOR,URINE YELLOW
[2018-02-04] MEDS ORDERED: cefTRIAXone 1 GM in NS 55 ML IVPB ONE ×2
--- NOTE | 2018-02-04 01:37 | Emergency Room Report ---
History of Present Illness General Chief Complaint: Male Urogenital Problems Source: Patient Present Illness HPI Patient presents with dysuria and bloatedness and suprapubic pain. He scraped his penis on his pants. There is a scab there. He states he has severe pain in the urethra. In the past this was caused by an UTI. He does not make urine at this time. He feels feverish but no chills. No back pain. He states that the bloated feeling occurred in the past with infections. Patient is diabetic and controlled on oral medications. He stopped insulin after loosing 150 lbs and being on dialysis. ESRD - last dialysis this AM. Post cardiac arrest last May. Amputation of L lower leg from infected diabetic ulcer. He is being treated for an ulcer on the R lower leg and has a dressing. He denies increased pain in that area. He also has a chronic rash which he attributes to his diabetes. Allergies: Coded Allergies: No Known Allergies (Unverified , 09/27/17) Patient History Past Medical History: see triage record Past Surgical History: other - BKA L, fistula R arm Social History: Denies: smoking Social History Narrative with sig other Reviewed Nursing Documentation: PMH: Agreed; PSxH: Agreed Nursing Documentation-PMH Past Medical History: No History, Except For Hx Cardiac Problems: Yes Hx Hypertension: Yes Hx Diabetes: Yes Hx Cancer: No Hx Gastrointestinal Problems: Yes Hx Dialysis: Yes - M W F. Kidney failure Hx Neurological Problems: No - Nerve damage, leg amputation Hx Dizziness: Yes Hx Weakness: Yes Review of Systems All Other Systems: negative except mentioned in HPI Physical Exam Vital Signs Date Time Temp Pulse Resp B/P (MAP) Pulse Ox O2 Delivery O2 Flow Rate FiO2 02/03/18 21:40 97.2 78 22 95/65 100 Room Air 97.2 Sp02 EP Interpretation: reviewed, normal General Appearance: well appearing, no apparent distress, GCS 15 Head: normocephalic Eyes: bilateral eye normal inspection, bilateral eye PERRL ENT: moist mucus membranes Neck: supple Respiratory: lungs clear, normal breath sounds Cardiovascular #1: regular rate, rhythm Cardiovascular #2: 2+ radial (R) - thrill of shunt Gastrointestinal: normal inspection, normal bowel sounds, non tender, no mass, non-distended Genitourinary: no CVA tenderness, other - abrasion glans on Lwithout erythema, no perineal tenderness or bogginess Musculoskeletal: back normal, normal range of motion, other - contractures R hand, BKA L Neurologic: alert, oriented x3, motor weakness - RUE - with contractures, sensory deficit - extrem Psychiatric: mood/affect normal Reflexes: 2+ knee (R), 2+ knee (L) Skin: warm/dry, other - dressing R lower leg Medical Decision Making Diagnostic Impression: Primary Impression: UTI (urinary tract infection) Qualified Codes: N39.0 - Urinary tract infection, site not specified Additional Impressions: Elevated lactic acid level ESRD (end stage renal disease) on dialysis ER Course Patient presents with dysuria and bloating. DDX: UTI, pyeilo, diverticulitis, constipation. Exam against Peyronie's gangrene. High risk with ESRD. Even though he does not produce urine, at risk for UTI. Evaluation with BC, lactate and labs. EKG, CXR and abd film indicated. Treatment for pain and consider antibiotics depending on labs. EKG no injury. CXR looks like situs inversus but on abd film hear normal. Abd with NSBGP. Labs with normal WBC but elevated lactate and pyuria. Evidence of ESRD. Patient started on antibiotics. Lactate minimally elevated and will hold on aggressive fluid resuscitation due to ESRD. Patient improved and admitted for IV antibiotics due to comorbidities and elevated lactate. Admit Dr. Moses. Laboratory Tests Test 02/03/18 22:15 02/03/18 22:50 02/04/18 07:15 White Blood Count 10.7 K/UL (4.8-10.8) Red Blood Count 4.82 M/UL (4.70-6.10) Hemoglobin 14.7 G/DL (14.2-18.0) Hematocrit 45.4 % (42.0-52.0) Mean Corpuscular Volume 94 FL (80-99) Mean Corpuscular Hemoglobin 30.5 PG (27.0-31.0) Mean Corpuscular Hemoglobin Concent 32.4 G/DL (32.0-36.0) Red Cell Distribution Width 14.6 % (11.6-14.8) Platelet Count 276 K/UL (150-450) Mean Platelet Volume 8.0 FL (6.5-10.1) Neutrophils (%) (Auto) 69.1 % (45.0-75.0) Lymphocytes (%) (Auto) 16.3 % (20.0-45.0) L Monocytes (%) (Auto) 11.8 % (1.0-10.0) H Eosinophils (%) (Auto) 1.1 % (0.0-3.0) Basophils (%) (Auto) 1.6 % (0.0-2.0) Prothrombin Time 10.1 SEC (9.30-11.50) Prothrombin Time INR 1.0 (0.9-1.1) PTT 27 SEC (23-33) Sodium Level 132 MMOL/L (136-145) L Potassium Level 4.6 MMOL/L (3.5-5.1) Chloride Level 96 MMOL/L (98-107) L Carbon Dioxide Level 26 MMOL/L (21-32) Anion Gap 10 mmol/L (5-15) Blood Urea Nitrogen 28 mg/dL (7-18) H Creatinine 6.5 MG/DL (0.55-1.30) H Estimate Glomerular Filtration Rate 10.9 mL/min (>60) Glucose Level 132 MG/DL (74-106) H Lactic Acid Level 2.40 mmol/L (0.4-2.0) H Calcium Level 9.2 MG/DL (8.5-10.1) Total Bilirubin 0.5 MG/DL (0.2-1.0) Aspartate Amino Transferase (AST) 19 U/L (15-37) Alanine Aminotransferase (ALT) 18 U/L (12-78) Alkaline Phosphatase 108 U/L (46-116) Total Creatine Kinase 74 U/L (26-308) Troponin I 0.018 ng/mL (0.000-0.056) Pro-B-Type Natriuretic Peptide 39849 pg/mL (0-125) H Total Protein 9.5 G/DL (6.4-8.2) H Albumin 3.0 G/DL (3.4-5.0) L Globulin 6.5 g/dL Albumin/Globulin Ratio 0.5 (1.0-2.7) L Lipase 157 U/L (73-393) Urine Color Yellow Urine Appearance Very cloudy Urine pH 6.5 (4.5-8.0) Urine Specific [place] 1.015 (1.005-1.035) Urine Protein 4+ (NEGATIVE) H Urine Glucose (UA) Negative (NEGATIVE) Urine Ketones Negative (NEGATIVE) Urine Occult Blood 5+ (NEGATIVE) H Urine Nitrite Positive (NEGATIVE) H Urine Bilirubin Negative (NEGATIVE) Urine Urobilinogen Normal MG/DL (0.0-1.0) Urine Leukocyte Esterase 3+ (NEGATIVE) H Urine RBC 20-30 /HPF (0 - 0) H Urine WBC 5-10 /HPF (0 - 0) H Urine Squamous Epithelial Cells None /LPF (NONE/OCC) Urine Bacteria Many /HPF (NONE) H Hemoglobin A1c Pending EKG Diagnostic Results Rate: normal Rhythm: NSR ST Segments: no acute changes Rhythm Strip Diag. Results EP Interpretation: yes Rhythm: NSR, other Chest X-Ray Diagnostic Results Chest X-Ray Diagnostic Results : Chest X-Ray Ordered: Yes # of Views/Limited/Complete: 1 View Indication: Other EP Interpretation: Yes Interpretation: no consolidation, no effusion, no pneumothorax, other - looks like situs inversus Impression: Other Electronically Signed by: Electronically signed by Billy Mcneal MD Other X-Ray Diagnostic Results Other X-Ray Diagnostic Results : X-Ray ordered: abd # of Views/Limited Vs Complete: 1 View Indication: Other Interpretation: nonspecific bowel gas, no sbo, other - R hip pins Impression: Other Electronically Signed by: Electronically signed by Billy Mcneal MD Last Vital Signs Date Time Temp Pulse Resp B/P (MAP) Pulse Ox O2 Delivery O2 Flow Rate FiO2 02/04/18 04:00 95 Room Air 02/04/18 04:00 97.4 75 24 100/76 97.4 Status: improved Disposition: ADMITTED INPATIENT Condition: Serious Referrals: NOT CHOSEN YESICA/,REFERRING (PCP) Billy Mcneal M.D. Feb 04, 2018 01:37
[2018-02-04 02:23] VITALS: BP 121/84
[2018-02-04 04:00] VITALS: BP 100/76
[2018-02-04 08:00] VITALS: BP 125/72
[2018-02-04] MEDS: Morphine Sulfate 4mg/ml Inj IVP PRN ×4 (08:33→22:11)
[2018-02-04] MEDS: Docusate 100mg cap ORAL SCH ×3 (08:36→17:17)
[2018-02-04] MEDS: Aspirin Baby 81mg ORAL SCH (08:36)
[2018-02-04] MEDS: Amiodarone 200mg tab ORAL SCH (08:36)
[2018-02-04] MEDS: Heparin 5000 units/ml inj SUBQ SCH ×2 (08:43→20:23)
--- NOTE | 2018-02-04 10:29 | Diagnostic Imaging Report ---
Indication: Abdominal pain Technique: Supine view of the abdomen Comparison: Switchboard Receptionist image from CT scan dated 09/30/2017 Findings: 2 surgical nails are again seen reducing right hip femoral neck fracture. Bowel gas pattern is unremarkable, no gaseous distention of large or small bowel. No unusual masses or calcifications. There are vasa deferentia Extensive vascular calcifications. Impression: No acute process
[2018-02-04] MEDS: NovoLOG Insulin Flexpen SUBQ SCH ×5 (11:30→22:02)
--- NOTE | 2018-02-04 11:53 | Consultation ---
History of Present Illness General Date patient seen: Feb 04, 2018 Chief Complaint: Male Urogenital Problems Present Illness HPI 52 year old male with hx of ESRD on HD, DM, PVD, cardiomyopathy presented to ER with CC of dysuria and suprapubic pain. Pt was thought to have UTI and admitted for further work p. Allergies: Coded Allergies: No Known Allergies (Unverified , 09/27/17) Medication History Scheduled Amiodarone Hcl (Amiodarone Hcl), 200 MG ORAL BID, (Reported) Aspirin (Aspirin), 81 MG PO DAILY, (Reported) Atorvastatin (Lipitor), 40 MG ORAL BEDTIME, (Reported) Cinacalcet Hcl (Sensipar), 60 MG PO DAILY, (Reported) Clopidogrel Bisulfate (Clopidogrel Bisulfate), 75 GM PO DAILY, (Reported) Docusate Sodium* (Docusate Sodium*), 100 MG ORAL THREE TIMES A DAY, (Reported) Epoetin Mahesh (Procrit), 10,000 UNIT SUBQ 3XW, (Reported) Gabapentin (Neurontin), 300 MG ORAL TID, (Reported) Insulin Aspart (Novolog Flexpen), AC+HS, (Reported) Insulin Detemir (Levemir Flexpen), 20 UNITS SUBQ DAILY, (Reported) Meropenem (Merrem), 1 GM IV DAILY, (Reported) Polyethylene Glycol 3350* (Polyethylene Glycol 3350*), 17 GM ORAL BEDTIME, ( Reported) Sevelamer Carbonate (Renvela), 2,400 MG ORAL THREE TIMES A DAY, (Reported) Sevelamer Carbonate* (Renvela*), 1,600 MG ORAL THREE TIMES A DAY, (Reported) Vancomycin Hcl/D5w (Vancomycin-D5w 1 G/250 Ml), 1.25 GM IVPB Q24H, (Reported) Scheduled PRN Insulin Aspart (Novolog), 1 SQ for sliding scale, (Reported) Sennosides (Senna), 8.6 MG PO BEDTIME PRN for prn, (Reported) Miscellaneous Medications Meropenem (Merrem), 1 EA IV, (Reported) Patient History Healthcare decision maker Resuscitation status Full Code Advanced Directive on File No Past Medical/Surgical History Past Medical/Surgical History: (1) ESRD (end stage renal disease) on dialysis (2) Gangrene of left foot (3) Anemia (4) severe diabetic sensory motor polyneuropathy (5) HTN (hypertension) (6) Diabetes mellitus, type II (7) CAD (coronary artery disease) (8) Diabetic foot ulcer (9) Arrhythmia Review of Systems All Other Systems: negative except mentioned in HPI Physical Exam General Appearance: WD/WN Lines, tubes and drains: peripheral HEENT: normocephalic, atraumatic Neck: non-tender, normal alignment Respiratory/Chest: chest wall non-tender, lungs clear, normal breath sounds Breasts: no masses Cardiovascular/Chest: normal peripheral pulses Abdomen: normal bowel sounds, non tender Genitourinary/Rectal: normal genital exam, heme negative stool Extremities: other - clean dressing on both lower extremitites. both bellow knee amputation Last 24 Hour Vital Signs Date Time Temp Pulse Resp B/P (MAP) Pulse Ox O2 Delivery O2 Flow Rate FiO2 02/04/18 08:00 98.3 76 20 125/72 98 98.3 76 02/04/18 04:00 95 Room Air 02/04/18 04:00 97.4 75 24 100/76 95 97.4 02/04/18 02:30 99 Room Air 02/04/18 02:23 98.0 89 18 121/84 99 Room Air 98.0 02/04/18 02:22 97.2 85 16 110/80 100 Room Air 97.2 02/03/18 22:34 97.2 02/03/18 22:33 97.2 85 16 110/80 100 Room Air 97.2 02/03/18 22:04 97.2 02/03/18 21:40 97.2 78 22 95/65 100 Room Air 97.2 Intake and Output 02/03/18 02/04/18 19:00 07:00 Intake Total 0 ml Output Total 400 ml Balance -400 ml Intake Oral 0 ml Output Urine Total 400 ml Laboratory Tests Test 02/03/18 22:15 02/03/18 22:50 02/04/18 07:15 White Blood Count 10.7 K/UL (4.8-10.8) Red Blood Count 4.82 M/UL (4.70-6.10) Hemoglobin 14.7 G/DL (14.2-18.0) Hematocrit 45.4 % (42.0-52.0) Mean Corpuscular Volume 94 FL (80-99) Mean Corpuscular Hemoglobin 30.5 PG (27.0-31.0) Mean Corpuscular Hemoglobin Concent 32.4 G/DL (32.0-36.0) Red Cell Distribution Width 14.6 % (11.6-14.8) Platelet Count 276 K/UL (150-450) Mean Platelet Volume 8.0 FL (6.5-10.1) Neutrophils (%) (Auto) 69.1 % (45.0-75.0) Lymphocytes (%) (Auto) 16.3 % (20.0-45.0) L Monocytes (%) (Auto) 11.8 % (1.0-10.0) H Eosinophils (%) (Auto) 1.1 % (0.0-3.0) Basophils (%) (Auto) 1.6 % (0.0-2.0) Prothrombin Time 10.1 SEC (9.30-11.50) Prothromb Time International Ratio 1.0 (0.9-1.1) Activated Partial Thromboplast Time 27 SEC (23-33) Sodium Level 132 MMOL/L (136-145) L Potassium Level 4.6 MMOL/L (3.5-5.1) Chloride Level 96 MMOL/L (98-107) L Carbon Dioxide Level 26 MMOL/L (21-32) Anion Gap 10 mmol/L (5-15) Blood Urea Nitrogen 28 mg/dL (7-18) H Creatinine 6.5 MG/DL (0.55-1.30) H Estimat Glomerular Filtration Rate 10.9 mL/min (>60) Glucose Level 132 MG/DL (74-106) H Lactic Acid Level 2.40 mmol/L (0.4-2.0) H Calcium Level 9.2 MG/DL (8.5-10.1) Total Bilirubin 0.5 MG/DL (0.2-1.0) Aspartate Amino Transf (AST/SGOT) 19 U/L (15-37) Alanine Aminotransferase (ALT/SGPT) 18 U/L (12-78) Alkaline Phosphatase 108 U/L (46-116) Total Creatine Kinase 74 U/L (26-308) Troponin I 0.018 ng/mL (0.000-0.056) Pro-B-Type Natriuretic Peptide 41542 pg/mL (0-125) H Total Protein 9.5 G/DL (6.4-8.2) H Albumin 3.0 G/DL (3.4-5.0) L Globulin 6.5 g/dL Albumin/Globulin Ratio 0.5 (1.0-2.7) L Lipase 157 U/L (73-393) Urine Color Yellow Urine Appearance Very cloudy Urine pH 6.5 (4.5-8.0) Urine Specific [place] 1.015 (1.005-1.035) Urine Protein 4+ (NEGATIVE) H Urine Glucose (UA) Negative (NEGATIVE) Urine Ketones Negative (NEGATIVE) Urine Occult Blood 5+ (NEGATIVE) H Urine Nitrite Positive (NEGATIVE) H Urine Bilirubin Negative (NEGATIVE) Urine Urobilinogen Normal MG/DL (0.0-1.0) Urine Leukocyte Esterase 3+ (NEGATIVE) H Urine RBC 20-30 /HPF (0 - 0) H Urine WBC 5-10 /HPF (0 - 0) H Urine Squamous Epithelial Cells None /LPF (NONE/OCC) Urine Bacteria Many /HPF (NONE) H Hemoglobin A1c 6.9 % (4.3-6.0) H Microbiology Date/Time Source Procedure Growth Status 02/03/18 22:50 Urine,Clean Catch Urine Culture - Preliminary NO GROWTH Resulted Height (Feet): 6 Height (Inches): 7.00 Weight (Pounds): 275 Medications Current Medications Medications (Trade) Dose Ordered Sig/Georges Route PRN Reason Start Time Stop Time Status Last Admin Dose Admin Acetaminophen (Tylenol) 650 mg Q4H PRN ORAL Mild Pain/Temp > 100.5 02/04/18 06:45 03/06/18 06:44 Amiodarone HCl (Cordarone) 200 mg DAILY ORAL 02/04/18 09:00 03/06/18 08:59 02/04/18 08:36 Aspirin (ASA) 81 mg DAILY ORAL 02/04/18 09:00 03/06/18 08:59 02/04/18 08:36 Atorvastatin Calcium (Lipitor) 40 mg BEDTIME ORAL 02/04/18 21:00 03/06/18 20:59 Ceftriaxone Sodium 1 gm/ Sodium Chloride 55 ml @ 110 mls/hr Q24H IVPB 02/05/18 02:00 02/12/18 01:59 Dextrose (Dextrose 50%) 25 ml STAT PRN IV Hypoglycemia 02/04/18 06:45 03/06/18 06:44 Dextrose (Dextrose 50%) 50 ml STAT PRN IV Hypoglycemia 02/04/18 06:45 03/06/18 06:44 Docusate Sodium (Colace) 100 mg THREE TIMES A DAY ORAL 02/04/18 09:00 03/06/18 08:59 02/04/18 08:36 Gabapentin (Neurontin) 100 mg TID ORAL 02/04/18 09:00 03/06/18 08:59 02/04/18 08:36 Heparin Sodium (Porcine) (Heparin 5000 units/ml) 5,000 units EVERY 12 HOURS SUBQ 02/04/18 09:00 03/06/18 08:59 02/04/18 08:43 Insulin Aspart (NovoLOG) BEFORE MEALS AND HS SUBQ 02/04/18 11:30 03/06/18 11:29 Morphine Sulfate (Morphine Sulfate) 2 mg Q4H PRN IVP Moderate Pain (Pain Scale 4-6) 02/04/18 06:45 02/11/18 06:44 Morphine Sulfate (Morphine Sulfate) 4 mg Q4H PRN IVP Severe Pain (Pain Scale 7-10) 02/04/18 06:45 02/11/18 06:44 02/04/18 08:33 Ondansetron HCl (Zofran) 4 mg Q4H PRN IVP Nausea & Vomiting 02/04/18 06:45 03/06/18 06:44 Sennosides (Senokot) 1 tab BEDTIME ORAL 02/04/18 21:00 03/06/18 20:59 Sevelamer Carbonate (Renvela) 2,400 mg TID ORAL 02/04/18 09:00 03/06/18 08:59 02/04/18 08:36 Assessment/Plan Problem List: (1) UTI (urinary tract infection) ICD Codes: N39.0 - Urinary tract infection, site not specified SNOMED: 71859858 (2) Sepsis ICD Codes: A41.9 - Sepsis, unspecified organism SNOMED: 56513588 (3) ESRF (end stage renal failure) ICD Codes: N18.6 - End stage renal disease SNOMED: 32892918 (4) Diabetes mellitus ICD Codes: E11.9 - Type 2 diabetes mellitus without complications SNOMED: 41388148 (5) CAD (coronary artery disease) ICD Codes: I25.10 - Atherosclerotic heart disease of [place] coronary artery without angina pectoris SNOMED: 69713037 (6) Arrhythmia ICD Codes: I49.9 - Cardiac arrhythmia, unspecified SNOMED: 214964592 (7) HTN (hypertension) ICD Codes: I10 - Essential (primary) hypertension SNOMED: 28676701 Assessment/Plan lorenzo culture broad spectrum abx [employer] Set Up Operator, Dr. Wild called for HD sliding scale diabetic diet Dr. Garland surgeon called for wound care Vanessa Chauhan MD Feb 04, 2018 11:53
[2018-02-04 12:00] VITALS: BP 124/77
--- NOTE | 2018-02-04 12:04 | Diagnostic Imaging Report ---
Indication: Shortness of breath Technique: One view of the chest Comparison: none Findings: Lungs and pleural spaces are clear. Heart size is normal Impression: No acute process
[2018-02-04 16:00] VITALS: BP 104/50
--- NOTE | 2018-02-04 16:05 | Consultation ---
History of Present Illness General Date patient seen: Feb 04, 2018 Chief Complaint: Male Urogenital Problems Present Illness HPI 52 year old male well known to me from prior admission, surgery, and office visits. states he recently developed abdominal discomfort that became worse acutely and required medical evaluation so he came to ED. states pain sharp suprapubic pain. on evaluation in ED was noted to have UTI and was admitted for care and management. on admission was noted to have right leg wounds and left AKA stump wound. surgery called to evaluate. patient seen, chart reviewed , patient examined Allergies: Coded Allergies: No Known Allergies (Unverified , 09/27/17) Medication History Scheduled Amiodarone Hcl (Amiodarone Hcl), 200 MG ORAL BID, (Reported) Aspirin (Aspirin), 81 MG PO DAILY, (Reported) Atorvastatin (Lipitor), 40 MG ORAL BEDTIME, (Reported) Cinacalcet Hcl (Sensipar), 60 MG PO DAILY, (Reported) Clopidogrel Bisulfate (Clopidogrel Bisulfate), 75 GM PO DAILY, (Reported) Docusate Sodium* (Docusate Sodium*), 100 MG ORAL THREE TIMES A DAY, (Reported) Epoetin Mahesh (Procrit), 10,000 UNIT SUBQ 3XW, (Reported) Gabapentin (Neurontin), 300 MG ORAL TID, (Reported) Insulin Aspart (Novolog Flexpen), AC+HS, (Reported) Insulin Detemir (Levemir Flexpen), 20 UNITS SUBQ DAILY, (Reported) Meropenem (Merrem), 1 GM IV DAILY, (Reported) Polyethylene Glycol 3350* (Polyethylene Glycol 3350*), 17 GM ORAL BEDTIME, ( Reported) Sevelamer Carbonate (Renvela), 2,400 MG ORAL THREE TIMES A DAY, (Reported) Sevelamer Carbonate* (Renvela*), 1,600 MG ORAL THREE TIMES A DAY, (Reported) Vancomycin Hcl/D5w (Vancomycin-D5w 1 G/250 Ml), 1.25 GM IVPB Q24H, (Reported) Scheduled PRN Insulin Aspart (Novolog), 1 SQ for sliding scale, (Reported) Sennosides (Senna), 8.6 MG PO BEDTIME PRN for prn, (Reported) Miscellaneous Medications Meropenem (Merrem), 1 EA IV, (Reported) Patient History History Provided By: Patient, Medical Record, PMD Healthcare decision maker Resuscitation status Full Code Advanced Directive on File No Past Medical/Surgical History Past Medical/Surgical History: (1) Fever (2) Hypercholesteremia (3) Leukocytosis (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 (5) Anemia (6) Arrhythmia (7) CAD (coronary artery disease) (8) Diabetes mellitus, type II (9) HTN (hypertension) (10) Diabetic foot ulcer (11) Gangrene of left foot (12) severe diabetic sensory motor polyneuropathy (13) Diabetes mellitus (14) Sepsis (15) ESRF (end stage renal failure) (16) UTI (urinary tract infection) (17) ESRD (end stage renal disease) on dialysis (18) Elevated lactic acid level Review of Systems Constitutional: Denies: no symptoms, see HPI, chills, sweats, fever, malaise, weakness, other Eye: Denies: no symptoms, see HPI, eye pain, blurred vision, tearing, double vision, nose pain, nose congestion, acuity changes, discharge, other ENT: Denies: no symptoms, see HPI, ear pain, ear discharge, nose pain, nose congestion, throat pain, throat swelling, mouth pain, hearing loss, nasal discharge, other Respiratory: Denies: no symptoms, see HPI, cough, orthopnea, shortness of breath, stridor, wheezing, OBANDO, sputum, other Cardiovascular: Denies: no symptoms, see HPI, chest pain, edema, palpitations, syncope, PND, other Gastrointestinal: Reports: abdominal pain Genitourinary: Denies: no symptoms, see HPI, discharge, dysuria, frequency, hematuria, pain, retention, incontinence, urgency, vag bleed/dc, other Musculoskeletal: Denies: no symptoms, see HPI, back pain, gout, joint pain, joint swelling, muscle pain, muscle stiffness, other Skin: Denies: no symptoms, see HPI, rash, change in color, change in hair/nails , dryness, lesions, other Psychiatric: Denies: no symptoms, see HPI, prior hx, anxiety, depressed feelings, emotional problems, SI, HI, hallucinations, other Neurological: Denies: no symptoms, see HPI, headache, numbness, paresthesia, seizure, tingling, tremors, focal weakness, syncope, dizziness, other Endocrine: Denies: no symptoms, see HPI, excessive sweating, flushing, intolerance to temperature, increased thirst, increased urine, unexplained weight loss, other Hematologic/Lymphatic: Denies: no symptoms, see HPI, anemia, blood clots, easy bleeding, easy bruising, swollen glands, diathesis, other Physical Exam General Appearance: no apparent distress, alert Lines, tubes and drains: peripheral HEENT: normocephalic, atraumatic Neck: normal alignment Respiratory/Chest: normal breath sounds, no respiratory distress, no accessory muscle use Cardiovascular/Chest: regular rhythm Abdomen: soft, no organomegaly, no mass Extremities: normal range of motion Skin Exam: warm/dry, other - see photos Neurologic: alert, oriented x 3, responsive Last 24 Hour Vital Signs Date Time Temp Pulse Resp B/P (MAP) Pulse Ox O2 Delivery O2 Flow Rate FiO2 02/04/18 12:00 97.8 72 19 124/77 95 Room Air 97.8 02/04/18 08:01 Room Air 02/04/18 08:00 98.3 76 20 125/72 98 98.3 76 02/04/18 04:00 95 Room Air 02/04/18 04:00 97.4 75 24 100/76 95 97.4 02/04/18 02:30 99 Room Air 02/04/18 02:23 98.0 89 18 121/84 99 Room Air 98.0 02/04/18 02:22 97.2 85 16 110/80 100 Room Air 97.2 02/03/18 22:34 97.2 02/03/18 22:33 97.2 85 16 110/80 100 Room Air 97.2 02/03/18 22:04 97.2 02/03/18 21:40 97.2 78 22 95/65 100 Room Air 97.2 Intake and Output 02/03/18 02/04/18 19:00 07:00 Intake Total 0 ml Output Total 400 ml Balance -400 ml Intake Oral 0 ml Output Urine Total 400 ml Laboratory Tests Test 02/03/18 22:15 02/03/18 22:50 02/04/18 07:15 White Blood Count 10.7 K/UL (4.8-10.8) Red Blood Count 4.82 M/UL (4.70-6.10) Hemoglobin 14.7 G/DL (14.2-18.0) Hematocrit 45.4 % (42.0-52.0) Mean Corpuscular Volume 94 FL (80-99) Mean Corpuscular Hemoglobin 30.5 PG (27.0-31.0) Mean Corpuscular Hemoglobin Concent 32.4 G/DL (32.0-36.0) Red Cell Distribution Width 14.6 % (11.6-14.8) Platelet Count 276 K/UL (150-450) Mean Platelet Volume 8.0 FL (6.5-10.1) Neutrophils (%) (Auto) 69.1 % (45.0-75.0) Lymphocytes (%) (Auto) 16.3 % (20.0-45.0) L Monocytes (%) (Auto) 11.8 % (1.0-10.0) H Eosinophils (%) (Auto) 1.1 % (0.0-3.0) Basophils (%) (Auto) 1.6 % (0.0-2.0) Prothrombin Time 10.1 SEC (9.30-11.50) Prothromb Time International Ratio 1.0 (0.9-1.1) Activated Partial Thromboplast Time 27 SEC (23-33) Sodium Level 132 MMOL/L (136-145) L Potassium Level 4.6 MMOL/L (3.5-5.1) Chloride Level 96 MMOL/L (98-107) L Carbon Dioxide Level 26 MMOL/L (21-32) Anion Gap 10 mmol/L (5-15) Blood Urea Nitrogen 28 mg/dL (7-18) H Creatinine 6.5 MG/DL (0.55-1.30) H Estimat Glomerular Filtration Rate 10.9 mL/min (>60) Glucose Level 132 MG/DL (74-106) H Lactic Acid Level 2.40 mmol/L (0.4-2.0) H Calcium Level 9.2 MG/DL (8.5-10.1) Total Bilirubin 0.5 MG/DL (0.2-1.0) Aspartate Amino Transf (AST/SGOT) 19 U/L (15-37) Alanine Aminotransferase (ALT/SGPT) 18 U/L (12-78) Alkaline Phosphatase 108 U/L (46-116) Total Creatine Kinase 74 U/L (26-308) Troponin I 0.018 ng/mL (0.000-0.056) Pro-B-Type Natriuretic Peptide 95092 pg/mL (0-125) H Total Protein 9.5 G/DL (6.4-8.2) H Albumin 3.0 G/DL (3.4-5.0) L Globulin 6.5 g/dL Albumin/Globulin Ratio 0.5 (1.0-2.7) L Lipase 157 U/L (73-393) Urine Color Yellow Urine Appearance Very cloudy Urine pH 6.5 (4.5-8.0) Urine Specific [place] 1.015 (1.005-1.035) Urine Protein 4+ (NEGATIVE) H Urine Glucose (UA) Negative (NEGATIVE) Urine Ketones Negative (NEGATIVE) Urine Occult Blood 5+ (NEGATIVE) H Urine Nitrite Positive (NEGATIVE) H Urine Bilirubin Negative (NEGATIVE) Urine Urobilinogen Normal MG/DL (0.0-1.0) Urine Leukocyte Esterase 3+ (NEGATIVE) H Urine RBC 20-30 /HPF (0 - 0) H Urine WBC 5-10 /HPF (0 - 0) H Urine Squamous Epithelial Cells None /LPF (NONE/OCC) Urine Bacteria Many /HPF (NONE) H Hemoglobin A1c 6.9 % (4.3-6.0) H Microbiology Date/Time Source Procedure Growth Status 02/03/18 22:50 Urine,Clean Catch Urine Culture - Preliminary NO GROWTH Resulted Height (Feet): 6 Height (Inches): 7.00 Weight (Pounds): 275 Medications Current Medications Medications (Trade) Dose Ordered Sig/Georges Route PRN Reason Start Time Stop Time Status Last Admin Dose Admin Acetaminophen (Tylenol) 650 mg Q4H PRN ORAL Mild Pain/Temp > 100.5 02/04/18 06:45 03/06/18 06:44 Amiodarone HCl (Cordarone) 200 mg DAILY ORAL 02/04/18 09:00 03/06/18 08:59 02/04/18 08:36 Aspirin (ASA) 81 mg DAILY ORAL 02/04/18 09:00 03/06/18 08:59 02/04/18 08:36 Atorvastatin Calcium (Lipitor) 40 mg BEDTIME ORAL 02/04/18 21:00 03/06/18 20:59 Ceftriaxone Sodium 1 gm/ Sodium Chloride 55 ml @ 110 mls/hr Q24H IVPB 02/05/18 02:00 02/12/18 01:59 Dextrose (Dextrose 50%) 25 ml STAT PRN IV Hypoglycemia 02/04/18 06:45 03/06/18 06:44 Dextrose (Dextrose 50%) 50 ml STAT PRN IV Hypoglycemia 02/04/18 06:45 03/06/18 06:44 Docusate Sodium (Colace) 100 mg THREE TIMES A DAY ORAL 02/04/18 09:00 03/06/18 08:59 02/04/18 12:47 Gabapentin (Neurontin) 100 mg TID ORAL 02/04/18 09:00 03/06/18 08:59 02/04/18 12:47 Heparin Sodium (Porcine) (Heparin 5000 units/ml) 5,000 units EVERY 12 HOURS SUBQ 02/04/18 09:00 03/06/18 08:59 02/04/18 08:43 Insulin Aspart (NovoLOG) BEFORE MEALS AND HS SUBQ 02/04/18 11:30 03/06/18 11:29 Morphine Sulfate (Morphine Sulfate) 2 mg Q4H PRN IVP Moderate Pain (Pain Scale 4-6) 02/04/18 06:45 02/11/18 06:44 Morphine Sulfate (Morphine Sulfate) 4 mg Q4H PRN IVP Severe Pain (Pain Scale 7-10) 02/04/18 06:45 02/11/18 06:44 02/04/18 12:47 Ondansetron HCl (Zofran) 4 mg Q4H PRN IVP Nausea & Vomiting 02/04/18 06:45 03/06/18 06:44 Sennosides (Senokot) 1 tab BEDTIME ORAL 02/04/18 21:00 03/06/18 20:59 Sevelamer Carbonate (Renvela) 2,400 mg TID ORAL 02/04/18 09:00 03/06/18 08:59 02/04/18 12:47 Assessment/Plan Problem List: (1) UTI (urinary tract infection) Assessment & Plan: as per medical team. cont Abx ICD Codes: N39.0 - Urinary tract infection, site not specified SNOMED: 18152982 Qualifiers: Qualified Codes: N39.0 - Urinary tract infection, site not specified (2) Gangrene of left foot Assessment & Plan: s/p left AKA. had wound dehiscence prior which with good care has been improving since. only small area of superficial wound noted which is healing nicely -dry dressings to wound daily and prn ICD Codes: I96 - Gangrene, not elsewhere classified SNOMED: 11207059896264889 (3) Diabetic foot ulcer Assessment & Plan: right foot wounds with ischemia to toes, foot, and right leg wounds. 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 dry dressings, skin protectant, kerlix wrap prn ICD Codes: E11.621 - Type 2 diabetes mellitus with foot ulcer; L97.509 - Non- pressure chronic ulcer of other part of unspecified foot with unspecified severity SNOMED: 29260282, 793642012 Status: stable AdinLauro Feb 04, 2018 16:05
--- NOTE | 2018-02-04 16:10 | History & Physical ---
History and Physical History & Physicial Dictated for Int Med-Dr Montes no. [id number] Wilton Aburto MD Feb 04, 2018 16:10
--- NOTE | 2018-02-04 16:57 | Consultation ---
Consult Note Consult Note asked to eval for dialysis management- Know to me from his previous admission in Sep Patient presents with dysuria and bloatedness and suprapubic pain. He scraped his penis on his pants. There is a scab there. He states he has severe pain in the urethra. In the past this was caused by an UTI. He does not make urine at this time. He feels feverish but no chills. No back pain. He states that the bloated feeling occurred in the past with infections. Patient is diabetic and controlled on oral medications. He stopped insulin after loosing 150 lbs and being on dialysis. ESRD - last dialysis this AM. Post cardiac arrest last May. Amputation of L lower leg from infected diabetic ulcer. He is being treated for an ulcer on the R lower leg and has a dressing. He denies increased pain in that area. He also has a chronic rash which he attributes to his diabetes. interviewed examined data reviewed Assessment/Plan ESRD on HD M W Fr - Sepsis ( UTI , High Lactate - Diabetic foot ulcer - Right lower extremity wounds, grossly they are not infected. - Left heel wound, left gangrene changes of the third, fourth and fifth toes, rule out osteomyelitis. - Arrhythmia - Diabetes mellitus - PVD previous echo: Mild global left ventricular hypokinesis. This study precludes full analysis of regional wall motion. Left ventricular ejection fraction estimated to be 5 %. Plan: Per ID HD in BREANN Contreras Feb 04, 2018 16:57
[2018-02-04] MEDS: Midodrine 10mg tab ORAL SCH (17:16)
[2018-02-04 20:00] VITALS: BP 121/75
[2018-02-04] MEDS: Atorvastatin 20mg tab ORAL SCH (20:29)
[2018-02-04] MEDS: Sennosides 8.6mg ORAL SCH (20:29)
--- NOTE | 2018-02-04 21:00 | History and Physical Report ---
DATE OF ADMISSION: 02/04/2018 CHIEF COMPLAINT: This is a 52-year-old male, who presents with a chief complaint of suprapubic pain and dysuria. HISTORY OF PRESENT ILLNESS: The patient has a history of end-stage renal disease. The patient currently undergoes dialysis every Thursday, Thursday, and Thursday. The patient's last dialysis was 02/03/2018. The patient states history of present illness began on 01/28/2018. The patient began to experience dysuria. The patient states he had "penile pain." The patient does not make urine. The patient presented to [place] emergency room. The patient was found to have suprapubic pain. The patient was also found to have urinary tract infection. The patient is admitted for urinary tract infection to rule out acute pyelonephritis. REVIEW OF SYSTEMS: CONSTITUTIONAL: The patient denies weight loss or weight gain. The patient denies fevers or chills. HEENT: The patient denies ear or throat pain. The patient denies headache. CARDIOVASCULAR: The patient denies palpitations or chest pain. CHEST: The patient denies wheeze or shortness of breath. ABDOMEN: The patient complains of suprapubic pain as above. The patient denies nausea, vomiting, diarrhea, or constipation. GENITOURINARY: The patient denies increased frequency of urination. The patient complains of dysuria. PAST MEDICAL HISTORY: Significant for, 1. Type 2 diabetes. 2. Diabetic peripheral neuropathy. 3. Coronary artery disease, status post myocardial infarction in 2016. 4. Status post cardiac arrest in May of 2017. 5. End-stage renal disease, on hemodialysis every Thursday, Thursday, and Thursday. The patient's last dialysis was 02/03/2018. 6. History of peripheral vascular disease. PAST SURGICAL HISTORY: Significant for, 1. Right arm arteriovenous graft for dialysis. 2. Bilateral femoral stent placement. 3. Left oteif-czl-sjkk amputation in September of 2017. CURRENT MEDICATIONS: 1. Amiodarone 200 mg one tab p.o. twice daily. 2. Aspirin 81 mg p.o. daily. 3. Lipitor 40 mg p.o. at bedtime. 4. Sensipar 60 mg p.o. daily. 5. Clopidogrel 75 mg p.o. daily. 6. Erythropoietin 10,000 units subcutaneously every Thursday, Thursday, and Thursday. 7. Neurontin 300 mg p.o. 3 times daily. 8. NovoLog sliding scale. 9. Levemir 20 units subcutaneously daily. 10. Renvela 2400 mg p.o. 3 times daily. ALLERGIES: No known drug allergies. SOCIAL HISTORY: The patient is single, however, is engaged. The patient is disabled. The patient denies tobacco or alcohol use. PHYSICAL EXAMINATION: VITAL SIGNS: Temperature 98, respirations 18, pulse 89, and blood pressure 121/84. GENERAL: The patient is a well-developed and well-nourished male, in no apparent distress. HEENT: Pupils equal and responsive to light and accommodation. Extraocular movements are intact. NECK: Supple without lymphadenopathy. CHEST: Lungs are clear to auscultation bilaterally without wheezes or rales. CARDIOVASCULAR: Regular rhythm and rate. S1 and S2 are normal without murmurs, rubs, or gallops. ABDOMEN: Soft and tender to palpation in the periumbilical region. Otherwise, without rebound or guarding. EXTREMITIES: The patient has a left mdrjk-yud-snft amputation. Otherwise, without clubbing, cyanosis, or edema. NEUROLOGIC: Cranial nerves II through XII are grossly intact without focal deficits. Motor strength is 5/5 bilaterally. Deep tendon reflexes are 2+ plantar. LABORATORY STUDIES: WBC 10.7, hemoglobin 14.7, hematocrit 45.4, and platelets 276,000. Sodium 132, potassium 4.6, chloride 96, CO2 26, BUN 28, creatinine 6.5, and glucose 132. BNP elevated at 12,078. Urinalysis showed 4+ protein, 5+ occult blood, nitrite positive with 3+ leukocyte esterase, and 5 to 10 wbc's. ASSESSMENT: This is a 52-year-old male. 1. Urinary tract infection. 2. Suprapubic pain. 3. Dysuria. 4. End-stage renal disease. 5. Diabetes type 2. 6. Peripheral neuropathy. 7. Coronary artery disease. 8. History of left ykxde-yal-tdrh amputation. TREATMENT: 1. Urinary tract infection/suprapubic pain. The patient has been started empirically on intravenous ceftriaxone. A urine culture and sensitivity are pending. We will follow recommendation of Infectious Disease. 2. Dysuria secondary to urinary tract infection as above. 3. End-stage renal disease. A Nephrology consultation has been obtained with Dr. Wild. The patient will require dialysis on 02/05/2018. 4. Diabetic peripheral neuropathy. 5. History of coronary artery disease. Continue Plavix and aspirin as above. 6. Left wuzvo-xmi-mmjl amputation. Wilton Aburto M.D. DR: BONIFACIO JOB#: [id number] CC:
[2018-02-05] VITALS (8 sets, daily range): BP systolic 83–140; BP diastolic 48–80
[2018-02-05] MEDS: cefTRIAXone 1 GM in NS 55 ML IVPB SCH (02:25)
[2018-02-05] MEDS: NovoLOG Insulin Flexpen SUBQ SCH ×4 (06:30→21:00)
[2018-02-05 07:26] LABS: BASOPHILS % (AUTO) 1.4 % (0.0-2.0); EOSINOPHILS % (AUTO) 1.8 % (0.0-3.0); HEMATOCRIT 44.3 % (42.0-52.0); HEMOGLOBIN 14.2 G/DL (14.2-18.0); MEAN CORPUSCULAR VOLUME 95 FL (80-99); MONOCYTES % (AUTO) 12.7 % (1.0-10.0); NEUTROPHILS % (AUTO) 71.1 % (45.0-75.0); PLATELET COUNT 293 K/UL (150-450); RED BLOOD COUNT 4.66 M/UL (4.70-6.10); RED CELL DISTRIBUTION WIDTH 14.5 % (11.6-14.8); WHITE BLOOD COUNT 10.4 K/UL (4.8-10.8)
[2018-02-05 08:06] LABS: ALANINE AMINOTRANSFERASE 15 U/L (12-78); ALBUMIN 2.7 G/DL (3.4-5.0); ALBUMIN/GLOBULIN RATIO 0.4 (1.0-2.7); ALKALINE PHOSPHATASE 75 U/L (46-116); ANION GAP 15 mmol/L (5-15); ASPARTATE AMINO TRANSFERASE 17 U/L (15-37); BILIRUBIN,TOTAL 0.4 MG/DL (0.2-1.0); BLOOD UREA NITROGEN 46 mg/dL (7-18); CALCIUM 9.5 MG/DL (8.5-10.1); CARBON DIOXIDE 24 MMOL/L (21-32); CHLORIDE 94 MMOL/L (98-107); CHOLESTEROL 120 MG/DL (< 200); CREATINE KINASE 52 U/L (26-308); CREATININE 9.4 MG/DL (0.55-1.30); GAMMA GLUTAMYL TRANSPEPTIDASE 86 U/L (5-85); HDL CHOLESTEROL 43 MG/DL (40-60); PHOSPHORUS 6.1 MG/DL (2.5-4.9); POTASSIUM 5.7 MMOL/L (3.5-5.1); SODIUM 132 MMOL/L (136-145); TRIGLYCERIDES 53 MG/DL (30-150)
[2018-02-05] MEDS: Midodrine 10mg tab ORAL SCH ×4 (09:11→20:10)
[2018-02-05] MEDS: Aspirin Baby 81mg ORAL SCH (09:11)
[2018-02-05] MEDS: Docusate 100mg cap ORAL SCH ×3 (09:11→18:00)
[2018-02-05] MEDS: Amiodarone 200mg tab ORAL SCH (09:12)
[2018-02-05] MEDS: Heparin 5000 units/ml inj SUBQ SCH ×2 (09:13→20:21)
--- NOTE | 2018-02-05 12:29 | Pulmonology Progress Note ---
Assessment/Plan Problems: (1) UTI (urinary tract infection) (2) Sepsis (3) ESRF (end stage renal failure) (4) Diabetes mellitus (5) CAD (coronary artery disease) (6) Arrhythmia (7) HTN (hypertension) Assessment/Plan improving check cultures continue abx HD prn check electrolytes wound care wound cultures Subjective ROS Limited/Unobtainable: No Interval Events: feeling better Allergies: Coded Allergies: No Known Allergies (Unverified , 09/27/17) Objective Last 24 Hour Vital Signs Date Time Temp Pulse Resp B/P (MAP) Pulse Ox O2 Delivery O2 Flow Rate FiO2 02/05/18 12:00 97.5 66 19 117/60 100 97.5 02/05/18 08:00 97.3 69 19 121/66 96 97.3 02/05/18 04:00 98.1 80 18 140/80 96 98.1 02/05/18 00:53 98.2 77 17 115/66 95 98.2 02/04/18 20:00 98.1 73 17 121/75 98 98.1 02/04/18 16:00 97.8 86 20 104/50 98 97.8 Intake and Output 02/04/18 02/05/18 19:00 07:00 Intake Total 400 ml 1055 ml Output Total 1 ml Balance 400 ml 1054 ml Intake Oral 400 ml 1000 ml IV Total 55 ml Emesis 1 ml # Voids 2 General Appearance: WD/WN HEENT: normocephalic Respiratory/Chest: chest wall non-tender, lungs clear Cardiovascular: normal peripheral pulses, regular rhythm Abdomen: normal bowel sounds, soft, non tender Genitourinary: normal external genitalia Extremities: no clubbing Neurologic/Psychiatric: demand inspector II-XII grossly normal, no motor/sensory deficits Microbiology Date/Time Source Procedure Growth Status 02/03/18 22:20 Blood Blood Culture - Preliminary NO GROWTH AFTER 24 HOURS Resulted 02/03/18 22:15 Blood Blood Culture - Preliminary NO GROWTH AFTER 24 HOURS Resulted 02/03/18 22:50 Urine,Clean Catch Urine Culture - Preliminary NO GROWTH AFTER 24 HOURS Resulted Laboratory Tests 02/05/18 06:05: White Blood Count 10.4, Red Blood Count 4.66L, Hemoglobin 14.2, Hematocrit 44.3 , Mean Corpuscular Volume 95, Mean Corpuscular Hemoglobin 30.4, Mean Corpuscular Hemoglobin Concent 32.0, Red Cell Distribution Width 14.5, Platelet Count 293, Mean Platelet Volume 7.7, Neutrophils (%) (Auto) 71.1, Lymphocytes (% ) (Auto) 13.0L, Monocytes (%) (Auto) 12.7H, Eosinophils (%) (Auto) 1.8, Basophils (%) (Auto) 1.4, Sodium Level 132L, Potassium Level 5.7H, Chloride Level 94L, Carbon Dioxide Level 24, Anion Gap 15, Blood Urea Nitrogen 46H, Creatinine 9.4H, Estimat Glomerular Filtration Rate 7.2, Glucose Level 98, Uric Acid 5.6, Calcium Level 9.5, Phosphorus Level 6.1H, Magnesium Level 2.3, Total Bilirubin 0.4, Gamma Glutamyl Transpeptidase 86H, Aspartate Amino Transf (AST/ SGOT) 17, Alanine Aminotransferase (ALT/SGPT) 15, Alkaline Phosphatase 75, Total Creatine Kinase 52, Troponin I 0.028, Pro-B-Type Natriuretic Peptide 02781Y, Total Protein 9.9H, Albumin 2.7L, Globulin 7.2, Albumin/Globulin Ratio 0.4L, Triglycerides Level 53, Cholesterol Level 120, LDL Cholesterol 78, HDL Cholesterol 43, Cholesterol/HDL Ratio 2.8L, Thyroid Stimulating Hormone (TSH) 1.880 Current Medications Medications (Trade) Dose Ordered Sig/Georges Route PRN Reason Start Time Stop Time Status Last Admin Dose Admin Acetaminophen (Tylenol) 650 mg Q4H PRN ORAL Mild Pain/Temp > 100.5 02/04/18 06:45 03/06/18 06:44 Amiodarone HCl (Cordarone) 200 mg DAILY ORAL 02/04/18 09:00 03/06/18 08:59 02/05/18 09:12 Aspirin (ASA) 81 mg DAILY ORAL 02/04/18 09:00 03/06/18 08:59 02/05/18 09:11 Atorvastatin Calcium (Lipitor) 40 mg BEDTIME ORAL 02/04/18 21:00 03/06/18 20:59 02/04/18 20:29 Ceftriaxone Sodium 1 gm/ Sodium Chloride 55 ml @ 110 mls/hr Q24H IVPB 02/05/18 02:00 02/12/18 01:59 02/05/18 02:25 Dextrose (Dextrose 50%) 25 ml STAT PRN IV Hypoglycemia 02/04/18 06:45 03/06/18 06:44 Dextrose (Dextrose 50%) 50 ml STAT PRN IV Hypoglycemia 02/04/18 06:45 03/06/18 06:44 Docusate Sodium (Colace) 100 mg THREE TIMES A DAY ORAL 02/04/18 09:00 03/06/18 08:59 02/05/18 09:11 Gabapentin (Neurontin) 100 mg TID ORAL 02/04/18 09:00 03/06/18 08:59 02/05/18 09:12 Heparin Sodium (Porcine) (Heparin 5000 units/ml) 5,000 units EVERY 12 HOURS SUBQ 02/04/18 09:00 03/06/18 08:59 02/05/18 09:13 Insulin Aspart (NovoLOG) BEFORE MEALS AND HS SUBQ 02/04/18 11:30 03/06/18 11:29 Midodrine (Pro-Amatine) 10 mg THREE TIMES A DAY ORAL 02/04/18 18:00 03/06/18 17:59 02/05/18 09:11 Morphine Sulfate (Morphine Sulfate) 2 mg Q4H PRN IVP Moderate Pain (Pain Scale 4-6) 02/04/18 06:45 02/11/18 06:44 Morphine Sulfate (Morphine Sulfate) 4 mg Q4H PRN IVP Severe Pain (Pain Scale 7-10) 02/04/18 06:45 02/11/18 06:44 02/04/18 22:11 Ondansetron HCl (Zofran) 4 mg Q4H PRN IVP Nausea & Vomiting 02/04/18 06:45 03/06/18 06:44 02/05/18 09:31 Sennosides (Senokot) 1 tab BEDTIME ORAL 02/04/18 21:00 03/06/18 20:59 02/04/18 20:29 Sevelamer Carbonate (Renvela) 2,400 mg TID ORAL 02/04/18 09:00 03/06/18 08:59 02/05/18 09:12 Temazepam (Restoril) 15 mg HSPRN PRN ORAL Insomnia 02/05/18 00:30 02/12/18 00:29 Vanessa Chauhan MD Feb 05, 2018 12:29
[2018-02-05] MEDS: Morphine Sulfate 4mg/ml Inj IVP PRN (14:21)
--- NOTE | 2018-02-05 15:00 | General Surgery Progress Note ---
General Surgery-Progress Note Subjective Symptoms: improved, tolerating diet, passing flatus, BM Additional Comments pain improved. no n/v/f/c. labs okay. Objective Last 24 Hour Vital Signs Date Time Temp Pulse Resp B/P (MAP) Pulse Ox O2 Delivery O2 Flow Rate FiO2 02/05/18 12:00 97.5 66 19 117/60 100 97.5 02/05/18 08:00 97.3 69 19 121/66 96 97.3 02/05/18 04:00 98.1 80 18 140/80 96 98.1 02/05/18 00:53 98.2 77 17 115/66 95 98.2 02/04/18 20:00 98.1 73 17 121/75 98 98.1 02/04/18 16:00 97.8 86 20 104/50 98 97.8 I&O Intake and Output 02/04/18 02/05/18 19:00 07:00 Intake Total 400 ml 1055 ml Output Total 1 ml Balance 400 ml 1054 ml Intake Oral 400 ml 1000 ml IV Total 55 ml Emesis 1 ml # Voids 2 Dressing: dry Wound: clean, dry Drains: none Cardiovascular: RSR Respiratory: clear Abdomen: soft, flat, non-tender, present bowel sounds Extremities: no edema, no tenderness Laboratory Tests Test 02/05/18 06:05 White Blood Count 10.4 K/UL (4.8-10.8) Red Blood Count 4.66 M/UL (4.70-6.10) L Hemoglobin 14.2 G/DL (14.2-18.0) Hematocrit 44.3 % (42.0-52.0) Mean Corpuscular Volume 95 FL (80-99) Mean Corpuscular Hemoglobin 30.4 PG (27.0-31.0) Mean Corpuscular Hemoglobin Concent 32.0 G/DL (32.0-36.0) Red Cell Distribution Width 14.5 % (11.6-14.8) Platelet Count 293 K/UL (150-450) Mean Platelet Volume 7.7 FL (6.5-10.1) Neutrophils (%) (Auto) 71.1 % (45.0-75.0) Lymphocytes (%) (Auto) 13.0 % (20.0-45.0) L Monocytes (%) (Auto) 12.7 % (1.0-10.0) H Eosinophils (%) (Auto) 1.8 % (0.0-3.0) Basophils (%) (Auto) 1.4 % (0.0-2.0) Sodium Level 132 MMOL/L (136-145) L Potassium Level 5.7 MMOL/L (3.5-5.1) H Chloride Level 94 MMOL/L (98-107) L Carbon Dioxide Level 24 MMOL/L (21-32) Anion Gap 15 mmol/L (5-15) Blood Urea Nitrogen 46 mg/dL (7-18) H Creatinine 9.4 MG/DL (0.55-1.30) H Estimat Glomerular Filtration Rate 7.2 mL/min (>60) Glucose Level 98 MG/DL (74-106) Uric Acid 5.6 MG/DL (2.6-7.2) Calcium Level 9.5 MG/DL (8.5-10.1) Phosphorus Level 6.1 MG/DL (2.5-4.9) H Magnesium Level 2.3 MG/DL (1.8-2.4) Total Bilirubin 0.4 MG/DL (0.2-1.0) Gamma Glutamyl Transpeptidase 86 U/L (5-85) H Aspartate Amino Transf (AST/SGOT) 17 U/L (15-37) Alanine Aminotransferase (ALT/SGPT) 15 U/L (12-78) Alkaline Phosphatase 75 U/L (46-116) Total Creatine Kinase 52 U/L (26-308) Troponin I 0.028 ng/mL (0.000-0.056) Pro-B-Type Natriuretic Peptide 05034 pg/mL (0-125) H Total Protein 9.9 G/DL (6.4-8.2) H Albumin 2.7 G/DL (3.4-5.0) L Globulin 7.2 g/dL Albumin/Globulin Ratio 0.4 (1.0-2.7) L Triglycerides Level 53 MG/DL (30-150) Cholesterol Level 120 MG/DL (< 200) LDL Cholesterol 78 mg/dL (<100) HDL Cholesterol 43 MG/DL (40-60) Cholesterol/HDL Ratio 2.8 (3.3-4.4) L Thyroid Stimulating Hormone (TSH) 1.880 uiU/mL (0.358-3.740) Plan Problems: (1) UTI (urinary tract infection) Assessment & Plan: as per medical team. cont Abx (2) Gangrene of left foot Assessment & Plan: s/p left AKA. had wound dehiscence prior which with good care has been improving since. only small area of superficial wound noted which is healing nicely -dry dressings to wound daily and prn (3) Diabetic foot ulcer Assessment & Plan: right foot wounds with ischemia to toes, foot, and right leg wounds. patient states that wound care for right leg has been performed by his outside manager academic and that he would prefer to cont with right leg/foot wound with him. dry dressings, skin protectant, kerlix wrap prn Lauro Oakley Feb 05, 2018 15:00
--- NOTE | 2018-02-05 16:10 | Nephrology Progress Note ---
Assessment/Plan Problem List: (1) ESRD (end stage renal disease) on dialysis (2) HTN (hypertension) (3) Diabetes mellitus, type II Assessment ESRD on HD M W Fr - Sepsis ( UTI , High Lactate - Diabetic foot ulcer - Right lower extremity wounds, grossly they are not infected. - Left heel wound, left gangrene changes of the third, fourth and fifth toes, rule out osteomyelitis. - Arrhythmia - Diabetes mellitus - PVD previous echo: Mild global left ventricular hypokinesis. This study precludes full analysis of regional wall motion. Left ventricular ejection fraction estimated to be 5 %. Plan Per ID HD today monitor lytes adjust meds as needed per orders Subjective ROS Limited/Unobtainable: No Constitutional: Reports: malaise Objective Objective Last 24 Hour Vital Signs Date Time Temp Pulse Resp B/P (MAP) Pulse Ox O2 Delivery O2 Flow Rate FiO2 02/05/18 15:58 96.8 78 19 112/72 98 96.8 02/05/18 12:00 97.5 66 19 117/60 100 97.5 02/05/18 08:00 97.3 69 19 121/66 96 97.3 02/05/18 04:00 98.1 80 18 140/80 96 98.1 02/05/18 00:53 98.2 77 17 115/66 95 98.2 02/04/18 20:00 98.1 73 17 121/75 98 98.1 Intake and Output 02/04/18 02/05/18 19:00 07:00 Intake Total 400 ml 1055 ml Output Total 1 ml Balance 400 ml 1054 ml Intake Oral 400 ml 1000 ml IV Total 55 ml Emesis 1 ml # Voids 2 Laboratory Tests 02/05/18 06:05: White Blood Count 10.4, Red Blood Count 4.66L, Hemoglobin 14.2, Hematocrit 44.3 , Mean Corpuscular Volume 95, Mean Corpuscular Hemoglobin 30.4, Mean Corpuscular Hemoglobin Concent 32.0, Red Cell Distribution Width 14.5, Platelet Count 293, Mean Platelet Volume 7.7, Neutrophils (%) (Auto) 71.1, Lymphocytes (% ) (Auto) 13.0L, Monocytes (%) (Auto) 12.7H, Eosinophils (%) (Auto) 1.8, Basophils (%) (Auto) 1.4, Sodium Level 132L, Potassium Level 5.7H, Chloride Level 94L, Carbon Dioxide Level 24, Anion Gap 15, Blood Urea Nitrogen 46H, Creatinine 9.4H, Estimat Glomerular Filtration Rate 7.2, Glucose Level 98, Uric Acid 5.6, Calcium Level 9.5, Phosphorus Level 6.1H, Magnesium Level 2.3, Total Bilirubin 0.4, Gamma Glutamyl Transpeptidase 86H, Aspartate Amino Transf (AST/ SGOT) 17, Alanine Aminotransferase (ALT/SGPT) 15, Alkaline Phosphatase 75, Total Creatine Kinase 52, Troponin I 0.028, Pro-B-Type Natriuretic Peptide 54759M, Total Protein 9.9H, Albumin 2.7L, Globulin 7.2, Albumin/Globulin Ratio 0.4L, Triglycerides Level 53, Cholesterol Level 120, LDL Cholesterol 78, HDL Cholesterol 43, Cholesterol/HDL Ratio 2.8L, Thyroid Stimulating Hormone (TSH) 1.880 Height (Feet): 6 Height (Inches): 7.00 Weight (Pounds): 275 General Appearance: no apparent distress Cardiovascular: normal rate Abdomen: soft BREANN STEEL Feb 05, 2018 16:10
--- NOTE | 2018-02-05 19:17 | Internal Med Progress Note ---
Subjective Date of Service: Feb 05, 2018 Physician Name Wilton Aburto Attending Physician Efraín Montes MD Current Medications Medications (Trade) Dose Ordered Sig/Georges Route PRN Reason Start Time Stop Time Status Last Admin Dose Admin Acetaminophen (Tylenol) 650 mg Q4H PRN ORAL Mild Pain/Temp > 100.5 02/04/18 06:45 03/06/18 06:44 Amiodarone HCl (Cordarone) 200 mg DAILY ORAL 02/04/18 09:00 03/06/18 08:59 02/05/18 09:12 Aspirin (ASA) 81 mg DAILY ORAL 02/04/18 09:00 03/06/18 08:59 02/05/18 09:11 Atorvastatin Calcium (Lipitor) 40 mg BEDTIME ORAL 02/04/18 21:00 03/06/18 20:59 02/04/18 20:29 Ceftriaxone Sodium 1 gm/ Sodium Chloride 55 ml @ 110 mls/hr Q24H IVPB 02/05/18 02:00 02/12/18 01:59 02/05/18 02:25 Dextrose (Dextrose 50%) 25 ml STAT PRN IV Hypoglycemia 02/04/18 06:45 03/06/18 06:44 Dextrose (Dextrose 50%) 50 ml STAT PRN IV Hypoglycemia 02/04/18 06:45 03/06/18 06:44 Docusate Sodium (Colace) 100 mg THREE TIMES A DAY ORAL 02/04/18 09:00 03/06/18 08:59 02/05/18 09:11 Gabapentin (Neurontin) 100 mg TID ORAL 02/04/18 09:00 03/06/18 08:59 02/05/18 18:25 Heparin Sodium (Porcine) (Heparin 5000 units/ml) 5,000 units EVERY 12 HOURS SUBQ 02/04/18 09:00 03/06/18 08:59 02/05/18 09:13 Insulin Aspart (NovoLOG) BEFORE MEALS AND HS SUBQ 02/04/18 11:30 03/06/18 11:29 Midodrine (Pro-Amatine) 10 mg THREE TIMES A DAY ORAL 02/04/18 18:00 03/06/18 17:59 02/05/18 18:24 Morphine Sulfate (Morphine Sulfate) 2 mg Q4H PRN IVP Moderate Pain (Pain Scale 4-6) 02/04/18 06:45 6/28/18 06:44 Morphine Sulfate (Morphine Sulfate) 4 mg Q4H PRN IVP Severe Pain (Pain Scale 7-10) 02/04/18 06:45 02/11/18 06:44 02/05/18 14:21 Ondansetron HCl (Zofran) 4 mg Q4H PRN IVP Nausea & Vomiting 02/04/18 06:45 03/06/18 06:44 02/05/18 14:21 Sennosides (Senokot) 1 tab BEDTIME ORAL 02/04/18 21:00 03/06/18 20:59 02/04/18 20:29 Sevelamer Carbonate (Renvela) 2,400 mg TID ORAL 02/04/18 09:00 03/06/18 08:59 02/05/18 18:24 Temazepam (Restoril) 15 mg HSPRN PRN ORAL Insomnia 02/05/18 00:30 02/12/18 00:29 Allergies: Coded Allergies: No Known Allergies (Unverified , 09/27/17) ROS Limited/Unobtainable: No Constitutional: Reports: no symptoms HEENT: Reports: no symptoms Cardiovascular: Reports: no symptoms Respiratory: Reports: no symptoms Gastrointestinal/Abdominal: Reports: abdominal pain Genitourinary: Reports: no symptoms Neurologic/Psychiatric: Reports: no symptoms Subjective 52 YO M admitted with suprapubic pain. Now UTI. Cover for Int Stephen-Dr Montes. Objective Last Vital Signs Date Time Temp Pulse Resp B/P (MAP) Pulse Ox O2 Delivery O2 Flow Rate FiO2 02/05/18 15:58 96.8 78 19 112/72 98 96.8 02/04/18 12:00 Room Air General Appearance: WD/WN, no apparent distress, alert EENT: PERRL/EOMI, normal ENT inspection Neck: non-tender, normal alignment, supple, normal inspection Cardiovascular: normal peripheral pulses, normal rate, regular rhythm, no gallop/murmur, no JVD Respiratory/Chest: chest wall non-tender, lungs clear, normal breath sounds, no respiratory distress, no accessory muscle use Abdomen: normal bowel sounds, non tender, soft, no organomegaly, no mass Extremities: normal inspection, other - left BKA 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, no motor/sensory deficits Skin: normal pigmentation, warm/dry Laboratory Tests Test 02/05/18 06:05 White Blood Count 10.4 K/UL (4.8-10.8) Red Blood Count 4.66 M/UL (4.70-6.10) L Hemoglobin 14.2 G/DL (14.2-18.0) Hematocrit 44.3 % (42.0-52.0) Mean Corpuscular Volume 95 FL (80-99) Mean Corpuscular Hemoglobin 30.4 PG (27.0-31.0) Mean Corpuscular Hemoglobin Concent 32.0 G/DL (32.0-36.0) Red Cell Distribution Width 14.5 % (11.6-14.8) Platelet Count 293 K/UL (150-450) Mean Platelet Volume 7.7 FL (6.5-10.1) Neutrophils (%) (Auto) 71.1 % (45.0-75.0) Lymphocytes (%) (Auto) 13.0 % (20.0-45.0) L Monocytes (%) (Auto) 12.7 % (1.0-10.0) H Eosinophils (%) (Auto) 1.8 % (0.0-3.0) Basophils (%) (Auto) 1.4 % (0.0-2.0) Sodium Level 132 MMOL/L (136-145) L Potassium Level 5.7 MMOL/L (3.5-5.1) H Chloride Level 94 MMOL/L (98-107) L Carbon Dioxide Level 24 MMOL/L (21-32) Anion Gap 15 mmol/L (5-15) Blood Urea Nitrogen 46 mg/dL (7-18) H Creatinine 9.4 MG/DL (0.55-1.30) H Estimat Glomerular Filtration Rate 7.2 mL/min (>60) Glucose Level 98 MG/DL (74-106) Uric Acid 5.6 MG/DL (2.6-7.2) Calcium Level 9.5 MG/DL (8.5-10.1) Phosphorus Level 6.1 MG/DL (2.5-4.9) H Magnesium Level 2.3 MG/DL (1.8-2.4) Total Bilirubin 0.4 MG/DL (0.2-1.0) Gamma Glutamyl Transpeptidase 86 U/L (5-85) H Aspartate Amino Transf (AST/SGOT) 17 U/L (15-37) Alanine Aminotransferase (ALT/SGPT) 15 U/L (12-78) Alkaline Phosphatase 75 U/L (46-116) Total Creatine Kinase 52 U/L (26-308) Troponin I 0.028 ng/mL (0.000-0.056) Pro-B-Type Natriuretic Peptide 63613 pg/mL (0-125) H Total Protein 9.9 G/DL (6.4-8.2) H Albumin 2.7 G/DL (3.4-5.0) L Globulin 7.2 g/dL Albumin/Globulin Ratio 0.4 (1.0-2.7) L Triglycerides Level 53 MG/DL (30-150) Cholesterol Level 120 MG/DL (< 200) LDL Cholesterol 78 mg/dL (<100) HDL Cholesterol 43 MG/DL (40-60) Cholesterol/HDL Ratio 2.8 (3.3-4.4) L Thyroid Stimulating Hormone (TSH) 1.880 uiU/mL (0.358-3.740) Microbiology Date/Time Source Procedure Growth Status 02/03/18 22:20 Blood Blood Culture - Preliminary NO GROWTH AFTER 24 HOURS Resulted 02/03/18 22:15 Blood Blood Culture - Preliminary NO GROWTH AFTER 24 HOURS Resulted 02/03/18 22:50 Urine,Clean Catch Urine Culture - Preliminary NO GROWTH AFTER 24 HOURS Resulted Intake and Output 02/04/18 02/05/18 19:00 07:00 Intake Total 400 ml 1055 ml Output Total 1 ml Balance 400 ml 1054 ml Intake Oral 400 ml 1000 ml IV Total 55 ml Emesis 1 ml # Voids 2 Assessment/Plan Problem List: (1) ESRD (end stage renal disease) on dialysis Assessment & Plan: Followed by nephrology - hemodialysis today. (2) Dysuria (3) Suprapubic pain, acute (4) UTI (urinary tract infection) Assessment & Plan: Urine culture=no growth. Continue ceftriaxone (5) Diabetic foot ulcer Assessment & Plan: Await podiatry consult. See surgery note. (6) severe diabetic sensory motor polyneuropathy (7) CAD (coronary artery disease) (8) HTN (hypertension) (9) Diabetes mellitus, type II Assessment & Plan: Continue novolog sliding scale. (10) Hypercholesteremia Assessment & Plan: continue lipitor Status: not improved Wilton Aburto MD Feb 05, 2018 19:17
[2018-02-05] MEDS: Sennosides 8.6mg ORAL SCH (20:17)
[2018-02-05] MEDS: Atorvastatin 20mg tab ORAL SCH (20:18)
[2018-02-06] MEDS: Morphine Sulfate 2mg/ml Inj IVP PRN ×2 (00:59→14:39)
[2018-02-06] MEDS: cefTRIAXone 1 GM in NS 55 ML IVPB SCH (01:53)
[2018-02-06 04:41] VITALS: BP 102/48
[2018-02-06] MEDS: NovoLOG Insulin Flexpen SUBQ SCH ×4 (06:30→20:42)
[2018-02-06 07:36] LABS: ANION GAP 12 mmol/L (5-15); BLOOD UREA NITROGEN 47 mg/dL (7-18); CARBON DIOXIDE 28 MMOL/L (21-32); CHLORIDE 97 MMOL/L (98-107); CREATININE 8.9 MG/DL (0.55-1.30); POTASSIUM 5.2 MMOL/L (3.5-5.1); SODIUM 137 MMOL/L (136-145)
[2018-02-06 07:57] LABS: BASOPHILS % (AUTO) 0.8 % (0.0-2.0); EOSINOPHILS % (AUTO) 1.7 % (0.0-3.0); HEMATOCRIT 44.9 % (42.0-52.0); HEMOGLOBIN 14.1 G/DL (14.2-18.0); LYMPHOCYTES % (AUTO) 14.1 % (20.0-45.0); MEAN CORPUSCULAR VOLUME 95 FL (80-99); MONOCYTES % (AUTO) 13.1 % (1.0-10.0); NEUTROPHILS % (AUTO) 70.3 % (45.0-75.0); PLATELET COUNT 297 K/UL (150-450); RED BLOOD COUNT 4.73 M/UL (4.70-6.10); RED CELL DISTRIBUTION WIDTH 14.6 % (11.6-14.8); WHITE BLOOD COUNT 10.2 K/UL (4.8-10.8)
[2018-02-06 08:00] VITALS: BP 129/67
[2018-02-06] MEDS: Docusate 100mg cap ORAL SCH ×3 (08:38→17:12)
[2018-02-06] MEDS: Midodrine 10mg tab ORAL SCH ×3 (08:38→18:17)
[2018-02-06] MEDS: Amiodarone 200mg tab ORAL SCH (08:38)
[2018-02-06] MEDS: Aspirin Baby 81mg ORAL SCH (08:38)
[2018-02-06] MEDS: Heparin 5000 units/ml inj SUBQ SCH ×2 (08:41→20:41)
[2018-02-06] MEDS ORDERED: Sodium Polystyrene Sulfonate 15gm Powder ORAL SCH (10:00)
--- NOTE | 2018-02-06 10:07 | Nephrology Progress Note ---
Assessment/Plan Problem List: (1) ESRD (end stage renal disease) on dialysis (2) HTN (hypertension) (3) Diabetes mellitus, type II Assessment ESRD on HD M W Fr - Sepsis ( UTI , High Lactate - Diabetic foot ulcer - Right lower extremity wounds, grossly they are not infected. - Left heel wound, left gangrene changes of the third, fourth and fifth toes, rule out osteomyelitis. - Arrhythmia - Diabetes mellitus - PVD previous echo: Mild global left ventricular hypokinesis. This study precludes full analysis of regional wall motion. Left ventricular ejection fraction estimated to be 5 %. Plan Per ID HD 02/05 next 02/08 PRN Kayexelate for high K monitor lytes adjust meds as needed per orders Subjective ROS Limited/Unobtainable: No Objective Objective Last 24 Hour Vital Signs Date Time Temp Pulse Resp B/P (MAP) Pulse Ox O2 Delivery O2 Flow Rate FiO2 02/06/18 08:00 98.4 63 20 129/67 98 Room Air 98.4 02/06/18 04:41 98.4 71 19 102/48 97 Room Air 98.4 02/05/18 22:53 Room Air 02/05/18 22:52 98.2 74 20 120/63 Room Air 98.2 02/05/18 20:00 97.5 78 20 115/48 99 97.5 02/05/18 18:20 Room Air 02/05/18 18:20 97.8 58 13 83/53 Room Air 97.8 02/05/18 15:58 96.8 78 19 112/72 98 96.8 02/05/18 12:00 97.5 66 19 117/60 100 97.5 Intake and Output 02/05/18 02/06/18 19:00 07:00 Intake Total 900 ml 555 ml Output Total 1800 ml 1600 ml Balance -900 ml -1045 ml Intake Oral 900 ml 500 ml IV Total 55 ml Output Urine Total 1800 ml 0 ml Hemodialysis UF 1600 ml Laboratory Tests 02/06/18 06:31: White Blood Count 10.2, Red Blood Count 4.73, Hemoglobin 14.1L, Hematocrit 44.9 , Mean Corpuscular Volume 95, Mean Corpuscular Hemoglobin 29.7, Mean Corpuscular Hemoglobin Concent 31.3L, Red Cell Distribution Width 14.6, Platelet Count 297, Mean Platelet Volume 8.0, Neutrophils (%) (Auto) 70.3, Lymphocytes (%) (Auto) 14.1L, Monocytes (%) (Auto) 13.1H, Eosinophils (%) (Auto ) 1.7, Basophils (%) (Auto) 0.8, Sodium Level 137, Potassium Level 5.2H, Chloride Level 97L, Carbon Dioxide Level 28, Anion Gap 12, Blood Urea Nitrogen 47H, Creatinine 8.9H, Estimat Glomerular Filtration Rate 7.6, Glucose Level 122H , Calcium Level 10.0 Height (Feet): 6 Height (Inches): 7.00 Weight (Pounds): 275 General Appearance: no apparent distress BREANN STEEL Feb 06, 2018 10:07
[2018-02-06 12:00] VITALS: BP 142/87
[2018-02-06 16:00] VITALS: BP 126/65
[2018-02-06] MEDS ORDERED: Tubing IV Secondary IV ONE (16:31)
[2018-02-06] MEDS ORDERED: NS 275ml ONE (16:31)
--- NOTE | 2018-02-06 18:25 | Internal Med Progress Note ---
Subjective Date of Service: Feb 06, 2018 Physician Name Wilton Aburto Attending Physician Efraín Montes MD Current Medications Medications (Trade) Dose Ordered Sig/Georges Route PRN Reason Start Time Stop Time Status Last Admin Dose Admin Acetaminophen (Tylenol) 650 mg Q4H PRN ORAL Mild Pain/Temp > 100.5 02/04/18 06:45 03/06/18 06:44 Amiodarone HCl (Cordarone) 200 mg DAILY ORAL 02/04/18 09:00 03/06/18 08:59 02/06/18 08:38 Aspirin (ASA) 81 mg DAILY ORAL 02/04/18 09:00 03/06/18 08:59 02/06/18 08:38 Atorvastatin Calcium (Lipitor) 40 mg BEDTIME ORAL 02/04/18 21:00 03/06/18 20:59 02/05/18 20:18 Ceftriaxone Sodium 1 gm/ Sodium Chloride 55 ml @ 110 mls/hr Q24H IVPB 02/05/18 02:00 02/12/18 01:59 02/06/18 01:53 Dextrose (Dextrose 50%) 25 ml STAT PRN IV Hypoglycemia 02/04/18 06:45 03/06/18 06:44 Dextrose (Dextrose 50%) 50 ml STAT PRN IV Hypoglycemia 02/04/18 06:45 03/06/18 06:44 Docusate Sodium (Colace) 100 mg THREE TIMES A DAY ORAL 02/04/18 09:00 03/06/18 08:59 02/06/18 17:12 Gabapentin (Neurontin) 100 mg TID ORAL 02/04/18 09:00 03/06/18 08:59 02/06/18 17:13 Heparin Sodium (Porcine) (Heparin 5000 units/ml) 5,000 units EVERY 12 HOURS SUBQ 02/04/18 09:00 03/06/18 08:59 02/06/18 08:41 Insulin Aspart (NovoLOG) BEFORE MEALS AND HS SUBQ 02/04/18 11:30 03/06/18 11:29 02/06/18 17:16 Midodrine (Pro-Amatine) 10 mg THREE TIMES A DAY ORAL 02/04/18 18:00 03/06/18 17:59 02/06/18 18:17 Morphine Sulfate (Morphine Sulfate) 2 mg Q4H PRN IVP Moderate Pain (Pain Scale 4-6) 02/04/18 06:45 02/11/18 06:44 02/06/18 14:39 Morphine Sulfate (Morphine Sulfate) 4 mg Q4H PRN IVP Severe Pain (Pain Scale 7-10) 02/04/18 06:45 02/11/18 06:44 02/05/18 14:21 Ondansetron HCl (Zofran) 4 mg Q4H PRN IVP Nausea & Vomiting 02/04/18 06:45 03/06/18 06:44 02/06/18 14:37 Sennosides (Senokot) 1 tab BEDTIME ORAL 02/04/18 21:00 03/06/18 20:59 02/05/18 20:17 Sevelamer Carbonate (Renvela) 2,400 mg TID ORAL 02/04/18 09:00 03/06/18 08:59 02/06/18 17:13 Temazepam (Restoril) 15 mg HSPRN PRN ORAL Insomnia 02/05/18 00:30 02/12/18 00:29 02/06/18 00:58 Allergies: Coded Allergies: No Known Allergies (Unverified , 09/27/17) ROS Limited/Unobtainable: No Constitutional: Reports: no symptoms HEENT: Reports: no symptoms Cardiovascular: Reports: no symptoms Respiratory: Reports: no symptoms Gastrointestinal/Abdominal: Reports: abdominal pain Genitourinary: Reports: no symptoms Neurologic/Psychiatric: Reports: no symptoms Subjective 52 YO M admitted with suprapubic pain. Now UTI. Cover for Int Med-Dr Montes. Objective Last Vital Signs Date Time Temp Pulse Resp B/P (MAP) Pulse Ox O2 Delivery O2 Flow Rate FiO2 02/06/18 16:00 97.6 65 20 126/65 99 Room Air 97.6 Laboratory Tests Test 02/06/18 06:31 White Blood Count 10.2 K/UL (4.8-10.8) Red Blood Count 4.73 M/UL (4.70-6.10) Hemoglobin 14.1 G/DL (14.2-18.0) L Hematocrit 44.9 % (42.0-52.0) Mean Corpuscular Volume 95 FL (80-99) Mean Corpuscular Hemoglobin 29.7 PG (27.0-31.0) Mean Corpuscular Hemoglobin Concent 31.3 G/DL (32.0-36.0) L Red Cell Distribution Width 14.6 % (11.6-14.8) Platelet Count 297 K/UL (150-450) Mean Platelet Volume 8.0 FL (6.5-10.1) Neutrophils (%) (Auto) 70.3 % (45.0-75.0) Lymphocytes (%) (Auto) 14.1 % (20.0-45.0) L Monocytes (%) (Auto) 13.1 % (1.0-10.0) H Eosinophils (%) (Auto) 1.7 % (0.0-3.0) Basophils (%) (Auto) 0.8 % (0.0-2.0) Sodium Level 137 MMOL/L (136-145) Potassium Level 5.2 MMOL/L (3.5-5.1) H Chloride Level 97 MMOL/L (98-107) L Carbon Dioxide Level 28 MMOL/L (21-32) Anion Gap 12 mmol/L (5-15) Blood Urea Nitrogen 47 mg/dL (7-18) H Creatinine 8.9 MG/DL (0.55-1.30) H Estimat Glomerular Filtration Rate 7.6 mL/min (>60) Glucose Level 122 MG/DL (74-106) H Calcium Level 10.0 MG/DL (8.5-10.1) Microbiology Date/Time Source Procedure Growth Status 02/03/18 22:20 Blood Blood Culture - Preliminary NO GROWTH AFTER 48 HOURS Resulted 02/03/18 22:15 Blood Blood Culture - Preliminary NO GROWTH AFTER 48 HOURS Resulted 02/03/18 22:50 Urine,Clean Catch Urine Culture - Final NO GROWTH AFTER 48 HOURS Complete Intake and Output 02/05/18 02/06/18 19:00 07:00 Intake Total 900 ml 555 ml Output Total 1800 ml 1600 ml Balance -900 ml -1045 ml Intake Oral 900 ml 500 ml IV Total 55 ml Output Urine Total 1800 ml 0 ml Hemodialysis UF 1600 ml Objective General Appearance: WD/WN, no apparent distress, alert EENT: PERRL/EOMI, normal ENT inspection Neck: non-tender, normal alignment, supple, normal inspection Cardiovascular: normal peripheral pulses, normal rate, regular rhythm, no gallop/murmur, no JVD Respiratory/Chest: chest wall non-tender, lungs clear, normal breath sounds, no respiratory distress, no accessory muscle use Abdomen: normal bowel sounds, non tender, soft, no organomegaly, no mass Extremities: normal inspection, other - left BKA 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 Continue ceftriaxone (5) Diabetic foot ulcer Assessment & Plan: Await podiatry consult. See surgery note. (6) severe diabetic sensory motor polyneuropathy (7) CAD (coronary artery disease) (8) HTN (hypertension) (9) Diabetes mellitus, type II Assessment & Plan: Continue novolog sliding scale. (10) Hypercholesteremia Assessment & Plan: continue lipitor Status: progressing Wilton Aburto MD Feb 06, 2018 18:25
[2018-02-06 20:00] VITALS: BP 100/66
[2018-02-06] MEDS: Sennosides 8.6mg ORAL SCH (20:40)
[2018-02-06] MEDS: Atorvastatin 20mg tab ORAL SCH (20:41)
[2018-02-07] VITALS: BP 102/61
[2018-02-07] MEDS: cefTRIAXone 1 GM in NS 55 ML IVPB SCH (01:14)
[2018-02-07 04:00] VITALS: BP 130/80
[2018-02-07] MEDS: NovoLOG Insulin Flexpen SUBQ SCH (06:05)
[2018-02-07 07:12] LABS: BASOPHILS % (AUTO) 1.2 % (0.0-2.0); EOSINOPHILS % (AUTO) 1.3 % (0.0-3.0); HEMATOCRIT 44.2 % (42.0-52.0); HEMOGLOBIN 14.2 G/DL (14.2-18.0); LYMPHOCYTES % (AUTO) 14.2 % (20.0-45.0); MEAN CORPUSCULAR VOLUME 93 FL (80-99); MONOCYTES % (AUTO) 11.2 % (1.0-10.0); NEUTROPHILS % (AUTO) 72.1 % (45.0-75.0); PLATELET COUNT 280 K/UL (150-450); RED BLOOD COUNT 4.72 M/UL (4.70-6.10); RED CELL DISTRIBUTION WIDTH 14.6 % (11.6-14.8); WHITE BLOOD COUNT 11.4 K/UL (4.8-10.8)
[2018-02-07 07:23] LABS: ANION GAP 12 mmol/L (5-15); BLOOD UREA NITROGEN 62 mg/dL (7-18); CALCIUM 9.5 MG/DL (8.5-10.1); CARBON DIOXIDE 28 MMOL/L (21-32); CHLORIDE 97 MMOL/L (98-107); CREATININE 10.8 MG/DL (0.55-1.30); POTASSIUM 5.6 MMOL/L (3.5-5.1); SODIUM 137 MMOL/L (136-145)
[2018-02-07 08:00] VITALS: BP 119/71
[2018-02-07] MEDS: Aspirin Baby 81mg ORAL SCH (08:12)
[2018-02-07] MEDS: Docusate 100mg cap ORAL SCH (08:13)
[2018-02-07] MEDS: Midodrine 10mg tab ORAL SCH (08:13)
[2018-02-07] MEDS: Amiodarone 200mg tab ORAL SCH (08:15)
[2018-02-07] MEDS: Heparin 5000 units/ml inj SUBQ SCH (08:16)
--- NOTE | 2018-02-08 08:47 | Discharge Summary ---
Discharge Summary Discharge Summary _ DATE OF ADMISSION: 02/04/2018 DATE OF DISCHARGE: 02/07/2018 REASON FOR ADMISSION: 52 years old male with a past medical history significant for end-stage renal disease, on hemodialysis, recent left BKA, hypertension, diabetes, came to ED for evaluation. He was found to have urinary tract infection. No leukocytosis ,stable hemoglobin and hematocrit , troponin negative. EKG revealed no acute ischemic changes Renal parameters with BUN 28 , creatinine 6.5 were consistent with known history of end-stage renal disease. Lactic acid 2.4. Chest x-ray was negative for acute cardiopulmonary pathology Abdominal x-ray was negative for acute intra-abdominal pathology Patient admitted with diagnoses of probable sepsis, urinary tract infection, lactic acidosis, end-stage renal disease, diabetes mellitus , peripheral vascular disease with history of left BKA coronary artery disease. CONSULTANTS: pulmonary Dr. Chauhan neurosurgery physician Dr. Wild surgery Dr. Oakley [facility] COURSE: Patient admitted. Nephrology consult was requested. Patient was started on hemodialysis with close monitoring of renal parameters and electrolytes. Nephrotoxins were avoided. Patient started on empiric antibiotics. Blood culture were negative, urine culture were negative. Surgery consult was requested. Patient had wound dehiscence prior , which with good care had been improving . Only small area of superficial wound noted which was healing nicely Wound care provided as per surgeon's recommendation Patient also had diabetes foot ulcer on the right foot Right foot wound with ischemia to toes, foot, and right leg wounds. Patient stated that wound care for right leg had been performed by his outside lathe sander and that he would prefer to continue with right leg/foot wound with him. Blood sugar was managed with sliding scale of insulin. Blood pressure was supported with Midodrine. Supportive care provided DVT prophylaxis provided Statin was continued Pain management was addressed Bowel regimen instituted Wound care provided Patient was improving and was stable for discharge back home. 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 DISCHARGE INSTRUCTIONS: Patient was discharged home. Follow up with outpatient hemodialysis. Follow up with primary care provider next week. I have been assigned to dictate discharge summary for this account. I was not involved in the patient's management. Sapna Carrera NP Feb 08, 2018 08:47
== END 2018-02-07 09:00 | disposition home or self-care (01) | DRG 871 ==
LOC: EMR 22:00 → EDBEDREQ 02-04 00:01 → 4W 02-04 00:16 → EDBEDREQ 02-04 00:21
PROC: 5A1D70Z Performance of Urinary Filtration, Intermittent, Less than 6 Hours Per Day (ICD-10-PCS; principal; 2018-02-05)
DX: A41.9 Sepsis, unspecified organism (principal); N18.6 End stage renal disease; N39.0 Urinary tract infection, site not specified; I12.0 Hypertensive chronic kidney disease with stage 5 chronic kidney disease or end stage renal disease; Z99.2 Dependence on renal dialysis; I25.10 Atherosclerotic heart disease of native coronary artery without angina pectoris; I25.2 Old myocardial infarction; E11.42 Type 2 diabetes mellitus with diabetic polyneuropathy; I73.9 Peripheral vascular disease, unspecified; E11.621 Type 2 diabetes mellitus with foot ulcer; E11.22 Type 2 diabetes mellitus with diabetic chronic kidney disease; Z79.4 Long term (current) use of insulin; E78.00 Pure hypercholesterolemia, unspecified
CPT/HCPCS: 36415; 71045; 74018; 80048; 80053; 80061; 81003; 82550; 82962; 82977; 83036; 83605; 83690; 83735; 83880; 84100; 84443; 84484; 84550; 85025; 85610; 85730; 86140; 87040; 87081; 87086; 93005; 99285; J1815; J2405